=== PATIENT | male | born 2005 | race Caucasian/White ===

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

== ENCOUNTER 2025-01-07 12:57 | Emergency (ER) | payer MEDICAID, SELFPAY ==
[2025-01-07 12:57] VITALS: BP 129/84; PULSE 81; RESP 18; TEMP 36.4; O2SAT 99; BMI 28.4
[2025-01-07 13:57] VITALS: BP 128/78; PULSE 78; RESP 18; O2SAT 98
--- NOTE | 2025-01-07 13:59 | EDS_ITS ---
HPI HPI - Psych History of Present Illness Chief Complaint: Suicidal Informant: patient and family Narrative Narrative: Patient is a 19-year-old male with history of anxiety, depression and prior suicide attempt with hanging 4 to 5 years ago. He is presenting today at the recommendation of outpatient counseling, Billy, for psychiatric evaluation. Grandfather states that he had him evaluated they recommend he come to the ER. He acted like he had been seen today but when we called they stated that the patient was seen on Tuesday. Patient was discharged from [facility] after being in for 3 years 1 week ago. Patient has had a harder time adjusting since being discharged. He states I do not think I can make it. When asked if he would kill himself he gives a vague answer but does make a comment of he have thoughts that lead up to it. He also notes today he is just feeling generally weak, has a headache and his leg hurts. States that she started a couple hours ago. Also notes that he had trouble with his job placement officer today when he was found to be on the social media site is not supposed to be on. He has his first probation meeting at 3 PM today. That did seem to trigger him and make things worse. No other complaints or concerns reported at this time. Patient denies any HI, auditory visual hallucinations. [facility] Medical History Anxiety Club foot of both lower extremities Depression Home Medications ?Medication ?Instructions ?Recorded ?Last Taken ?Type aripiprazole 5 mg tablet 10 mg PO DAILY 09/09/20 Unkn own History benztropine 0.5 mg tablet 0.5 mg PO BID 05/16/21 Unkno wn History cetirizine 10 mg tablet 10 mg PO DAILY 05/16/21 Unkn own History bupropion HCl 75 mg tablet 75 mg PO DAILY 11/24/21 Unk nown History guanfacine 1 mg tablet 1 mg PO BID 11/24/21 Unknown History lamotrigine 25 mg tablet 25 mg PO BID 11/24/21 Unknow n History promethazine 25 mg tablet 25 mg PO Q6H PRN nausea and 11/24/21 Unknown Rx vomiting #14 tabs trazodone 100 mg tablet 100 mg PO DAILY 11/24/21 Unk nown History Allergy/AdvReac Type Severity Reaction Status Date / Time No Known Allergies Allergy Verified 01/07/25 12:57 Social History Smoking Status: Never smoker substance use type: does not use EXAM Physical Exam Const Vital Signs: 01/07/25 12:57 Temperature 97.6 F L Temperature Source Temporal Pulse Rate 81 Respiratory Rate 18 Blood Pressure 129/84 H Blood Pressure Mean 99 Pulse Ox 99 Oxygen Delivery Method Room Air Discharge Plan Triage Chief Complaint: Suicidal ED Provider: Spring Fragoso Dx/Rx/DC Orders Prescriptions: No Action bupropion HCl 75 mg tablet 75 mg PO DAILY trazodone 100 mg tablet 100 mg PO DAILY lamotrigine 25 mg tablet 25 mg PO BID guanfacine 1 mg tablet 1 mg PO BID promethazine 25 mg tablet 25 mg PO Q6H PRN (Reason: nausea and vomiting) Qty: 14 0RF aripiprazole 5 MG tablet 10 mg PO DAILY benztropine [Cogentin] 0.5 mg Tablet 0.5 mg PO BID cetirizine 10 mg Tablet 10 mg PO DAILY Primary Care Provider: Care Physician,No Primary Referrals: Care Physician,No Primary [Primary Care Provider] - Print Language: Irish
--- NOTE | 2025-01-07 13:59 | EX.ED.VIS.PS ---
HPI HPI - Psych History of Present Illness Chief Complaint: Suicidal Informant: patient and family Narrative Narrative: Patient is a 19-year-old male with history of anxiety, depression and prior suicide attempt with hanging 4 to 5 years ago. He is presenting today at the recommendation of outpatient counseling, Billy, for psychiatric evaluation. Grandfather states that he had him evaluated they recommend he come to the ER. He acted like he had been seen today but when we called they stated that the patient was seen on Tuesday. Patient was discharged from [facility] after being in for 3 years 1 week ago. Patient has had a harder time adjusting since being discharged. He states I do not think I can make it. When asked if he would kill himself he gives a vague answer but does make a comment of he have thoughts that lead up to it. He also notes today he is just feeling generally weak, has a headache and his leg hurts. States that she started a couple hours ago. Also notes that he had trouble with his gifts officer today when he was found to be on the social media site is not supposed to be on. He has his first probation meeting at 3 PM today. That did seem to trigger him and make things worse. No other complaints or concerns reported at this time. Patient denies any HI, auditory visual hallucinations. [facility] Medical History Anxiety Club foot of both lower extremities Depression Home Medications ?Medication ?Instructions ?Recorded ?Last Taken ?Type aripiprazole 5 mg tablet 10 mg PO DAILY 09/09/20 Unknown History benztropine 0.5 mg tablet 0.5 mg PO BID 05/16/21 Unknown History cetirizine 10 mg tablet 10 mg PO DAILY 05/16/21 Unknown History bupropion HCl 75 mg tablet 75 mg PO DAILY 11/24/21 Unknown History guanfacine 1 mg tablet 1 mg PO BID 11/24/21 Unknown History lamotrigine 25 mg tablet 25 mg PO BID 11/24/21 Unknown History promethazine 25 mg tablet 25 mg PO Q6H PRN nausea and 11/24/21 Unknown Rx vomiting #14 tabs trazodone 100 mg tablet 100 mg PO DAILY 11/24/21 Unknown History Allergy/AdvReac Type Severity Reaction Status Date / Time No Known Allergies Allergy Verified 01/07/25 12:57 Social History (Updated 01/07/25 @ 14:05 by Ramona Mills) household members: spouse and family housing: house Smoking Status: Never smoker substance use type: does not use ROS ROS ED Constitutional Constitutional ED: Reports other Details: fatigue Cardiovascular Cardiovascular: Denies chest pain Respiratory/Chest Respiratory/Chest: Denies cough Gastrointestinal Gastrointestinal: Denies abdominal pain or vomiting Musculoskeletal Musculoskeletal: Reports myalgias Integumentary Denies rash Neurologic Neurologic: Denies headache(s) or weakness Psychiatric Psychiatric: Reports anxiety, depression, suicidal ideation and suicidal thoughts EXAM Physical Exam Const Vital Signs: 01/07/25 12:57 01/07/25 13:57 Temperature 97.6 F L Temperature Source Temporal Pulse Rate 81 78 Respiratory Rate 18 18 Blood Pressure 129/84 H 128/78 H Blood Pressure Mean 99 94 Pulse Ox 99 98 Oxygen Delivery Method Room Air Positive well nourished and well developed General Appearance ED: well developed and NAD HEENT Reports moist mucous membranes Eyes PERRL Neck supple Resp normal respiratory effort and clear to auscultation bilaterally Cardio no murmurs Rate: regular rate Rhythm: regular rhythm GI non-tender and non-distended Extremity normal to inspection Neuro oriented x3 Sensorium / Orientation: alert Motor Exam: muscle tone normal throughout Psych cooperative Appearance: grossly normal Attitude: calm and withdrawn Activity / Motor Behavior: appropriate eye contact Speech: minimal Mood & Affect: depressed Thought Process: normal thought process Thought Content: suicidality, No delusion(s) and No hallucination(s) Attention / Concentration: attention grossly intact and concentration grossly intact Memory / Cognition: memory grossly intact Insight: fair Judgement: limited Skin Lesions: no lesions Rashes: no rashes MDM MDM MDM Narrative Medical decision making narrative: Patient evaluated for concern for depression and suicidal ideation. Patient and his grandfather do not feel safe with him at home. They are interested in psychiatric placement. Patient was just recently released from juvenile corrections and cellulitis had a hard time reintegrating. Medical clearance obtained. Patient is some slight polycythemia but otherwise lab work appears normal. Is medically cleared. Is evaluated by social work who does agree the patient bed from inpatient admission. Waiting on placement at this time. Patient reportedly has been prescribed multiple psychiatric medications in but has taken himself off of them. He is currently on any medications. Lab Data Attestation: I reviewed the patient's lab results. Labs: Laboratory Results - last 24 hr 01/07/25 01/07/25 13:16 13:45 WBC 7.6 RBC 6.49 H Hgb 18.3 H* Hct 53.9 MCV 83.1 MCH 28.2 MCHC 34.0 RDW Std Deviation 39.2 RDW Coeff of Aury 13.1 Plt Count 208 MPV 11.6 Immature Gran % (Auto) 0.400 Neut % (Auto) 63.9 Lymph % (Auto) 22.7 [place] % (Auto) 10.3 H Eos % (Auto) 2.0 Baso % (Auto) 0.7 Absolute Neuts (auto) 4.9 Absolute Lymphs (auto) 1.72 Nucleated RBC % 0 Sodium 138 Potassium 3.9 Chloride 101 Carbon Dioxide 25.1 Anion Gap 13 BUN 15 Creatinine 1.17 Estim Creat Clear Calc 118.10 Est GFR (MDRD) Non-Af 92 BUN/Creatinine Ratio 12.7 Glucose 90 Calcium 9.8 Total Bilirubin 0.58 AST 35 ALT 41 Alkaline Phosphatase 135 H Total Protein 7.8 Albumin 4.5 Globulin 3.2 Albumin/Globulin Ratio 1.4 Urine Opiates Screen NEGATIVE U Buprenorphine Qual NEGATIVE Ur Oxycodone Screen NEGATIVE Urine Methadone Screen NEGATIVE Urine Fentanyl Screen NEGATIVE Ur Barbiturates Screen NEGATIVE Ur Phencyclidine Scrn NEGATIVE Ur Amphetamines Screen NEGATIVE U Benzodiazepines Scrn NEGATIVE Urine Cocaine Screen NEGATIVE U Cannabinoids Screen NEGATIVE Ethyl Alcohol < 10.1 Management Discussion w/another healthcare provider: body shop worker/Case management Discharge Plan Triage Chief Complaint: Suicidal ED Provider: Spring Fragoso Dx/Rx/DC Orders Clinical Impression: Depression with suicidal ideation Prescriptions: No Action bupropion HCl 75 mg tablet 75 mg PO DAILY trazodone 100 mg tablet 100 mg PO DAILY lamotrigine 25 mg tablet 25 mg PO BID guanfacine 1 mg tablet 1 mg PO BID promethazine 25 mg tablet 25 mg PO Q6H PRN (Reason: nausea and vomiting) Qty: 14 0RF aripiprazole 5 MG tablet 10 mg PO DAILY benztropine [Cogentin] 0.5 mg Tablet 0.5 mg PO BID cetirizine 10 mg Tablet 10 mg PO DAILY Primary Care Provider: Care Physician,No Primary Referrals: Care Physician,No Primary [Primary Care Provider] - Print Language: Malay Disposition Disposition: Inpatient Rehab Unit/Facility
[2025-01-07 14:06] LABS: Absolute Lymphocyte Count 1.72 X10^3/uL (0.83-4.51); Absolute Neutrophil Count 4.9 X10^3/uL (2.0-7.7); Basophil# 0.05 X10^3/uL; Basophil% 0.7 % (0-1); Eosinophil# 0.15 X10^3/uL; Hematocrit 53.9 % (40-54); Hemoglobin 18.3 g/dL (13.0-16.5); Lymphocyte # 1.72 X10^3/ul (0.83-4.51); Lymphocyte % 22.7 % (19-41); Mean Corpuscular Hgb 28.2 pg (27.0-32.0); Mean Corpuscular Volume 83.1 fL (80-94); Mean Platelet Vol. 11.6 fl (6.2-12.0); Monocyte# 0.78 X10^3/uL; Monocyte% 10.3 % (0-10); NRBC Flagged by Analyzer 0 % (0-5); Neutrophil # 4.85 X10^3/uL (2.7-7.7); Neutrophil % 63.9 % (47-70); Platelet Count 208 K/mm3 (150-450); RBC Distribution Width CV 13.1 % (11.6-14.6); RBC Distribution Width SD 39.2 fl (35.1-43.9); Red Blood Count 6.49 M/mm3 (4.6-6.2)
[2025-01-07 14:22] LABS: Differential Indicated SCAN CRITERIA MET
[2025-01-07 14:38] LABS: White Blood Count 7.6 K/mm3 (4.4-11.0)
[2025-01-07 14:45] LABS: Amphetamine Urine NEGATIVE (<1000 ng/mL); Barbiturate Urine NEGATIVE (< 200 ng/mL); Benzodiazepine Urine NEGATIVE (< 200 ng/mL); Buprenorphine Urine NEGATIVE (< 200 ng/mL); Cocaine Urine NEGATIVE (< 300 ng/mL); Fentanyl, Urine NEGATIVE; Methadone Urine NEGATIVE (< 300 ng/mL); Opiates Urine NEGATIVE (< 300 ng/mL); Oxycodone, Urine NEGATIVE (< 100 ng/mL); PCP Urine NEGATIVE (< 25 ng/mL); THC Urine NEGATIVE (< 50 ng/mL)
[2025-01-07 14:47] LABS: Alcohol, Blood (Medical)-Serum < 10.1 mg/dL (<=10.0)
[2025-01-07 14:48] LABS: ALB/GLOB Ratio 1.4 RATIO (0.9-2.4); AST(SGOT) 35 U/L (<=37); Alanine Aminotransfer ALT/SGPT 41 U/L (<=46); Albumin, Serum 4.5 g/dL (3.5-5.0); Alkaline Phosphatase 135 U/L (40-129); Anion Gap 13 (5-15); BUN 15 mg/dL (4-19); BUN/Creat Ratio 12.7 RATIO (10-20); Calcium,Total 9.8 mg/dL (7.6-11.0); Carbon Dioxide 25.1 mmol/L (21.0-32.0); Chloride 101 mmol/L (98-108); Creatinine, Serum 1.17 mg/dL (0.70-1.20); EST Glomerular Filtration Rate 92 (>60); Globulin 3.2 g/dL (2.2-4.2); Glucose 90 mg/dL (70-99); Potassium 3.9 mmol/L (3.3-5.1); Protein, Total 7.8 g/dL (5.9-8.4); Sodium Level 138 mmol/L (133-145); Total Bilirubin 0.58 mg/dL (0.00-1.30)
--- NOTE | 2025-01-07 15:52 | EKG12_ITS ---
Test Reason : Blood Pressure : */* mmHG Vent. Rate : 96 BPM Atrial Rate : 96 BPM P-R Int : 110 ms QRS Dur : 88 ms QT Int : 312 ms P-R-T Axes : 48 19 -33 degrees QTcB Int : 394 ms Sinus rhythm with short [place] Nonspecific T wave abnormality Abnormal ECG Confirmed by Blayne Feng ([id number]), image editor JIE MENDEZ ([id number]) on 01/11/2025 1:22:00 PM Referred By: ESCOBAR/DORA Confirmed By: Blayne Feng
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
--- NOTE | 2025-01-07 16:17 | CM.ED ---
Social Work SW contacted [facility] who confirmed they have a male bed available. Referral sent. Parisa Hickey SPAR MACHINE OPERATOR HELPER, PLUMBER CUB
--- NOTE | 2025-01-07 17:09 | CM.ED ---
Social Work Patient was declined at [facility] due to acuity. [facility] contacted, open beds available. Referral sent. Plan: Inpatient psychiatric hospitalization pending acceptance. Parisa Hickey, HOE WORKER, HYBRID POWERTRAIN DEVELOPMENT ENGINEER
--- NOTE | 2025-01-07 17:29 | CM.ED ---
Social Work Patient was accepted at [facility], accepting is SUDHIR Cordova. Patient will be going to the [facility], Adult Behavioral Unit. Nurse to Nurse [phone] Option 1. [place] slip was faxed, both patient and grandfather were updated on accepting hospital. No further needs at this time. Parisa Hickey, HALL COORDINATOR, RIVETER [employer]OM[employer]LE [employer]RAKES
--- NOTE | 2025-01-07 17:34 | PCA ---
ACCEPTED AT [facility] ON THE ADULT BEHAVIORAL UNIT BY DR. KATHLEEN. PHYSICIANS WAS CALLED @ [phone] ETA [phone]
--- NOTE | 2025-01-07 17:34 | ED.RN ---
Physicians called and will be sending the [place] squad to cotton picker the pt. They come in at 7 so should be here by 8
[2025-01-07 19:00] VITALS: BP 130/90; PULSE 95; PULSE 97; RESP 18; TEMP 36.9; O2SAT 95
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
--- NOTE | 2025-01-07 20:29 | ED.RN ---
Attempted to call report, unable to reach staff at [facility].
== END 2025-01-07 20:15 ==
PROVIDERS: Emergency Provider Emergency Medicine; Visit Provider Emergency Medicine
DX: F32.A Depression, unspecified (principal); R45.851 Suicidal ideations
CPT/HCPCS: 80053; 80307; 82077; 85025; 93005; 99284

== ENCOUNTER 2025-02-28 10:53 | Emergency (ER) | payer MEDICAID, SELFPAY ==
[2025-02-28 10:54] VITALS: BP 135/89; PULSE 93; RESP 18; TEMP 36.6; O2SAT 99; BMI 31.2
--- NOTE | 2025-02-28 11:11 | EDS_ITS ---
HPI History of Present Illness Chief Complaint: Suicidal Narrative Narrative: Patient is a 19-year-old male past medical anxiety, depression who presented to the emergency department chief complaint of suicidal ideations. Patient states that he was hospitalized in the past for this. He states that he has had a lot of stress going on his life lately and states that his psychiatrist told him he could stop taking his medications yesterday and is unsure why they told him this. Patient states that this morning he had suicidal ideation and he states that he put a pair of pants around his neck but never hung himself. He states that he stopped and decided to start cutting his arms instead. Grandfather states that he was seeing his counselor this morning and they advised that he comes here to be further evaluated [facility] Medical History Club foot of both lower extremities Depression Anxiety Home Medications ?Medication ?Instructions ?Recorded ?Last Taken ?Type aripiprazole 5 mg tablet 10 mg PO DAILY 09/09/20 Unkn own History benztropine 0.5 mg tablet 0.5 mg PO BID 05/16/21 Unkno wn History cetirizine 10 mg tablet 10 mg PO DAILY 05/16/21 Unkn own History bupropion HCl 75 mg tablet 75 mg PO DAILY 11/24/21 Unk nown History guanfacine 1 mg tablet 1 mg PO BID 11/24/21 Unknown History lamotrigine 25 mg tablet 25 mg PO BID 11/24/21 Unknow n History promethazine 25 mg tablet 25 mg PO Q6H PRN nausea and 11/24/21 Unknown Rx vomiting #14 tabs trazodone 100 mg tablet 100 mg PO DAILY 11/24/21 Unk nown History Allergy/AdvReac Type Severity Reaction Status Date / Time No Known Allergies Allergy Verified 02/28/25 10:56 Social History household members: spouse and family housing: house Smoking Status: Never smoker substance use type: does not use ROS ROS ED ROS Narrative Constitutional: Denies headache, fevers, chills Eyes: Denies change in vision double vision blurry vision Cardiovascular: Denies chest pain or palpitations Respiratory: Denies coughing wheezing shortness of breath Abdomen: Denies abdominal pain nausea vomit diarrhea : Denies urinary symptoms Neurological: Denies numbness, weakness, tingling Musculoskeletal: Denies back pain Skin: Denies any rashes or lesions EXAM Physical Exam Narrative Exam Narrative: General: Patient lying in bed rest comfortably did not appear to be in acute distress Head: Atraumatic, normocephalic Eyes: PERRL bilaterally, EOMI bilateral, no conjunctival injection noted Neck: Soft, supple, trachea midline, nontender to palpation midline cervical spine no evidence of trauma to the neck Cardiovascular: Regular rate and rhythm no murmurs gallops rubs noted Respiratory: Clear to auscultation bilaterally Extremities: +5/5 strength noted in the bilateral upper and lower extremity, radial pulse +2/4 and about extremities, no pedal edema on exam Neurological: Patient follow commands knew that he was at [facility] year is 2024 Skin: Warm, dry, patient has superficial abrasions over the bilateral wrist no active bleeding noted no evidence of infection Const Vital Signs: 02/28/25 10:54 Temperature 98 F Temperature Source Oral Pulse Rate 93 Respiratory Rate 18 Blood Pressure 135/89 H Blood Pressure Mean 104 Pulse Ox 99 Oxygen Delivery Method Room Air MDM MDM MDM Narrative Medical decision making narrative: Patient is a 19-year-old male who presents to the emergency department the chief complaint of suicidal ideation. Patient will be medically cleared and then will be evaluated by social work team for placement. Patient's CBC reviewed showed no evidence leukocytosis white blood count normal at 7.5, hemoglobin of 18, platelet count of 217. Patient sodium normal 139, potassium normal 4.5, creatinine normal at 1.14. Patient's salicylate level less than 5 Tylenol level less than 5 drug screen was negative. Patient alcohol level less than 10. Patient was medically cleared social work evaluated patient and they will place him at [facility] under Dr. Cordova Patient notified is agreeable with plan all questions and concerns answered at bedside. Lab Data Labs: Laboratory Results - last 24 hr 02/28/25 11:19 WBC 7.5 RBC 6.43 H Hgb 18.0 H* Hct 52.7 MCV 82.0 MCH 28.0 MCHC 34.2 RDW Std Deviation 38.5 RDW Coeff of Aury 13.3 Plt Count 217 MPV 11.2 Immature Gran % (Auto) 0.700 Neut % (Auto) 62.4 Lymph % (Auto) 22.8 Chaves % (Auto) 10.4 H Eos % (Auto) 2.8 Baso % (Auto) 0.9 Absolute Neuts (auto) 4.7 Absolute Lymphs (auto) 1.71 Nucleated RBC % 0 Sodium 139 Potassium 4.5 Chloride 101 Carbon Dioxide 23.9 Anion Gap 13 BUN 15 Creatinine 1.14 Estim Creat Clear Calc 126.52 Est GFR (MDRD) Non-Af 95 BUN/Creatinine Ratio 13.1 Glucose 94 Calcium 10.1 Salicylates < 0.5 L Urine Opiates Screen NEGATIVE U Buprenorphine Qual NEGATIVE Ur Oxycodone Screen NEGATIVE Urine Methadone Screen NEGATIVE Urine Fentanyl Screen NEGATIVE Acetaminophen < 5.0 L Ur Barbiturates Screen NEGATIVE Ur Phencyclidine Scrn NEGATIVE Ur Amphetamines Screen NEGATIVE U Benzodiazepines Scrn NEGATIVE Urine Cocaine Screen NEGATIVE U Cannabinoids Screen NEGATIVE Ethyl Alcohol < 10.1 Discharge Plan Triage Chief Complaint: Suicidal ED Provider: Ryan Hunt Dx/Rx/DC Orders Clinical Impression: Suicidal ideation, Superficial abrasion Prescriptions: No Action bupropion HCl 75 mg tablet 75 mg PO DAILY trazodone 100 mg tablet 100 mg PO DAILY lamotrigine 25 mg tablet 25 mg PO BID guanfacine 1 mg tablet 1 mg PO BID promethazine 25 mg tablet 25 mg PO Q6H PRN (Reason: nausea and vomiting) Qty: 14 0RF aripiprazole 5 MG tablet 10 mg PO DAILY benztropine [Cogentin] 0.5 mg Tablet 0.5 mg PO BID cetirizine 10 mg Tablet 10 mg PO DAILY Primary Care Provider: Care Physician,No Primary Referrals: Care Physician,No Primary [Primary Care Provider] - Print Language: Vietnamese Disposition Disposition: Psychiatric Hospital or Unit
[2025-02-28 11:31] LABS: Absolute Lymphocyte Count 1.71 X10^3/uL (0.83-4.51); Absolute Neutrophil Count 4.7 X10^3/uL (2.0-7.7); Basophil# 0.07 X10^3/uL; Basophil% 0.9 % (0-1); Eosinophil# 0.21 X10^3/uL; Eosinophils% 2.8 % (0-5); Hematocrit 52.7 % (40-54); Lymphocyte # 1.71 X10^3/ul (0.83-4.51); Lymphocyte % 22.8 % (19-41); Mean Corp Hgb Conc 34.2 g/dL (32-36); Mean Platelet Vol. 11.2 fl (6.2-12.0); Monocyte# 0.78 X10^3/uL; Monocyte% 10.4 % (0-10); NRBC Flagged by Analyzer 0 % (0-5); Neutrophil # 4.69 X10^3/uL (2.7-7.7); Neutrophil % 62.4 % (47-70); Platelet Count 217 K/mm3 (150-450); RBC Distribution Width CV 13.3 % (11.6-14.6); RBC Distribution Width SD 38.5 fl (35.1-43.9); Red Blood Count 6.43 M/mm3 (4.6-6.2); White Blood Count 7.5 K/mm3 (4.4-11.0)
[2025-02-28 11:43] LABS: Differential Indicated SCAN CRITERIA MET
[2025-02-28 12:06] LABS: Acetaminophen (Tylenol) Level < 5.0 ug/mL (8.0-19.0); Alcohol, Blood (Medical)-Serum < 10.1 mg/dL (<=10.0); Salicylate < 0.5 mg/dL (2.8-20.0)
[2025-02-28 12:14] LABS: Anion Gap 13 (5-15); BUN 15 mg/dL (4-19); BUN/Creat Ratio 13.1 RATIO (10-20); Calcium,Total 10.1 mg/dL (7.6-11.0); Carbon Dioxide 23.9 mmol/L (21.0-32.0); Chloride 101 mmol/L (98-108); Creatinine, Serum 1.14 mg/dL (0.70-1.20); EST Glomerular Filtration Rate 95 (>60); Estimated Creatinine Clearance 126.52 ml/min (50-250); Glucose 94 mg/dL (70-99); Potassium 4.5 mmol/L (3.3-5.1); Sodium Level 139 mmol/L (133-145)
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
[2025-02-28 12:20] LABS: Amphetamine Urine NEGATIVE (<1000 ng/mL); Barbiturate Urine NEGATIVE (< 200 ng/mL); Benzodiazepine Urine NEGATIVE (< 200 ng/mL); Buprenorphine Urine NEGATIVE (< 200 ng/mL); Cocaine Urine NEGATIVE (< 300 ng/mL); Fentanyl, Urine NEGATIVE; Methadone Urine NEGATIVE (< 300 ng/mL); Opiates Urine NEGATIVE (< 300 ng/mL); Oxycodone, Urine NEGATIVE (< 100 ng/mL); PCP Urine NEGATIVE (< 25 ng/mL); THC Urine NEGATIVE (< 50 ng/mL)
--- NOTE | 2025-02-28 13:03 | CM.ED ---
Social Work Patient was accepted to [facility], admitting is [facility], patient will be going to [facility] unit, N2N = [phone]. [place] slip sent. Patient notified. Parisa Hickey, CHUTE TAPPER, BAGGING MACHINE OPERATOR
--- NOTE | 2025-02-28 13:15 | CM.ED ---
Social Work With patients permission, grandfather was updated on accepting facility and transport time. No further needs at this time. Parisa Hickey, HAZARDOUS MATERIAL TECHNICIAN, JEWELRY MAKER
[2025-02-28 13:35] VITALS: BP 145/96; PULSE 99; RESP 18; TEMP 36.6; O2SAT 99
[2025-02-28 13:36] VITALS: BP 145/96; PULSE 99; RESP 18; TEMP 36.6; O2SAT 99
== END 2025-02-28 14:41 ==
PROVIDERS: Emergency Provider Emergency Medicine; Visit Provider Emergency Medicine
DX: R45.851 Suicidal ideations (principal); X83.8XXA Intentional self-harm by other specified means, initial encounter; S60.811A Abrasion of right wrist, initial encounter; S60.812A Abrasion of left wrist, initial encounter; F41.9 Anxiety disorder, unspecified; F32.A Depression, unspecified; Z79.899 Other long term (current) drug therapy
CPT/HCPCS: 80048; 80143; 80179; 80307; 82077; 85025; 99284

== ENCOUNTER 2025-03-27 18:43 | Emergency (ER) | payer MEDICAID, SELFPAY ==
[2025-03-27 18:43] VITALS: BP 133/83; PULSE 85; RESP 18; TEMP 37; O2SAT 99; BMI 32.8
--- NOTE | 2025-03-27 19:25 | EX.ED.VIS.PS ---
HPI HPI - Psych History of Present Illness Chief Complaint: Suicidal Narrative Narrative: 19-year-old male past medical history of depression and anxiety on multiple medications presents with his grandfather because of suicidal ideation. Currently he has no plan but they report that he has had multiple attempts in the past. He was hospitalized in the psychiatric facility for 3 years, then discharged. Approximately 3 to 4 weeks ago he was admitted at [facility] for suicidal ideation and depression. He had taken a pair pants and tied them around his neck and attempt to hang himself but he never did. His grandfather relays history that [facility] had discharged him because he was supposed to have a hearing in [facility]. They had dropped him off at around 11:00 in the morning but the hearing was not until the afternoon. However, it was learned that the body sander had canceled the hearing reportedly that was to be held in [facility] because grandfather reports that it was actually supposed to be in [facility]. He has been living with his grandparents for the last week. They are uncomfortable in taking care of him and fear that he will attempt suicide again because he has stated to his grandfather multiple times that he is bored and they do not do activities with him. He is also made statements about suicidality to them. [facility] Medical History Club foot of both lower extremities Depression Anxiety Home Medications Medication Instructions Recorded Last Taken Type aripiprazole 10 mg tablet 10 mg PO QHS 03/27/25 Unknown History buspirone 7.5 mg tablet 7.5 mg PO TID 03/27/25 Unknown History divalproex 250 mg tablet,delayed 250 mg PO BID 03/27/25 Unknown History release doxepin 10 mg capsule 10 mg PO QHS 03/27/25 Unknown History escitalopram oxalate 10 mg tablet 10 mg PO QHS 03/27/25 Unknown History hydroxyzine HCl 50 mg tablet 50 mg PO Q6H PRN 03/27/25 Unknown History propranolol 10 mg tablet 10 mg PO BID PRN 03/27/25 Unknown History Allergy/AdvReac Type Severity Reaction Status Date / Time No Known Allergies Allergy Verified 03/27/25 18:45 Social History household members: spouse and family housing: house Smoking Status: Never smoker substance use type: does not use ROS ROS ED ROS Narrative Review of systems positive for suicidal ideation, currently with no plan. Denies any somatic complaints. States he is hungry. EXAM Physical Exam Narrative Exam Narrative: Afebrile. Vital signs noted. Nontoxic-appearing. Cardiovascular examination regular rate and rhythm. Lungs clear to auscultation bilaterally. Abdomen is soft and nontender without guarding or rebound. Neurological examination nonfocal, nonlateralizing, moves all extremities. Psychiatric examination shows suicidality but no plan, flat affect. Const Vital Signs: 03/27/25 18:43 03/27/25 19:43 Temperature 98.6 F Temperature Source Oral Pulse Rate 85 86 Respiratory Rate 18 15 Blood Pressure 133/83 H 120/77 Blood Pressure Mean 99 91 Pulse Ox 99 95 Oxygen Delivery Method Room Air Room Air MDM MDM MDM Narrative Medical decision making narrative: I reviewed the patient's prior ED visit. He was placed at [facility] at the end of February, almost 1 month ago. Medical screening labs will be obtained. Once medically cleared, he will be evaluated either by case management versus crisis. Medical screening labs were obtained and reviewed. He has slightly hemoconcentrated hemoglobin of 16.6 which I think is nonspecific, normal white count 7.3, platelet count normal at 183. CMP remarkable for slightly elevated AST and ALT of 45 and 57 respectively. This is nonspecific as well. Serum alcohol level is negative. Urine for drugs of abuse also negative. At this point in time, I do feel he is medically cleared for evaluation by social work/case management. In discussion with case management, they have seen him previously. Additionally, they state that the patient is unable to live with other members of his family. After discharge from the facility where he was for 3 years, he has lived with his grandparents for about 6 months reportedly. After evaluation, they will work on placement, however, his grandfather was told that if unsuccessful, that he will need to be discharged back into his custody tomorrow morning if placement is unsuccessful. Patient will be signed out to the overnight physician to continue observation while placement in a psychiatric facility is attempted. Currently, patient is in stable condition. History & Record Review Discussion w/independent historian: Patient and Family (Grandfather) Additional record(s) reviewed:: Prior ED visit (Medically cleared then sent to [facility] on last visit) Lab Data Attestation: I reviewed the patient's lab results. Labs: Laboratory Results - last 24 hr 03/27/25 19:00 WBC 7.3 RBC 5.88 Hgb 16.6 H Hct 48.7 MCV 82.8 MCH 28.2 MCHC 34.1 RDW Std Deviation 39.6 RDW Coeff of Aury 13.2 Plt Count 183 MPV 11.4 Immature Gran % (Auto) 0.700 Neut % (Auto) 46.4 L Lymph % (Auto) 34.5 Hale % (Auto) 12.2 H Eos % (Auto) 5.0 Baso % (Auto) 1.2 H Absolute Neuts (auto) 3.4 Absolute Lymphs (auto) 2.51 Nucleated RBC % 0 Sodium 140 Potassium 4.3 Chloride 103 Carbon Dioxide 22.2 Anion Gap 15 BUN 17 Creatinine 1.07 Estim Creat Clear Calc 138.07 Est GFR (MDRD) Non-Af 103 BUN/Creatinine Ratio 16.0 Glucose 88 Calcium 9.6 Total Bilirubin 0.19 AST 45 H ALT 57 H Alkaline Phosphatase 100 Total Protein 6.9 Albumin 4.3 Globulin 2.6 Albumin/Globulin Ratio 1.7 Urine Opiates Screen NEGATIVE U Buprenorphine Qual NEGATIVE Ur Oxycodone Screen NEGATIVE Urine Methadone Screen NEGATIVE Urine Fentanyl Screen NEGATIVE Ur Barbiturates Screen NEGATIVE Ur Phencyclidine Scrn NEGATIVE Ur Amphetamines Screen NEGATIVE U Benzodiazepines Scrn NEGATIVE Urine Cocaine Screen NEGATIVE U Cannabinoids Screen NEGATIVE Ethyl Alcohol < 10.1 Discharge Plan Triage Chief Complaint: Suicidal ED Provider: Nain Mercer Dx/Rx/DC Orders Prescriptions: No Action divalproex 250 mg tablet,delayed release (DR/EC) 250 mg PO BID hydroxyzine HCl 50 mg tablet 50 mg PO Q6H PRN doxepin 10 mg capsule 10 mg PO QHS buspirone 7.5 mg tablet 7.5 mg PO TID escitalopram oxalate 10 mg tablet 10 mg PO QHS aripiprazole 10 mg tablet 10 mg PO QHS propranolol 10 mg tablet 10 mg PO BID PRN Primary Care Provider: Care Physician,No Primary Referrals: Care Physician,No Primary [Primary Care Provider] - Print Language: Tuvaluan
[2025-03-27 19:43] VITALS: BP 120/77; PULSE 86; RESP 15; O2SAT 95
[2025-03-27 19:57] LABS: Hematocrit 48.7 % (40-54); Hemoglobin 16.6 g/dL (13.0-16.5); Immature Granulocytes Count 0.050 X10^3/uL (0.0-0.0); Mean Corp Hgb Conc 34.1 g/dL (32-36); Mean Corpuscular Volume 82.8 fL (80-94); Mean Platelet Vol. 11.4 fl (6.2-12.0); NRBC Flagged by Analyzer 0 % (0-5); Platelet Count 183 K/mm3 (150-450); RBC Distribution Width CV 13.2 % (11.6-14.6); RBC Distribution Width SD 39.6 fl (35.1-43.9); Red Blood Count 5.88 M/mm3 (4.6-6.2); White Blood Count 7.3 K/mm3 (4.4-11.0)
[2025-03-27 20:07] LABS: AST(SGOT) 45 U/L (<=37); Alanine Aminotransfer ALT/SGPT 57 U/L (<=46); Albumin, Serum 4.3 g/dL (3.5-5.0); Alcohol, Blood (Medical)-Serum < 10.1 mg/dL (<=10.0); Alkaline Phosphatase 100 U/L (40-129); Anion Gap 15 (5-15); BUN 17 mg/dL (4-19); BUN/Creat Ratio 16.0 RATIO (10-20); Barbiturate Urine NEGATIVE (< 200 ng/mL); Benzodiazepine Urine NEGATIVE (< 200 ng/mL); Calcium,Total 9.6 mg/dL (7.6-11.0); Carbon Dioxide 22.2 mmol/L (21.0-32.0); Chloride 103 mmol/L (98-108); Estimated Creatinine Clearance 138.07 ml/min (50-250); Globulin 2.6 g/dL (2.2-4.2); Glucose 88 mg/dL (70-99); PCP Urine NEGATIVE (< 25 ng/mL); Potassium 4.3 mmol/L (3.3-5.1); THC Urine NEGATIVE (< 50 ng/mL)
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
--- NOTE | 2025-03-27 21:18 | CM.ED ---
Social Work Social contacted [facility] to see if they had open beds, they will not have a bed until tomorrow. SHILA called [facility], phone rang with no answer. Contacted [facility], they do have open bed. Referral sent. Plan: Inpatient psychiatric hospitalization pending acceptance. Parisa Hickey, HOUSING LIAISON, PLANT HEALTH MANAGER
--- NOTE | 2025-03-27 22:54 | ED.RN ---
pt refusing to take home medications. Dr. Mercer made aware
--- NOTE | 2025-03-27 23:45 | PCA ---
REFERRED TO [facility]
--- NOTE | 2025-03-27 23:52 | PCA ---
PT ACCEPTED TO [facility] [address] [phone] OPT 1 LOCAL [facility] SET UP FOR TRANSPORT
[2025-03-28 03:57] VITALS: BP 110/55; PULSE 86; RESP 16; O2SAT 95
[2025-03-28 04:25] VITALS: BP 110/55; PULSE 86; RESP 16; TEMP 36.6; O2SAT 95
[2025-03-28 08:17] VITALS: BP 114/70; PULSE 90; RESP 18; TEMP 36.4; O2SAT 95
== END 2025-03-28 08:44 ==
LOC: ED 19:39
PROVIDERS: Emergency Provider Emergency Medicine; Referring Provider Emergency Medicine; Visit Provider Emergency Medicine
DX: R45.851 Suicidal ideations (principal); F41.9 Anxiety disorder, unspecified; F32.A Depression, unspecified; Z79.899 Other long term (current) drug therapy
CPT/HCPCS: 80053; 80307; 82077; 85025; 99284

== ENCOUNTER 2025-06-17 11:08 | Emergency (ER) | payer MEDICAID, SELFPAY ==
[2025-06-17] VITALS (8 sets, daily range): BP systolic 127–138; BP diastolic 74–83; PULSE 74–89; RESP 16–17; TEMP 36.6; O2SAT 95–99; BMI 34.2
[2025-06-17 12:23] LABS: Hematocrit 51.7 % (40-54); Hemoglobin 17.7 g/dL (13.0-16.5); Immature Granulocytes Count 0.040 X10^3/uL (0.0-0.0); Mean Corp Hgb Conc 34.2 g/dL (32-36); Mean Corpuscular Volume 84.3 fL (80-94); Mean Platelet Vol. 11.6 fl (6.2-12.0); NRBC Flagged by Analyzer 0 % (0-5); Platelet Count 188 K/mm3 (150-450); RBC Distribution Width CV 13.2 % (11.6-14.6); RBC Distribution Width SD 40.6 fl (35.1-43.9); Red Blood Count 6.13 M/mm3 (4.6-6.2); White Blood Count 5.5 K/mm3 (4.4-11.0)
--- NOTE | 2025-06-17 12:27 | CT_ITS ---
PROCEDURE: ABDOMEN/PELVIS W IV CONT ONLY 06/17/2025 REASON FOR EXAM: SWALLOWED FISHHOOK TECHNIQUE: Procedure Code: [id number] Modality: CT Procedure: ABDOMEN/PELVIS W IV CONT ONLY Coronal and Sagittal reconstruction series were provided. CONTRAST: Isovue-300 VOLUME: 100 mL One or more dose reduction techniques were used (e.g., Automated exposure control, adjustment of the mA and/or kV according to patient size, use of iterative reconstruction technique. RADIATION DOSE SUMMARY: CTDlvol: 19 mGy DLP: 2674.55 mGycm COMPARISON: None FINDINGS: Lung bases: Lung bases are clear. Small hiatal hernia. Liver: Diffuse fatty infiltration. Gallbladder: The gallbladder is not seen. It may be contracted. Spleen: Borderline splenomegaly. Pancreas: Normal size without evidence of mass surrounding inflammation or ductal dilation. Adrenals: Unremarkable Kidneys: Normal renal sizes. No hydronephrosis. Bladder: Unremarkable Bowel: Linear radiopacities are seen within the small bowel loops in the left midabdomen suggestive of foreign bodies. Appendix: The appendix is unremarkable. Lymph nodes: Unremarkable. Vasculature: The abdominal aorta and IVC are normal. Peritoneum / Retroperitoneum: Unremarkable Bones: Unremarkable CT/Abdomen/Pelvis W IV Cont ONLY IMPRESSION: Findings suggestive of linear foreign bodies in the small bowel loops in the le ft midabdomen. Reading Location: [place] [id number]
--- NOTE | 2025-06-17 12:27 | CT_ITS ---
PROCEDURE: SOFT TISSUE NECK WITH CONTRAST 06/17/2025 REASON FOR EXAM: SWALLOWED PATIENT Patient's swallowed fishing hooks. TECHNIQUE: Procedure Code: CTNEW Modality: CT Procedure: SOFT TISSUE NECK WITH CONTRAST CONTRAST: Isovue-300 VOLUME: 100 mL One or more dose reduction techniques were used (e.g., Automated exposure control, adjustment of the mA and/or kV according to patient size, use of iterative reconstruction technique). RADIATION DOSE SUMMARY: CTDlvol: 15.20 mGy DLP: 7.6 mGycm COMPARISON: None FINDINGS: Airway: Midline and patent. No radiopaque foreign body is seen. Salivary glands: Unremarkable. Lymph nodes: No cervical lymphadenopathy. Thyroid: Unremarkable. Vasculature: Carotid arteries and internal jugular veins are unremarkable. Orbits: Unremarkable at visualized levels. Paranasal sinuses and mastoids: Grossly clear at visualized levels. Lung apices: Clear. Upper mediastinum: Visualized mediastinum is unremarkable. Bones: Unremarkable. Other: CT/Soft Tissue Neck WITH Contrast IMPRESSION: NO ACUTE FINDINGS. No radiopaque foreign body is seen. Reading Location: [place] [id number]
--- NOTE | 2025-06-17 12:27 | CT_ITS ---
PROCEDURE: CHEST WITH CONTRAST 06/17/2025 REASON FOR EXAM: SWALLOWED FISHHOOK TECHNIQUE: Procedure Code: CTCHW Modality: CT Procedure: CHEST WITH CONTRAST Coronal and Sagittal reconstruction series were provided. CONTRAST: Isovue-300 VOLUME: 100 mL One or more dose reduction techniques were used (e.g., Automated exposure control, adjustment of the mA and/or kV according to patient size, use of iterative reconstruction technique). RADIATION DOSE SUMMARY: CTDlvol: 19.84 mGy DLP: 664.24 mGycm COMPARISON: None FINDINGS: Hardware: None Lymph nodes: No mediastinal hilar or axillary lymphadenopathy. Heart and Vasculature: Normal heart size. No pericardial effusion. Thoracic aorta and pulmonary arteries are unremarkable. Lungs and Airways: The lungs are normally expanded and clear. No septal thickening nodules or abnormal pulmonary opacities. Pleura: No pleural effusion. Upper Abdomen: Fatty infiltration of the liver. Bones: Bone windows are unremarkable. CT/Chest WITH Contrast IMPRESSION: Coronary artery calcification (CAC) is is absent No radiopaque foreign body is seen. Fatty infiltration of the liver. Reading Location: [place] [address]
[2025-06-17 12:48] LABS: Barbiturate Urine NEGATIVE (< 200 ng/mL); Benzodiazepine Urine NEGATIVE (< 200 ng/mL); PCP Urine NEGATIVE (< 25 ng/mL); THC Urine NEGATIVE (< 50 ng/mL)
--- NOTE | 2025-06-17 12:49 | EX.ED.DYSGE1 ---
HPI History of Present Illness Chief Complaint: Suicidal Narrative Narrative: Chief complaint and HPI: 19-year-old male with past medical history of depression, anxiety presents for evaluation of suicidal ideation. Patient is currently living at the [facility]. States he has been having progressive thoughts of suicide and depression. States today he swallowed a fishing hook and attempt to kill himself. He is tolerating his secretions. Has not ate or drink since swallowing the hook however feels that it may be stuck in his esophagus. He denies any visual or auditory hallucinations. Denies any homicidal ideation. Denies any fever, chills, shortness of breath, chest pain, abdominal pain, nausea, vomiting. Review of systems: See HPI Medications: As listed on the chart Allergies: As listed on the chart PFSH: Per chart Vital signs: As listed on the chart. Reviewed. Physical exam: Gen: A&O x3, NAD Head: Normocephalic, atraumatic Eyes: No sclera icterus, conjunctiva clear, PERRL, EOMI ENT: Moist mucous membranes, posterior oropharynx unremarkable, uvula midline, tonsils not enlarged, tolerating secretions, normal phonation Neck: Trachea midline, Full ROM, No swelling, no stridor CV: RRR, no murmurs Resp: Lungs CTA BL, no w/r/c GI: Abd soft, non-distended, non-tender, no r/r/g Musc: Full ROM, no deformity Skin: Warm, dry Neuro: Alert, oriented, grossly intact, sensation intact Psych: [facility] Medical History Club foot of both lower extremities Depression Anxiety Home Medications ?Medication ?Instructions ?Recorded ?Last Taken ?Type aripiprazole 10 mg tablet 10 mg PO QHS 03/27/25 Unknown History doxepin 10 mg capsule 10 mg PO QHS 03/27/25 Unknown History escitalopram oxalate 10 mg tablet 10 mg PO QHS 03/27/25 Unknown History hydroxyzine HCl 50 mg tablet 50 mg PO Q6H PRN 03/27/25 Unknown History propranolol 10 mg tablet 10 mg PO BID PRN 03/27/25 Unknown History buspirone 15 mg tablet 15 mg PO BID 06/17/25 Unknown History cholecalciferol (vitamin D3) 25 25 mcg PO DAILY 06/17/25 Unknown History mcg (1,000 unit) capsule divalproex 250 mg tablet,extended PO 06/17/25 Unknown History release 24 hr divalproex 500 mg tablet,extended 1,000 mg PO QHS 06/17/25 Unknown History release 24 hr metformin 500 mg tablet 500 mg PO BID 06/17/25 Unknown History trazodone 100 mg tablet 100 mg PO QHS 06/17/25 Unknown History trazodone 50 mg tablet 50 mg PO QHS 06/17/25 Unknown History Allergy/AdvReac Type Severity Reaction Status Date / Time No Known Allergies Allergy Verified 06/17/25 11:08 Social History household members: spouse and family housing: house Smoking Status: Never smoker substance use type: does not use EXAM Physical Exam Const Vital Signs: 06/17/25 11:08 06/17/25 12:11 06/17/25 13:00 Temperature 97.9 F Temperature Source Oral Pulse Rate 74 82 Respiratory Rate 16 16 Respiratory Effort Normal Respiratory Pattern Normal Blood Pressure 136/83 H 132/83 H Blood Pressure Mean 100 99 Pulse Ox 99 98 Oxygen Delivery Method Room Air Room Air 06/17/25 14:19 06/17/25 16:42 Temperature Temperature Source Pulse Rate 74 87 Respiratory Rate Respiratory Effort Respiratory Pattern Blood Pressure 138/80 H 138/83 H Blood Pressure Mean 99 101 Pulse Ox 97 Oxygen Delivery Method Room Air MDM MDM MDM Narrative Medical decision making narrative: 19-year-old male with past medical history of depression, anxiety presents for evaluation of suicidal ideation. Patient is currently living at the [facility]. States he has been having progressive thoughts of suicide and depression. States today he swallowed a fishing hook and attempt to kill himself. He is tolerating his secretions. Has not ate or drink since swallowing the hook however feels that it may be stuck in his esophagus. On presentation, patient no acute distress. Differential diagnosis includes but is not limited to stuck foreign body, esophageal perforation, bowel perforation, suicidal ideation, depression, anxiety, electrolyte abnormality. Patient placed on suicide precautions. [place] slipped. CT neck, chest, abdomen and pelvis ordered to assess for foreign body and possible complication. NS bolus ordered. Laboratory workup ordered. Social work consulted. CBC without leukocytosis or anemia. BMP unremarkable. Urine drug screen negative. Alcohol level negative. CT of the neck without any acute abnormalities. CT of the chest without any acute abnormality. CT abdomen pelvis shows findings suggestive of linear foreign bodies in the small bowel loops in the left mid abdomen. This is likely the swallowed fishhook. Given the retained foreign body, I spoke with Dr. Jordan our general surgeon. He recommends that the patient be transferred to a facility that contains psychiatry as well as surgery for observation and further management. [facility] was consulted. While waiting for [facility], patient started to complain of mild epigastric abdominal pain. Repeat abdominal exam is benign. Morphine and Zofran ordered. Patient has had a delay transfer secondary to [facility] not able to receive her imaging. They finally received her imaging and now are awaiting GI and surgery recommendations. Patient's GI and surgery both reviewed the imaging and no acute intervention needed at this time just observation for transfer line however given that we do not have psychiatry patient will still need to be transferred for observation. Transfer line will continue to work on transfer. Patient signed out to oncoming provider. Impression: 1. Suicidal ideation 2. Retained fishhook in the small intestines Lab Data Labs: Laboratory Results - last 24 hr 06/17/25 06/17/25 11:56 12:06 WBC 5.5 RBC 6.13 Hgb 17.7 H Hct 51.7 MCV 84.3 MCH 28.9 MCHC 34.2 RDW Std Deviation 40.6 RDW Coeff of Aury 13.2 Plt Count 188 MPV 11.6 Immature Gran % (Auto) 0.700 Neut % (Auto) 46.6 L Lymph % (Auto) 35.8 Wetzel % (Auto) 11.8 H Eos % (Auto) 4.0 Baso % (Auto) 1.1 H Absolute Neuts (auto) 2.6 Absolute Lymphs (auto) 1.98 Nucleated RBC % 0 Sodium 140 Potassium 4.4 Chloride 102 Carbon Dioxide 26.1 Anion Gap 11 BUN 12 Creatinine 1.15 Estim Creat Clear Calc 131.25 Est GFR (MDRD) Non-Af 94 BUN/Creatinine Ratio 10.2 Glucose 87 Calcium 9.7 Urine Opiates Screen NEGATIVE U Buprenorphine Qual NEGATIVE Ur Oxycodone Screen NEGATIVE Urine Methadone Screen NEGATIVE Urine Fentanyl Screen NEGATIVE Ur Barbiturates Screen NEGATIVE Ur Phencyclidine Scrn NEGATIVE Ur Amphetamines Screen NEGATIVE U Benzodiazepines Scrn NEGATIVE Urine Cocaine Screen NEGATIVE U Cannabinoids Screen NEGATIVE Ethyl Alcohol < 10.1 Radiography Diagnostic Testing: Clinical Impression(s) from Imaging Studies Abdomen/Pelvis CT 06/17/25 12:27 IMPRESSION: Findings suggestive of linear foreign bodies in the small bowel loops in the left midabdomen. Reading Location: [facility]-[address] 06/17/25 12:27 IMPRESSION: Coronary artery calcification (CAC) is is absent No radiopaque foreign body is seen. Fatty infiltration of the liver. [facility] 06/17/25 12:27 IMPRESSION: NO ACUTE FINDINGS. No radiopaque foreign body is seen. Reading Location: [facility]- Discharge Plan Triage Chief Complaint: Suicidal Other Complaint: Foreign Body ED Provider: Saji Kendrick Dx/Rx/DC Orders Prescriptions: No Action hydroxyzine HCl 50 mg tablet 50 mg PO Q6H PRN doxepin 10 mg capsule 10 mg PO QHS escitalopram oxalate 10 mg tablet 10 mg PO QHS aripiprazole 10 mg tablet 10 mg PO QHS propranolol 10 mg tablet 10 mg PO BID PRN metformin 500 mg tablet 500 mg PO BID trazodone 50 mg tablet 50 mg PO QHS trazodone 100 mg tablet 100 mg PO QHS divalproex 500 mg tablet extended release 24 hr 1,000 mg PO QHS buspirone 15 mg tablet 15 mg PO BID cholecalciferol (vitamin D3) 25 mcg (1,000 unit) capsule 25 mcg PO DAILY divalproex 250 mg tablet extended release 24 hr PO Primary Care Provider: Care Physician,No Primary Referrals: Care Physician,No Primary [Primary Care Provider, Medical] Print Language: Vietnamese
[2025-06-17] MEDS: 0.9% Normal Saline (1000mL) 1,000 ML 1000 ML IV (12:51)
[2025-06-17 12:52] LABS: Anion Gap 11 (5-15); BUN 12 mg/dL (4-19); BUN/Creat Ratio 10.2 RATIO (10-20); Calcium,Total 9.7 mg/dL (7.6-11.0); Carbon Dioxide 26.1 mmol/L (21.0-32.0); Chloride 102 mmol/L (98-108); Estimated Creatinine Clearance 131.25 ml/min (50-250); Glucose 87 mg/dL (70-99); Potassium 4.4 mmol/L (3.3-5.1)
[2025-06-17 13:04] LABS: Alcohol, Blood (Medical)-Serum < 10.1 mg/dL (<=10.0)
--- NOTE | 2025-06-17 14:10 | CM.ED ---
Social work Reason for referral: mental health Referral source: Dr Kendrick SW received consult for patient's mental health and suicidal ideation. Per triage, patient swallowed a fishing hook with intent to . In conversation with Dr Kendrick, patient reportedly swallowed a fishing hook and imaging was needed to be able to see where the hook was if this was indeed the truth. Dr Kendrick stated desire to have SW wait for imaging results prior to assessing; sitter was present and pink slip was written. Imaging showed fish hook in patient's small intestine and patient will require transfer to a different hospital. SW to remain available as needed. Linda Bustamante, AUTOMOBILE REPAIR SERVICE ESTIMATOR, SURVEY CHIEF
--- NOTE | 2025-06-17 14:42 | ED.RN ---
THis rn attempted to call Roque Ayon for consent to treat. He did not answer again but [facility] he has a number for his lasting room supervisor (Mariza ePrdomo [phone]). This RN called Mariza and updated her and she gave consent to treat and stated she would call patients [facility].
--- NOTE | 2025-06-17 19:37 | PCA ---
Called [facility] transfer line, spoke to Vlad to remove pt from wait list as he is accepted at [facility].
[2025-06-17] MEDS: Divalproex (ER) 250 MG Tablet 750 MG PO (22:50)
[2025-06-18 00:06] VITALS: BP 97/50; PULSE 66; O2SAT 93
== END 2025-06-18 00:33 | disposition short-term general hospital (02) ==
PROVIDERS: Emergency Provider Surgery; Visit Provider Surgery
DX: R45.851 Suicidal ideations (principal); X83.8XXA Intentional self-harm by other specified means, initial encounter; T18.3XXA Foreign body in small intestine, initial encounter; F41.9 Anxiety disorder, unspecified; F32.A Depression, unspecified; Z79.899 Other long term (current) drug therapy
CPT/HCPCS: 70491; 71260; 74177; 80048; 80307; 82077; 85025; 96361; 96374; 99285; Q9967; A4216

== ENCOUNTER 2025-07-09 15:39 | Emergency (ER) | payer MEDICAID, SELFPAY ==
[2025-07-09 15:40] VITALS: BP 152/90; PULSE 103; RESP 16; TEMP 36.9; O2SAT 99; BMI 36.1
--- NOTE | 2025-07-09 16:04 | EKG12_ITS ---
Test Reason : CP Blood Pressure : */* mmHG Vent. Rate : 94 BPM Atrial Rate : 94 BPM P-R Int : 116 ms QRS Dur : 94 ms QT Int : 346 ms P-R-T Axes : 37 9 -10 degrees QTcB Int : 432 ms Normal sinus rhythm Minimal voltage criteria for LVH, may be normal variant ( R in aVL ) Nonspecific T wave abnormality Abnormal ECG Confirmed by Blayne Feng ([id number]), clinical editor JIE MENDEZ ([id number]) on 07/10/2025 12:33:19 PM Referred By: EVE Confirmed By: Blayne Feng
--- NOTE | 2025-07-09 16:20 | RAD_ITS ---
PROCEDURE: CHEST 1 VIEW (PORTABLE) 07/09/2025 REASON FOR EXAM: CHEST PAIN TECHNIQUE: Frontal view of the chest. COMPARISON: Chest CT 06/17/2025. FINDINGS: The heart is normal in size. The lungs are clear. No acute osseous abnormalities. RAD/Chest 1 View (Portable) IMPRESSION: No Acute Findings. Reading Location: [facility]
[2025-07-09 16:21] LABS: Hematocrit 48.9 % (40-54); Hemoglobin 17.0 g/dL (13.0-16.5); Immature Granulocytes Count 0.060 X10^3/uL (0.0-0.0); Mean Corp Hgb Conc 34.8 g/dL (32-36); Mean Corpuscular Volume 84.0 fL (80-94); Mean Platelet Vol. 11.3 fl (6.2-12.0); NRBC Flagged by Analyzer 0 % (0-5); Platelet Count 189 K/mm3 (150-450); RBC Distribution Width CV 13.3 % (11.6-14.6); RBC Distribution Width SD 40.3 fl (35.1-43.9); Red Blood Count 5.82 M/mm3 (4.6-6.2); White Blood Count 7.1 K/mm3 (4.4-11.0)
[2025-07-09 17:00] LABS: Alcohol, Blood (Medical)-Serum < 10.1 mg/dL (<=10.0)
--- NOTE | 2025-07-09 17:10 | EDS_ITS ---
HPI HPI - Psych History of Present Illness Chief Complaint: Suicidal Informant: patient and mental health staff Narrative Narrative: 19-year-old male currently residing at the [facility] presenting to the emergency room with suicidal ideation and increased auditory and visual hallucinations. Patient was transferred to [facility] in June after swallowing a foot shock. He states while in the hospital at that time he did see psychiatry. He states he had been doing better until this weekend when he had an increase in the auditory and visual hallucinations. He states that because of the hallucinations that have been keeping him up at night and how his mental health is declined. He notes decreased appetite. The patient states that he is having increasing thoughts of self-harm. He has not done anything to harm himself. Patient notes that when his mental health decline he also gets a heaviness in his chest and his legs. He states he is currently experiencing that. He denies any foot drop just more of a global heaviness. It was reported to me that the patient has been passing out for 15 seconds. He has also been mildly aggressive towards the hallucinations[facility] that they have been tapering his Depakote. [facility] Medical History Club foot of both lower extremities Depression Anxiety Home Medications ?Medication ?Instructions ?Recorded ?Last Taken ?Type aripiprazole 10 mg tablet 10 mg PO QHS 03/27/25 Unknow n History doxepin 10 mg capsule 10 mg PO QHS 03/27/25 Unknow n History escitalopram oxalate 10 mg tablet 10 mg PO QHS 5 Unknown History hydroxyzine HCl 50 mg tablet 50 mg PO Q6H PRN 03/27/25 Unknown History propranolol 10 mg tablet 10 mg PO BID PRN 03/27/25 Un known History buspirone 15 mg tablet 15 mg PO BID 06/17/25 Unknow n History cholecalciferol (vitamin D3) 25 25 mcg PO DAILY Unknown History mcg (1,000 unit) capsule divalproex 250 mg tablet,extended PO 06/17/25 Unknown History release 24 hr divalproex 500 mg tablet,extended 1,000 mg PO QHS 06/05 11/27 Unknown History release 24 hr metformin 500 mg tablet 500 mg PO BID 06/17/25 Unkno wn History trazodone 100 mg tablet 100 mg PO QHS 06/17/25 Unkno wn History trazodone 50 mg tablet 50 mg PO QHS 06/17/25 Unknow n History Allergy/AdvReac Type Severity Reaction Status Date / Time No Known Allergies Allergy Verified 07/09/25 15:40 Social History household members: spouse and family housing: house Smoking Status: Never smoker substance use type: does not use ROS ROS ED Constitutional Constitutional ED: Denies chills or weight loss Eyes Eyes: Denies change in vision or diplopia ENT ENT ED: Denies ear pain, rhinorrhea or sore throat Cardiovascular Cardiovascular: Reports chest pain; Denies orthopnea, palpitations or racing heartbeat Respiratory/Chest Respiratory/Chest: Denies cough, dyspnea or orthopnea Gastrointestinal Gastrointestinal: Denies abdominal pain, diarrhea, nausea or vomiting Genitourinary Genitourinary ED: Denies dysuria, hematuria or urinary frequency Musculoskeletal Musculoskeletal: Denies arthralgias or myalgias Integumentary Denies abscess or rash Neurologic Neurologic: Denies headache(s) or weakness Psychiatric Psychiatric: Reports anxiety, depression, suicidal ideation and suicidal thoughts Endocrine Endocrinology: Denies polydipsia, polyphagia or polyuria Allergic/Immunologic Allergic/Immunologic ED: Denies mouth swelling, tongue swelling or urticaria EXAM Physical Exam Const Vital Signs: 07/09/25 15:40 Temperature 98.4 F Temperature Source Oral Pulse Rate 103 H Respiratory Rate 16 Blood Pressure 152/90 H Blood Pressure Mean 110 Pulse Ox 99 Oxygen Delivery Method Room Air Positive well nourished and well developed General Appearance ED: well developed HEENT Reports normocephalic, head/scalp atraumatic and moist mucous membranes Eyes PERRL and EOMs intact bilaterally Neck no lymphadenopathy, supple and no JVD Resp normal respiratory effort and clear to auscultation bilaterally Cardio regular rate, regular rhythm and no murmurs GI normal to inspection, nondistended, normoactive bowel sounds and non-tender Palpation: soft Back/Spine no CVA tenderness and normal ROM Extremity normal to inspection General Extremety ED: Negative for edema General Extremity: Negative for edema Neuro oriented x3 and CN's II-XII intact bilaterally Sensorium / Orientation: alert Motor Exam: strength 5/5 throughout Psych Psych Narrative: Blunted affect. Patient admits to suicidal ideation/thoughts. Patient endorses auditory and visual hallucinations. Appearance: grossly normal Attitude: calm and withdrawn Activity / Motor Behavior: appropriate eye contact Speech: minimal, slow and soft Mood & Affect: flat affect; Negative for depressed or tearful Thought Content: suicidality and hallucination(s) Positive for auditory and visual Attention / Concentration: attention grossly intact Memory / Cognition: memory grossly intact Insight: limited Judgement: limited Skin no rashes or lesions noted and no wounds MDM MDM MDM Narrative Medical decision making narrative: Differential diagnosis include schizophrenia suicidal ideation depression anxiety bipolar disorder EKG was obtained shows a normal sinus rhythm at a rate of 94. My independent interpretation of the chest x-ray is no acute process. Psychiatric screening labs were obtained and reviewed. Toxicology negative. Valproic acid level 42. I spoke with case management. Plan of care is to work towards transfer to psychiatric facility. History & Record Review Discussion w/independent historian: Patient Additional record(s) reviewed:: Prior ED visit and Prior labs Lab Data Attestation: I reviewed the patient's lab results. Labs: Laboratory Results - last 24 hr 07/09/25 07/09/25 07/09/25 16:08 16:10 18:35 WBC 7.1 RBC 5.82 Hgb 17.0 H Hct 48.9 MCV 84.0 MCH 29.2 MCHC 34.8 RDW Std Deviation 40.3 RDW Coeff of Aury 13.3 Plt Count 189 MPV 11.3 Immature Gran % (Auto) 0.900 Neut % (Auto) 51.9 Lymph % (Auto) 32.1 Gregory % (Auto) 11.1 H Eos % (Auto) 3.1 Baso % (Auto) 0.9 Absolute Neuts (auto) 3.7 Absolute Lymphs (auto) 2.26 Nucleated RBC % 0 Sodium 139 Potassium 4.2 Chloride 103 Carbon Dioxide 22.9 Anion Gap 14 BUN 16 Creatinine 1.01 Estim Creat Clear Calc 148.81 Est GFR (MDRD) Non-Af 110 BUN/Creatinine Ratio 15.4 Glucose 84 Calcium 9.7 Total Bilirubin 0.22 AST 54 H ALT 83 H Alkaline Phosphatase 91 Total Protein 7.4 Albumin 4.6 Globulin 2.8 Albumin/Globulin Ratio 1.6 Urine Opiates Screen Cancelled NEGATIVE U Buprenorphine Qual Cancelled NEGATIVE Ur Oxycodone Screen Cancelled NEGATIVE Urine Methadone Screen Cancelled NEGATIVE Urine Fentanyl Screen Cancelled NEGATIVE Ur Barbiturates Screen Cancelled NEGATIVE Valproic Acid 42 L Ur Phencyclidine Scrn Cancelled NEGATIVE Ur Amphetamines Screen Cancelled NEGATIVE U Benzodiazepines Scrn Cancelled NEGATIVE Urine Cocaine Screen Cancelled NEGATIVE U Cannabinoids Screen Cancelled NEGATIVE Ethyl Alcohol < 10.1 Radiography Diagnostic Testing: Clinical Impression(s) from Imaging Studies Chest X-Ray 07/09/25 16:20 IMPRESSION: No Acute Findings. Reading Location: [facility] EKG Initial EKG: Attestation: I personally reviewed and interpreted this EKG as follows: Comments: Normal sinus rhythm ventricular rate of 94 bpm. No obvious QT prolongation or preexcitation is noted. Prior EKG tracings: available for review Prior: Unchanged (January 07, 2025) Management Discussion w/another healthcare provider: liner worker/Case management Discharge Plan Triage Chief Complaint: Suicidal ED Provider: Walt Bautista Dx/Rx/DC Orders Clinical Impression: Suicidal ideation, Hallucinations Prescriptions: No Action hydroxyzine HCl 50 mg tablet 50 mg PO Q6H PRN doxepin 10 mg capsule 10 mg PO QHS escitalopram oxalate 10 mg tablet 10 mg PO QHS aripiprazole 10 mg tablet 10 mg PO QHS propranolol 10 mg tablet 10 mg PO BID PRN metformin 500 mg tablet 500 mg PO BID trazodone 50 mg tablet 50 mg PO QHS trazodone 100 mg tablet 100 mg PO QHS divalproex 500 mg tablet extended release 24 hr 1,000 mg PO QHS buspirone 15 mg tablet 15 mg PO BID cholecalciferol (vitamin D3) 25 mcg (1,000 unit) capsule 25 mcg PO DAILY divalproex 250 mg tablet extended release 24 hr PO Primary Care Provider: Care Physician,No Primary Referrals: Care Physician,No Primary [Primary Care Provider, Medical] Print Language: Irish Disposition Disposition: Psychiatric Hospital or Unit
[2025-07-09 17:16] LABS: AST(SGOT) 54 U/L (<=37); Alanine Aminotransfer ALT/SGPT 83 U/L (<=46); Albumin, Serum 4.6 g/dL (3.5-5.0); Alkaline Phosphatase 91 U/L (40-129); Anion Gap 14 (5-15); BUN 16 mg/dL (4-19); BUN/Creat Ratio 15.4 RATIO (10-20); Calcium,Total 9.7 mg/dL (7.6-11.0); Carbon Dioxide 22.9 mmol/L (21.0-32.0); Chloride 103 mmol/L (98-108); Estimated Creatinine Clearance 148.81 ml/min (50-250); Globulin 2.8 g/dL (2.2-4.2); Glucose 84 mg/dL (70-99); Potassium 4.2 mmol/L (3.3-5.1)
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
[2025-07-09 19:13] LABS: Valproic Acid (Depakene) Level 42 ug/mL (50-100)
[2025-07-09 19:13] LABS: Barbiturate Urine NEGATIVE (< 200 ng/mL); Benzodiazepine Urine NEGATIVE (< 200 ng/mL); PCP Urine NEGATIVE (< 25 ng/mL); THC Urine NEGATIVE (< 50 ng/mL)
--- OUTSIDE RECORDS SUMMARY | 2025-07-09 19:20 | XMS RPT_ITS | CCD ---
Author Organization [facility] Care Team Providers Care Roller Stitcher Name Role Phone Almita Gottlieb Unavailable Unavailable Alexandrea Rajan Unavailable Unavailable Alexandrea Rajan Unavailable Unavailable Almita Gottlieb Unavailable [phone] Kelley Bird Unavailable Unavailable REYNOSOLAZARO RAMIREZ NEREIDA K Attending Unavailable ANGELES RAMIREZ NEREIDA K Admitting Unavailable CONNER HEATH PA-C Consulting Unavaila ble NONE, NONE Primary Care Unavailable NONE, NONE Consulting Unavailable Kavon Mcintosh MD Unavailable Almita Gottlieb DO Primary Care Provider CARMEN ROCHE Attending Unavailable ALMITA GOTTLIEB Primary Care Unavailable CARMEN ROCHE Admitting Unavailable ALMITA GOTTLIEB Primary Care Unavailable MAYLIN KOWALSKI Attending Unavailable Dr. Spring Fragoso DO Attending Provider [phone] Dr. Spring Fragoso DO Emergency Provider Care Physician, No Primary Primary Care Provider Unavailable Dr. Ryan Hunt DO Emergency Provider Physician, No Pcp Primary Care Provider Unavaila FRANCISCO Encarnacion Attending Unavailable PHYSICIAN, NO PCP Primary Care Unavailable Dr. Ryan Hunt DO Attending Provider Nain Mercer MD Referring Provider Nain Mercer MD Emergency Provider [phone] ALMITA GOTTLIEB Consulting Unavailable ZAYDA RIVERA DO Attending Unavailable ZAYDA RIVERA DO Primary Care Unavailable ZAYDA RIVERA DO Admitting Unavailable ALMITA GOTTLIEB Referring Unavailable PROVIDER, UNKNOWN Consulting Unavailable Dmitriy Powell MD Primary Care Provider [phone] DMITRIY POWELL Primary Care Unavailable KAUR ESPINOSA Attending Unavailable SARAH ROCHE Referring Unavailable DMITRIY POWELL Primary Care Unavailable DMITRIY POWELL Attending Unavailable ANDRE, DMITRIY Latham Primary Care Unavailable SARAH ROCHE Referring Unavailable DMITRIY POWELL Primary Care Unavailable Unavailable Primary Care Provider Unavailabl e Care Physician, No Primary Primary Care Unava ilable Spring Fragoso Attending Unavailable Care Physician, No Primary Primary Care Unava ilable Nain Mercer Attending Unavailable Nain Mercer Referring Unavailable Care Physician, No Primary Primary Care Unava ilable Ryan Hunt Attending Unavailable Care Physician, No Primary Primary Care Unava ilable Saji Kendrick Attending Unavailabl e SCAVELLI, TAMIR Referring Unavailable SCAVELDA, TAMIR Admitting Unavailable JOSE HARRIS Attending Unavailable LULU FOWLER Attending Unavailable NONE, PCP Referring Unavailable VIANEY RECINOS Admitting Unavailable Care Physician, No Primary Primary Care Physicia n Unavailable Nain Mercer MD Attending Physician Nain Mercer MD Emergency Department Physician Mireille RAMIREZ, Dr. Lennon Attending Physician Dr. Saji Kendrick DO Emergency Departmen t Physician RONEY DIA Primary Care Unavailable LEANNA KEITH Referring Unavailable BIANCA QUEZADA Attending Unavailable Allergies Allergy Classification Reported Allergen(s) Allergy Type Date of Onset Reaction(s) Facility (1 source) amoxicillin / clavulanate; Translations: [Augmentin] Drug Allergy [facility] Repository (1 source) No Known Allergies; Translations: [No Known Allergies] Propensity to adverse reactions to drug (disorder) [facility] Repository Medications Current Medications Medication Drug Class(es) Dates Sig (Normalized) Sig (Original) cholecalciferol 0.025 mg oral capsule (6 sources) Vitamin D Start: 06-17-2025 take 1 capsule by mouth once daily Start: 04-10-2025 cholecalcifero l (Vitamin D-[address]) 25 MCG (1000 UT) tablet Take 1,000 Units by mouth daily. 04/10/2025 Suspended Start: 04-10-2025 cholecalcifero l (VITAMIN D3) 1,000 unit tab tablet 1,000 Units. 04/10/2025 Active Start: 03-27-2025 End: 03-27-2025 Cholecalciferol (Vitamin D3) [Cholecalciferol (Vitamin D3) 25 Mcg (1,000 Unit) Tablet] (Cholecalciferol (Vitamin D3) 25 Mcg (1,000 Unit) ) 25 mcg (1,000 unit) tablet Discontinued 25 ug PO DAILY March 27, 2025 12:00am March 27, 2025 8:00pm doxepin hydrochloride 10 mg oral capsule (2 sources) Tricyclic Antidepressant Start: 03-27-2025 take 1 capsule by mouth at bedtime hydrOXYzine hydrochloride 50 mg oral tablet (2 sources) Antihistamine Start: 03-27-2025 take 1 tablet by mouth every six hours as needed melatonin 3 mg oral tablet (2 sources) take 1 tablet by mouth once daily at bedtime melatonin 3 mg Tab Take 3 mg by mouth daily at bedtime. Active metFORMIN hydrochloride 500 mg oral tablet (5 sources) Biguanide Start: 04-29-2025 take 1 tablet by mouth twice daily Pediatric Multivitamins-Iron (FLINTSTONES COMPLETE) ORAL chewable tablet (2 sources) take 1 tablet by mouth once daily Pediatric Multivitamins-I isma (FLINTSTONES COMPLETE) ORAL chewable tablet Take 1 tablet by mouth once daily. Active propranolol hydrochloride 10 mg oral tablet (2 sources) beta-Adrenergic Karlene Start: 03-27-2025 take 1 tablet by mouth twice daily as needed traZODone hydrochloride 50 mg oral tablet (8 sources) Serotonin Reuptake Inhibitor Start: 06-17-2025 take 1 tablet by mouth at bedtime Start: 06-17-2025 take 1 tablet by jenifer at bedtime Start: 05-29-2025 take 2 tablets by mo [facility] once daily as needed traZODone (Desyrel) 50 MG tablet Take 100 mg by mouth Nightly as needed. 05/29/2025 Suspended Start: 11-24-2021 End: 03-27-2025 take 1 tablet by mouth once daily Trazodone 100 mg tablet Discontinued 100 mg PO DAILY November 24, 2021 12:00am March 27, 2025 6:49pm 24 hr divalproex sodium 500 mg extended release oral tablet (7 sources) Mood Stabilizer, Anti-epileptic Agent Start: 06-17-2025 take 1 tablet by mouth every twenty-four hours Start: 06-17-2025 Start: 04-25-2025 take 1 tablet by jenifer twice daily divalproex (Depakote ER) 250 MG 24 hr tablet Take 750 mg by mouth twice a day. 04/25/2025 Suspended Start: 04-25-2025 divalproex ER (DEPAKOTE ER) 250 mg 24 hr tablet 500 mg two times a day. 04/25/2025 Active Start: 03-27-2025 End: 06-17-2025 take 1 tablet by mouth twice daily Divalproex 250 mg tablet,delayed release (DR/EC) Discontinued 250 mg PO TWICE A DAY March 27, 2025 12:00am June 17, 2025 11:45am Completed/Discontinued Medications Medication Drug Class(es) Dates Sig (Normalized) Sig (Original) acetaminophen 325 mg oral tablet (2 sources) Start: 06-20-2025 End: 06-23-2025 take 1 tablet by mouth every six hours as needed for pain 650 mg, Oral, Every 6 hours PRN, mild pain (1-3), Starting on Nettie 06/20/25 at 1039, Maximum dose of acetaminophen is 4000 mg from all sources in 24 hours. amoxicillin 875 mg / clavulanate 125 mg oral tablet (4 sources) Penicillin-class Antibacterial Start: 06-03-2021 End: 11-24-2021 Amoxicillin-Pot Clavulanate 875-125 mg tablet Discontinued 1 {tbl} PO Q12H 10 0 June 03, 2021 12:00am November 24, 2021 9:47am Start: 01-16-2021 End: 01-25-2021 take 1 tablet by mouth twice daily at mealtime amoxicillin-clavulanate 875 mg-125 mg oral tablet ; 1 tab(s) orally 2 times a day Quantity: 20 Refills: 0 Ordered: 16-Jan-2021 Kelley Bird Start: 16-Jan-2021 End: 25-Jan-2021 Generic Substitution Allowed Comments: Finish all this medication unless otherwise directed by prescriber.Take with food or milk. Comment on above: Finish all this medi cation unless otherwise directed by prescriber.Take with food or milk. ARIPiprazole 10 mg oral tablet (11 sources) Atypical Antipsychotic Start: 03-27-2025 End: 06-23-2025 take 10 mg by mouth once daily 10 mg, Oral, Nightly, First dose on Tue06/18/25 at 2100 Start: 09-09-2020 End: 03-27-2025 take 2 tablets by mouth once daily Aripiprazole 5 MG tablet Discontinued 10 mg PO DAILY September 09, 2020 1:00am March 27, 2025 6:50pm take 1 tablet by jenifer th once daily ARIPiprazole (ABILIFY) 5 mg tablet Take 5 mg by mouth once daily. Active benztropine mesylate 0.5 mg oral tablet (3 sources) Anticholinergic, Antihistamine Start: 05-16-2021 End: 03-27-2025 take 1 tablet by mouth twice daily Benztropine (Cogentin) 0.5 mg Tablet Discontinued 0.5 mg PO TWICE A DAY May 16, 2021 12:00am March 27, 2025 6:50pm buPROPion hydrochloride 75 mg oral tablet (6 sources) Aminoketone Start: 11-24-2021 End: 03-27-2025 take 1 tablet by mouth once daily Bupropion Hcl 75 mg tablet Discontinued 75 mg PO DAILY November 24, 2021 12:00am March 27, 2025 6:50pm busPIRone hydrochloride 5 mg oral tablet (13 sources) Start: 06-23-2025 take 1 tablet by mouth twice daily busPIRone (Buspar) 5 MG tablet Take 1 tablet (5 mg) by mouth 2 times daily. 06/23/2025 Suspended Start: 06-18-2025 End: 06-23-2025 take 5 mg by mouth twice daily 5 mg, Oral, 2 times ced ly, First dose on Tue06/18/25 at 1250 Start: 06-17-2025 take 1 tablet by jenifer th twice daily Start: 04-25-2025 End: 06-23-2025 take 1 tablet by mouth twice daily busPIRone (Buspar) 10 MG tablet Take 10 mg by mouth twice a day. 04/25/2025 06/23/2025 Discontinued (Stop taking at discharge) Start: 03-27-2025 End: 06-17-2025 take 1 tablet by mouth three times daily Buspirone 7.5 mg tablet Discontinued 7.5 mg PO THREE TIMES A DAY March 27, 2025 12:00am June 17, 2025 11:45am Start: 03-06-2025 End: 06-18-2025 take 1 tablet by mouth twice daily busPIRone (Buspar) 5 MG tablet Take 5 mg by mouth twice a day. 03/06/2025 06/18/2025 Discontinued calcium chloride 0.0014 meq/ml / potassium chloride 0.004 meq/ml / sodium chloride 0.103 meq/ml / sodium lactate 0.028 meq/ml injectable solution (2 sources) Start: 06-19-2025 End: 06-23-2025 take 75 mL intravenously every hour 75 mL/hr, IntraVENous, Continuous, Starting on Tue06/19/25 at 0845 cetirizine hydrochloride 10 mg oral tablet (3 sources) Histamine-1 Receptor Antagonist Start: 05-16-2021 End: 03-27-2025 take 1 tablet by mouth once daily Cetirizine 10 mg Tablet Discontinued 10 mg PO DAILY May 16, 2021 12:00am March 27, 2025 6:50pm divalproex (Depakote ER) 24 hr tablet 750 mg (2 sources) Start: 06-18-2025 End: 06-23-2025 take 750 mg by mouth twice daily 750 mg, Oral, 2 times daily, First dose on Tue06/18/25 at 1500, Do not crush, chew, or split. docusate sodium 100 mg oral capsule (2 sources) Start: 06-20-2025 End: 06-23-2025 take 100 mg by mouth three times daily 100 mg, Oral, 3 times daily, First dose on Tue06/20/25 at 1600, Do not crush or break. docusate sodium 50 mg / sennosides, detention 8.6 mg oral tablet (2 sources) Start: 06-18-2025 End: 06-20-2025 take 2 tablets by mouth twice daily 2 tablet, Oral, 2 times daily, First dose on Tue06/18/25 at 0335 escitalopram 10 mg oral tablet (7 sources) Serotonin Reuptake Inhibitor Start: 03-27-2025 End: 06-23-2025 take 10 mg by mouth once daily 10 mg, Oral, Nightly, First dose on Tue06/18/25 at 2100 guanFACINE 1 mg oral tablet (4 sources) Central alpha-2 Adrenergic Agonist Start: 11-24-2021 End: 03-27-2025 take 1 tablet by mouth twice daily Guanfacine 1 mg tablet Discontinued 1 mg PO TWICE A DAY November 24, 2021 12:00am March 27, 2025 6:49pm 1 ml ketorolac tromethamine 30 mg/ml cartridge (2 sources) Nonsteroidal Anti-inflammatory Drug, Cyclooxygenase Inhibitor Start: 06-20-2025 End: 06-23-2025 take 30 mg intravenously every six hours as needed for pain 30 mg, IntraVENous, Every 6 hours PRN, moderate pain (4-6), Starting on Tue06/20/25 at 1431, For 5 days, Do not administer within 6 hours of other NSAIDs (such as ibuprofen or naproxen). lamoTRIgine 25 mg oral tablet (4 sources) Mood Stabilizer, Anti-epileptic Agent Start: 11-24-2021 End: 03-27-2025 take 1 tablet by mouth twice daily Lamotrigine 25 mg tablet Discontinued 25 mg PO TWICE A DAY November 24, 2021 12:00am March 27, 2025 6:49pm lidocaine 40 mg/ml topical cream (1 source) Antiarrhythmic, Amide Local Anesthetic Start: 11-26-2021 End: 11-26-2021 lidocaine (LMX) 4 % kit Start: 11-26-2021 End: 11-26-2021 lidocaine (LMX) 4 % kit magnesium hydroxide 80 mg/ml oral suspension (2 sources) Start: 06-18-2025 End: 06-23-2025 take 8 [oz_av] by mouth once daily 30 mL, Oral, Nightly, First dose on Tue06/18/25 at 0900, Follow dose with 8 oz of water. ondansetron ODT (Zofran-ODT) disintegrating tablet 4 mg (2 sources) Start: 06-19-2025 End: 10-19-2025 take 1 tablet by mouth every eight hours as needed for nausea and vomiting ondansetron ODT (Zofran-ODT) disintegrating tablet 4 mg polyethylene glycol [id number] mg powder for oral solution (4 sources) Osmotic Laxative Start: 06-20-2025 End: 06-23-2025 17 g, Oral, 3 times daily, First dose (after last modification) on Tue06/20/25 at 2100 Start: 06-18-2025 End: 06-20-2025 17 g, Oral, 2 times daily, F irst dose on Tue06/18/25 at 0335 promethazine hydrochloride 25 mg oral tablet (3 sources) Phenothiazine Start: 11-24-2021 End: 03-27-2025 take 1 tablet by mouth every six hours as needed for nausea and vomiting Promethazine 25 mg tablet Discontinued 25 mg PO EVERY 6 HOURS as needed for nausea and vomiting 14 0 November 24, 2021 12:00am March 27, 2025 6:49pm sennosides, detention 8.6 mg oral tablet (2 sources) Start: 06-21-2025 End: 06-23-2025 take 1 tablet by mouth three times daily 17.2 mg (2 tablet), Oral, 3 times daily, First dose on Tue06/21/25 at 0930 sertraline 50 mg oral tablet (5 sources) Serotonin Reuptake Inhibitor Start: 09-09-2020 End: 11-24-2021 take 1 tablet by mouth once daily Sertraline 50 MG tablet Discontinued 50 mg PO DAILY September 09, 2020 1:00am November 24, 2021 9:49am Problems Active Problems Problem Classification Problem Date Documented Date Episodic/Chronic Administrative/social admission (3 sources) Fostered; Translations: [Child in welfare custody] Onset: 12-20-2019 12-20-2019 Episodic Anxiety disorders (1 source) Anxiety; Translations: [Anxiety disorder, unspecified] Onset: 09-15-2021 09-15-2021 Chronic Attention-deficit, conduct, and disruptive behavior disorders (1 source) Oppositional defiant disorder; Translations: [Oppositional defiant disorder] 05-24-2021 Chronic Attention-deficit, conduct, and disruptive behavior disorders (1 source) Disruptive behavior disorder; Translations: [Conduct disorder, unspecified] Onset: 05-24-2021 05-24-2021 Chronic Attention-deficit, conduct, and disruptive behavior disorders (3 sources) Problem behavior; Translations: [Unspecified disturbance of conduct] 05-31-2021 Chronic Chronic obstructive pulmonary disease and bronchiectasis (3 sources) Bronchitis; Translations: [Bronchitis, not specified as acute or chronic] 06-03-2021 Episodic Mood disorders (10 sources) Depressive disorder; Translations: [Depression] Onset: 12-20-2019 12-20-2019 Chronic Mood disorders (3 sources) Mood disorders; Translations: [Depression, unspecified] Onset: 01-11-2025 Nervous system congenital anomalies (3 sources) Colloid cyst of third ventricle; 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] Onset: 03-05-2012 Chronic Noninfectious gastroenteritis (3 sources) Gastroenteritis; Translations: [Noninfective gastroenteritis and colitis, unspecified] 11-24-2021 Episodic Other aftercare (1 source) Encounter for therapeutic drug level monitoring; Translations: [Encounter for therapeutic drug monitoring] Onset: 06-14-2025 Episodic Other aftercare (1 source) Other alf (current) drug therapy; Translations: [Encounter for long-term (current) use of medications] Onset: 04-26-2025 Episodic Other congenital anomalies (1 source) Talipes equinovarus; 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] Onset: 05-16-2012 05-16-2012 Chronic Other congenital anomalies (4 sources) Other specified congenital deformities of feet; Translations: [Talipes, unspecified] Onset: 07-14-2011 07-14-2011 Chronic Other injuries and conditions due to external causes (3 sources) Abrasion; Translations: [Other injury of unspecified body region, initial encounter] 02-28-2025 Episodic Other injuries and conditions due to external causes (1 source) Closed injury of head; Translations: [Unspecified injury of head, initial encounter] 03-12-2025 Episodic Other injuries and conditions due to external causes (1 source) Unspecified injury of head, initial encounter; Translations: [Unspecified injury of head, initial encounter] Onset: 03-12-2025 Episodic Other injuries and conditions due to external causes (1 source) Foreign body of alimentary tract, part unspecified, initial encounter; Translations: [Swallowed foreign body, initial encounter] Onset: 06-17-2025 Episodic Other injuries and conditions due to external causes (6 sources) Foreign body in intestine; Translations: [Foreign body in small intestine, initial encounter] Onset: 06-18-2025 06-18-2025 Episodic Other injuries and conditions due to external causes (2 sources) Foreign body in small intestine, initial encounter; Translations: [Foreign body in small intestine, initial encounter] Onset: 06-18-2025 Episodic Other nervous system disorders (1 source) Fasciculation of tongue; Translations: [Fasciculation] 05-21-2025 Episodic Other nervous system disorders (1 source) Fasciculation; Translations: [Tongue fasciculation] Onset: 05-20-2025 Episodic Other nutritional; endocrine; and metabolic disorders (2 sources) Obese class I; Translations: [Obesity, Class I, BMI 30-34.9] Onset: 05-21-2025 05-21-2025 Chronic Other nutritional; endocrine; and metabolic disorders (2 sources) Developmental delay; Translations: [Unspecified lack of expected normal physiological development in childhood] 04-04-2012 Episodic Other screening for suspected conditions (not mental disorders or infectious disease) (2 sources) MRI of head abnormal; Translations: [Abnormal findings on diagnostic imaging of skull and head, not elsewhere classified] Onset: 11-03-2021 Episodic Other upper respiratory disease (1 source) Allergic rhinitis; Translations: [Allergic rhinitis, unspecified] Onset: 06-25-2019 06-25-2019 Chronic Otitis media and related conditions (2 sources) Otitis media; Translations: [Unspecified otitis media] 01-16-2021 Episodic Residual codes; unclassified (1 source) Staring; Translations: [Transient alteration of awareness] Onset: 11-03-2021 11-03-2021 Episodic Suicide and intentional self-inflicted injury (20 sources) Suicidal ideations; Translations: [Suicidal thoughts] Onset: 02-13-2021 Episodic Unclassified (2 sources) EARACHE 01-16-2021 Comment on above: EARACHE Unclassified (1 source) Obesity, Class I, BMI 30-34.9; Translations: [Obesity, Class I, BMI 30-34.9] Onset: 05-21-2025 Past or Other Problems Problem Classification Problem Date Documented Date Episodic/Chronic Other acquired deformities (1 source) Internal tibial torsion; Translations: [Other specified acquired deformities of unspecified lower leg] Onset: 05-16-2012 05-16-2012 Episodic Other nervous system disorders (1 source) Postoperative pain ; Translations: [Other acute postprocedural pain] Onset: 01-03-2013 Resolved: 07-25-2015 07-25-2015 Episodic Other nutritional; endocrine; and metabolic disorders (1 source) Childhood obesity; Translations: [Body mass index (BMI) pediatric, greater than or equal to 95th percentile for age] Onset: 12-16-2020 12-16-2020 Episodic Other nutritional; endocrine; and metabolic disorders (1 source) Overweight in childhood; Translations: [Body mass index (BMI) pediatric, 85th percentile to less than 95th percentile for age] Onset: 05-03-2016 Resolved: 12-20-2019 12-20-2019 Episodic Results Test Name Value Interpretation Reference Range Facility [id number] 06-27-2025 [id number] Patient is kody oliva from the hospital today. He denies concerns with his return to the [facility]. Staff will be coming to pick him up at 9am. [facility] 30on 06-26-2025 30 Problem: IP Suicidal Ideation Goal: STG: Rubén will verbalize understanding of suicide precautions Outcome: Progressing Goal: LTG: Rubén will exhibit compliance with therapy Outcome: Progressing Goal: STG: Rubén will not engage in self-injurious activities Outcome: Progressing [facility] 30 Problem: IP Suicidal Ideation Goal: STG: Rubén will verbalize understanding of suicide precautions Outcome: Progressing Note: Rubén verbalizes understanding of suicide precautions, is compliant with unit safety rules Goal: LTG: Rubén will exhibit compliance with therapy Outcome: Progressing Note: Rubén is compliant with medications Goal: STG: Rubén will not engage in self-injurious activities Outcome: Progressing Note: Rubén has remained safe on unit [facility] 94on 06-26-2025 94 Department: [facility]ER[facility] Group Topic: Recreation Therapy Group Date: 06/26/2025 Start Time: 1555 End Time: 1626 Facilitators: Desiree Tarango Number of Participants: 5 Group Name: Leisure Education Treatment Modality: Recreation Therapy Purpose: enhance coping skills, reinforce self-care, and Build Leisure Awareness, Decrease Barriers Summary: Leisure Pyramid - Patients are challenged to fill in a block pyramid with various healthy leisure activities. Patients are given word challenges along the way, which simulate the difficulties that can arise when trying to think of heathy options for engagement and coping. Discussion focuses on the challenges and benefits of leisure pursuits. Name: Rubén Gibbs Date of : 2005 MR: [id number] Appearance: Good eye contact Affect: neutral Behavior: Pleasant Alertness: Alert Speech: Soft-spoken Level/Quality of Participation: engaged Interactions with others: na Interventions utilized were Building rapport and engagement and Empathic listening Patient's Response to Intervention: Patient engaged fully in intervention. Patient was able to identify multiple healthy leisure activities including wanting to reconnect with basketball. Patient had good eye contact during interaction. Patient was given strategies to decrease barriers to making positive choices in leisure pursuits. Continue to engage patient in groups to address stated treatment goals and objectives. Patients Problems: Patient Active Problem List Diagnosis Foreign body in intestine, initial encounter Suicide attempt (HCC) Major depressive disorder, recurrent, severe without psychotic features (HCC) STEVE (generalized anxiety disorder) PTSD (post-traumatic stress disorder) ADHD Normal [facility] 94 Department: [facility] Group Topic: Other Group Date: 06/26/2025 Start Time: 1230 End Time: 1315 Facilitators: Edi Ferrell Number of Participants: 7 Group Name: Jukebox Treatment Modality: Leisure Development Purpose: express feelings, improve communication skills, and reinforce self-care Summary: Pts will choose a song from a given list. Pts will share how the song has impacted their life or how the song is meaningful to them. Pts will have the opportunity to listen, sing, or otherwise perform the song with the therapist if they desire. Name: Rubén Gibbs Date of : 2005 MR: [id number] Appearance: Appropriately dressed and groomed Mood: Euthymic Affect: Appropriate Behavior: Pleasant Alertness: Alert Speech: Appropriate Level/Quality of Participation: active Interactions with others: supportive Interventions utilized were Building rapport and engagement and Empathic listening Patient's Response to Intervention: Pt voiced improvement Next Step: Continue with current services Patients Problems: Patient Active Problem List Diagnosis Foreign body in intestine, initial encounter Suicide attempt (HCC) Major depressive disorder, recurrent, severe without psychotic features (HCC) STEVE (generalized anxiety disorder) PTSD (post-traumatic stress disorder) ADHD Normal [facility] Nursing Noteon 06-26-2025 Nursing Note Patient was out on t he unit watching television with peers for most of the evening. He ate snack and took his scheduled medications. Hygiene is marginal. Some malodor is present but it may be the individual whom he was sitting with. Patient encouraged to shower, he stated he had all the shower supplies that he needs. Patient reports he had a good day and he mentioned that he is being discharged in the morning. His speech is clear and thought process is linear and logical. No delusions present. Mood is fair, affect is flat. Denies SI/HI/AH/VH. Normal [facility] Nursing Note Patient admitted for Depression [F32.A] Day 3 of admission Affect/Mood Affect/Mood Range: Blunted/flat Affect/Mood Display: Appropriate Mood: Euthymic Thought Content Delusions: No delusions Hallucinations: None Ambivalence: No (Comment) Behavior Eye Contact: Fair Exhibited Behavior: Cooperative, Withdrawn, Guarded Speech Content: Appropriate SI/HI: Denies Rubén Gibbs has been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 I have also reviewed and agree with the past medical, family, and social history unless otherwise noted. All of the patient's questions were answered and family updated when appropriate and possible. A complete review of systems was obtained and is negative except as stated in HPI and/or Subjective Section. Please note that the plan below is highlights/fox components and corrections; see the main resident note for the full Assessment/Plan. -as per Dr. Pedraza's note -I evaluated patient on 06/22/25 -Chief Complaint/Reason for Consult: swallowed fish hook in attempt at self-harm -abdominal exam remains benign -labs remain WNL -most recent imaging with hook at RUQ, likely hepatic flexure -advance from full liquid to GI soft diet -continue serial exams -continue daily KUB -continue aggressive bowel regimen -our Service will continue to follow Total Care Time throughout the day today was >= 35 minutes (including chart/data review/analysis, care coordination, and [id number] encounter), and was spent discussing/counseling the patient/family regarding the care plan for Rubén Gibbs. I examined the patient independently. I reviewed relevant data myself and may have also done so in the context of team rounds. A full chart review was performed. Level of Medical Decision Making: []High [x]Moderate []Low Complexity: []Acute or chronic illness/injury posing a threat to life or bodily function without treatment (HIGH) []Chronic illness with severe exacerbation, progression, or side effect of treatment (HIGH) []Chronic illness with mild to moderate exacerbation, progression, or side effect of treatment (MOD) [x]Previously undiagnosed (new) problem with uncertain prognosis (MOD) []Acute illness with systemic symptoms (MOD) []Acute, complicated injury (MOD) []Multiple stable chronic illnesses (MOD) Risk: []Parental controlled substances (HIGH) []Decision not to resuscitate or to de-escalate care because of poor prognosis (HIGH) []Decision regarding major surgery with identified patient or procedure risk factors (HIGH) []Decision regarding emergency surgery (HIGH) []Drug or treatment/therapy requiring intensive monitoring (HIGH) []Prescription drug management AND/OR inpatient medication management/changes (MOD) [x]Decision regarding surgery with identified patient or procedure risk factors (MOD) []Diagnosis or treatment significantly limited by social determinants of health (MOD) Personally Reviewed/Independently interpreted patient's: [x]Epic notes [x]Radiology studies [x]Labs []EKG []Ordering tests []Other Discussed/ With: [x]Patient/Family []RN []Consultants []Primary Team []SW/TCC []Other Time was spent: -Reviewing the medical record, including recent tests and results -Ordering prescription medications/tests and procedures -Communicating results to the patient/family/caregive r -Counseling/educating the patient/family/caregive r -Documenting clinical information in the patient's electronic record -Co-ordination of care for the patient -Performing a medically appropriate exam and evaluation Ten Bolivar MD, FACS Trauma, Surgical Critical Care, & Acute Care Surgery Department of Surgery [facility] Pager: [phone] ~~~~~~~~~~~~~~~~~~~~~~~ ~~~~~~~~~~~~~~~~~~~~~~~ ~~~~~~~~~~~~~~~ This note may have been dictated using [employer] Practice Edition 2.6 and/or [employer] Voice Recognition Feature. The document was proofread; however, unrecognized voice recognition refrigerator repairman errors may be present. [1] Patient Active Problem List Diagnosis Foreign body in intestine, initial encounter Department of General Surgery Daily Progress Note ADMIT DATE: 06/18/2025 TODAY'S DATE: 06/22/2025 HPI: Rubén Gibbs is a 19 y.o. male with significant past psychiatric history with prior suicide attempts who presents after ingesting a fishhook on 06/16/2025 and a suicide attempt. General surgery consulted for recommendations. Patient states he swallowed the fishhook yesterday and a suicide attempt. He is had these attempts previously with hangings. His pain was never too severe, currently endorsing (more content not included)... [facility] XR ABDOMEN 1 VIEWon 06-22-20 25 XR ABDOMEN 1 VIEW Patient Name: RUBÉN GIBBS : 2005 Exam Date/Time: 06/22/2025 12:23 Procedure: XR ABDOMEN 1 VIEW Ordering Provider: FUNES JR, STEPHEN Reason For Exam: Foreign body ingestion, follow progression Clinical indication: Foreign body ingestion. COMPARISON: 06/21/2025. TECHNIQUE: AP radiograph of the abdomen pelvis. FINDINGS: There is a nonobstructive bowel gas pattern. A metallic foreign body presumably a fish hook is again seen within the proximal transverse colon. This is not significantly changed in location dating back to the 06/20/2025 examination. No pathologic calcifications identified. The osseous structures are normal. IMPRESSION: Metallic foreign body presumably a fishhook is seen overlying the proximal transverse colon not significantly changed in location dating back to 06/20/2025. Report Dictated on Electronically Signed By: Raul Johnson MD Electronically Signed Date/Time: 06/22/2025 12:25 PM EDT [facility] XR ABDOMEN 1 VIEW Patient Name: RUBÉN GIBBS : 2005 Exam Date/Time: 06/21/2025 20:06 Procedure: XR ABDOMEN 1 VIEW Ordering Provider: VIVAS FREDRICK Reason For Exam: Swallowed foreign body (fish hook), increased pain CLINICAL INFORMATION: Abdominal pain. Foreign body ingestion. KUB is provided at 2010 hours. The examination is compared to a previous study of the same dated 0755 hours. FINDINGS: A metallic foreign body consistent with a fishhook is redemonstrated in the right upper quadrant. Its position is unchanged when compared to the earlier study. Air and stool are noted in nondistended loops of colon to the level the rectum. The small bowel is not dilated. IMPRESSION: 1. Fistula location unchanged - right upper quadrant. 2. Nonobstructive bowel gas pattern. Report Dictated on Electronically Signed By: Juan Aguirre MD Electronically Signed Date/Time: 06/22/2025 7:13 AM EDT [facility] XR Abdomen Single viewon Metallic foreign bod y presumably a fishhook is seen overlying the proximal transverse colon not significantly changed in location dating back to 06/20/2025. Report Dictated on Electronically Signed By: Raul Johnson MD Electronically Signed Date/Time: 06/22/2025 12:25 PM EDT [facility] [email or web address] Patient Name: RUBÉN GIBBS : 2005 Exam Date/Time: 06/22/2025 12:23 Procedure: XR ABDOMEN 1 VIEW Ordering Provider: FUNES JR, STEPHEN Reason For Exam: Foreign body ingestion, follow progression Clinical indication: Foreign body ingestion. COMPARISON: 06/21/2025. TECHNIQUE: AP radiograph of the abdomen pelvis. FINDINGS: There is a nonobstructive bowel gas pattern. A metallic foreign body presumably a fish hook is again seen within the proximal transverse colon. This is not significantly changed in location dating back to the 06/20/2025 examination. No pathologic calcifications identified. The osseous structures are normal. [facility] Mary Johnson MD - 06/22/2025 Patient Name: RUBÉN GIBBS : 2005 Exam Date/Time: 06/22/2025 12:23 Procedure: XR ABDOMEN 1 VIEW Ordering Provider: FUNES JR, STEPHEN Reason For Exam: Foreign body ingestion, follow progression Clinical indication: Foreign body ingestion. COMPARISON: 06/21/2025. TECHNIQUE: AP radiograph of the abdomen pelvis. FINDINGS: There is a nonobstructive bowel gas pattern. A metallic foreign body presumably a fish hook is again seen within the proximal transverse colon. This is not significantly changed in location dating back to the 06/20/2025 examination. No pathologic calcifications identified. The osseous structures are normal. IMPRESSION: Metallic foreign body presumably a fishhook is seen overlying the proximal transverse colon not significantly changed in location dating back to 06/20/2025. Report Dictated on Electronically Signed By: Raul Johnson MD Electronically Signed Date/Time: 06/22/2025 12:25 PM EDT [facility] Radiology Study observation (narrative) [facility] 1. Fistula location unchanged - right upper quadrant. 2. Nonobstructive bowel gas pattern. Report Dictated on Electronically Signed By: Juan Aguirre MD Electronically Signed Date/Time: 06/22/2025 7:13 AM EDT [facility] [email or web address] [facility] Patient Name: RUBÉN GIBBS : 2005 Exam Date/Time: 06/21/2025 20:06 Procedure: XR ABDOMEN 1 VIEW Ordering Provider: VIVAS FREDRICK Reason For Exam: Swallowed foreign body (fish hook), increased pain CLINICAL INFORMATION: Abdominal pain. Foreign body ingestion. KUB is provided at 2010 hours. The examination is compared to a previous study of the same dated 0755 hours. FINDINGS: A metallic foreign body consistent with a fishhook is redemonstrated in the right upper quadrant. Its position is unchanged when compared to the earlier study. Air and stool are noted in nondistended loops of colon to the level the rectum. The small bowel is not dilated. [facility] Juan Aguirre MD - 06/22/2025 [facility] 2005 [id number] Exam Date/Time: 06/21/2025 20:06 Procedure: XR ABDOMEN 1 VIEW Ordering Provider: VIVAS FREDRICK Reason For Exam: Swallowed foreign body (fish hook), increased pain CLINICAL INFORMATION: Abdominal pain. Foreign body ingestion. KUB is provided at 2010 hours. The examination is compared to a previous study of the same dated 0755 hours. FINDINGS: A metallic foreign body consistent with a fishhook is redemonstrated in the right upper quadrant. Its position is unchanged when compared to the earlier study. Air and stool are noted in nondistended loops of colon to the level the rectum. The small bowel is not dilated. IMPRESSION: 1. Fistula location unchanged - right upper quadrant. 2. Nonobstructive bowel gas pattern. Report Dictated on Electronically Signed By: Juan Aguirre MD Electronically Signed Date/Time: 06/22/2025 7:13 AM EDT [facility] XR Abdomen Single viewOrdere d By: Mary Johnson on 06-22-2025 [facility] [employer] Work Phone: XR Abdomen Single viewOrdere d By: Juan Aguirre on 06-22-2025 [facility] [employer] Phone: [phone] [id number] Pt discussed in mimi ds. Pt not ready for discharge. It is unclear if pt will discharge back to [facility] or to [facility] when medically cleared. This SW attempted to call [facility], to discuss how [facility] would want pt to return to facility, either hospital or facility to sweet pickle maker pt, when pt is ready for discharge. SW had to leave a , asking for a return call. . Normal [facility] BASIC METABOLIC PANELon 10- Anion gap [Moles/Vol] 5 mmol/L Normal 3-13 [facility] Comment on above: Performed By: #### L [id number] #### Store Team Member: JEANETTE HORVATH ([phone]) [facility] ([facility]) [address] [place] [address] Calcium [Mass/Vol] 9.1 mg/dL Normal 8.4-10.[address] [facility] Comment on above: Performed By: #### L [id number] #### Store Team Member: JEANETTE HORVATH ([phone]) [facility] ([facility] [address] [place] [address] Chloride [Moles/Vol] 109 mmol/L High 98-107 [facility] Comment on above: Performed By: #### L [id number] #### Store Team Member: JEANETTE HORVATH ([phone]) [facility] ([facility] [address] [place] [address] CO2 [Moles/Vol] 25 mmol/L Normal 22-29 [facility] Comment on above: Performed By: #### L [id number] #### Store Team Member: JEANETTE HORVATH ([phone]) [facility] ([facility]) [address] [place] [address] Creatinine [Mass/Vol] 1.15 mg/dL Normal 0.72-1.25 [facility] Comment on above: Performed By: #### L [id number] #### Store Team Member: JEANETTE HORVATH ([phone]) [facility] ([facility]) [address] [place] [address] GLOMERULAR FILTRATION RATE ML/MIN/1.73 SQ M.PREDICTED >90.0 Normal >60.[address] [facility] Comment on above: Result Comment: Calc ulation based on the Chronic Kidney Disease Epidemiology Collaboration (CKD-EPI) equation refit without adjustment for race Performed By: #### L [id number] #### Store Team Member: JEANETTE HORVATH ([phone]) [facility] ([facility]) [address] [place] [address] Glucose [Mass/Vol] 85 mg/dL Normal 74-[address] [facility] Comment on above: Performed By: #### L [id number] #### Store Team Member: JEANETTE HORVATH ([phone]) [facility] ([facility]) [address] [place] [address] Potassium [Moles/Vol] 4.2 mmol/L Normal 3.5-5.1 [facility] Comment on above: Result Comment: [facility] potassium values may be up to 0.5 mmol/L lower than serum values. Performed By: #### L [id number] #### Store Team Member: JEANETTE HORVATH ([phone]) [facility] ([facility]) [address] [place] [address] Sodium [Moles/Vol] 139 mmol/L Normal 136-[address] [facility] Comment on above: Performed By: #### L [id number] #### Store Team Member: JEANETTE HORVATH ([phone]) [facility] ([facility]) [address] [place] [address] Urea nitrogen [Mass/Vol] 9 mg/dL Normal 8-[address] [facility] Comment on above: Performed By: #### L [id number] #### Store Team Member: JEANETTE HORVATH ([phone]) [facility] ([facility]) [address] [place] [address] Basic metabolic 1998 panelon 06-21-2025 Anion gap [Moles/Vol] 5 mmol/L 3 - 13 mmol/L [facility] Calcium [Mass/Vol] 9.1 mg/dL 8.4 - 10. 2 mg/dL [facility] Chloride [Moles/Vol] 109 mmol/L High 98 - 10 7 mmol/L [facility] CO2 [Moles/Vol] 25 mmol/L 22 - 29 mmol/L [facility] Creatinine [Mass/Vol] 1.15 mg/dL 0.72 - 1.25 mg/dL [facility] GFR/1.73 sq M.predicted (S/P/Bld) [Vol rate/Area] - PINF [facility] Comment on above: Calculation based on the Chronic Kidney Disease Epidemiology Collaboration (CKD-EPI) equation refit without adjustment for race Glucose [Mass/Vol] 85 mg/dL 74 - 100 mg/dL [facility] Interpretation and review of laboratory results Abnormal [facility] Potassium [Moles/Vol] 4.2 mmol/L 3.5 - 5.1 mmol/L [facility] Comment on above: Plasma potassium mayra ues may be up to 0.5 mmol/L lower than serum values. Sodium [Moles/Vol] 139 mmol/L 136 - 145 mmol/L [facility] Urea nitrogen [Mass/Vol] 9 mg/dL 8 - 21 mg/dL [facility] CBC (HEMOGRAM)on 06-21-2025 Erythrocyte distribution width (RBC) [Ratio] 13.1 % Normal 11.5-15.[address] [facility] Comment on above: Performed By: #### L [id number] #### Store Team Member: JEANETTE HORVATH ([phone]) [facility]) [address] [place] [address] Hematocrit (Bld) [Volume fraction] 51.5 % Normal 40.0-52.[address] [facility] Comment on above: Performed By: #### L [id number] #### Store Team Member: JEANETTE HORVATH ([phone]) [facility] ([facility]) [address] [place] [address] Hemoglobin (Bld) [Mass/Vol] 17.5 g/dL Normal 13.0-18.[address] [facility] Comment on above: Performed By: #### L [id number] #### Store Team Member: JEANETTE HORVATH ([phone]) [facility] ([facility]) [address] [place] [address] MCH (RBC) [Entitic mass] 28.7 pg Normal 26.0-34.[address] [facility] Comment on above: Performed By: #### L [id number] #### Store Team Member: JEANETTE HORVATH ([phone]) [facility] ([facility]) [address] [place] [address] MCHC 34.0 % Normal 30.5-36.[address] [facility] Comment on above: Performed By: #### L [id number] #### Store Team Member: JEANETTE HORVATH ([phone]) [facility] ([facility]) [address] [place] [address] MCV (RBC) [Entitic vol] 84.6 fL Normal 77.0-99.0 [facility] Comment on above: Performed By: #### L [id number] #### Store Team Member: JEANETTE HORVATH ([phone]) [facility] ([facility]) [address] [place] [address] Platelet mean volume (Bld) [Entitic vol] 11.5 fL Normal 9.0-12.[address] [facility] Comment on above: Performed By: #### L [id number] #### Store Team Member: JEANETTE HORVATH ([phone]) [facility] ([facility]) [address] [place] [address] Platelets (Bld) [#/Vol] 193 10*3/uL Normal 140-[address] [facility] Comment on above: Performed By: #### L [id number] #### Store Team Member: JEANETTE HORVATH ([phone]) [facility] ([facility]) [address] [place] [address] RBC (Bld) [#/Vol] 6.09 10*6/uL High 4.40-5.[address] [facility] Comment on above: Performed By: #### L [id number] #### Store Team Member: JEANETTE HORVATH ([phone]) [facility] ([facility]) [address] [place] [address] WBC (Bld) [#/Vol] 5.8 10*3/uL Normal 3.6-10.[address] [facility] Comment on above: Performed By: #### L [id number] #### Store Team Member: JEANETTE HORVATH ([phone]) [facility] ([facility]) [address] [place] [address] CBC panel Auto (Bld)on 06-21 Erythrocyte distribution width (RBC) [Ratio] 13.1 % 11.5 - 15.0 % [facility] Hematocrit (Bld) [Volume fraction] 51.5 % 40.0 - 52.0 % [facility] Hemoglobin (Bld) [Mass/Vol] 17.5 g/dL 13.0 - 18.0 g/dL [facility] Interpretation and review of laboratory results Abnormal [facility] MCH (RBC) [Entitic mass] 28.7 pg 26.0 - 34.0 pg [facility] MCHC (RBC) [Mass/Vol] 34 % 30.5 - 36.0 % [facility] MCV (RBC) [Entitic vol] 84.6 fL 77.0 - 99.0 fL [facility] Platelet mean volume (Bld) [Entitic vol] 11.5 fL 9.0 - 12.7 fL [facility] Platelets (Bld) [#/Vol] 193 10*3/uL 140 - 440 10*3/uL [facility] RBC (Bld) [#/Vol] 6.09 10*6/uL High 4.40 - 5.9 0 10*6/uL [facility] WBC (Bld) [#/Vol] 5.8 10*3/uL 3.6 - 10.7 10*3/uL [facility] Nursing Noteon 06-21-2025 Nursing Note This RN to the room at 1342 for scheduled medications. Patient denied pain and nausea at that time. 1615 this RN called to the room, patient is having 10/10 pain, and nausea. Charles PERSONNEL SECURITY ASSISTANT and Dr. Milo bermudez. Medicated with Tylenol, Zofran and Toradol. See emar. Normal [facility] Progress Noteon 06-21-2025 Progress Note Department of Psychiatry Consult Service Attending Consult Follow-Up Note CHIEF COMPLAINT: follow up suicide attempt SUBJECTIVE: Compliant with scheduled meds, no acute behavioral issues reported. No PRN meds for psychiatric issues required since admit. Pt reports ongoing feelings of depression without current plan or intent for suicide but vague thoughts about and dying. Reports manageable anxiety, no sleep issues. Still waiting for resolution of his swallowed object, dislikes the current diet order but understanding of the rationale. Current pain level is manageable. Denies side effects to psychotropic agents currently. Nursing was contacted by [facility] who report a plan to transition from Aripiprazole to Invega. CURRENT MEDICATIONS: Current Medications[1] PSYCHIATRIC EXAMINATION: Vitals: Vitals: 06/21/25 0638 BP: 108/61 Pulse: 55 Resp: 16 Temp: 36.1 ?C (97 ?F) SpO2: 96% Physical Examination: Constitutional: well developed, well nourished, in no acute distress, and alert Musculoskeletal: gait Not examined Mental Status Examination: Appearance: well kept, appears stated age Attitude toward examiner: Cooperative, superficial, fair eye contact Behavior/motor: No psychomotor agitation or retardation, no tremor or other abnormal movements. Speech: Soft, otherwise nl Mood: depressed Affect: restricted Thought process: Linear, goal directed Thought content: Within normal limits Thought perception: No perceptual abnormalities noted Suicidal ideation: thoughts of Homicidal ideation: Denies Cognition: Grossly intact Memory: Grossly intact Insight: limited Judgment: limited DATA REVIEWED: Encounter Date: 06/18/25 ECG 12 lead Result Value Heart Rate 72 QRSD Interval 92 QT Interval 359 QTC Interval 393 P [place] 34 QRS [place] 12 T Wave [place] -18 MO Interval 110 Impression Sinus rhythm Nonspecific T abnormalities, inferior leads No previous ekg available for comparison Electronically Signed On 06-18-2025 04:49:16 EDT by Guerrero Mendoza Labs: Recent Results (from the past 24 hours) CBC Collection Time: 06/21/25 2:16 AM Result Value Ref Range Auto WBC 5.8 3.6 - 10.7 10*3/uL RBC 6.09 (H) 4.40 - 5.90 10*6/uL Hemoglobin 17.5 13.0 - 18.0 g/dL Hematocrit 51.5 40.0 - 52.0 % MCV 84.6 77.0 - 99.0 fL MCH 28.7 26.0 - 34.0 pg MCHC 34.0 30.5 - 36.0 % RDW 13.1 11.5 - 15.0 % Platelets 193 140 - 440 10*3/uL MPV 11.5 9.0 - 12.7 fL Basic metabolic panel Collection Time: 06/21/25 2:16 AM Result Value Ref Range SODIUM 139 136 - 145 mmol/L POTASSIUM 4.2 3.5 - 5.1 mmol/L CHLORIDE 109 (H) 98 - 107 mmol/L CARBON DIOXIDE 25 22 - 29 mmol/L UREA NITROGEN 9 8 - 21 mg/dL CREATININE 1.15 0.72 - 1.25 mg/dL GLUCOSE 85 74 - 100 mg/dL CALCIUM 9.1 8.4 - 10.2 mg/dL ANION GAP 5 3 - 13 mmol/L eGFR >90.0 >60.0 mL/min/1.73m*2 ASSESSMENT: Diagnostic Impression: Unspecified Mood Disorder Suicide Attempt via foreign body ingestion, r/o Malingering vs Factitious disorder Unspecified Anxiety PTSD by Hx ADHD by hx R/o Personality Disorder RECOMMENDATIONS: Pt requires inpatient psychiatric admission when medically stable. Please maintain pt on a yellow slip. Pt may not leave AMA. When pt medically stable for transfer, please message psychiatry consult service to begin transfer process. Medications: continue aripiprazole and Depakote for mood, buspirone for anxiety - No clear signs of refugio or psychosis at present, not sure that Invega is indicated but will defer med changes for now Labs: Studies: Delirium precautions: Avoid sedating/anticholinergi c medications, encourage sleep hygiene, minimize barriers to nutrition, optimize sensory input and access to assistive devices (dentures, glasses, etc) where indicated, encourage time up in chair as able, D/c Woodruff, restraints, IV lines, as able and reserve agitation PRNs for instances where patient is danger to self/others/treatment. Recommendations shared with primary team. Follow up: psychiatry will follow as needed with plan for admission, Dr. Quiles covering Sat/Sun [1] Current Facility-Administered Medications Medication Dose Route Frequency Provider Last Rate Last Admin acetaminophen (Tylenol) tablet 650 mg 650 mg Oral q6h PRN Eli Villalpando, PERSONNEL SECURITY ASSISTANT 650 mg at 06/20/25 104 ARIPiprazole (Abilify) tablet 10 mg 10 mg Oral Nightly Eli Villalpando, PERSONNEL SECURITY ASSISTANT 10 mg at 06/20/252006 busPIRone (Buspar) tablet 5 mg 5 mg Oral BID Eli Villalpando, PERSONNEL SECURITY ASSISTANT 5 mg at 06/21/25 100 divalproex (Depakote ER) 24 hr tablet 750 mg 750 mg Oral BID Eli Villalpando, PERSONNEL SECURITY ASSISTANT 750 mg at 06/21/25 0534 docusate sodium (Colace) capsule 100 mg 100 mg Oral TID Iris Garibay PA-C 100 mg at 06/21/25 100 escitalopram (Lexapro) tablet 10 mg 10 mg Oral Nightly Eli Villalpando, PERSONNEL SECURITY ASSISTANT 10 mg at 06/20/252007 ketorolac (Toradol) injection 30 mg (more content not included)... Normal [facility] XR ABDOMEN 1 VIEWon 06-21-20 XR ABDOMEN 1 VIEW Patient Name: RUBÉN GIBBS : 2005 Exam Date/Time: 06/21/2025 07:47 Procedure: XR ABDOMEN 1 VIEW Ordering Provider: FUNES JR, STEPHEN Reason For Exam: Foreign body ingestion, follow progression EXAM TYPE: XR ABDOMEN 1 VIEW EXAM DATE AND TIME: 06/21/2025 7:47 AM EDT INDICATION: 19 years Male with foreign body ingestion COMPARISON: Radiograph from yesterday TECHNIQUE: AP supine radiograph of the abdomen and pelvis was obtained. FINDINGS: Metallic density foreign body again seen overlying the right upper quadrant in a similar position to the prior study. The bowel gas pattern is unremarkable. Limited evaluation for free air or air-fluid levels on supine-only imaging. No radiopaque urinary calculi. Degenerative changes are seen in the visualized spine. The lung bases are not included in the field of view. IMPRESSION: Metallic density foreign body again seen overlying the right upper quadrant in a similar position to the prior study. Report Dictated on Electronically Signed By: Rex Pulido MD Electronically Signed Date/Time: 06/21/2025 8:01 AM EDT [facility] XR Abdomen Single viewon Radiology Study observation (narrative) [facility] Metallic density foreign body again seen overlying the right upper quadrant in a similar position to the prior study. Report Dictated on Electronically Signed By: Rex Pulido MD Electronically Signed Date/Time: 06/21/2025 8:01 AM EDT [facility] Patient Name: RUBÉN GIBBS : 2005 Exam Date/Time: 06/21/2025 07:47 Procedure: XR ABDOMEN 1 VIEW Ordering Provider: FUNES JR, STEPHEN Reason For Exam: Foreign body ingestion, follow progression EXAM TYPE: XR ABDOMEN 1 VIEW EXAM DATE AND TIME: 06/21/2025 7:47 AM EDT INDICATION: 19 years Male with foreign body ingestion COMPARISON: Radiograph from yesterday TECHNIQUE: AP supine radiograph of the abdomen and pelvis was obtained. FINDINGS: Metallic density foreign body again seen overlying the right upper quadrant in a similar position to the prior study. The bowel gas pattern is unremarkable. Limited evaluation for free air or air-fluid levels on supine-only imaging. No radiopaque urinary calculi. Degenerative changes are seen in the visualized spine. The lung bases are not included in the field of view. [facility] Rex Pulido MD - 06/21/2025 Patient Name: RUBÉN GIBBS : 2005 Exam Date/Time: 06/21/2025 07:47 Procedure: XR ABDOMEN 1 VIEW Ordering Provider: FUNES JR, STEPHEN Reason For Exam: Foreign body ingestion, follow progression EXAM TYPE: XR ABDOMEN 1 VIEW EXAM DATE AND TIME: 06/21/2025 7:47 AM EDT INDICATION: 19 years Male with foreign body ingestion COMPARISON: Radiograph from yesterday TECHNIQUE: AP supine radiograph of the abdomen and pelvis was obtained. FINDINGS: Metallic density foreign body again seen overlying the right upper quadrant in a similar position to the prior study. The bowel gas pattern is unremarkable. Limited evaluation for free air or air-fluid levels on supine-only imaging. No radiopaque urinary calculi. Degenerative changes are seen in the visualized spine. The lung bases are not included in the field of view. IMPRESSION: Metallic density foreign body again seen overlying the right upper quadrant in a similar position to the prior study. Report Dictated on Electronically Signed By: Rex Pulido MD Electronically Signed Date/Time: 06/21/2025 8:01 AM EDT [facility] Radiology Study observation (narrative) [facility] XR Abdomen Single viewOrdere d By: Rex Pulido on 06-21-2025 [employer] Work Phone: [phone] 06-20-2025 [id number] Called [facility] spoke with Sahra who reports that he's been there since April 23. DX with MDD, other reaction to severe stress. States that he swallowed two fish hooks. Reports that he didn't directly tell them that what he was doing but later stated that he swallowed two fish hooks. Reports that when he first go there he was told that he had a history of harming himself and at times had some suicidal ideation. He came to them from [facility] in [place]. Came from [facility] before that, reports that they aren't able to release that due to him being a youth at time of entry. Reports that the Depakote was increased May 17 to 750mg PO BID. Reports that Paliperidone was recently started, they don't have Aripiprazole on list. Requested for most recent medication list and measurement psychologist note to be faxed to [facility]. Will request CL team to follow up with record review tomorrow. Normal [facility] BASIC METABOLIC PANELon 10- Anion gap [Moles/Vol] 6 mmol/L Normal 3-13 [facility] Comment on above: Performed By: #### L [id number] #### Store Team Member: JEANETTE HORVATH ([phone]) [facility]) [address] [place] [address] Calcium [Mass/Vol] 9.0 mg/dL Normal 8.4-10.[address] [facility] Comment on above: Performed By: #### L [id number] #### Store Team Member: JEANETTE HORVATH ([phone]) [facility]) [address] [place] [address] [place] Chloride [Moles/Vol] 104 mmol/L Normal 98-107 [facility] Comment on above: Performed By: #### L [id number] #### Store Team Member: JEANETTE HORVATH ([phone]) [facility]) [address] [place] [address] [place] CO2 [Moles/Vol] 24 mmol/L Normal 22-29 [facility] Comment on above: Performed By: #### L [id number] #### Store Team Member: JEANETTE HORVATH ([phone]) [facility]) [address] [place] [address] Creatinine [Mass/Vol] 1.12 mg/dL Normal 0.72-1.25 [facility] Comment on above: Performed By: #### L [id number] #### Store Team Member: JEANETTE HORVATH ([phone]) [facility]) [address] [place] [address] GLOMERULAR FILTRATION RATE ML/MIN/1.73 SQ M.PREDICTED >90.0 Normal >60.[address] [facility] Comment on above: Result Comment: Calc ulation based on the Chronic Kidney Disease Epidemiology Collaboration (CKD-EPI) equation refit without adjustment for race Performed By: #### L [id number] #### Store Team Member: JAENETTE HORVATH ([phone]) [facility]) [address] [place] [address] Glucose [Mass/Vol] 86 mg/dL Normal 74-[address] [facility] Comment on above: Performed By: #### L [id number] #### Store Team Member: JEANETTE HORVATH ([phone]) [facility]) [address] [place] [address] Potassium [Moles/Vol] 4.1 mmol/L Normal 3.5-5.1 [facility] Comment on above: Result Comment: [facility] potassium values may be up to 0.5 mmol/L lower than serum values. Performed By: #### L [id number] #### Store Team Member: JEANETTE HORVATH ([phone]) [facility]) [address] [place] [address] Sodium [Moles/Vol] 134 mmol/L Low 136-[address] [facility] Comment on above: Performed By: #### L [id number] #### Store Team Member: JEANETTE HORVATH ([phone]) [facility]) [address] [place] [address] Urea nitrogen [Mass/Vol] 11 mg/dL Normal 8-[address] [facility] Comment on above: Performed By: #### L [id number] #### Store Team Member: JEANETTE HORVATH ([phone]) [facility]) [address] [place] [address] Basic metabolic 1998 panelon 06-20-2025 Anion gap [Moles/Vol] 6 mmol/L 3 - 13 mmol/L [facility] Calcium [Mass/Vol] 9 mg/dL 8.4 - 10. 2 mg/dL [facility] Chloride [Moles/Vol] 104 mmol/L 98 - 10 7 mmol/L [facility] CO2 [Moles/Vol] 24 mmol/L 22 - 29 mmol/L [facility] Creatinine [Mass/Vol] 1.12 mg/dL 0.72 - 1.25 mg/dL [facility] GFR/1.73 sq M.predicted (S/P/Bld) [Vol rate/Area] - PINF [facility] Comment on above: Calculation based on the Chronic Kidney Disease Epidemiology Collaboration (CKD-EPI) equation refit without adjustment for race Glucose [Mass/Vol] 86 mg/dL 74 - 100 mg/dL [facility] Interpretation and review of laboratory results Abnormal [facility] Potassium [Moles/Vol] 4.1 mmol/L 3.5 - 5.1 mmol/L [facility] Comment on above: Plasma potassium mayra ues may be up to 0.5 mmol/L lower than serum values. Sodium [Moles/Vol] 134 mmol/L Low 136 - 145 mmol/L [facility] Urea nitrogen [Mass/Vol] 11 mg/dL 8 - 21 mg/dL [facility] CBC (HEMOGRAM)on 06-20-2025 Erythrocyte distribution width (RBC) [Ratio] 13.1 % Normal 11.5-15.[address] [facility] Comment on above: Performed By: #### L [id number] #### Store Team Member: JEANETTE HORVATH ([phone]) [facility]) [address] [place] [address] Hematocrit (Bld) [Volume fraction] 52.6 % High 40.0-52.[address] [facility] Comment on above: Performed By: #### L [id number] #### Store Team Member: JEANETTE HORVATH ([phone]) [facility] ([facility]) [address] [place] [address] Hemoglobin (Bld) [Mass/Vol] 17.9 g/dL Normal 13.0-18.[address] [facility] Comment on above: Performed By: #### L [id number] #### Store Team Member: JEANETTE HORVATH ([phone]) [facility] ([facility]) [address] [place] [address] MCH (RBC) [Entitic mass] 28.7 pg Normal 26.0-34.0 [facility] Comment on above: Performed By: #### L [id number] #### Store Team Member: JEANETTE HORVATH ([phone]) [facility] ([facility]) [address] [place] [address] MCHC 34.0 % Normal 30.5-36.0 [facility] Comment on above: Performed By: #### L [id number] #### Store Team Member: JEANETTE HORVATH ([phone]) [facility] ([facility]) [address] [place] [address] MCV (RBC) [Entitic vol] 84.3 fL Normal 77.0-99.0 [facility] Comment on above: Performed By: #### L [id number] #### Store Team Member: JEANETTE HORVATH ([phone]) [facility] ([facility]) [address] [place] [address] Platelet mean volume (Bld) [Entitic vol] 11.4 fL Normal 9.0-12.7 [facility] Comment on above: Performed By: #### L [id number] #### Store Team Member: JEANETTE HORVATH ([phone]) [facility] ([facility]) [address] [place] [address] Platelets (Bld) [#/Vol] 192 10*3/uL Normal 140-440 [facility] Comment on above: Performed By: #### L [id number] #### Store Team Member: JEANETTE HORVTAH ([phone]) [facility] ([facility]) [address] [place] [address] RBC (Bld) [#/Vol] 6.24 10*6/uL High 4.40-5.90 [facility] Comment on above: Performed By: #### L [id number] #### Store Team Member: JEANETTE HORVATH ([phone]) [facility] ([facility]) [address] [place] [address] WBC (Bld) [#/Vol] 5.0 10*3/uL Normal 3.6-10.[address] [facility] Comment on above: Performed By: #### L [id number] #### Store Team Member: JEANETTE HORVATH ([phone]) [facility] ([facility]) [address] [place] [address] CBC panel Auto (Bld)on 06-20 Erythrocyte distribution width (RBC) [Ratio] 13.1 % 11.5 - 15.0 % [facility] Hematocrit (Bld) [Volume fraction] 52.6 % High 40.0 - 52.0 % [facility] Hemoglobin (Bld) [Mass/Vol] 17.9 g/dL 13.0 - 18.0 g/dL [facility] Interpretation and review of laboratory results Abnormal [facility] MCH (RBC) [Entitic mass] 28.7 pg 26.0 - 34.0 pg [facility] MCHC (RBC) [Mass/Vol] 34 % 30.5 - 36.0 % [facility] MCV (RBC) [Entitic vol] 84.3 fL 77.0 - 99.0 fL [facility] Platelet mean volume (Bld) [Entitic vol] 11.4 fL 9.0 - 12.7 fL [facility] Platelets (Bld) [#/Vol] 192 10*3/uL 140 - 440 10*3/uL [facility] RBC (Bld) [#/Vol] 6.24 10*6/uL High 4.40 - 5.9 0 10*6/uL [facility] WBC (Bld) [#/Vol] 5 10*3/uL 3.6 - 10.7 10*3/uL [facility] Progress Noteon 06-20-2025 Progress Note Nutrition rescreen completed. Patient is NPO/Clear liquid >3 days. Refer to Dietitian. Normal [facility] Progress Note Department of Psychiatry Consult Service Nurse Practitioner Consult Follow-Up Note CHIEF COMPLAINT: Follow up for concerns of suicide attempt SUBJECTIVE: On interview, the pt is lying in bed. He reports that he is feeling tired. He denies SI, HI, AVH, paranoia. He reports that I don't know when asked how he is feeling about the suicide attempt. He talked to his grandmother since being here which he believes made him feel better. When asked if he would feel safe returning to [facility] he shakes his head no. Upon further questions he states I'd probably do something dumb. He is court ordered to there. He reports that he is still having depression 5/10 and anxiety is I don't know. He slept well last night. He denies having any other complaints. He is unsure if he recently had any medication changes. Pt provided verbal consent for this provider to call [facility] to obtain collateral. 12:47pm- Called [facility] - transferred to nursing, no answer CURRENT MEDICATIONS: Current Medications[1] PSYCHIATRIC EXAMINATION: Vitals: Vitals: 06/20/25 0619 BP: 102/71 Pulse: 63 Resp: 16 Temp: 36.1 ?C (96.9 ?F) SpO2: 95% Physical Examination: Constitutional: well developed, well nourished, in no acute distress, and alert Musculoskeletal: gait Not examined Mental Status Examination: Appearance: moderately kept, appears stated age Attitude toward examiner: Guarded. and Fair eye contact. Behavior/motor: No psychomotor agitation or retardation, no tremor or other abnormal movements. Speech: Coherent and Regular rate, rhythm, volume and articulation Mood: tired Affect: Blunted Thought process: Linear, goal directed Thought content: no delusions noted Thought perception: No perceptual abnormalities noted Suicidal ideation:Denies Homicidal ideation: Denies Cognition: oriented to person, place, time/date, and situation Memory: Not formally tested Insight: impaired Judgment: impaired DATA REVIEWED: Encounter Date: 06/18/25 ECG 12 lead Result Value Heart Rate 72 QRSD Interval 92 QT Interval 359 QTC Interval 393 P [place] 34 QRS [place] 12 T Wave [place] -18 MO Interval 110 Impression Sinus rhythm Nonspecific T abnormalities, inferior leads No previous ekg available for comparison Electronically Signed On 06-18-2025 04:49:16 EDT by Guerrero Rocha: Recent Results (from the past 24 hours) CBC Collection Time: 06/20/25 6:19 AM Result Value Ref Range Auto WBC 5.0 3.6 - 10.7 10*3/uL RBC 6.24 (H) 4.40 - 5.90 10*6/uL Hemoglobin 17.9 13.0 - 18.0 g/dL Hematocrit 52.6 (H) 40.0 - 52.0 % MCV 84.3 77.0 - 99.0 fL MCH 28.7 26.0 - 34.0 pg MCHC 34.0 30.5 - 36.0 % RDW 13.1 11.5 - 15.0 % Platelets 192 140 - 440 10*3/uL MPV 11.4 9.0 - 12.7 fL Basic metabolic panel Collection Time: 06/20/25 6:19 AM Result Value Ref Range SODIUM 134 (L) 136 - 145 mmol/L POTASSIUM 4.1 3.5 - 5.1 mmol/L CHLORIDE 104 98 - 107 mmol/L CARBON DIOXIDE 24 22 - 29 mmol/L UREA NITROGEN 11 8 - 21 mg/dL CREATININE 1.12 0.72 - 1.25 mg/dL GLUCOSE 86 74 - 100 mg/dL CALCIUM 9.0 8.4 - 10.2 mg/dL ANION GAP 6 3 - 13 mmol/L eGFR >90.0 >60.0 mL/min/1.73m*2 ASSESSMENT: Diagnostic Impression: Suicide attempt Foreign body in intestine Unspecified depression Unspecified anxiety PTSD by history ADHD by history R/O personality disorder R/O adjustment disorder RECOMMENDATIONS: Unable to determine whether pt requires inpatient psychiatric admission at this time. Please maintain pt on a yellow slip. Pt may not leave AMA. Will reassess. Medications: Continue home medications when appropriate verified by RN including Aripiprazole 10mg PO at bedtime- mood Buspirone 15mg PO BID- anxiety Depakote ER 750mg PO BID- mood Labs: Valproic acid level Studies: Defer to primary team Consult: Social work- assist with clarification of guardianship- appreciated Delirium precautions: Avoid sedating/anticholinergi c medications, encourage sleep hygiene, minimize barriers to nutrition, optimize sensory input and access to assistive devices (dentures, glasses, etc) where indicated, encourage time up in chair as able, D/c Woodruff, restraints, IV lines, as able and reserve agitation PRNs for instances where patient is danger to self/others/treatment. Recommendations shared with primary team. Follow up: Will continue to follow [1] Current Facility-Administered Medications Medication Dose Route Frequency Provider Last Rate Last Admin acetaminophen (Tylenol) tablet 650 mg 650 mg Oral q6h PRN Eli Villalpando, PERSONNEL SECURITY ASSISTANT 650 mg at 06/20/25 1048 ARIPiprazole (Abilify) tablet 10 mg 10 mg Oral Nightly Eli Villalpando, PERSONNEL SECURITY ASSISTANT 10 mg at 06/19/25 2113 busPIRone (Buspar) tablet 5 mg 5 mg Oral BID Eli Villalpando, PERSONNEL SECURITY ASSISTANT 5 mg at 06/20/25 1037 divalproex (Depakote ER) 24 hr tablet 750 mg (more content not included)... Normal [facility] XR ABDOMEN 1 VIEWon 06-20-20 25 XR ABDOMEN 1 VIEW Patient Name: RUBÉN GIBBS : 2005 Exam Date/Time: 06/20/2025 09:04 Procedure: XR ABDOMEN 1 VIEW Ordering Provider: FUNES JR, STEPHEN Reason For Exam: Foreign body ingestion, follow progression Examination: Abdomen 1 view, 2 images Indication: Foreign body ingestion, follow progression Findings: Abnormal gaseous distention of the transverse colon measuring approximately 7 cm in diameter. Bowel gas in the region of the rectum. No obvious small bowel dilatation. There is tubing overlying the abdomen. Small osteophytes of the spine are present at multiple levels. Mild scoliosis of the spine. IMPRESSION: Impression: There is a fishhook overlying the right mid to upper abdomen, similar or minimally progressed. Mildly dilated transverse colon. Report Dictated on Electronically Signed By: Bobbi Moreno MD Electronically Signed Date/Time: 06/20/2025 9:04 AM EDT [facility] XR Abdomen Single viewon Radiology Study observation (narrative) [facility] Patient Name: RUBÉN GIBBS : 2005 Exam Date/Time: 06/20/2025 09:04 Procedure: XR ABDOMEN 1 VIEW Ordering Provider: FUNES JR, STEPHEN Reason For Exam: Foreign body ingestion, follow progression Examination: Abdomen 1 view, 2 images Indication: Foreign body ingestion, follow progression Findings: Abnormal gaseous distention of the transverse colon measuring approximately 7 cm in diameter. Bowel gas in the region of the rectum. No obvious small bowel dilatation. There is tubing overlying the abdomen. Small osteophytes of the spine are present at multiple levels. Mild scoliosis of the spine. [facility] Bobbi Moreno MD - 06/20/2025 Patient Name: RUBÉN GIBBS : 2005 Exam Date/Time: 06/20/2025 09:04 Procedure: XR ABDOMEN 1 VIEW Ordering Provider: FUNES JR, STEPHEN Reason For Exam: Foreign body ingestion, follow progression Examination: Abdomen 1 view, 2 images Indication: Foreign body ingestion, follow progression Findings: Abnormal gaseous distention of the transverse colon measuring approximately 7 cm in diameter. Bowel gas in the region of the rectum. No obvious small bowel dilatation. There is tubing overlying the abdomen. Small osteophytes of the spine are present at multiple levels. Mild scoliosis of the spine. IMPRESSION: Impression: There is a fishhook overlying the right mid to upper abdomen, similar or minimally progressed. Mildly dilated transverse colon. Report Dictated on Electronically Signed By: Bobbi Moreno MD Electronically Signed Date/Time: 06/20/2025 9:04 AM EDT [facility] XR Abdomen Single viewOrdere d By: Bobbi Moreno on 06-20-2025 [facility] Work Phone: [phone] [id number] Pt currently off uni t. Will follow up at a later time. Normal [facility] BASIC METABOLIC PANELon 06-05 Anion gap [Moles/Vol] 8 mmol/L Normal 3-13 [facility] Comment on above: Performed By: #### L [id number] #### Store Team Member: JEANETTE HORVATH ([phone]) [facility] ([facility]) [address] [place] [address] Calcium [Mass/Vol] 9.4 mg/dL Normal 8.4-10.[address] [facility] Comment on above: Performed By: #### L [id number] #### Store Team Member: JEANETTE HORVATH ([phone]) [facility] ([facility]) [address] [place] [address] Chloride [Moles/Vol] 103 mmol/L Normal 98-107 [facility] Comment on above: Performed By: #### L [id number] #### Store Team Member: JEANETTE HORVATH ([phone]) [facility] ([facility]) [address] [place] [address] CO2 [Moles/Vol] 25 mmol/L Normal 22-29 [facility] Comment on above: Performed By: #### L [id number] #### Store Team Member: JEANETTE HORVATH ([phone]) [facility] ([facility]) [address] [place] [address] Creatinine [Mass/Vol] 1.18 mg/dL Normal 0.72-1.25 [facility] Comment on above: Performed By: #### L [id number] #### Store Team Member: JEANETTE HORVATH ([phone]) [facility] ([facility]) [address] [place] [address] GLOMERULAR FILTRATION RATE ML/MIN/1.73 SQ M.PREDICTED >90.0 Normal >60.[address] [facility] Comment on above: Result Comment: Calc ulation based on the Chronic Kidney Disease Epidemiology Collaboration (CKD-EPI) equation refit without adjustment for race Performed By: #### L [id number] #### Store Team Member: JEANETTE HORVATH ([phone]) [facility] ([facility]) [address] [place] [address] [place] Glucose [Mass/Vol] 95 mg/dL Normal 74-[address] [facility] Comment on above: Performed By: #### L [id number] #### Store Team Member: JEANETTE HORVATH ([phone]) [facility] ([facility]) [address] [place] [address] [place] Potassium [Moles/Vol] 4.3 mmol/L Normal 3.5-5.1 [facility] Comment on above: Result Comment: [facility] potassium values may be up to 0.5 mmol/L lower than serum values. Performed By: #### L [id number] #### Store Team Member: JEANETTE HORVATH ([phone]) [facility]) [address] [place] [address] Sodium [Moles/Vol] 136 mmol/L Normal 136-[address] [facility] Comment on above: Performed By: #### L [id number] #### Store Team Member: JEANETTE HORVATH ([phone]) [facility] ([facility]) [address] [place] [address] Urea nitrogen [Mass/Vol] 12 mg/dL Normal 8-[address] [facility] Comment on above: Performed By: #### L [id number] #### Store Team Member: JEANETTE HORVATH ([phone]) [facility] ([facility]) [address] [place] [address] Basic metabolic 1998 panelon 06-19-2025 Anion gap [Moles/Vol] 8 mmol/L 3 - 13 mmol/L [facility] Calcium [Mass/Vol] 9.4 mg/dL 8.4 - 10. 2 mg/dL [facility] Chloride [Moles/Vol] 103 mmol/L 98 - 10 7 mmol/L [facility] CO2 [Moles/Vol] 25 mmol/L 22 - 29 mmol/L [facility] Creatinine [Mass/Vol] 1.18 mg/dL 0.72 - 1.25 mg/dL [facility] GFR/1.73 sq M.predicted (S/P/Bld) [Vol rate/Area] - PINF [facility] Comment on above: Calculation based on the Chronic Kidney Disease Epidemiology Collaboration (CKD-EPI) equation refit without adjustment for race Glucose [Mass/Vol] 95 mg/dL 74 - 100 mg/dL [facility] Interpretation and review of laboratory results Normal [facility] Potassium [Moles/Vol] 4.3 mmol/L 3.5 - 5.1 mmol/L [facility] Comment on above: Plasma potassium mayra ues may be up to 0.5 mmol/L lower than serum values. Sodium [Moles/Vol] 136 mmol/L 136 - 145 mmol/L [facility] Urea nitrogen [Mass/Vol] 12 mg/dL 8 - 21 mg/dL [facility] CBC (HEMOGRAM)on 06-19-2025 Erythrocyte distribution width (RBC) [Ratio] 13.3 % Normal 11.5-15.[address] [facility] Comment on above: Performed By: #### L [id number] #### Store Team Member: JEANETTE HORVATH ([phone]) [facility] ([facility]) [address] [place] [address] Hematocrit (Bld) [Volume fraction] 54.4 % High 40.0-52.[address] [facility] Comment on above: Performed By: #### L [id number] #### Store Team Member: JEANETTE HORVATH ([phone]) [facility] ([facility]) [address] [place] [address] Hemoglobin (Bld) [Mass/Vol] 18.4 g/dL High 13.0-18.[address] [facility] Comment on above: Performed By: #### L [id number] #### Store Team Member: JEANETTE HORVATH ([phone]) [facility] ([facility]) [address] [place] [address] MCH (RBC) [Entitic mass] 28.7 pg Normal 26.0-34.[address] [facility] Comment on above: Performed By: #### L [id number] #### Store Team Member: JEANETTE HORVATH ([phone]) [facility] ([facility]) [address] [place] [address] MCHC 33.8 % Normal 30.5-36.[address] [facility] Comment on above: Performed By: #### L [id number] #### Store Team Member: JEANETTE HORVATH ([phone]) [facility] ([facility]) [address] [place] [address] MCV (RBC) [Entitic vol] 84.7 fL Normal 77.0-99.0 [facility] Comment on above: Performed By: #### L [id number] #### Store Team Member: JEANETTE HORVATH ([phone]) [facility] ([facility]) [address] [place] [address] Platelet mean volume (Bld) [Entitic vol] 11.7 fL Normal 9.0-12.[address] [facility] Comment on above: Performed By: #### L [id number] #### Store Team Member: JEANETTE HORVATH ([phone]) [facility] ([facility]) [address] [place] [address] Platelets (Bld) [#/Vol] 197 10*3/uL Normal 140-[address] [facility] Comment on above: Performed By: #### L [id number] #### Store Team Member: JEANETTE HORVATH ([phone]) [facility] ([facility]) [address] [place] [address] RBC (Bld) [#/Vol] 6.42 10*6/uL High 4.40-5.[address] [facility] Comment on above: Performed By: #### L [id number] #### Store Team Member: JEANETTE HORVATH ([phone]) [facility] ([facility]) [address] [place] [address] WBC (Bld) [#/Vol] 5.3 10*3/uL Normal 3.6-10.[address] [facility] Comment on above: Performed By: #### L [id number] #### Store Team Member: JEANETTE HORVATH ([phone]) [facility] ([facility]) [address] [place] [address] CBC panel Auto (Bld)on 06-19 Erythrocyte distribution width (RBC) [Ratio] 13.3 % 11.5 - 15.0 % [facility] Hematocrit (Bld) [Volume fraction] 54.4 % High 40.0 - 52.0 % [facility] Hemoglobin (Bld) [Mass/Vol] 18.4 g/dL High 13.0 - 18.0 g/dL [facility] Interpretation and review of laboratory results Abnormal [facility] MCH (RBC) [Entitic mass] 28.7 pg 26.0 - 34.0 pg [facility] MCHC (RBC) [Mass/Vol] 33.8 % 30.5 - 36.0 % [facility] MCV (RBC) [Entitic vol] 84.7 fL 77.0 - 99.0 fL [facility] Platelet mean volume (Bld) [Entitic vol] 11.7 fL 9.0 - 12.7 fL [facility] Platelets (Bld) [#/Vol] 197 10*3/uL 140 - 440 10*3/uL [facility] RBC (Bld) [#/Vol] 6.42 10*6/uL High 4.40 - 5.9 0 10*6/uL [facility] WBC (Bld) [#/Vol] 5.3 10*3/uL 3.6 - 10.7 10*3/uL [facility] HEPATIC FUNCTION PANELon Albumin [Mass/Vol] 3.8 g/dL Normal 3.5-5.0 [facility] Comment on above: Performed By: #### L [id number] #### Store Team Member: JEANETTE HORVATH ([phone]) [facility] ([facility]) [address] [place] [address] ALP [Catalytic activity/Vol] 86 U/L Normal 40-[address] [facility] Comment on above: Performed By: #### L [id number] #### Store Team Member: JEANETTE HORVATH ([phone]) [facility] ([facility]) [address] [place] [address] [place] ALT [Catalytic activity/Vol] 49 U/L High <40 [facility] Comment on above: Performed By: #### L [id number] #### Store Team Member: JEANETTE HORVATH ([phone]) [facility] ([facility]) [address] [place] [address] [place] AST [Catalytic activity/Vol] 37 U/L High <34 [facility] Comment on above: Performed By: #### L [id number] #### Store Team Member: JEANETTE HORVATH ([phone]) [facility] ([facility]) [address] [place] [address] [place] Bilirubin [Mass/Vol] 0.8 mg/dL Normal <1.2 [facility] Comment on above: Performed By: #### L [id number] #### Store Team Member: JEANETTE HORVATH ([phone]) [facility] ([facility]) [address] [place] [address] [place] Bilirubin.indirect [Mass/Vol] 0.2 mg/dL Normal <0.[address] [facility] Comment on above: Performed By: #### L [id number] #### Store Team Member: JEANETTE HORVATH ([phone]) [facility]) [address] [place] [address] Protein [Mass/Vol] 7.2 g/dL Normal 6.4-8.[address] [facility] Comment on above: Result Comment: Seru m protein values are higher than plasma values. Samples from recumbent persons are lower by up to 0.5 g/dL as compared to ambulatory persons. After 60 years values are lower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 Diagnoses/Problems this Admission: Problem List[1] I personally supervised the resident physician in the evaluation and development of a treatment plan for this patient on the same day of service as above. I personally discussed the review of systems and interviewed the patient along with performing a physical examination. I reviewed the recent events, imaging, labs, vital signs. In addition, I discussed the patient's condition and treatment options with him/her when possible. I have also reviewed and agree with the past medical, family, and social history unless otherwise noted. All of the patient's questions were answered and family updated when appropriate and possible. A complete review of systems was obtained and is negative except as stated in HPI and/or Subjective Section. Please note that the plan below is highlights/fox components and corrections; see the main resident note for the full Assessment/Plan. PMH: prior suicide attempt PSH: reports none significant Family History: reports none significant A/P: -as per Dr. Arredondo's note -I evaluated patient on 06/18/25 -Chief Complaint/Reason for Consult: swallowed fish hook in attempt at self-harm -HPI as below, patient ingested fish hook on 06/16, transferred from OSH -lab studies are unremarkable, benign exam, CT imaging shows hook in small bowel, no perforation, no free fluid -no acute operative intervention -serial exams -daily KUB -okay for clear liquids -aggressive bowel regimen -our Service will closely follow Total Care Time throughout the day today was >= 55 minutes (including chart/data review/analysis, care coordination, and fodw-dn-recw encounter), and was spent discussing/counseling the patient/family regarding the care plan for Rubén Gibbs. I examined the patient independently. I reviewed relevant data myself and may have also done so in the context of team rounds. A full chart review was performed. Level of Medical Decision Making: []High [x]Moderate []Low Complexity: []Acute or chronic illness/injury posing a threat to life or bodily function without treatment (HIGH) []Chronic illness with severe exacerbation, progression, or side effect of treatment (HIGH) []Chronic illness with mild to moderate exacerbation, progression, or side effect of treatment (MOD) [x]Previously undiagnosed (new) problem with uncertain prognosis (MOD) []Acute illness with systemic symptoms (MOD) []Acute, complicated injury (MOD) []Multiple stable chronic illnesses (MOD) Risk: []Parental controlled substances (HIGH) []Decision not to resuscitate or to de-escalate care because of poor prognosis (HIGH) []Decision regarding major surgery with identified patient or procedure risk factors (HIGH) []Decision regarding emergency surgery (HIGH) []Drug or treatment/therapy requiring intensive monitoring (HIGH) []Prescription drug management AND/OR inpatient medication management/changes (MOD) [x]Decision regarding surgery with identified patient or procedure risk factors (MOD) []Diagnosis or treatment significantly limited by social determinants of health (MOD) Personally Reviewed/Independently interpreted patient's: [x]Epic notes [x]Radiology studies [x]Labs []EKG []Ordering tests []Other Discussed/ With: [x]Patient/Family []RN []Consultants []Primary Team []SW/TCC []Other Time was spent: -Reviewing the medical record, including recent tests and results -Ordering prescription medications/tests and procedures -Communicating results to the patient/family/caregive r -Counseling/educating the patient/family/caregive r -Documenting clinical information in the patient's electronic record -Co-ordination of care for the patient -Performing a medically appropriate exam and evaluation Ten Bolivar MD, FACS Trauma, Surgical Critical Care, & Acute Care Surgery Department of Surgery [facility] Pager: [phone] ~~~~~~~~~~~~~~~~~~~~~~~ ~~~~~~~~~~~~~~~~~~~~~~~ ~~~~~~~~~~~~~~~ This note may have been dictated using [employer] Medical Practice Edition 2.6 and/or [employer] Voice Recognition Feature. The document was proofread; however, unrecognized voice recognition refrigerator repairman errors may be present. [1] Patient Active Problem List Diagnosis Foreign body in intestine, initial encounter Department of General Surgery Surgical Service - [facility] Resident Consult Note 06/18/2025 CHIEF COMPLAINT: Chief Complaint Patient presents with Suicide Attempt Transfer dillon [facility]era from [facility]. Swallowed fish hook that is now stuck in small intestine. Pt endorses multiple attempts in various different ways in the past. Doesn't give a oumar (more content not included)... Normal [facility] DRUGS OF ABUSEon 06-18-2025 AMPHETAMINE SCREEN Negative Normal [facility] Comment on above: Performed By: #### L [id number] #### Store Team Member: JEANETTE HORVATH ([phone]) [facility] ([facility]) [address] [place] [address] BARBITURATES SCREEN Negative Normal [facility] Comment on above: Performed By: #### L [id number] #### Store Team Member: JEANETTE HORVATH ([phone]) [facility] ([facility]) [address] [place] [address] BENZODIAZEPINE SCREEN Negative Normal [facility] Comment on above: Performed By: #### L [id number] #### Store Team Member: JEANETTE HORVATH ([phone]) [facility] ([facility]) [address] [place] [address] COCAINE METAB. SCREEN Negative Normal [facility] Comment on above: Performed By: #### L [id number] #### Store Team Member: JEANETTE HORVATH ([phone]) [facility]) [address] [place] [address] FENTANYL SCREEN, UR QUAL Positive Normal [facility] Comment on above: Result Comment: ANGELICA Curry COMMENTS: The expected value for all of the drugs listed above is Negative. The following drugs or drug groups have been screened for by Immunoassay at the following thresholds: Amphetamine class (1000 ng/mL) Barbiturates (200 ng/mL) Benzodiazepines (200 ng/mL) Cocaine (300 ng/mL) Methadone (300 ng/mL) Opiates (300 ng/mL) Oxycodone (100 ng/mL) PCP (25 ng/mL) Fentanyl (1.0 ng/ml) NOTE: These results are for medical treatment only. Analysis performed using non-forensic procedures. POSITIVE results are NOT confirmed by a more specific alternative method unless requested. If confirmation is needed, request confirmation under separate order. Performed By: #### L [id number] #### Store Team Member: JEANETTE HORVATH ([phone]) [facility] ([facility]) [address] [place] [address] METHADONE SCREEN Negative Normal [facility] Comment on above: Performed By: #### L [id number] #### Store Team Member: JEANETTE HORVATH ([phone]) [facility] ([facility]) [address] [place] [address] OPIATES SCREEN Positive Normal [facility] [facility] Comment on above: Performed By: #### L [id number] #### Store Team Member: JEANETTE HORVATH ([phone]) [facility] ([facility]) [address] [place] [address] OXYCODONE SCREEN Negative Normal [facility] Comment on above: Performed By: #### L [id number] #### Store Team Member: JEANETTE HORVAHT ([phone]) [facility] ([facility] [address] [place] [address] PHENCYCLIDINE SCREEN Negative Normal [facility] Comment on above: Performed By: #### L [id number] #### Store Team Member: JEANETTE HORVATH ([phone]) [facility] [address] [place] [address] ECG 12-LEADon 06-18-2025 ECG 12-LEAD IMPRESSION: Sinus rhythm Nonspecific T abnormalities, inferior leads No previous ekg available for comparison Electronically Signed On 06-18-2025 04:49:16 EDT by Guerrero Mendoza Normal [facility] ED Nursing Noteon 06-18-2025 ED Nursing Note Report given to BOBO DAWKINS Normal [facility] ED Nursing Note Pt escorted to restr oom per requesr Normal [facility] ED Nursing Note Admitting provider a t bedside Normal [facility] ED Nursing Note Dietary tray ordered. Normal [facility] ED Nursing Note project manager industrial, Crystal, a t bedside Normal [facility] ED Nursing Note Surgery at bedside Normal [facility] ED Nursing Note Pt given phone to claude martínez family Normal [facility] ED Nursing Note RN at bedside for vitals Normal [facility] ED Nursing Note Pt ate very little amount of meal tray. Given gingerale per request Normal [facility] ED Nursing Note Pt given clear liqui ds meal tray Normal [facility] ED Nursing Note Breakfast tray delivered. Pt asleep at this time Normal [facility] ED Nursing Note Taking over as 1-[address] [facility] ED Nursing Note Report given to Florencio ashford RN. Normal [facility] ED Nursing Note Dr. Arredondo (surgery resident) at the bedside. Normal [facility] ED Nursing Note EKG in room with pt. Normal [facility] ED Nursing Note Resident in room speaking to patient. Normal [facility] ED Provider Noteon ED Provider Note Emergency Department Encounter [facility] Patient: Rubén Gibbs : 2005 Date of Evaluation: 06/17/2025 ED Supervising Physician: Arben Funes, I personally evaluated Rubén Gibbs and made/approved the management plan and take responsibility for the patient management. This will serve as my Supervisory note and shared attestation. I did perform a substantive portion of the visit including all aspects of the Medical Decision Making. I wore appropriate PPE for the entirety of this encounter. CHIEF COMPLAINT Chief Complaint Patient presents with Suicide Attempt Transfer pink slip from [facility]. Swallowed fish hook that is now stuck in small intestine. Pt endorses multiple attempts in various different ways in the past. Doesn't give a reason as to why I just want to hurt myself. A&Ox4 Abdominal Pain Endorses sharp 7/10 ABD pain I haven't ate since yesterday so I think it's part of that. In brief, Rubén Gibbs is a 19 y.o. that presents to the emergency department from [place] for swallowed fish hook attempt to harm himself. Focused exam: PHYSICIAL: Vitals reviewed GENERAL: nontoxic appearing, in no acute distress. patient appears nourished and normally developed. Vital signs as documented. EYES: Head exam is unremarkable. No scleral icterus HEENT: Mucous membranes moist. LUNGS: no increased work of breathing, no conversational dyspnea Abdomen: No tenderness to palpation SKIN: Good color, no cyanosis, No pallor. NEURO: No obvious neurological deficits, PSYCH: Appropriate for age. ED Course as of 06/19/25342e Jun 18, 2025 0334 Patient may no acute distress room, general surgery suggest medical admission or CDU placed on bowel regimen will still require psych consult [SL] ED Course User Index [SL] Arben Funes Jr., Diagnoses as of 06/19/25 0343 Foreign body in intestine, initial encounter Suicidal ideation Brief ED course/MDM: All results/imaging if obtained reviewed and interpreted, results trended/compared with previous levels if available After reviewing patient's comorbidities, severity of history of presenting illness, labs and imaging if obtained in conjunction with physical exam and course in emergency department, deemed to have potential for deterioration/progressi on of symptoms that could lead to multiple morbidities or mortality, decision made that patient requires further observation/evaluation/ treatment and patient admitted to appropriate service, patient/family understand and agree with plan. chart created with voice recognition software, errors may be present due to software's interpretation Diagnostics interpreted by me: EKG Results Procedure Component Value Units Date/Time ECG 12 lead [[id number]] Collected: 06/18/25 0227 Order Status: Completed Lab Status: Final result Updated: 06/18/25448 Heart Rate 72 bpm QRSD Interval 92 ms QT Interval 359 ms QTC Interval 393 ms P [place] 34 degrees QRS [place] 12 degrees T Wave [place] -18 degrees MO Interval 110 ms Impression: Sinus rhythm Nonspecific T abnormalities, inferior leads No previous ekg available for comparison Electronically Signed On 06-18-2025 04:49:16 EDT by Guerrero Mendoza Labs Reviewed CBC WITH AUTO DIFFERENTIAL - Abnormal Result Value Auto WBC 6.2 RBC 6.07 (*) Hemoglobin 17.6 Hematocrit 51.7 MCV 85.2 MCH 29.0 MCHC 34.0 RDW 13.4 Platelets 188 MPV 11.7 nRBC 0.0 Neutrophils Relative 49.6 Lymphocytes Relative 35.0 Monocytes Relative 11.2 Eosinophils Relative 2.9 Basophils Relative 0.8 Immature Grans % 0.5 Neutrophils Absolute 3.1 Lymphocytes Absolute 2.2 Monocytes Absolute 0.7 Eosinophils Absolute 0.2 Basophils Absolute 0.1 Immature Grans Absolute 0.0 COMPREHENSIVE METABOLIC PANEL - Abnormal SODIUM 138 POTASSIUM 4.4 CHLORIDE 105 CARBON DIOXIDE 24 ANION GAP 9 UREA NITROGEN 14 CREATININE 1.08 GLUCOSE 84 CALCIUM 9.3 AST (SGOT) 50 (*) ALT 57 (*) ALKALINE PHOSPHATASE 80 ALBUMIN 3.8 BILIRUBIN, TOTAL 0.8 TOTAL PROTEIN 7.0 eGFR >90.0 COMPLETE URINALYSIS WITH REFLEX TO CULTURE - Abnormal Color, Urine Yellow Clarity, Urine Clear pH, Urine 6.5 Leukocytes, Urine Negative Nitrite, Urine Negative Protein, Urine Negative Glucose, Urine Normal Bilirubin, Urine Negative Ketones, Urine 10 (*) Urobilinogen, Urine 3 (*) Blood, Urine Negative SPECIFIC GRAVITY OF URINE (NUMERIC) 1.033 (*) Narrative: A specimen with <=10 WBC is not consistent with inflammation. This specimen will not reflex to a urine culture. VALPROIC ACID TOTAL - Abnormal VALPROIC ACID 29 (*) Narrative: Toxicity is seen at concentrations >175 ug/mL SARS-COV-2 ANTIGEN - Normal SARS-CoV-2 Antigen Negative ETHANOL - Normal ETHANOL IN SER/PLAS <10 Narrative: CREW SCHEDULER depression is seen >100 mg/dL. NOTE: This result is for medical treatment only. Analysis performed using (more content not included)... [facility] ED Provider Note I did not see or evaluate this patient. Juliana Moore MD 06/18/25 0212 [facility] ED Provider Note EMERGENCY DEPARTMENT ENCOUNTER Pt Name: Rubén Gibbs Birthdate 2005 Date of evaluation: 06/17/2025 ED Provider: Aki Miller DO CHIEF COMPLAINT Chief Complaint Patient presents with Suicide Attempt Transfer pink slip from [facility]. Swallowed fish hook that is now stuck in small intestine. Pt endorses multiple attempts in various different ways in the past. Doesn't give a reason as to why I just want to hurt myself. A&Ox4 Abdominal Pain Endorses sharp 7/10 ABD pain I haven't ate since yesterday so I think it's part of that. HISTORY OF PRESENT ILLNESS (Location/Symptom, Timing/Onset, Context/Setting, Quality, Duration, Modifying Factors, Severity) Note limiting factors. I wore appropriate PPE for the entirety of this encounter. HPI Rubén Gibbs is a 19 y.o. male who presents to the emergency department after a suicide attempt. Patient is a transfer from [facility] in which he presented for SI after swallowing a fishhook yesterday morning. Patient is endorsing suicidal ideation and says that he feels like crap. He endorses a history of trying to hang himself. He denies homicidal ideation, auditory or visual hallucinations. He is currently endorsing a sharp constant epigastric pain since swallowing the hook. He denies fever, chills, chest pain, shortness of breath, urinary symptoms. He denies alcohol or recreational drug use. CT scan at [facility] revealed a linear foreign object in the small intestine. They suggested transfer for observation and evaluation by surgery. Nursing Notes were reviewed. REVIEW OF SYSTEMS Review of Systems See HPI PAST MEDICAL HISTORY Medical History[1] SURGICAL HISTORY Surgical History[2] CURRENT MEDICATIONS Previous Medications No medications on file ALLERGIES Patient has no known allergies. FAMILY HISTORY Family History[3] SOCIAL HISTORY Social History[4] SCREENINGS PHYSICAL EXAM ED Triage Vitals 06/18/25 0207 Temp Heart Rate Resp BP 36.3 ?C (97.4 ?F) 74 18 122/79 SpO2 Temp Source Heart Rate Source Patient Position 95 % Oral -- -- BP Location FiO2 (%) -- -- Physical Exam Constitutional: General: He is not in acute distress. Appearance: He is not ill-appearing or toxic-appearing. HENT: Head: Normocephalic and atraumatic. Eyes: Extraocular Movements: Extraocular movements intact. Cardiovascular: Rate and Rhythm: Normal rate and regular rhythm. Pulmonary: Effort: Pulmonary effort is normal. Breath sounds: Normal breath sounds. Abdominal: General: Abdomen is flat. Palpations: Abdomen is soft. Tenderness: There is abdominal tenderness in the epigastric area. There is no guarding or rebound. Musculoskeletal: Cervical back: Normal range of motion. Neurological: Mental Status: He is alert. Psychiatric: Attention and Perception: Attention normal. Mood and Affect: Affect is blunt and flat. Speech: Speech normal. Behavior: Behavior normal. Behavior is cooperative. Thought Content: Thought content includes suicidal ideation. Thought content does not include homicidal ideation. Thought content includes suicidal plan. DIAGNOSTIC RESULTS RADIOLOGY (Per Emergency Physician): Interpretation per the Radiologist below, if available at the time of this note: XR abdomen 1 view Final Result Findings and impression: Abdomen single view shows fish hook projecting over the right hemiabdomen. Report Dictated on Electronically Signed By: Jack Sabillno MD Electronically Signed Date/Time: 06/18/2025 4:18 AM EDT LABS: Labs Reviewed CBC WITH AUTO DIFFERENTIAL - Abnormal Result Value Auto WBC 6.2 RBC 6.07 (*) Hemoglobin 17.6 Hematocrit 51.7 MCV 85.2 MCH 29.0 MCHC 34.0 RDW 13.4 Platelets 188 MPV 11.7 nRBC 0.0 Neutrophils Relative 49.6 Lymphocytes Relative 35.0 Monocytes Relative 11.2 Eosinophils Relative 2.9 Basophils Relative 0.8 Immature Grans % 0.5 Neutrophils Absolute 3.1 Lymphocytes Absolute 2.2 Monocytes Absolute 0.7 Eosinophils Absolute 0.2 Basophils Absolute 0.1 Immature Grans Absolute 0.0 COMPREHENSIVE METABOLIC PANEL - Abnormal SODIUM 138 POTASSIUM 4.4 CHLORIDE 105 CARBON DIOXIDE 24 ANION GAP 9 UREA NITROGEN 14 CREATININE 1.08 GLUCOSE 84 CALCIUM 9.3 AST (SGOT) 50 (*) ALT 57 (*) ALKALINE PHOSPHATASE 80 ALBUMIN 3.8 BILIRUBIN, TOTAL 0.8 TOTAL PROTEIN 7.0 eGFR >90.0 COMPLETE URINALYSIS WITH REFLEX TO CULTURE - Abnormal Color, Urine Yellow Clarity, Urine Clear pH, Urine 6.5 Leukocytes, Urine Negative Nitrite, Urine Negative Protein, Urine Negative Glucose, Urine Normal Bilirubin, Urine Negative Ketones, Urine 10 (*) Urobilinogen, Urine 3 (*) Blood, Urine Negative SPECIFIC GRAVITY OF URINE (NUMERIC) 1.033 (*) Narrative: A specimen with <=10 WBC is not consistent with inflammation. This specimen will not reflex to a urine culture. JEAN CARLOS (more content not included)... Normal [facility] ETHANOLon 06-18-2025 ETHANOL IN SER/PLAS- LEVY <10 Normal <[address] [facility] Comment on above: Result Comment: ANGELICA Curry COMMENTS: CREW SCHEDULER depression is seen >100 mg/dL. NOTE: This result is for medical treatment only. Analysis performed using non-forensic procedures. Performed By: #### L AB46, LAB24, LAB17 ####Store Team Member: JEANETTE HORVATH ([phone])[address] Ethanol (Bld) [Mass/Vol]on 1 Ethanol [Mass/Vol] mg/dL NINF - 10 mg/dL [facility] Interpretation and review of laboratory results Normal [facility] CREW SCHEDULER depression is se en >100 mg/dL. NOTE: This result is for medical treatment only. Analysis performed using non-forensic procedures. [facility] Laboratory - Drug toxicology on 06-18-2025 Valproate [Mass/Vol] 29 ug/mL Low 50 - 12 5 ug/mL [facility] Amphetamines Screen method >1000 ng/mL Ql (U) Negative [facility] Barbiturates Screen method >200 ng/mL Ql (U) Negative [facility] Benzodiazepines Ql (U) Negative [facility] Methadone Screen Ql (U) Negative [facility] Opiates Screen Ql (U) Positive [facility] [employer] [facility] oxyCODONE Ql (U) Negative [facility] Phencyclidine Ql (U) Negative [facility] - Microbiology an d Antimicrobial susceptibilityOrdered By: Kerry Nunez on 06-18-2025 SARS-CoV-2 (COVID-19) Ag IA.rapid Ql (Resp) Negative Negative [facility] Comment on above: A negative result do es not rule out the possibility of SARS-CoV-2 infection. NAAT-based methods should be considered for symptomatic patients presenting greater than seven days after onset of symptoms. Method: Lateral flow immunoassay. Fact sheets for healthcare providers and patients can be found at the following sites: https://www.Paymo.gov/media/494561/download https://www.Paymo.gov/media/806327/download No Panel Informationon 06-18 Interpretation and review of laboratory results Abnormal [facility] Toxicity is seen at concentrations >175 ug/mL [facility] COCAINE METAB. SCREEN Negative [facility] [employer] [facility] FENTANYL SCREEN, UR QUAL Positive [facility] The expected value f or all of the drugs listed above is Negative. The following drugs or drug groups have been screened for by Immunoassay at the following thresholds: Amphetamine class (1000 ng/mL) Barbiturates (200 ng/mL) Benzodiazepines (200 ng/mL) Cocaine (300 ng/mL) Methadone (300 ng/mL) Opiates (300 ng/mL) Oxycodone (100 ng/mL) PCP (25 ng/mL) Fentanyl (1.0 ng/ml) NOTE: These results are for medical treatment only. Analysis performed using non-forensic procedures. POSITIVE results are NOT confirmed by a more specific alternative method unless requested. If confirmation is needed, request confirmation under separate order. [facility] Sinus rhythm Nonspecific T abnormalities, inferior leads No previous ekg available for comparison Electronically Signed On 06-18-2025 04:49:16 EDT by Guerrero Nicholas DO - 06/18/2025 IMPRESSION: Sinus rhythm Nonspecific T abnormalities, inferior leads No previous ekg available for comparison Electronically Signed On 06-18-2025 04:49:16 EDT by Guerrero Mendoza [facility] No Panel InformationOrdered By: Guerrero Mendoza on 06-18-2025 P Cotulla 34 degrees [employer] Work Phone: MO Interval 110 ms [employer] Work Phone: QRS [place] 12 degrees [employer] Work Phone: QRSD Interval 92 ms [employer] Work Phone: QT Interval 359 ms [employer] Work Phone: QTC Interval 393 ms [employer] Work Phone: T Wave [place] -18 degrees [employer] Work Phone: [employer] Phone: Progress Noteon 06-18-2025 Progress Note Patient seen and examined on am rounds. Appears well, small abd pain supraumbilical but patient reports occasionally and nonspecifically migrates. Abd is soft, non-tender to palpation throughout, non-distended. No masses, rebound, or guarding. Continue plan as previous with serial abdominal exams by surgical team and daily KUBs to ensure passage of foreign body. DW Dr Shelley Elise MD PGY-4, General Surgery Pager# [phone] 06/18/2025 10:15 AM [facility] SARS-COV-2 ANTIGENon 025 SARS-COV-2 ANTIGEN SARS-COV-2 ANTIGEN -BINAX Reference Negative Negative A negative result does not rule out the possibility of SARS-CoV-2 infection. NAAT-based methods should be considered for symptomatic patients presenting greater than seven days after onset of symptoms. Method: Lateral flow immunoassay. Fact sheets for healthcare providers and patients can be found at the following sites: https://www.fda.gov/med ia/873446/download https://www.fda.gov/med ia/706460/download [employer] [facility] Comment on above: Performed By: #### L [id number] #### Store Team Member: JEANETTE HORVATH ([phone]) [facility] ([facility] [address] [place] [address] SARS-CoV-2 (COVID-19) Ag IA. rapid Ql (Resp)Ordered By: Kerry Nunez on 06-18-2025 Interpretation and review of laboratory results Normal [facility] Urinalysis complete panel (U )Ordered By: Samantha Dhillon on 06-18-2025 Bilirubin Ql (U) Negative Negative mg/dL [facility] Clarity (U) Clear Clear [facility] Color (U) Yellow Lt. Yellow [facility] Glucose Ql (U) Normal Normal (<70) mg/dL [facility] Hemoglobin Ql (U) Negative Negative mg/dL [facility] Interpretation and review of laboratory results Abnormal [facility] Ketones (U) [Mass/Vol] 10 mg/dL Abnormal Negative [facility] Leukocyte esterase Test strip Ql (U) Negative Negative Mustapha/uL [facility] Nitrite Ql (U) Negative Negative [facility] th pH (U) 6.5 [pH] 5.0 - 8.0 pH [facility] Protein (U) [Mass/Vol] Negative Negat corrina mg/dL [facility] Specific gravity (U) [Rel density] 1.033 High 1.005 - 1.030 [facility] Urobilinogen (U) [Mass/Vol] 3 mg/dL Abnormal Normal (0-1) [facility] A specimen with <=10 WBC is not consistent with inflammation. This specimen will not reflex to a urine culture. [facility] VALPROIC ACID TOTALon 2024 VALPROIC ACID 29 ug/mL Low 50-125 [facility] h System [facility] Comment on above: Result Comment: ANGELICA Curry COMMENTS: Toxicity is seen at concentrations >175 ug/mL Performed By: #### L AB46, LAB24, LAB17 ####Store Team Member: JEANETTE HORVATH ([phone])[facility] ([address] Vital signsOrdered By: Lavell Mendoza on 06-18-2025 Heart rate 72 /min bpm [facility] Work Phone: XR Abdomen Single viewon Findings and impression: Abdomen single view shows fish hook projecting over the right hemiabdomen. Report Dictated on Electronically Signed By: Jack Sabillon MD Electronically Signed Date/Time: 06/18/2025 4:18 AM [facility] Patient Name: RUBÉN GIBBS : 2005 Exam Date/Time: 06/18/2025 02:49 Procedure: XR ABDOMEN 1 VIEW Ordering Provider: FUNES JR, STEPHEN Reason For Exam: Swallowed fish hook Indication: Swallowed fish. [facility] Jack Sabillon MD - 06/18/2025 Patient Name: RUBÉN GIBBS : 2005 Exam Date/Time: 06/18/2025 02:49 Procedure: XR ABDOMEN 1 VIEW Ordering Provider: FUNES JR, STEPHEN Reason For Exam: Swallowed fish hook Indication: Swallowed fish. IMPRESSION: Findings and impression: Abdomen single view shows fish hook projecting over the right hemiabdomen. Report Dictated on Electronically Signed By: Jack Sabillon MD Electronically Signed Date/Time: 06/18/2025 4:18 AM EDT [facility] Radiology Study observation (narrative) [facility] XR Abdomen Single viewOrdere d By: Jack Sabillon on 06-18-2025 [facility] [employer] Work Phone: Abdomen/Pelvis W IV Cont ONL Yon 06-17-2025 Abdomen/Pelvis W IV Cont ONLY [facility] Imaging Services [address] [place] [address] [id number] Abdomen/Pelvis W IV Cont ONLY MR#: [id number] Acct: [id number] Name: RUBÉN GIBBS Rep #: [id number] : 2005 M 19 From: Masood kilpatrick MD PCP: Care Physician,No Primary Status: REG ER Study: Abdomen/Pelvis W IV Cont ONLY Date of Exam: Exam# [id number] Ordering Dr: Saji Kendrick DO PROCEDURE: ABDOMEN/PELVIS W IV CONT ONLY 06/17/2025 REASON FOR EXAM: SWALLOWED FISHHOOK TECHNIQUE: Procedure Code: [id number] Modality: CT Procedure: ABDOMEN/PELVIS W IV CONT ONLY Coronal and Sagittal reconstruction series were provided. CONTRAST: Isovue-300 VOLUME: 100 mL One or more dose reduction techniques were used (e.g., Automated exposure control, adjustment of the mA and/or kV according to patient size, use of iterative reconstruction technique. RADIATION DOSE SUMMARY: CTDlvol: 19 mGy DLP: 2674.55 mGycm COMPARISON: None FINDINGS: Lung bases: Lung bases are clear. Small hiatal hernia. Liver: Diffuse fatty infiltration. Gallbladder: The gallbladder is not seen. It may be contracted. Spleen: Borderline splenomegaly. Pancreas: Normal size without evidence of mass surrounding inflammation or ductal dilation. Adrenals: Unremarkable Kidneys: Normal renal sizes. No hydronephrosis. Bladder: Unremarkable Bowel: Linear radiopacities are seen within the small bowel loops in the left midabdomen suggestive of foreign bodies. Appendix: The appendix is unremarkable. Lymph nodes: Unremarkable. Vasculature: The abdominal aorta and IVC are normal. Peritoneum / Retroperitoneum: Unremarkable Bones: Unremarkable CT/Abdomen/Pelvis W IV Cont ONLY IMPRESSION: Findings suggestive of linear foreign bodies in the small bowel loops in the left midabdomen. Reading Location: [place] [address] CC: Dr. Saji Kendrick, DO; No Primary Care Physician Factory Engineer: Signed Normal [facility] Absolute lymphocyte countOrd ered By: Saji Kendrick on 06-17-2025 Lymphocytes Auto (Unsp spec) [#/Vol] 1.98 10*3/uL 0.83-4.51 [facility] Absolute neutrophil countOrd ered By: Saji Kendrick on 06-17-2025 Neutrophils (Bld) [#/Vol] 2.6 10*3/uL 2.0-7.7 [facility] Alcohol, Blood (Medical)-Ser umon 06-17-2025 SERUM ETOH < 10.1 Normal <=10.0 [facility] Comment on above: Result Comment: This test is for medical purposes only. The legal definition of intoxication varies according to local law. Performed By: #### L 100.0100, L501.9100, L505.5000, L500.2500 ####[facility] [address] [place], [address] Amphetamine detection with 1 000 ng/mL as cutoffOrdered By: Saji Kendrick on 06-17-2025 Amphetamines Screen method >1000 ng/mL Ql (U) Negative < 200 ng/mL [facility] Anion gap in Serum or Plasma Ordered By: Saji Kendrick on 06-17-2025 Anion gap [Moles/Vol] 11 mmol/L 01-17 [facility] Automated lymphocyte count a s percentage of total leukocytesOrdered By: Sajiana Kendrick on 06-17-2025 Lymphocytes/100 WBC Auto (Unsp spec) 35.8 % [facility] BUN/creatinine ratioOrdered By: [place] [facility] center[facility]elardo[facility]ra on 06-17-2025 Urea nitrogen/Creatinine [Mass ratio] 10.2 mg/mg 06-24 [facility] Basic Metabolic Profile (BMP )on 06-17-2025 BUN/CRE 10.2 RATIO Normal 06-24 [facility] Comment on above: Performed By: #### L 100.0100, L501.9100, L505.5000, L500.2500 ####[facility] [address] [place], [address] Calcium [Mass/Vol] 9.7 mg/dL Normal 7.6-11.0 [facility] Comment on above: Performed By: #### L 100.0100, L501.9100, L505.5000, L500.2500 ####[facility] [address] [place], [address] Chloride [Moles/Vol] 102 mmol/L Normal 98-108 [facility] [facility] Comment on above: Performed By: #### L 100.0100, L501.9100, L505.5000, L500.2500 ####[facility] [address] [place], [address] CO2 [Moles/Vol] 26.1 mmol/L Normal 21.0-32.0 [facility] Comment on above: Performed By: #### L 100.0100, L501.9100, L505.5000, L500.2500 ####[facility] [address] [place], [address] Creatinine [Mass/Vol] 1.15 mg/dL Normal 0.70-1.20 [facility] Comment on above: Performed By: #### L 100.0100, L501.9100, L505.5000, L500.2500 ####[facility] [address] [place], [address] ECRCL 131.25 ml/min Normal 50-250 [facility] Comment on above: Performed By: #### L 100.0100, L501.9100, L505.5000, L500.2500 ####[facility] [address] [place], [address] GAP 11 Normal 5-15 [facility] Comment on above: Performed By: #### L 100.0100, L501.9100, L505.5000, L500.2500 ####[facility] [address] [place], [address] GFR/1.73 sq M.predicted among non-blacks MDRD (S/P/Bld) [Vol rate/Area] 94 mL/min/{1.73_m2} Normal >60 [facility] Comment on above: Result Comment: mL/m in/1.73m2 CKD-EPI Creatinine Equation (2020) Performed By: #### L 100.0100, L501.9100, L505.5000, L500.2500 ####[facility] [address] [place], [address] Glucose [Mass/Vol] 87 mg/dL Normal 70-99 [facility] Comment on above: Performed By: #### L 100.0100, L501.9100, L505.5000, L500.2500 ####[facility] [address] [place], [address] Potassium [Moles/Vol] 4.4 mmol/L Normal 3.3-5.1 [facility] Comment on above: Performed By: #### L 100.0100, L501.9100, L505.5000, L500.2500 ####[facility] [address] [place], [address] Sodium [Moles/Vol] 140 mmol/L Normal 133-145 [facility] Comment on above: Performed By: #### L 100.0100, L501.9100, L505.5000, L500.2500 ####[facility] [address] [place], [address] Urea nitrogen [Mass/Vol] 12 mg/dL Normal 4-19 [facility] Comment on above: Performed By: #### L 100.0100, L501.9100, L505.5000, L500.2500 ####[facility] [address] [place], [address] Basophil percentageOrdered B y: Saji Kendrick on 06-17-2025 Basophils/100 WBC (Bld) 1.1 % High 0-1 [facility] CBC W/Diff, Automatedon 06-05 Absolute Lymph 1.98 X10 3/uL Normal 0.83-4.51 [facility] Comment on above: Performed By: #### L 100.0100, L501.9100, L505.5000, L500.2500 ####[facility] [address] [place], [address] Absolute Neut 2.6 X10 3/uL Normal 2.0-7.7 [facility] Comment on above: Performed By: #### L 100.0100, L501.9100, L505.5000, L500.2500 ####[facility] [address] [place], [address] Basophils/100 WBC (Bld) 1.1 % High 0-1 [facility] Comment on above: Performed By: #### L 100.0100, L501.9100, L505.5000, L500.2500 ####[facility] [address] [place], [address] Eosinophils/100 WBC (Bld) 4.0 % Normal 0-5 [facility] Comment on above: Performed By: #### L 100.0100, L501.9100, L505.5000, L500.2500 ####[facility] [address] [place], [address] Erythrocyte distribution width (RBC) [Ratio] 13.2 % Normal 11.6-14.6 [facility] Comment on above: Performed By: #### L 100.0100, L501.9100, L505.5000, L500.2500 ####[facility] [address] [place], [address] Hematocrit (Bld) [Volume fraction] 51.7 % Normal 40-54 [facility] Comment on above: Performed By: #### L 100.0100, L501.9100, L505.5000, L500.2500 ####[facility] [address] [place], [address] Hemoglobin (Bld) [Mass/Vol] 17.7 g/dL High 13.0-16.5 [facility] Comment on above: Performed By: #### L 100.0100, L501.9100, L505.5000, L500.2500 ####[facility] [address] [place], [address] IG% 0.700 Normal 0.0-0.9 [facility] Comment on above: Result Comment: IG% - Immature Granulocytes (promyelocytes, myelocytes and metamyelocytes) > 1% indicates that a LEFT SHIFT is Present. Performed By: #### L 100.0100, L501.9100, L505.5000, L500.2500 ####[facility] [address] [place], [address] Lymphocytes/100 WBC (Bld) 35.8 % Normal 19-41 [facility] Comment on above: Performed By: #### L 100.0100, L501.9100, L505.5000, L500.2500 ####[facility] [address] [place], [address] MCH (RBC) [Entitic mass] 28.9 pg Normal 27.0-32.0 [facility] Comment on above: Performed By: #### L 100.0100, L501.9100, L505.5000, L500.2500 ####[facility] [address] [place], [address] MCHC (RBC) [Mass/Vol] 34.2 g/dL Normal 32-36 [facility] Comment on above: Performed By: #### L 100.0100, L501.9100, L505.5000, L500.2500 ####[facility] [address] [place], [address] MCV (RBC) [Entitic vol] 84.3 fL Normal 80-94 [facility] Comment on above: Performed By: #### L 100.0100, L501.9100, L505.5000, L500.2500 ####[facility] [address] [place], [address] Monocytes/100 WBC (Bld) 11.8 % High 0-10 [facility] Comment on above: Performed By: #### L 100.0100, L501.9100, L505.5000, L500.2500 ####[facility] [address] [place], [address] Neutrophils/100 WBC (Bld) 46.6 % Low 47-70 [facility] Comment on above: Performed By: #### L 100.0100, L501.9100, L505.5000, L500.2500 ####[facility] [address] [place], [address] Nucleated RBC (Bld) [#/Vol] 0 10*3/uL Normal 0-5 [facility] Comment on above: Performed By: #### L 100.0100, L501.9100, L505.5000, L500.2500 ####[facility] [address] [place], [address] Platelet mean volume (Bld) [Entitic vol] 11.6 fL Normal 6.2-12.0 [facility] Comment on above: Performed By: #### L 100.0100, L501.9100, L505.5000, L500.2500 ####[facility] [address] [place], [address] Platelets (Bld) [#/Vol] 188 10*3/uL Normal 150-450 [facility] Comment on above: Performed By: #### L 100.0100, L501.9100, L505.5000, L500.2500 ####[facility] [address] [place], [address] RBC (Bld) [#/Vol] 6.13 10*6/uL Normal 4.6-6.2 [facility] Comment on above: Performed By: #### L 100.0100, L501.9100, L505.5000, L500.2500 ####[facility] [address] [place], [address] RDW SD 40.6 fl Normal 35.1-43.9 [facility] Comment on above: Performed By: #### L 100.0100, L501.9100, L505.5000, L500.2500 ####[facility] [address] [place], [place], [address] WBC (Bld) [#/Vol] 5.5 10*3/uL Normal 4.4-11.0 [facility] Comment on above: Performed By: #### L 100.0100, L501.9100, L505.5000, L500.2500 ####[facility] [address] [place], [address] CNOVon 06-17-2025 CNOV Office Visit (WOUCA) RUBÉN GIBBS ([id number]) 5 M Date Time Provider Department 06/17/25 10:15 AM KAUR ESPINOSA During your visit today, we recorded the following information about you: Temperature Pulse Respiration Blood pressure 97.5 degrees 82/minute 16/minute 110/70 Weight 112 kg Kaur Espinosa APRN.TEMPLATE MAKER 06/17/2025 10:36 AM Signed [facility] Subjective Rubén Gibbs is a 19 year old male. He is accompanied by a diesel electrician from [facility]. Patient presents with: Throat Problem: swallowed 2 fish hooks, one last night and one this morning HPI The patient is a 19-year-old male presenting for evaluation after swallowing a fish hook. Foreign Body Ingestion: - Swallowed a fish hook today. - When asked how incident occurred he states I didn't feel right. - Experiencing pain in the throat. - Denies abdominal pain, oral or pharyngeal bleeding. Review of Systems Ears/Nose/Mouth/Throat: (+) throat foreign body sensation, (-) oral or throat bleeding Gastrointestinal: (-) abdominal pain Objective BP 110/70 Pulse 82 Temp 36.4 ?C (97.5 ?F) Resp 16 Wt 112 kg (246 lb 14.6 oz) SpO2 97% BMI 35.43 kg/m? 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 MEDICATIONS - traZODone (DESYREL) 50 mg tablet - divalproex ER (DEPAKOTE ER) 250 mg 24 hr tablet 500 mg two times a day. - busPIRone (BUSPAR) 5 mg tablet 5 mg two times a day. - busPIRone (BUSPAR) 10 mg tablet 10 mg two times a day. - escitalopram oxalate (LEXAPRO) 10 mg tablet 10 mg. - cholecalciferol (VITAMIN D3) 1,000 unit tab tablet 1,000 Units. - ARIPiprazole (ABILIFY) 5 mg tablet Take 5 mg by mouth once daily. - melatonin 3 mg Tab Take 3 mg by mouth daily at bedtime. - metFORMIN (GLUCOPHAGE) 500 mg tablet Take 1 tablet by mouth two times a day. (Patient not taking: Reported on 05/16/2025) - sertraline (ZOLOFT) 50 mg tablet Take 50 mg by mouth once daily. (Patient not taking: Reported on 05/16/2025) - buPROPion (WELLBUTRIN) 75 mg tablet Take 75 mg by mouth once daily. (Patient not taking: Reported on 05/16/2025) - Pediatric Multivitamins-Iron (FLINTSTONES COMPLETE) ORAL chewable tablet Take 1 tablet by mouth once daily. (Patient not taking: Reported on 05/16/2025) FAMILY HISTORY Problem Relation Age of Onset - Diabetes Mother insulin dependant, type 1 - None Father - other (AVM left side of brain [Other]) Mother - other (epilepsy [Other]) Mother - other (migraines [Other]) Mother - other (rheumatoid arthritis [Other]) Maternal Grandmother SOCIAL HISTORY[1] Physical Exam Vitals and nursing note reviewed. Constitutional: General: He is not in acute distress. Appearance: Normal appearance. He is not ill-appearing. HENT: Mouth/Throat: Lips: Pearl. Mouth: Mucous membranes are moist. No injury or lacerations. Pharynx: Uvula midline. No pharyngeal swelling or posterior oropharyngeal erythema. Cardiovascular: Rate and Rhythm: Normal rate. Pulmonary: Effort: Pulmonary effort is normal. Neurological: Mental Status: He is alert. { 1. Swallowed foreign body, initial encounter (T18.9XXA) - Patient swallowed a fish hook; reports pain in throat and mild abdominal pain; no bleeding from mouth or throat observed on exam. - Per biomedical electronics technician, patient requires transfer to emergency room due to risk of esophageal perforation and trauma. - Educated on the need for ER evaluation and potential risks associated with ingested foreign body. - Follow-up with your PCP in 3-5 days if symptoms have not improved or sooner if symptoms worsen - Discussed red flags and need for immediate medical evaluation if any occur. - Discussed supportive care treatment with fluids, rest and analgesia. - Discussed expected course of illness Kaur Espinosa APRN.TEMPLATE MAKER and Recording using [employer] software for draft documentation of the visit was discussed with the patient/authorized bottling equipment sales representative; all questions welcomed and answered. Patient/authorized bottling equipment sales representative agreed to proceed History and Record Review Clinical information obtained from an independent historian. History obtained from or confirmed by: other (see comments). Management Management of the patient was discussed with:ED Physician or Supervisory/Collaborati pj Physi (more content not included)... Normal [facility] Carbon dioxide, total [Moles /volume] in Central venous bloodOrdered By: Saji Kendrick on 06-17-2025 CO2 [Moles/Vol] 26.1 mmol/L 21.0-32.0 [facility] Chest WITH Contraston 2024 Chest WITH Contrast [facility] Imaging Services [address] [place] [address] Chest WITH Contrast MR#: [id number] Acct: [id number] Name: RUBÉN GIBBS Rep #: [id number] : 2005 M 19 From: Masood kilpatrick MD PCP: Care Physician,No Primary Status: REG ER Study: Chest WITH Contrast Date of Exam: 06/17/25 Exam# [id number] Ordering Dr: Saji Kendrick DO PROCEDURE: CHEST WITH CONTRAST 06/17/2025 REASON FOR EXAM: SWALLOWED FISHHOOK TECHNIQUE: Procedure Code: CTCHW Modality: CT Procedure: CHEST WITH CONTRAST Coronal and Sagittal reconstruction series were provided. CONTRAST: Isovue-300 VOLUME: 100 mL One or more dose reduction techniques were used (e.g., Automated exposure control, adjustment of the mA and/or kV according to patient size, use of iterative reconstruction technique). RADIATION DOSE SUMMARY: CTDlvol: 19.84 mGy DLP: 664.24 mGycm COMPARISON: None FINDINGS: Hardware: None Lymph nodes: No mediastinal hilar or axillary lymphadenopathy. Heart and Vasculature: Normal heart size. No pericardial effusion. Thoracic aorta and pulmonary arteries are unremarkable. Lungs and Airways: The lungs are normally expanded and clear. No septal thickening nodules or abnormal pulmonary opacities. Pleura: No pleural effusion. Upper Abdomen: Fatty infiltration of the liver. Bones: Bone windows are unremarkable. CT/Chest WITH Contrast IMPRESSION: Coronary artery calcification (CAC) is is absent No radiopaque foreign body is seen. Fatty infiltration of the liver. Reading Location: [place] [address] CC: Dr. Saji Kendrick DO; No Primary Care Physician Factory Engineer: Signed Normal [facility] Chloride assayOrdered By: Akshat Kendrick on 06-17-2025 Chloride [Moles/Vol] 102 mmol/L 98-108 [facility] Emergency Department Summary on 06-17-2025 Emergency Department Summary [facility] Medical Records Department [address] [place] [address] Emergency Department Summary 06/17/25 MR#: [id number] Acct: [id number] Name: RUBÉN GIBBS Rep #: [id number] : 2005 19 From: Saji Kendrick DO PCP: Care Physician,No Primary Status:REG ER Location: ED ADDENDUM by Dr. Yaakov Kingsley DO on 06/17/25 at 1920 Care of the patient was turned over to me pending transfer. Case was discussed with psychiatry at [facility]. They stated they would not have any beds available for several days. Case was discussed with transfer line at [facility]. Case was discussed with Dr. Bolivar. He recommended transferring the patient to the emergency department. Case was discussed with Dr. Ro in the emergency department. She accepted the patient to be transferred there. Patient will be transferred there when squad becomes available. Patient understood and was agreeable with the plan. All questions were answered. 06/17/251919 Cosigner Signature (if applicable): cc: No Primary Care Physician * Signed HPI History of Present Illness Chief Complaint: Suicidal Narrative Narrative: Chief complaint and HPI: 19-year-old male with past medical history of depression, anxiety presents for evaluation of suicidal ideation. Patient is currently living at the [facility]. States he has been having progressive thoughts of suicide and depression. States today he swallowed a fishing hook and attempt to kill himself. He is tolerating his secretions. Has not ate or drink since swallowing the hook however feels that it may be stuck in his esophagus. He denies any visual or auditory hallucinations. Denies any homicidal ideation. Denies any fever, chills, shortness of breath, chest pain, abdominal pain, nausea, vomiting. Review of systems: See HPI Medications: As listed on the chart Allergies: As listed on the chart PFSH: Per chart Vital signs: As listed on the chart. Reviewed. Physical exam: Gen: A O x3, NAD Head: Normocephalic, atraumatic Eyes: No sclera icterus, conjunctiva clear, PERRL, EOMI ENT: Moist mucous membranes, posterior oropharynx unremarkable, uvula midline, tonsils not enlarged, tolerating secretions, normal phonation Neck: Trachea midline, Full ROM, No swelling, no stridor CV: RRR, no murmurs Resp: Lungs CTA BL, no w/r/c GI: Abd soft, non-distended, non-tender, no r/r/g Musc: Full ROM, no deformity Skin: Warm, dry Neuro: Alert, oriented, grossly intact, sensation intact Psych: Cooperative [facility] Medical History Club foot of both lower extremities Depression Anxiety Home Medications ???Medication ???Instructions ???Recorded ???Last Taken ???Type aripiprazole 10 mg tablet 10 mg PO QHS 03/27/25 Unknown Hist ory doxepin 10 mg capsule 10 mg PO QHS 03/27/25 Unknown Hist ory escitalopram oxalate 10 mg tablet 10 mg PO QHS 03/27/25 Unknown His tory hydroxyzine HCl 50 mg tablet 50 mg PO Q6H PRN 03/27/25 Unknown History propranolol 10 mg tablet 10 mg PO BID PRN 03/27/25 Unknown History buspirone 15 mg tablet 15 mg PO BID 06/17/25 Unknown Hist ory cholecalciferol (vitamin D3) 25 25 mcg PO DAILY 06/17/25 Unknown H istory mcg (1,000 unit) capsule divalproex 250 mg tablet,extended PO 06/17/25 Unknown History release 24 hr divalproex 500 mg tablet,extended 1,000 mg PO QHS 06/17/25 Unknown History release 24 hr metformin 500 mg tablet 500 mg PO BID 06/17/25 Unknown His tory trazodone 100 mg tablet 100 mg PO QHS 06/17/25 Unknown His tory trazodone 50 mg tablet 50 mg PO QHS 06/17/25 Unknown Hist ory Allergy/AdvReac Type Severity Reaction Status Date / Time No Known Allergies Allergy Verified 06/17/25 11:08 Social History household members: spouse and family housing: house Smoking Status: Never smoker substance use type: does not use EXAM Physical Exam Const Vital Signs: 06/17/25 11:08 06/17/25 12:11 06/17/25 13:00 Temperature 97.9 F Temperature Source Oral Pulse Rate 74 82 Respiratory Rate 16 16 Respiratory Effort Normal Respiratory Pattern Normal Blood Pressure 136/83 H 132/83 H Blood Pressure Mean 100 99 Pulse Ox 99 98 Oxygen Delivery Method Room Air Room Air 06/17/25 14:19 06/17/25 16:42 Temperature Temperature Source Pulse Rate 74 87 Respiratory Rate Respiratory Effort Respiratory Pattern Blood Pressure 138/80 H 138/83 H Blood Pressure Mean 99 101 Pulse Ox 97 Oxygen Delivery Method Room Air MDM MDM MDM Narrative Medical decision making narrative: 19-year-old male with past medical history of depression, anxiety presents (more content not included)... Normal [facility] Eosinophil percentageOrdered By: Saji Mireille on 06-17-2025 Eosinophils/100 WBC (Bld) 4.0 % 0-5 [facility] Erythrocyte distribution wid th ratioOrdered By: Swarthmore Mireille on 06-17-2025 Erythrocyte distribution width (RBC) [Ratio] 13.2 % 11.6-14.6 [facility] Erythrocyte distribution wid th standard deviationOrdered By: [facility]ral[facility] on 06-17-2025 Erythrocyte distribution width (RBC) [Ratio] 40.6 fl 35.1-43.9 [facility] Glomerular filtration rate ( GFR) estimation/1.73 sq m using serum, plasma, or whole bOrdered By: Swarthmore Mireille on 06-17-2025 GFR/1.73 sq M.predicted among non-blacks MDRD (S/P/Bld) [Vol rate/Area] 94 mL/min/{1.73_m2} >60 [facility] Comment on above: mL/min/1.73m2 CKD-EP I Creatinine Equation (2020) Hematocrit Auto (Bld) [Volum e fraction]Ordered By: [facility] on 06-17-2025 Hematocrit (Bld) [Volume fraction] 51.7 % 40-54 [facility] Hemoglobin measurementOrdere d By: Saji Kendrick on 06-17-2025 Hemoglobin (Bld) [Mass/Vol] 17.7 g/dL High 13.0-16.5 [facility] Immature granulocytes/100 WB C Auto (Bld)Ordered By: Sajiana Kendrick on 06-17-2025 Immature granulocytes/100 WBC (Bld) 0.700 % 0.0-0.9 [facility] Comment on above: IG% - Immature Granu locytes (promyelocytes, myelocytes and metamyelocytes) > 1% indicates that a LEFT SHIFT is Present. MCV (mean corpuscular volume ) determinationOrdered By: Saji Kendrick on 06-17-2025 MCV (RBC) [Entitic vol] 84.3 fL 80-94 [facility] Mean corpuscular hemoglobin (MCH) determinationOrdered By: Saji Kendrick on 06-17-2025 MCH (RBC) [Entitic mass] 28.9 pg 27.0-32.0 [facility] Mean corpuscular hemoglobin concentration (MCHC) determinationOrdered By: Saji Kendrick on 06-17-2025 MCHC (RBC) [Mass/Vol] 34.2 g/dL 32-36 [facility] Mean platelet volume determi nationOrdered By: Saji Kendrick on 06-17-2025 Platelet mean volume (Bld) [Entitic vol] 11.6 fL 6.2-12.0 [facility] Monocyte percentageOrdered B y: Saji Kendrick on 06-17-2025 Monocytes/100 WBC (Bld) 11.8 % High 0-10 [facility] Neutrophil percentageOrdered By: Saji Kendrick on 06-17-2025 Neutrophils/100 WBC (Bld) 46.6 % Low 47-70 [facility] No Panel InformationOrdered By: Saji Kendrick on 06-17-2025 Urine Buprenorphine Qualitative Negative < 200 ng/mL [facility] Urine Oxycodone Screen Negative < 100 ng/mL [facility] Nucleated red blood cell per centageOrdered By: Saji Kendrick on 06-17-2025 Nucleated RBC/100 WBC (Bld) [Ratio] 0 % 0-5 [facility] Platelet countOrdered By: Akshat iel Mireille on 06-17-2025 Platelets (Bld) [#/Vol] 188 10*3/uL 150-450 [facility] Potassium measurement (mass/ volume)Ordered By: Saji Kendrick on 06-17-2025 Potassium (Unsp spec) [Mass/Vol] 4.4 mmol/L 3.3-5.1 [facility] Quantitative urine opiates m easurementOrdered By: Saji Kendrick on 06-17-2025 Opiates Ql (U) Negative < 300 ng/mL [facility] RBC Auto (Bld) [#/Vol]Ordere d By: Saji Kendrick on 06-17-2025 RBC (Bld) [#/Vol] 6.13 10*6/uL 4.6-6.2 [facility] Screening urine fentanyl bere surementOrdered By: Saji Kendrick on 06-17-2025 fentaNYL Screen Ql (U) Negative <5 ng/mL [facility] Comment on above: CONFIRMATORY TESTING FOR ALL POSITIVE URINE DRUG SCREENRESULTS WILL ONLY BE SENT OUT UPON PHYSICIAN ORDER. [employer] Urine Drug Screen methods provide only preliminaryanalytical test results. A more specific alternate chemicalmethod must be used in order to obtain a confirmedanalytical result. Gas chromatography/mass spectrometery(GC/MS) is the preferred confirmatory method. Clinicalconsideration and professional judgement should be appliedto any drug of abuse test result, particularly whenpreliminary positive results are used. Urine TCA testing must be ordered separately. Use test mnemonic: ALCA Serum creatinine measurement (mass/volume)Ordered By: Saji Kendrick on 06-17-2025 Creatinine [Mass/Vol] 1.15 mg/dL 0.70-1.20 [facility] Serum glucose measurement (m ass/volume)Ordered By: Saji Kendrick on 06-17-2025 Glucose [Mass/Vol] 87 mg/dL 70-99 [facility] Serum or plasma calcium sheng urement (mass/volume)Ordered By: Saji Cabrales on 06-17-2025 Calcium [Mass/Vol] 9.7 mg/dL 7.6-11.0 [facility] Serum or plasma ethanol sheng urement (mass/volume)Ordered By: Saji Cabrales on 06-17-2025 Ethanol [Mass/Vol] mg/dL <10.1 [facility] Comment on above: This test is for med ical purposes only. The legal definition of intoxication varies according to local law. Serum or plasma urea nitroge n measurement (mass/volume)Ordered By: Saji Kendrick on 06-17-2025 Urea nitrogen [Mass/Vol] 12 mg/dL 4-19 [facility] Sodium levelOrdered By: Roderick Kendrick on 06-17-2025 Sodium [Moles/Vol] 140 mmol/L 133-145 [facility] Soft Tissue Neck WITH Contra ston 06-17-2025 Soft Tissue Neck WITH Contrast [facility] Imaging Services [address] [place], [place] [address] Soft Tissue Neck WITH Contrast MR#: [id number] Acct: [id number] Name: RUBÉN GIBBS Rep #: [id number] : 2005 M 19 From: Masood kilpatrick MD PCP: Care Physician,No Primary Status: REG ER Study: Soft Tissue Neck WITH Contrast Date of Exam: Exam# [id number] Ordering Dr: Saji Kendrick DO PROCEDURE: SOFT TISSUE NECK WITH CONTRAST 06/17/2025 REASON FOR EXAM: SWALLOWED PATIENT Patient's swallowed fishing hooks. TECHNIQUE: Procedure Code: CTNEW Modality: CT Procedure: SOFT TISSUE NECK WITH CONTRAST CONTRAST: Isovue-300 VOLUME: 100 mL One or more dose reduction techniques were used (e.g., Automated exposure control, adjustment of the mA and/or kV according to patient size, use of iterative reconstruction technique). RADIATION DOSE SUMMARY: CTDlvol: 15.20 mGy DLP: 7.6 mGycm COMPARISON: None FINDINGS: Airway: Midline and patent. No radiopaque foreign body is seen. Salivary glands: Unremarkable. Lymph nodes: No cervical lymphadenopathy. Thyroid: Unremarkable. Vasculature: Carotid arteries and internal jugular veins are unremarkable. Orbits: Unremarkable at visualized levels. Paranasal sinuses and mastoids: Grossly clear at visualized levels. Lung apices: Clear. Upper mediastinum: Visualized mediastinum is unremarkable. Bones: Unremarkable. Other: CT/Soft Tissue Neck WITH Contrast IMPRESSION: NO ACUTE FINDINGS. No radiopaque foreign body is seen. Reading Location: [facility] CC: Dr. Saji Kendrick DO; No Primary Care Physician Factory Engineer: Signed Normal [facility] Urine Drug Screen (VISTA)on 06-17-2025 AMPHETAMINES Negative Normal <1000 ng/mL [facility] Comment on above: Performed By: #### L 100.0100, L501.9100, L505.5000, L500.2500 ####[facility] [address] [place], [place], [phone] BARBITIURATES Negative Normal < 200 ng/mL [facility] Comment on above: Performed By: #### L 100.0100, L501.9100, L505.5000, L500.2500 ####[facility] [address] [place] [address] BENZODIAZIPINE Negative Normal < 200 ng/mL [facility] Comment on above: Performed By: #### L 100.0100, L501.9100, L505.5000, L500.2500 ####[facility] [address] [place] [address] BUP Ur Drug Scr Negative Normal < 200 ng/mL [facility] Comment on above: Performed By: #### L 100.0100, L501.9100, L505.5000, L500.2500 ####[facility] [address] [place], [place], [phone] COCAINE Negative Normal < 300 ng/mL [facility] Comment on above: Performed By: #### L 100.0100, L501.9100, L505.5000, L500.2500 ####[facility] [address] [place] [address] Fentanyl Negative Normal <5 ng/mL [facility] Comment on above: Result Comment: CONF IRMATORY TESTING FOR ALL POSITIVE URINE DRUG SCREEN RESULTS WILL ONLY BE SENT OUT UPON PHYSICIAN ORDER. Nidhi Pro Urine Drug Screen methods provide only preliminary analytical test results. A more specific alternate chemical method must be used in order to obtain a confirmed analytical result. Gas chromatography/mass spectrometery (GC/MS) is the preferred confirmatory method. Clinical consideration and professional judgement should be applied to any drug of abuse test result, particularly when preliminary positive results are used. Urine TCA testing must be ordered separately. Use test mnemonic: UTCA Performed By: #### L 100.0100, L501.9100, L505.5000, L500.2500 ####[facility] [address] [place], [address] METHADONE Negative Normal < 300 ng/mL [facility] Comment on above: Performed By: #### L 100.0100, L501.9100, L505.5000, L500.2500 ####[facility] [address] [place], [address] OPIATES Negative Normal < 300 ng/mL [facility] Comment on above: Performed By: #### L 100.0100, L501.9100, L505.5000, L500.2500 ####[facility] [address] [place] [address] OXYCODONE Negative Normal < 100 ng/mL [facility] Comment on above: Performed By: #### L 100.0100, L501.9100, L505.5000, L500.2500 ####[facility] [address] [place], [place], [phone] PCP Negative Normal < 25 ng/mL [facility] Comment on above: Performed By: #### L 100.0100, L501.9100, L505.5000, L500.2500 ####[facility] [address] [place], [place], [phone] THC Negative Normal < 50 ng/mL [facility] Comment on above: Performed By: #### L 100.0100, L501.9100, L505.5000, L500.2500 ####[facility] [address] [place], [address] Urine benzodiazepine levelOr dered By: Saji Kendrick on 06-17-2025 Benzodiazepines Ql (U) Negative < 200 ng/mL [facility] Urine cocaine levelOrdered B y: Saji Kendrick on 06-17-2025 Cocaine Ql (U) Negative < 300 ng/mL [facility] Urine hyskp-1-cotfpubotloklf abinol (THC) measurementOrdered By: Saji Cabrales on 06-17-2025 Cannabinoids Screen Ql (U) Negative < 50 ng/mL [facility] Urine phencyclidine (PCP) de tectionOrdered By: Saji Kendrick on 06-17-2025 Phencyclidine Ql (U) Negative < 25 ng/mL [facility] White blood cell (WBC) count Ordered By: Saji Kendrick on 06-17-2025 WBC (Bld) [#/Vol] 5.5 10*3/uL 4.4-11.0 [facility] Valproate SerPl-mCncon 06-14 Valproate [Mass/Vol] 50.1 ug/mL Normal 50.0-100.0 [facility] Comment on above: Order Comment: Speci men Type: BLOOD SPECIMEN Ordering Facility: [facility] Address: [address] [place] [id number] Result Comment: Refe rence ranges and high/low indicator flags are provided as general guidelines only. The treating physician must determine appropriate target levels/dosing based on the specific clinical situation. Performed By: #### 4 086-5 #### [facility] CLIA [id number] [address] [place] [address] [place] CNOVon 05-20-2025 CNOV Office Visit (PEDSWV ) RUBÉN GIBBS ([id number]) 5 M Date Time Provider Department 05/20/25 3:00 PM DMITRIY POWELL PEDSWV During your visit today, we recorded the following information about you: Temperature Pulse Respiration Blood pressure 97.3 degrees 90/minute 16/minute 116/60 Weight Height 109.6 kg 1.778 m Dmitriy Powell MD 05/21/2025 10:02 AM Signed 19 year old male presents for a routine exam/ intake physical exam at [facility] [] GENERAL QUESTIONS color enhanced section Patient concerns: NONE Nursing concerns: NONE # Eating Patterns - Describes variable appetite, with periods of low intake alternating with overeating - Unsure if any medications contribute to these fluctuations - Denies recent medication changes specifically affecting appetite # Foot and Ankle Discomfort - History of congenital foot issues; followed by orthopedics in 2021 - Currently uses shoe inserts/orthotics but states they provide no relief - Reports persistent ankle pain, without clear precipitating factors - Saw a drencher last week who recommended follow-up with the original orthopedic shoe fitter # Possible Medication-Related Movement - Noted a slight ?shaky? quality when sticking out his tongue - Unsure of onset or exacerbating factors but indicates it has occurred for a long time - Also has a longstanding ?handshake? tremor - No other involuntary or uncontrollable movements mentioned Diet: specific issues: Issues: overeating Stools: no concerns, normal size and consistency Urine: NO PROBLEMS Ongoing subspecialty care: psychiatry, Ongoing care: orthopedics Ongoing ancillary care: Ongoing counseling at the [facility], Dental: dental care current [] SPORTS QUESTIONS color enhanced section History of seizures: No History of concussion: No History of syncope: No History of heart problems: No History of hypertension: No History of asthma: No History of single kidney: No History of skeletal problems: No History of any significant injury: No Family history of either heart problems or sudden MEDICAL HISTORY Past medical history: PAST MEDICAL HISTORY Diagnosis Date ADHD (attention deficit hyperactivity disorder) Bilateral club feet 4 surgeries Depression Developmental delay Generalized anxiety disorder 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 busPIRone (BUSPAR) 5 mg tablet 5 mg two times a day. busPIRone (BUSPAR) 10 mg tablet 10 mg two times a day. escitalopram oxalate (LEXAPRO) 10 mg tablet 10 mg. cholecalciferol (VITAMIN D3) 1,000 unit tab tablet 1,000 Units. ARIPiprazole (ABILIFY) 5 mg tablet Take 5 mg by mouth once daily. (Patient taking differently: Take 10 mg by mouth once daily.) metFORMIN (GLUCOPHAGE) 500 mg tablet Take 1 tablet by mouth two times a day. (Patient not taking: Reported on 05/16/2025) sertraline (ZOLOFT) 50 mg tablet Take 50 mg by mouth once daily. (Patient not taking: Reported on 05/16/2025) buPROPion (WELLBUTRIN) 75 mg tablet Take 75 mg by mouth once daily. (Patient not taking: Reported on 05/16/2025) melatonin 3 mg Tab Take 3 mg by mouth daily at bedtime. Pediatric Multivitamins-Iron (FLINTSTONES COMPLETE) ORAL chewable tablet Take 1 tablet by mouth once daily. (Patient not taking: Reported on 05/16/2025) ALLERGIES: ALLERGIES No Known Allergies [] SOCIAL HISTORY color enhanced section High risk behaviors: Yes, details: involvement with legal system Resident at [facility] [] MISCELLANEOUS color enhanced section Difficulties with learning for patient: Yes, barriers: cognitive VISION AND HEARING ASSESSMENT Vision: Correction: NONE, As tested: NONE Acuity: RIGHT: 20/ 16 LEFT: 20/ 16 Hearing: @ 2000Hz Right: 20 dB Left: 5 dB @ 4000Hz Right: 20 dB Left: 10 dB Dmitriy Powell MD PHYSICAL EXAM (to re-import BP% use .BPFA) Sensitive exam declined. Discussed rati (more content not included)... Normal [facility] [Mass/Vol] 56.8 ug/mL Normal 50.0-100.0 [facility] Comment on above: Order Comment: Speci men Type: BLOOD SPECIMEN Ordering Facility: [facility] Address: [address] [place] [address] Result Comment: Refe rence ranges and high/low indicator flags are provided as general guidelines only. The treating physician must determine appropriate target levels/dosing based on the specific clinical situation. Performed By: #### 4 086-5 #### [facility] CLIA [id number] [address] [place] [address] [id number] [address] [place] Comprehensive metabolic 2000 panelon 04-26-2025 Albumin [Mass/Vol] 4.4 g/dL Normal 3.9-4.9 [facility] Comment on above: Order Comment: Speci men Type: BLOOD SPECIMEN Ordering Facility: [facility] Address: [place] [address] Performed By: #### 2 4323-8, 3016-3, 31373-4 #### [facility] CLIA [id number] [address] [address] [place] ALP [Catalytic activity/Vol] 95 U/L Normal 38-113 [facility] Comment on above: Order Comment: Speci men Type: BLOOD SPECIMEN Ordering Facility: [facility] Address: [place] [address] Performed By: #### 2 4323-8, 6-3, 31624-8 #### [facility] CLIA [id number] [address] [address] [place] ALT [Catalytic activity/Vol] 58 U/L High 10-54 [facility] Comment on above: Order Comment: Speci men Type: BLOOD SPECIMEN Ordering Facility: [facility] Address: [place] [address] Performed By: #### 2 4323-8, 6-3, 30835-9 #### [facility] CLIA [id number] [address] [address] [place] Anion gap [Moles/Vol] 14 mmol/L Normal 8-15 [facility] Comment on above: Order Comment: Speci men Type: BLOOD SPECIMEN Ordering Facility: [facility] Address: [place] [address] Performed By: #### 2 4323-8, 3016-3, 76608-9 #### [facility] CLIA [id number] [address] [address] [place] AST [Catalytic activity/Vol] 41 U/L High 14-40 [facility] Comment on above: Order Comment: Speci men Type: BLOOD SPECIMEN Ordering Facility: [facility] Address: [address], [place] [address] Performed By: #### 2 4323-8, 3, 06896-7 #### [facility] CLIA [id number] [address] [address] [place] Bilirubin [Mass/Vol] 0.5 mg/dL Normal 0.2-1.3 [facility] Comment on above: Order Comment: Speci men Type: BLOOD SPECIMEN Ordering Facility: [facility] Address: [address], [place] [address] Performed By: #### 2 4323-8, 3, 21738-6 #### [facility] CLIA [id number] [address] [address] [place] Calcium [Mass/Vol] 9.4 mg/dL Normal 8.5-10.2 [facility] Comment on above: Order Comment: Speci men Type: BLOOD SPECIMEN Ordering Facility: [facility] Address: [address], [place] [address] Performed By: #### 2 4323-8, 3, 20455-7 #### [facility] CLIA [id number] [address] [address] [place] Chloride [Moles/Vol] 104 mmol/L Normal 98-107 [facility] Comment on above: Order Comment: Speci men Type: BLOOD SPECIMEN Ordering Facility: [facility] Address: [address], [place] [address] Performed By: #### 2 4323-8, 3, 68774-2 #### [facility] CLIA [id number] [address] [address] [place] CO2 [Moles/Vol] 23 mmol/L Normal 22-30 [facility] Comment on above: Order Comment: Speci men Type: BLOOD SPECIMEN Ordering Facility: [facility] Address: [address], [place] [address] Performed By: #### 2 4323-8, 3016-3, 89337-0 #### [facility] CLIA [id number] [address] [address] [place] Creatinine [Mass/Vol] 1.21 mg/dL Normal 0.73-1.22 [facility] Comment on above: Order Comment: Speci men Type: BLOOD SPECIMEN Ordering Facility: [facility] Address: [address], [place] [address] Performed By: #### 2 4323-8, 6-3, 91119-5 #### [facility] CLIA [id number] [address] [place], [place] [address] [place] eGFRcr SerPlBld CKD-EPI 2020 88 mL/min/1.73m??? Normal >=60 [facility] Comment on above: Order Comment: Speci men Type: BLOOD SPECIMEN Ordering Facility: [facility] Address: [address], [place] [address] Result Comment: Coral mated Glomerular Filtration Rate (eGFR) is calculated using the 2020 CKD-EPI creatinine equation. This equation utilizes serum creatinine, sex, and age as parameters. The creatinine assay has traceable calibration to isotope dilution-mass spectrometry. Refer to KDIGO guidelines for clinical interpretation. In patients with unstable renal function, e.g. those with acute kidney injury, the eGFR may not accurately reflect actual GFR. Performed By: #### 2 4323-8, 6-3, 42380-9 #### [facility] CLIA [id number] [address] [address] [place] Glucose [Mass/Vol] 88 mg/dL Normal 74-99 [facility] Comment on above: Order Comment: Speci men Type: BLOOD SPECIMEN Ordering Facility: [facility] Address: [address], [place] [address] Result Comment: The [place] Diabetes Association (ADA) provides guidance for cutoff values for fasting glucose and random glucose. The ADA defines fasting as no caloric intake for at least 8 hours. Fasting plasma glucose results between 100 to 125 mg/dL indicate increased risk for diabetes (prediabetes). Fasting plasma glucose results greater than or equal to 126 mg/dL meet the criteria for diagnosis of diabetes. In the absence of unequivocal hyperglycemia, results should be confirmed by repeat testing. In a patient with classic symptoms of hyperglycemia or hyperglycemic crisis, random plasma glucose results greater than or equal to 200 mg/dL meet the criteria for diagnosis of diabetes. Reference: Standards of Medical Care in Diabetes 2016, [place] Diabetes Association. Diabetes Care. 2016.39(Suppl 1). Performed By: #### 2 4323-8, 6-3, 24070-3 #### [facility] CLIA [id number] [address] [address] [place] Potassium [Moles/Vol] 4.4 mmol/L Normal 3.7-5.1 [facility] Comment on above: Order Comment: Speci men Type: BLOOD SPECIMEN Ordering Facility: [facility] Address: [address] [place] [address] Performed By: #### 2 4323-8, 3, 82746-2 #### [facility] CLIA [id number] [address] [address] [place] Protein [Mass/Vol] 7.2 g/dL Normal 6.3-8.0 [facility] Comment on above: Order Comment: Speci men Type: BLOOD SPECIMEN Ordering Facility: [facility] Address: [address] [place] [address] Performed By: #### 2 4323-8, 3, 79009-9 #### [facility] CLIA [id number] [address] [address] [place] Sodium [Moles/Vol] 141 mmol/L Normal 136-144 [facility] Comment on above: Order Comment: Speci men Type: BLOOD SPECIMEN Ordering Facility: [facility] Address: [address], [place] [address] Performed By: #### 2 4323-8, 3, 24192-0 #### [facility] CLIA [id number] [address] [address] [place] Urea nitrogen [Mass/Vol] 16 mg/dL Normal 9-24 [facility] Comment on above: Order Comment: Speci men Type: BLOOD SPECIMEN Ordering Facility: [facility] Address: [facility] [place] [address] Performed By: #### 2 4323-8, 3016-3, 65251-7 #### [facility] CLIA [id number] [address] [address] [place] HbA1c (Bld)on 04-26-2025 Average glucose Estimated from glycated hemoglobin (Bld) [Mass/Vol] 94 mg/dL Normal [facility] Comment on above: Order Comment: Speci men Type: BLOOD SPECIMEN Ordering Facility: [facility] Address: [facility] [place] [address] Result Comment: eAG: (Estimated average glucose) is a calculated value from HgbA1c and is bottling equipment sales representative of the average blood glucose level in the last 2-3 month period. Performed By: #### 5 5454-3 #### [facility] CLIA [id number] [address] [address] [place] HbA1c (Bld) [Mass fraction] 4.9 % Normal 4.3-5.6 [facility] Comment on above: Order Comment: Speci men Type: BLOOD SPECIMEN Ordering Facility: [facility] Address: [facility] [place] [address] Result Comment: [place] Diabetes Association guidelines indicate that patients with HgbA1c in the range 5.7-6.4% are at increased risk for development of diabetes, and intervention by lifestyle modification may be beneficial. HgbA1c greater or equal to 6.5% is considered diagnostic of diabetes. Performed By: #### 5 5454-3 #### [facility] CLIA [id number] [address] [address] [place] Lipid 1996 panelon 5 Cholesterol [Mass/Vol] 187 mg/dL High <170 [facility] Comment on above: Order Comment: Speci men Type: BLOOD SPECIMEN Ordering Facility: [facility] Address: [address], [place] [address] Result Comment: <170 mg/dL, Acceptable 170-199 mg/dL, Borderline high >199 mg/dL, High Performed By: #### 2 4323-8, 3016-3, 45217-2 #### [facility] CLIA [id number] [address] [address] [place] [facility] [place] Cholesterol in HDL [Mass/Vol] 26 mg/dL Low >45 [facility] Comment on above: Order Comment: Speci men Type: BLOOD SPECIMEN Ordering Facility: [facility] Address: [address], [place] [address] Result Comment: >45 mg/dL, Acceptable 40-45 mg/dL, Borderline <40 mg/dL, Low Performed By: #### 2 4323-8, 6-3, 87638-4 #### [facility] CLIA [id number] [address] [address] [place] Cholesterol in LDL [Mass/Vol] 129 mg/dL High <110 [facility] Comment on above: Order Comment: Speci men Type: BLOOD SPECIMEN Ordering Facility: [facility] Address: [address], [place] [address] Result Comment: <110 mg/dL, Acceptable 110-129 mg/dL, Borderline high >129 mg/dL, High LDL cholesterol is calculated using the Kim-NIH equation. Performed By: #### 2 4323-8, 6-3, 96359-1 #### [facility] CLIA [id number] [address] [address] [place] Cholesterol in LDL/Cholesterol in HDL [Mass ratio] 4.96 {ratio} High <2.42 [facility] Comment on above: Order Comment: Speci men Type: BLOOD SPECIMEN Ordering Facility: [facility] Address: [address], [place] [id number] Result Comment: Alyson adkins: 1. Expert Panel on Integrated Guidelines for Cardiovascular Health and Risk Reduction in Children and Adolescents: National Heart, Lung and Blood [place]. Pediatrics. 2011: 128(Suppl 5):C485-946. Performed By: #### 2 4323-8, 3015-3, 47054-4 #### [facility] CLIA [id number] [address] [address] [place] Cholesterol in VLDL [Mass/Vol] 31 mg/dL High <18 [facility] Comment on above: Order Comment: Speci men Type: BLOOD SPECIMEN Ordering Facility: [facility] Address: [address], [place] [address] Performed By: #### 2 4323-8, 3, 27122-1 #### [facility] CLIA [id number] [address] [address] [place] Cholesterol non HDL [Mass/Vol] 161 mg/dL High <120 [facility] Comment on above: Order Comment: Miriami men Type: BLOOD SPECIMEN Ordering [facility]: [facility] Address: [address], [place] [address] Result Comment: <120 mg/dL, Acceptable 120-144 mg/dL, Borderline high >144 mg/dL, High Performed By: #### 2 4323-8, 3, 25227-1 #### [facility] CLIA [id number] [address] [place] [address] [place] Cholesterol.total/Kavya sterol in HDL [Mass ratio] 7.19 {ratio} High <3.76 [facility] Comment on above: Order Comment: Speci men Type: BLOOD SPECIMEN Ordering [facility]: [facility] Address: [address], [place] [address] Performed By: #### 2 4323-8, 3, 81592-4 #### [facility] CLIA [id number] [address] [address] [address] [place] FASTING TIME 12 hrs Normal [facility] Comment on above: Order Comment: Speci men Type: BLOOD SPECIMEN Ordering Facility: [facility] Address: [place] [address] Performed By: #### 2 4323-8, 3016-3, 85010-3 #### [facility] CLIA [id number] [address] [place], [place] [address] [place] Triglyceride [Mass/Vol] 177 mg/dL High <90 C [facility] Comment on above: Order Comment: Speci men Type: BLOOD SPECIMEN Ordering Facility: [facility] Address: [place] [address] Result Comment: <90 mg/dL, Acceptable 90-129 mg/dL, Borderline high >129 mg/dL, High Performed By: #### 2 4323-8, 3015-3, 45085-2 #### [facility] CLIA [id number] [address] [place] [address] [place] TSH SerPl-aCncon 04-26-2025 TSH Qn 1.820 m[IU]/L Normal 0.510-4.300 [facility] Comment on above: Order Comment: Speci men Type: BLOOD SPECIMEN Ordering Facility: [facility] Address: [place] [address] Result Comment: Refe rence ranges were not locally established for this patient's age group. The normal values are based on the following source: Neha W, Graham V. Reference Ranges for Adults and Children: Pre-analytical Considerations. [facility] Performed By: #### 2 4323-8, 3015-3, 99721-5 #### [facility] CLIA [id number] [address] [place] [address] [place] Valproate Free SerPl-mCncon 04-26-2025 Valproate Free [Mass/Vol] 2.4 ug/mL Low 4.0-30.0 [facility] Comment on above: Order Comment: Speci men Type: BLOOD SPECIMEN Ordering Facility: [facility] Address: [place] [address] Result Comment: Refe rence ranges and high/low indicator flags are provided as general guidelines only. The treating physician must determine appropriate target levels/dosing based on the specific clinical situation. This test was developed, and its performance characteristics determined by the [facility] Department of Pathology and Laboratory Medicine. It has not been cleared or approved by the FDA. The [facility] Department of Pathology and Laboratory Medicine is regulated under CLIA as qualified to perform high-complexity testing. This test is used for clinical purposes. It should not be regarded as investigational or for research. Performed By: #### 4 087-3 #### [facility] CLIA [id number] [address] [place] [address] [place] ED MED ADMINISTRATION DETAIL on 04-21-2025 ED MED ADMINISTRATION DETAIL Field Assistant - RUBÉN GIBBS, : 2005, , Medication Administration Record [address] [address] [id number] 04/20/2025 Patient: RUBÉN GIBBS Sex: Male : 2005 Age: 19y MEASUREMENTS: Wt: 104.3 kg, Ht/Ramesh: 70.0 in, BMI: 33.00 ALLERGIES: No known drug allergies Medication Ordered Medication Administration Date/Time 1 of 1 Normal [facility] ED NURSES CLINICAL NOTEon ED NURSES CLINICAL NOTE Nurse Narrative - RUBÉN GIBBS, : 2005, , Nurse Clinical Narrative [address] [address] [id number] 04/20/2025 20:00:00 Patient: RUBÉN GIBBS Sex: Male : 2005 Age: 19y Disposition: Transfer to [facility] Disposition Decision Time: 03:02 04/21/2025 Departure Time: 05:15 04/21/2025 TRIAGE Arrived by private vehicle. Historian: (patient). Accompanied by grandmother. Primary physician (None). Triage time: 20:07 04/20/2025. Acuity: LEVEL 2. Chief Complaint: SUICIDAL THOUGHTS. Onset: today. The patient has had anxiety and sleeping difficulties and describes feelings of depression. Admits to having occasional auditory hallucinations. SEPSIS SCREEN: NEGATIVE. SIRS criteria negative. -- 20:22 04/20/25 RAISSAT Kassi Cevallos R.N. 20:07 04/20/25. ( Per grandmother, patient was recently discharged from [facility] on 04/11/[facility]. Patient states that he has had multiple different suicides attempts and hospitalizations. Patient's grandmother states that the last time he was hospitalized, he was discharged to a homeless fci in [place].). -- 20:59 04/20/25 RAISSAT Kassi Cevallos R.N. 20:21 04/20/25. BP: 146/88 MAP: 107. HR: 104. RR: 16. O2 saturation: 94% on room air. Temperature: 98.4 F (oral). Pain level now 0/10. -- 20:22 04/20/25 LUCIANA Cevallos R.N. Measurements: 20:21 04/20/25 Wt: 104.3 kg, Ht/Ramesh: 70.0 in, BMI: 33.00 -- 20:21 04/20/25 RAISSAT Kassi Cevallos R.N. 1 of 4 Nurse Narrative - RUBÉN GIBBS, : 2005, , Medications: trazodone 50 mg tablet -- 20:26 04/20/25 EDT Kassi Cevallos R.N. hydroxyzine HCl 50 mg tablet -- 20:04/20/25 EDT Kassi Cevallos R.N. escitalopram 10 mg tablet -- 20:04/20/25 RAISSAT Kassi Cevallos R.N. divalproex 250 mg tablet,delayed release -- 20:04/20/25 RAISSAT Kassi Cevallos R.N. propranolol 10 mg tablet -- 20:04/20/25 EDT Kassi Cevallos R.N. buspirone 7.5 mg tablet -- 20:04/20/25 RAISSAT Kassi Cevallos R.N. aripiprazole 10 mg tablet -- 20:26 04/20/25 EDT Kassi Cevallos R.N. cholecalciferol (vitamin D3) 25 mcg (1,000 unit) tablet -- 20:26 04/20/25 EDT Kassi Cevallos R.N. Allergies: no known drug allergies -- 20:20 04/20/25 EDT Kassi Cevallos R.N. Problems: Depression -- 20:20 04/20/25 EDT Kassi Cevallos R.N. PTSD -- 20:20 04/20/25 EDT Kassi Cevallos R.N. Anxiety disorder -- 20:21 04/20/25 EDT Kassi Cevallos R.N. Surgeries: Ankle Surgery. Bilateral -- 20:21 04/20/25 EDT Kassi Cevallos R.N. History 20:07 04/20/25. SOCIAL HX: Never smoker. No alcohol use or drug use. The patient has not traveled outside the [place] Infectious disease exposure: No infectious disease exposure. ABUSE ASSESSMENT: The patient answered yes to the question(s) Do you feel safe in your home? and no to the question(s) Are you afraid to go home?. SELF HARM ASSESSMENT: Self harm assessment was performed. The patient answered yes to the question(s) Have you recently felt down, depressed, or hopeless?, Do you have thoughts of harming or killing yourself?, Have you noticed less interest or pleasure in doing things? and Have you ever tried to hurt yourself before today? and no to the question(s) Do you have a plan for harming or killing yourself?, Have you 2 of 4 Nurse Narrative - RUBÉN GIBBS, : 2005, , recently had thoughts about harming or killing others?, Do you have any dangerous items in your possession? and Are you here because you tried to hurt yourself?. The patient and family reported the patient's behavior. A further in-depth assessment is planned. The patient has been placed under 1-on-1 supervision with family at bedside. The patient was placed in a safe room in direct sight of the nurses station. Clothes and valuables were removed and placed at the nurses station. The ED physician has been notified. FALL RISK ASSESSMENT: Fall risk assessment completed. No risk factors identified. -- 20:22 04/20/25 EDT Kassi Cevallos R.N. Interventions 20:07 04/20/25. Advanced care plan discussed with patient. Patient does not have advanced directive. -- 20:22 04/20/25 EDT Kassi Cevallos R.N. PHYSICAL ASSESSMENT 20:30 04/20/25. GENERAL / NEURO / PSYCH: Alert. Oriented X 4. Appears in no acute distress. Patient's mood/affect appears flat. Patient appears calm and cooperative. Behavior appears abnormal, including having apparent auditory hallucinations. Good eye contact. The patient describes suicidal thoughts. Prior history of suicidal thoughts. RESPIRATORY: Respirations not labored. Breath sounds within normal limits. CVS: Cardiac rhythm: sinus tachycardia. GI / : Abdomen soft and nontender. Bowel sounds within normal limits. SKIN: Skin intact. Skin (more content not included)... Normal [facility] ED ORDER SHEET (CPOE ONLY)on 04-21-2025 ED ORDER SHEET (CPOE ONLY) Order Sheet - RUBÉN GIBBS, : 2005, , Order Sheet [address] [address] [id number] 04/20/2025 Patient: RUBÉN GIBBS Sex: Male : 2005 Age: 19y MEASUREMENTS: Wt: 104.3 kg, Ht/Ramesh: 70.0 in, BMI: 33.00 ALLERGIES: No known drug allergies MEDICATION/IV/DRIP/FLUI D ORDERS Order Description Priority Entered Acknowledged Completed LAB ORDERS Order Description Priority Entered Acknowledged Collected Completed Drug Screen Urine Stat 20:22 04/20/2025 21:40 04/20/2025 21:40 04/20/2025 Medic Stat Nikhil Fuller, Kassi Cevallos R.N. RAmayaN. Urinalysis Stat Stat 20:22 04/20/2025 21:40 04/20/2025 21:40 04/20/2025 Nikhil Fuller Katelyn Horst, Antoinette.N. R.N. CBC w Diff Stat Stat 20:22 04/20/2025 21:40 04/20/2025 21:40 04/20/2025 Nikhil Fuller Katelyn Horst, Antoinette.N. R.N. CMP Stat Stat 20:22 04/20/2025 21:40 04/20/2025 21:40 04/20/2025 Nikhil Fuller Katelyn Horst, R.N. R.N. EKG - ED Stat Stat 20:22 04/20/2025 21:40 04/20/2025 21:40 04/20/2025 1 of 2 Order [facility] - GIBBSRUBÉN, : 2005, , Nikhil Fuller Katelyn Horst, Antoinette.N. R.N. Acetaminophen Level Stat 20:22 04/20/2025 21:40 04/20/2025 21:41 04/20/2025 Stat Nikhil Fuller Katelyn Horst, Antoinette.N. R.N. Salicylate Level Stat Stat 20:22 04/20/2025 21:40 04/20/2025 21:40 04/20/2025 Nikhil Fuller Katelyn Horst, Antoinette.N. R.N. Rapid COVID (SARS) Stat 20:22 04/20/2025 21:40 04/20/2025 21:40 04/20/2025 ANTIGEN TEST Stat Nikhil Fuller Katelyn Horst, Antoinette.N. R.N. Blood Alcohol - ETOH Stat 20:22 04/20/2025 21:40 04/20/2025 21:40 04/20/2025 Stat Nikhil Fuller Katelyn Horst, Antoinette.N. R.N. Depakene (Valproic Stat 20:59 04/20/2025 21:40 04/20/2025 21:40 04/20/2025 Acid) Stat Nikhil Fuller Katelyn Horst, R.N. RMarquis DIAGNOSTIC STUDY ORDERS Order Description Priority Entered Acknowledged Completed STAFF ORDERS Order Description Priority Entered Acknowledged Collected Completed Consult - Crisis 20:22 04/20/2025 21:41 04/20/2025 21:41 04/20/2025 Nikhil Fuller Katelyn Horst, R.N. RMarquis [Electronically signed by Zayda Rivera D.O. (04/21/2025 06:04 EDT)] 2 of 2 [facility] ED PHYSICIAN CLINICAL REPORT on 04-21-2025 ED PHYSICIAN CLINICAL REPORT Narrative - RUBÉN GIBBS, : 2005, , Physician Clinical [address] [address] [id number] 04/20/2025 20:00:00 Patient: RUBÉN GIBBS Sex: Male : 2005 Age: 19y Disposition: Transfer to [facility] Disposition Decision Time: 03:02 04/21/2025 Departure Time: 05:15 04/21/2025 Measurements Wt: 104.3 kg, Ht/Ramesh: 70.0 in, BMI: 33.00 Initial Vital Sign Measured Time BP MAP HR RR O2Sat ETCO2 Temp Pain GCS RTS 20:21 04/20/2025 146/88 107 104 16 94% RA 98.4 F 0 Time Seen: 20:06 04/20/2025. Arrived- By private vehicle. Historian- patient. Referred by patient's family (grandmother). HISTORY OF PRESENT ILLNESS Chief Complaint: SUICIDAL. This started today. Has been depressed. The patient has had moderate auditory hallucinations. The symptoms are described as moderate. was hospitalized for psych recently and was discharged to a homeless fci. Brought here today by grandmother. Similar symptoms previously. Hospitalized. 1 of 11 Narrative - JESS, RUBÉN, : 2005, , Recent medical care: Seen for similar symptoms. REVIEW OF SYSTEMS : No urinary frequency. ENDO/HEME/LYMPH: No enlarged lymph nodes. THROAT: No sore throat. CONSTITUTIONAL: No fever or weight loss. GI: No abdominal pain, vomiting, diarrhea or black stools. CVS: No chest pain or palpitations. NEUROLOGICAL: No headache, dizziness or weakness. MUSCULOSKELETAL: No joint pain. SKIN: No skin rash. RESPIRATORY: No cough or difficulty breathing. PAST HISTORY See nurses notes. Anxiety disorder Depression PTSD Surgeries: Ankle Surgery: Body Site Bilateral Medications: aripiprazole 10 mg tablet buspirone 7.5 mg tablet cholecalciferol (vitamin D3) 25 mcg (1,000 unit) tablet divalproex 250 mg tablet,delayed release escitalopram 10 mg tablet hydroxyzine HCl 50 mg tablet propranolol 10 mg tablet trazodone 50 mg tablet Allergies: no known drug allergies SOCIAL HISTORY Never smoker. No alcohol use or drug use. 2 of 11 Narrative - JESS RUBÉN, : 2005, , ADDITIONAL NOTES The nursing notes have been reviewed. PHYSICAL EXAM Appearance: Alert. No acute distress. Eyes: Pupils equal, round and reactive to light. Neck: Normal inspection. Neck supple. CVS: Normal heart rate and rhythm. Heart sounds normal. Respiratory: Painless inspiration. Breath sounds normal. Chest nontender. Abdomen: Soft and nontender. Skin: Skin warm and dry. Normal skin color. Extremities: Extremities exhibit normal ROM. No lower extremity edema. Psych / Neuro: Oriented X 3. Appears depressed. Flat affect. No motor deficit. No sensory deficit. LABS, X-RAYS, AND EKG 12-LEAD EKG: EKG time: 21:16 04/20/2025. Normal sinus rhythm. Rate: 99. Normal P waves. Normal QRS complex. Non-specific ST segment / T wave abnormalities. The study has been interpreted contemporaneously by me. The EKG appears to be a good tracing. Interpretation time: 21:17 04/20/2025. Laboratory Tests: DRUG SCREEN URINE MEDIC Final AMRITA: 04/20/2025 20:28:00 EDT MsgRcvd: 04/20/2025 20:55 EDT Lab Test Result Reference Status Received DRUG SCREEN 04/20/2025 20:55 Final URINE MEDIC EDT DRUG SCREEN - URINE 04/20/2025 20:55 PCP NEG. Final EDT 3 of 11 RUBÉN Suggs, : 2005, , 04/20/2025 20:55 COCAINE NEG. Final EDT 04/20/2025 20:55 OPIATES NEG. Final EDT 04/20/2025 20:55 AMPHETAMINES NEG. Final EDT 04/20/2025 20:55 B-DIAZEPINES NEG. Final EDT 04/20/2025 20:55 METHADONE NEG. Final EDT 04/20/2025 20:55 BARBITURATES NEG. Final EDT 04/20/2025 20:55 THC NEG. Final EDT PATIENTS RECEIVING PROTON PUMP INHIBITORS MAY DEMONSTRATE FALSE POSITIVE THC/CANNABINOID RESULTS. AN ALTERNATIVE CONFIRMATORY METHOD SHOULD BE CONSIDERED TO VERIFY POSITIVE RESULTS. URINALYSIS Final AMRITA: 04/20/2025 20:28:00 EDT MsgRcvd: 04/20/2025 20:52 EDT Lab Test Result Reference Status Received 04/20/2025 20:52 URINALYSIS Final EDT URINALYSIS 04/20/2025 20:52 Specimen Type R New Order EDT 04/20/2025 20:52 Color yellow NORMAL: YELLOW Final EDT 4 of 11 RUBÉN Suggs, : 2005, , 04/20/2025 20:52 Clarity clear NORMAL: CLEAR Final EDT 04/20/2025 20:52 ph 6 NORMAL: 5.0-8.0 Final EDT NORMAL: 04/20/2025 20:52 Protein NEG Final NEGATIVE EDT 04/20/2025 20:52 Glucose NORM NORMAL: NORMAL Final EDT NORMAL: 04/20/2025 20:52 Ketone NEG Final NEGATIVE EDT NORMAL: 04/20/2025 20:52 Bilirubin NEG Final NEGATIVE EDT NORMAL: 04/20/2025 20:52 Blood NEG Final (more content not included)... Normal [facility] ED SUPER BILLon 04-21-2025 ED SUPER BILL RUBÉN Solis, : 2005, , [address] [address] [id number] 04/20/2025 Patient: RUBÉN GIBBS Sex: Male : 2005 Age: 19y Professional Category Item Description Facility Code Code Quantity Fee Total Nurse/E/M EMERGENCY 546911 1 $0.00 $0.00 DEPT VISIT HIGH SEVERITYFUNCJ (16263-94) Grand Total $0.00 Providers Zayda Rivera D.O. Chief Complaint SUICIDAL. Principal Diagnosis Suicidal ideation (with prior attempt one month ago.). ICD-10 Codes R45.851: Suicidal ideations 1 of 1 Normal [facility] ED VISIT SUMMARYon ED VISIT SUMMARY Visit Overview - RUBÉN GREENBERG, : 2005, , Visit [address] [address] [id number] 04/20/2025 Patient: RUBÉN GIBBS Sex: Male : 2005 Age: 19y 04/21/2025 06:04 AM EDT ED Arrival:20:00 04/20/2025 EDT Status: Recent Travel:no Language:eng Adv Directive:No Isolation Status: Ethnicity:N Fall Risk:no risk Infectious Disease Exposure:no Measurements:5'10 / 177.8 Self-Harm Status:risk Sepsis Screen:negative cm 230.0 lb / 104.3 kg Chief Complaint:SUICIDAL THOUGHTS and (None) ALLERGIES No Known Drug Allergies HOME MEDICATIONS aripiprazole 10 mg tablet buspirone 7.5 mg tablet cholecalciferol (vitamin D3) 25 mcg (1,000 unit) tablet divalproex 250 mg tablet,delayed release escitalopram 10 mg tablet hydroxyzine HCl 50 mg tablet propranolol 10 mg tablet 1 of 3 Visit Overview - RUBÉN GIBBS, : 2005, , trazodone 50 mg tablet PAST MEDICAL HISTORY / PROBLEMS Anxiety disorder Depression PTSD See nurses notes PAST SURGICAL HISTORY Ankle Surgery. Bilateral SOCIAL HISTORY Smoking status: No Alcohol use: No Drug use: No ED COURSE MEDICATIONS GIVEN IN EMERGENCY DEPARTMENT IV SITE INFORMATION INTAKE OUTPUT REASSESMENT (most recent) 20:30 04/20/25. GENERAL / NEURO / PSYCH: Alert. Oriented X 4. Appears in no acute distress. Patient's mood/affect appears flat. Patient appears calm and cooperative. Behavior appears abnormal, including having apparent auditory hallucinations. Good eye contact. The patient describes suicidal thoughts. Prior history of suicidal thoughts. RESPIRATORY: Respirations not labored. Breath sounds within normal limits. CVS: Cardiac rhythm: sinus tachycardia. GI / : Abdomen soft and nontender. Bowel sounds within normal limits. SKIN: Skin intact. Skin is warm and dry. VITAL SIGNS First Vitals Last Vitals 2 of 3 Visit Overview - RUBÉN GIBBS, : 2005, , First Vitals Last Vitals Temp 20:21 04/20/25 98.4 F Temp 20:21 04/20/25 98.4 F BP 20:21 04/20/25 146/88 BP 20:21 04/20/25 146/88 HR 20:21 04/20/25 104 HR 20:21 04/20/25 104 RR 20:21 04/20/25 16 RR 20:21 04/20/25 16 O2 Sat 20:21 04/20/25 94% RA O2 Sat 20:21 04/20/25 94% RA Pain 20:21 04/20/25 0 Pain 20:21 04/20/25 0 ETCO2 20:21 04/20/25 ETCO2 20:21 04/20/25 GCS 20:21 04/20/25 GCS 20:21 04/20/25 RTS 20:21 04/20/25 RTS 20:21 04/20/25 PROCEDURES NURSING INTERVENTIONS LABS / STUDIES LABS / STUDIES ORDERED Acetaminophen Level Blood Alcohol - ETOH CBC w Diff CMP Depakene (Valproic Acid) Drug Screen Urine Medic EKG - ED Rapid COVID (SARS) ANTIGEN TEST Salicylate Level Urinalysis CLINICAL IMPRESSION SUICIDAL IDEATION (WITH PRIOR ATTEMPT ONE MONTH AGO.) 3 of 3 Normal [facility] ED VITALS FLOW SHEETon 04-21 ED VITALS FLOW SHEET Vitals - KATHERINE GIBBS, : 2005, , Vital Sign Flow Sheet [address] [place] [address] [id number] 04/20/2025 Patient: RUBÉN GIBBS Sex: Male : 2005 Age: 19y Measurements Wt: 104.3 kg, Ht/Ramesh: 70.0 in, BMI: 33.00 Measured Time BP MAP HR RR O2Sat ETCO2 Temp Pain GCS RTS 20:21 04/20/2025 146/88 107 104 16 94% RA 98.4 F 0 1 of 1 Normal [facility] VALPROIC ACID [CCL]on 2024 Valproic Acid <2.8 Low 50.0-100.0 [facility] Comment on above: Result Comment: Refe rence ranges and high/low indicator flags are provided as general guidelines only. The treating physician must determine appropriate target levels/dosing based on the specific clinical situation. [facility] [address] [place] [address] Kenyon Medina III, M.D. [id number] Performed By: #### 2 [address]6510 ####[address] [address] ACETAMINOPHENon 04-20-2025 Acetaminophen [Mass/Vol] ug/mL Low 10.0 - 30.0 [facility] Comment on above: Performed By: #### 2 00621 #### [facility],[address] [place] [address] ALCOHOL-BLOOD MEDICALon 04-05 Ethanol [Mass/Vol] mg/dL Normal 0 - 50 [facility] Comment on above: Performed By: #### 2 24500 #### [address] [address] CBC + DIFFon 04-20-2025 Baso # 0.03 x10EE3/UL Normal 0.00 - 0.10 [facility] Comment on above: Performed By: #### 2 50348 ####[facility],[address] [place], [place] [address] Basophils/100 WBC (Bld) 0.5 % Normal 0.0 - 2.0 [facility] Comment on above: Performed By: #### 2 38688 ####[facility],[address] [place] [address] CBC + DIFF Normal [facility] Comment on above: Result Comment: CBC- COMPLETE BLOOD COUNT Performed By: #### 2 90862 ####[place] [address] EO # 0.49 x10EE3/UL Normal 0.00 - 0.50 [facility] Comment on above: Performed By: #### 2 46681 ####[facility],[address] [place] [address] Eosinophils/100 WBC (Bld) 7.0 % Normal 0.0 - 7.0 [facility] Comment on above: Performed By: #### 2 99525 ####[facility],[address] [place] [address] Erythrocyte distribution width (RBC) [Ratio] 14.0 % Normal 12.0 - 15.6 [facility] Comment on above: Performed By: #### 2 67141 ####[facility],[address] [place] [address] Hematocrit (Bld) [Volume fraction] 48.3 % Normal 40.0 - 52.0 [facility] Comment on above: Performed By: #### 2 89385 ####[facility],[address] [place] [address] Hemoglobin (Bld) [Mass/Vol] 17.2 g/dL Normal 13.0 - 17.5 [facility] Comment on above: Result Comment: RPT FOR H & h CHECK Performed By: #### 2 61913 ####[facility],[address] [place] [address] Lymph # 2.34 x10EE3/UL Normal 0.80 - 2.80 [facility] Comment on above: Performed By: #### 2 43171 ####[facility],[address] [place] [address] Lymphocytes/100 WBC (Bld) 33.5 % Normal 20.0 - 45.0 [facility] Comment on above: Performed By: #### 2 78395 ####[facility],[address] [place], [place] [address] MANUAL DIFF N/A Normal [facility] Comment on above: Performed By: #### 2 74544 ####[facility],[address] [place] [address] MCH (RBC) [Entitic mass] 30 pg Normal 27 - 33 [facility] Comment on above: Performed By: #### 2 85941 ####[facility],[address] [place] [address] MCHC 36 X10 3 Normal 32 - 36 [facility] Comment on above: Performed By: #### 2 68049 ####[facility],[address] [place] [address] MCV (RBC) [Entitic vol] 84 fL Normal 81 - 98 [facility] Comment on above: Performed By: #### 2 92833 ####[facility],[address] [place] [address] Phillips # 0.75 x10EE3/UL Normal 0.20 - 1.00 [facility] Comment on above: Performed By: #### 2 53333 ####[facility],[address] [place] [address] MONOS % 10.8 % High 0.0 - 10.0 [facility] Comment on above: Performed By: #### 2 73883 ####[facility],[address] [place] [address] Morphology Sabino (Bld) [Interp] N/A Normal [facility] Comment on above: Performed By: #### 2 44613 ####[facility],[address] [place] [address] Neut # 3.37 x10EE3/UL Normal 1.50 - 7.10 [facility] Comment on above: Performed By: #### 2 18588 ####[facility],[address] [place] [address] Neutrophils/100 WBC (Bld) 48.2 % Normal 46.0 - 76.0 [facility] Comment on above: Performed By: #### 2 35607 ####[facility],[address] [place] [address] PLATELET 177 x10EE3/UL Normal 150 - 450 [facility] Comment on above: Performed By: #### 2 31160 ####[facility],[address] [place] [address] Platelet mean volume (Bld) [Entitic vol] 9.7 fL Normal 6.4 - 10.5 [facility] Comment on above: Result Comment: AUTO MATED DIFFERENTIAL Performed By: #### 2 49782 ####[facility],[address] [place] [address] RBC 5.73 x 10EE6/UL Normal 4.50 - 6.00 [facility] Comment on above: Performed By: #### 2 85145 ####[facility],[address] [place] [address] WBC 7.0 x 10EE3/UL Normal 4.5 - 10.8 [facility] Comment on above: Performed By: #### 2 61099 ####[facility],[address] [place] [address] CMP with eGFRon 04-20-2025 AGE 19 years Normal [facility] Comment on above: Performed By: #### 2 31961 ####[facility] [facility],[address] [place] [address] 12250 Albumin [Mass/Vol] 3.8 g/dL Normal 3.4 - 5.0 [facility] Comment on above: Performed By: #### 2 31134 ####[facility],[address] [place] [address] 05237 Albumin/Globulin [Mass ratio] 1.1 {ratio} Normal 0.9 - 1.6 [facility] Comment on above: Performed By: #### 2 23766 ####[facility],[address] [place] [address] 79808 ALK PHOS 93 U/L Normal 46 - 116 [facility] Comment on above: Performed By: #### 2 99355 ####[facility],[address] [place] [address] 86446 ALT [Catalytic activity/Vol] 77 U/L High 16 - 63 [facility] Comment on above: Performed By: #### 2 39307 ####[facility],[address] [place] [address] 35250 Anion gap [Moles/Vol] 14 mmol/L Normal 10 - 20 [facility] Comment on above: Performed By: #### 2 32396 ####[facility],[address] [place] [address] 32649 AST [Catalytic activity/Vol] 31 U/L Normal 15 - 37 [facility] Comment on above: Performed By: #### 2 09912 ####[facility],[address] [place] [address] 13424 B/C RATIO 15 ratio Normal 0 - 30 [facility] Comment on above: Performed By: #### 2 61136 ####[facility],[address] [place] [address] 56783 Bilirubin [Mass/Vol] 0.4 mg/dL Normal 0.2 - 1.0 [facility] Comment on above: Performed By: #### 2 89080 ####[facility],[address] [place] [address] 56779 Calcium [Mass/Vol] 9.0 mg/dL Normal 8.5 - 10.1 [facility] Comment on above: Performed By: #### 2 47664 ####[facility],[address] [place] [address] 93875 Chloride [Moles/Vol] 102 mmol/L Normal 98 - 107 [facility] Comment on above: Performed By: #### 2 24886 ####[facility],[address] [place] [address] 10939 CMP with eGFR Normal [facility] Comment on above: Result Comment: COMP REHENSIVE METABOLIC PANEL Performed By: #### 2 29200 ####[facility],[address] [place] [address] 27222 CO2 [Moles/Vol] 26.4 mmol/L Normal 21.0 - 32.0 [facility] Comment on above: Performed By: #### 2 75575 ####[facility],[address] [place] [address] 71177 Creatinine [Mass/Vol] 1.17 mg/dL Normal 0.70 - 1.30 [facility] Comment on above: Performed By: #### 2 68419 ####[facility],[address] [place] [address] 96982 GFR/1.73 sq M.predicted among non-blacks MDRD (S/P/Bld) [Vol rate/Area] mL/min/{1.73_m2} Normal 60 - 999 [facility] Comment on above: Performed By: #### 2 08540 ####[facility],[address] [place] [address] 66801 Result Comment: ACCO RDING TO THE NATIONAL KIDNEY DISEASE EDUCATION PROGRAM(NKDE), A NORMAL eGFR IS A VALUE GREATER THAN OR EQUAL TO 60 ML/MIN/1.73 SQ METERS. CHRONIC KIDNEY DISEASE: <60mL/MIN/1.73 SQ METERS KIDNEY FAILURE: <15mL/MIN/1.73 SQ METERS THIS TEST SHOULD ONLY BE USED FOR PATIENTS 18 YEARS OF AGE AND OLDER. Globulin (S) [Mass/Vol] 3.4 g/dL Normal 1.5 - 3.8 [facility] Comment on above: Performed By: #### 2 52079 ####[facility],[address] [place] [address] 11508 Glucose [Mass/Vol] 147 mg/dL High 74 - 106 [facility] Comment on above: Performed By: #### 2 25474 ####[facility],[address] [place] [address] 99998 Potassium [Moles/Vol] 3.8 mmol/L Normal 3.5 - 5.1 [facility] Comment on above: Performed By: #### 2 25845 ####[facility],[address] [place] [address] 51218 Protein [Mass/Vol] 7.2 g/dL Normal 6.4 - 8.2 [facility] Comment on above: Performed By: #### 2 12125 ####[facility],[address] [place] [address] 68941 Sodium [Moles/Vol] 139 mmol/L Normal 136 - 145 [facility] Comment on above: Performed By: #### 2 61496 ####[facility],[address] [place] [address] 19057 Urea nitrogen [Mass/Vol] 17 mg/dL Normal 7 - 18 [facility] Comment on above: Performed By: #### 2 08529 ####[facility],[address] [place] [address] 41355 DRUG SCREEN URINE MEDICon AMPHETAMINES Negative Normal [facility] Comment on above: Performed By: #### 2 86430 #### [facility],[address] [place] [address] 98484 B-DIAZEPINES Negative Normal [facility] Comment on above: Performed By: #### 2 97418 #### [facility],[address] [place] [address],[facility] 69710 BARBITURATES Negative Normal [facility] Comment on above: Performed By: #### 2 12251 #### [facility],[address] [place] [address],[facility] 14760 COCAINE Negative Normal [facility] Comment on above: Performed By: #### 2 88010 #### [facility],[address] [place] [address],[facility] 65447 DRUG SCREEN URINE MEDIC Normal [facility] Comment on above: Result Comment: DRUG SCREEN - URINE Performed By: #### 2 59074 #### [facility],[address] [place] [address],[facility] [address]140 METHADONE Negative Normal [facility] Comment on above: Performed By: #### 2 27001 #### [facility],[address] [place] [address] 49414 OPIATES Negative Normal [facility] Comment on above: Performed By: #### 2 59529 #### [facility],[address] [place] [address] 76075 PCP Negative [facility] Comment on above: Performed By: #### 2 65031 #### [facility],[address] [place] [address] 94685 THC Negative Normal [facility] Comment on above: Result Comment: EVELYNE ENTS RECEIVING PROTON PUMP INHIBITORS MAY DEMONSTRATE FALSE POSITIVE THC/CANNABINOID RESULTS. AN ALTERNATIVE CONFIRMATORY METHOD SHOULD BE CONSIDERED TO VERIFY POSITIVE RESULTS. Performed By: #### 2 35542 #### [facility],[address] [place] [address] 92550 SALICYLATEon 04-20-2025 SALICYLATE 2.3 mg/dl Low 2.8 - 20.0 [facility] Comment on above: Result Comment: *PAT IENTS TREATED WITH SULFASALAZINE MAY GENERATE A FALSE HIGH RESULT FOR SALICYLATE. *PATIENTS TREATED WITH SULFAPYRIDINE MAY GENERATE A FALSE LOW RESULT FOR SALICYLATE. Performed By: #### 2 43481 #### [facility],[address] [place] [address] 85190 URINALYSISon 04-20-2025 Bilirubin Ql (U) Negative Normal NORMAL: NEGATIVE [facility] Comment on above: Performed By: #### 2 99871 ####[facility],[address] [place] [address] 53616 Clarity (U) clear Normal NORMAL: CLEAR [facility] Comment on above: Performed By: #### 2 67811 ####[facility],[address] [place] [address] 39738 Color (U) yellow Normal NORMAL: YELLOW [facility] Comment on above: Performed By: #### 2 51648 ####[facility],[address] [place] [address] 62619 Glucose Ql (U) NORM Normal NORMAL: NORMAL [facility] Comment on above: Performed By: #### 2 97020 ####[facility],[address] [place] [address] 23504 Hemoglobin Ql (U) Negative Normal NORMAL: NEGATIVE [facility] Comment on above: Performed By: #### 2 76631 ####[facility],[address] [place] [address] 00092 Ketone Negative Normal NORMAL: NEGATIVE [facility] Comment on above: Performed By: #### 2 29532 ####[facility],[address] [place] [address] 25375 Leukocytes Negative Normal NORMAL: NEGATIVE [facility] Comment on above: Performed By: #### 2 87686 ####[facility],[address] [place] [address] 93528 Nitrite Ql (U) Negative Normal NORMAL: NEGATIVE [facility] Comment on above: Performed By: #### 2 76167 ####[facility],[address] [place] [address] 23543 pH (U) 6 [pH] Normal NORMAL: 5.0-8.0 [facility] Comment on above: Performed By: #### 2 82750 ####[facility],[address] [place] [address] 64823 Protein Ql (U) Negative Normal NORMAL: NEGATIVE [facility] Comment on above: Performed By: #### 2 83842 ####[facility],[address] [place] [address] [place] 1.025 Normal NORMAL: 1.010-1.030 [facility] Comment on above: Performed By: #### 2 96787 ####[facility],[address] [place] [address] Specimen Type R Normal [facility] Comment on above: Performed By: #### 2 66259 ####[facility],[address] [place], [place] [address] Urinalysis dipstick W Reflex Microscopic panel (U) NOT INDICATED Normal [facility] Comment on above: Performed By: #### 2 09258 ####[facility],[address] [place] [address] 47933 Urobilinog NORM Normal NORMAL: NORMAL [facility] Comment on above: Performed By: #### 2 15039 ####[facility],[address] [place], [place] [address] [facility] Valpro[facility] [Mass/Vol] ug/mL Low 50.0-100.0 [facility] Comment on above: Order Comment: Speci men Type: BLOOD SPECIMEN Ordering Facility: [facility] Address: [address] [place] [address] Result Comment: Refe rence ranges and high/low indicator flags are provided as general guidelines only. The treating physician must determine appropriate target levels/dosing based on the specific clinical situation. Performed By: #### 4 086-5 #### [facility] CLIA [id number] [address] [place], [place] [address] [address] [place] Absolute lymphocyte countOrd ered By: Nain Mercer on 03-27-2025 Lymphocytes Auto (Unsp spec) [#/Vol] 2.51 10*3/uL 0.83-4.51 [facility] Absolute neutrophil countOrd ered By: Nain Mercer on 03-27-2025 Neutrophils (Bld) [#/Vol] 3.4 10*3/uL 2.0-7.7 [facility] Alcohol, Blood (Medical)-Ser umon 03-27-2025 SERUM ETOH < 10.1 Normal <=10.0 [facility] Comment on above: Result Comment: This test is for medical purposes only. The legal definition of intoxication varies according to local law. Performed By: #### L 500.4050, L501.9100, L100.0100, L505.5000 #### [facility] [address] [place], [place], [id number] Amphetamine detection with 1 000 ng/mL as cutoffOrdered By: Nain Mercer on 03-27-2025 Amphetamines Screen method >1000 ng/mL Ql (U) Negative < 200 ng/mL [facility] Anion gap in Serum or Plasma Ordered By: Nain Mercer on 03-27-2025 Anion gap [Moles/Vol] 15 mmol/L 5-15 [facility] Automated blood erythrocyte countOrdered By: Nain Mercer on 03-27-2025 RBC (Bld) [#/Vol] 5.88 10*6/uL Normal 4.6-6.2 [facility] Comment on above: Performed By: #### L 500.4050, L501.9100, L100.0100, L505.5000 #### [facility] [address] [place], [place], [address] Automated blood hematocrit ( percentage)Ordered By: Nain Mercer on 03-27-2025 Hematocrit (Bld) [Volume fraction] 48.7 % Normal 40-54 [facility] Comment on above: Performed By: #### L 500.4050, L501.9100, L100.0100, L505.5000 #### [facility] [address] [place], [address] Automated lymphocyte count a s percentage of total leukocytesOrdered By: Nain Mercer on 03-27-2025 Lymphocytes/100 WBC Auto (Unsp spec) 34.5 % - [facility] BUN/creatinine ratioOrdered By: Nain Mercer on 03-27-2025 Urea nitrogen/Creatinine [Mass ratio] 16.0 mg/mg 10- [facility] Basophil percentageOrdered B y: Nain Mercer on 03-27-2025 Basophils/100 WBC (Bld) 1.2 % High 0-1 [facility] Comment on above: Performed By: #### L 500.4050, L501.9100, L100.0100, L505.5000 #### [facility] [address] [place], [address] Bilirubin, totalOrdered By: Nain Mercer on 03-27-2025 Bilirubin [Mass/Vol] 0.19 mg/dL Normal 0.00-1.30 [facility] Comment on above: Performed By: #### L 500.4050, L501.9100, L100.0100, L505.5000 #### [facility] [address] [place], [address] CBC W/Diff, Automatedon 03-06 Absolute Lymph 2.51 X10 3/uL Normal 0.83-4.51 [facility] Comment on above: Performed By: #### L 500.4050, L501.9100, L100.0100, L505.5000 #### [facility] [address] [place], [address] Absolute Neut 3.4 X10 3/uL Normal 2.0-7.7 [facility] Comment on above: Performed By: #### L 500.4050, L501.9100, L100.0100, L505.5000 #### [facility] [address] [place], [address] IG% 0.700 Normal 0.0-0.9 [facility] Comment on above: Result Comment: IG% - Immature Granulocytes (promyelocytes, myelocytes and metamyelocytes) > 1% indicates that a LEFT SHIFT is Present. Performed By: #### L 500.4050, L501.9100, L100.0100, L505.5000 #### [facility] [address] [place], [address] Lymphocytes/100 WBC (Bld) 34.5 % Normal 19-41 [facility] Comment on above: Performed By: #### L 500.4050, L501.9100, L100.0100, L505.5000 #### [facility] [address] [place], [address] Nucleated RBC (Bld) [#/Vol] 0 10*3/uL Normal 0-5 [facility] Comment on above: Performed By: #### L 500.4050, L501.9100, L100.0100, L505.5000 #### [facility] [address] [place], [address] RDW SD 39.6 fl Normal 35.1-43.9 [facility] Comment on above: Performed By: #### L 500.4050, L501.9100, L100.0100, L505.5000 #### [facility] [address] [place], [address] Carbon dioxide, total [Moles /volume] in Central venous bloodOrdered By: Nain Mercer on 03-27-2025 CO2 [Moles/Vol] 22.2 mmol/L Normal 21.0-32.0 [facility] Comment on above: Performed By: #### L 500.4050, L501.9100, L100.0100, L505.5000 #### [facility] [address] [place], [address] Chloride assayOrdered By: Robert Mercer on 03-27-2025 Chloride [Moles/Vol] 103 mmol/L Normal 98-108 [facility] Comment on above: Performed By: #### L 500.4050, L501.9100, L100.0100, L505.5000 #### [facility] [address] [place], [address] Comprehensive Metabolic Prof ilon 03-27-2025 ALK PHOS 100 U/L Normal 40-129 [facility] Comment on above: Performed By: #### L 500.4050, L501.9100, L100.0100, L505.5000 #### [facility] [address] [place], [address] BUN/CRE 16.0 RATIO Normal 10-20 [facility] Comment on above: Performed By: #### L 500.4050, L501.9100, L100.0100, L505.5000 #### [facility] [address] [place], [address] ECRCL 138.07 ml/min Normal 50-250 [facility] Comment on above: Performed By: #### L 500.4050, L501.9100, L100.0100, L505.5000 #### [facility] [address] [place], [address] GAP 15 Normal 5-15 [facility] Comment on above: Performed By: #### L 500.4050, L501.9100, L100.0100, L505.5000 #### [facility] [address] [place], [address] Potassium [Moles/Vol] 4.3 mmol/L Normal 3.3-5.1 [facility] Comment on above: Result Comment: Hemo lysis present, Results??could be affected. ?? Performed By: #### L 500.4050, L501.9100, L100.0100, L505.5000 #### [facility] [address] [place], [address] T PROT 6.9 g/dL Normal 5.9-8.4 [facility] Comment on above: Performed By: #### L 500.4050, L501.9100, L100.0100, L505.5000 #### [facility] [address] [place], [address] Comprehensive Metabolic Prof ilOrdered By: Nain Mercer on 03-27-2025 AST [Catalytic activity/Vol] 45 U/L High <=37 [facility] Comment on above: Hemolysis present, R esults could be affected. Result Comment: Hemo lysis present, Results??could be affected. ?? Performed By: #### L 500.4050, L501.9100, L100.0100, L505.5000 #### [facility] [address] [place], [address] Emergency Department Summary on 03-27-2025 Emergency Department Summary [facility] Medical Records Department [address] [facility] [place] [address] Emergency Department Summary 03/27/25 MR#: [id number] Acct: [id number] Name: RUBÉN GIBBS Rep #: [id number] : 2005 19 From: Nain Mercer MD PCP: Care Physician,No Primary Status:REG ER Location: ED HPI HPI - Psych History of Present Illness Chief Complaint: Suicidal Narrative Narrative: 19-year-old male past medical history of depression and anxiety on multiple medications presents with his grandfather because of suicidal ideation. Currently he has no plan but they report that he has had multiple attempts in the past. He was hospitalized in the psychiatric facility for 3 years, then discharged. Approximately 3 to 4 weeks ago he was admitted at [facility] for suicidal ideation and depression. He had taken a pair pants and tied them around his neck and attempt to hang himself but he never did. His grandfather relays history that [facility] had discharged him because he was supposed to have a hearing in [facility]. They had dropped him off at around 11:00 in the morning but the hearing was not until the afternoon. However, it was learned that the field research assistant had canceled the hearing reportedly that was to be held in [facility] because grandfather reports that it was actually supposed to be in [facility]. He has been living with his grandparents for the last week. They are uncomfortable in taking care of him and fear that he will attempt suicide again because he has stated to his grandfather multiple times that he is bored and they do not do activities with him. He is also made statements about suicidality to them. [facility] Medical History Club foot of both lower extremities Depression Anxiety Home Medications ???Medication ???Instructions ???Recorded ???Last Taken ???Type aripiprazole 10 mg tablet 10 mg PO QHS 03/27/25 Unknown Hist ory buspirone 7.5 mg tablet 7.5 mg PO TID 03/27/25 Unknown His tory divalproex 250 mg tablet,delayed 250 mg PO BID 03/27/25 Unknown His tory release doxepin 10 mg capsule 10 mg PO QHS 03/27/25 Unknown Hist ory escitalopram oxalate 10 mg tablet 10 mg PO QHS 03/27/25 Unknown His tory hydroxyzine HCl 50 mg tablet 50 mg PO Q6H PRN 03/27/25 Unknown History propranolol 10 mg tablet 10 mg PO BID PRN 03/27/25 Unknown History Allergy/AdvReac Type Severity Reaction Status Date / Time No Known Allergies Allergy Verified 03/27/25 18:45 Social History household members: spouse and family housing: house Smoking Status: Never smoker substance use type: does not use ROS ROS ED ROS Narrative Review of systems positive for suicidal ideation, currently with no plan. Denies any somatic complaints. States he is hungry. EXAM Physical Exam Narrative Exam Narrative: Afebrile. Vital signs noted. Nontoxic-appearing. Cardiovascular examination regular rate and rhythm. Lungs clear to auscultation bilaterally. Abdomen is soft and nontender without guarding or rebound. Neurological examination nonfocal, nonlateralizing, moves all extremities. Psychiatric examination shows suicidality but no plan, flat affect. Const Vital Signs: 03/27/25 18:43 07/23/25 19:43 Temperature 98.6 F Temperature Source Oral Pulse Rate 85 86 Respiratory Rate 18 15 Blood Pressure 133/83 H 120/77 Blood Pressure Mean 99 91 Pulse Ox 99 95 Oxygen Delivery Method Room Air Room Air MDM MDM MDM Narrative Medical decision making narrative: I reviewed the patient's prior ED visit. He was placed at [facility] at the end of February, almost 1 month ago. Medical screening labs will be obtained. Once medically cleared, he will be evaluated either by case management versus crisis. Medical screening labs were obtained and reviewed. He has slightly hemoconcentrated hemoglobin of 16.6 which I think is nonspecific, normal white count 7.3, platelet count normal at 183. CMP remarkable for slightly elevated AST and ALT of 45 and 57 respectively. This is nonspecific as well. Serum alcohol level is negative. Urine for drugs of abuse also negative. At this point in time, I do feel he is medically cleared for evaluation by social work/case management. In discussion with case management, they have seen him previously. Additionally, they state that the patient is unable to live with other members of his family. After discharge from the facility where he was for 3 years, he has lived with his grandparents for about 6 months reportedly. After evaluation, they will work on placement, however, his grandfather was told that if unsuccessful, that he will need to be discharged back into his custody tomorrow morning if placement is unsuccessful. Patient will be signed out to (more content not included)... Normal [facility] Eosinophil percentageOrdered By: Nain Mercer on 03-27-2025 Eosinophils/100 WBC (Bld) 5.0 % Normal 0-5 [facility] Comment on above: Performed By: #### L 500.4050, L501.9100, L100.0100, L505.5000 #### [facility] [address] [place], [place], [id number] Erythrocyte distribution wid ratioOrdered By: Nain Mercer on 03-27-2025 Erythrocyte distribution width (RBC) [Ratio] 13.2 % Normal 11.6-14.6 [facility] Comment on above: Performed By: #### L 500.4050, L501.9100, L100.0100, L505.5000 #### [facility] [address] [place], [place], [id number] Erythrocyte distribution wid th standard deviationOrdered By: Nain Mercer on 03-27-2025 Erythrocyte distribution width (RBC) [Ratio] 39.6 fl 35.1-43.9 [facility] Glomerular filtration rate ( GFR) estimation/1.73 sq m using serum, plasma, or whole bOrdered By: Nain Mercer on 03-27-2025 GFR/1.73 sq M.predicted among non-blacks MDRD (S/P/Bld) [Vol rate/Area] 103 mL/min/{1.73_m2} Normal >60 [facility] Comment on above: mL/min/1.73m2 CKD-EP I Creatinine Equation (2020) Result Comment: mL/m in/1.73m2 CKD-EPI Creatinine Equation (2020) Performed By: #### L 500.4050, L501.9100, L100.0100, L505.5000 #### [facility] [address] [place], [address] Hemoglobin measurementOrdere d By: Nain Mercer on 03-27-2025 Hemoglobin (Bld) [Mass/Vol] 16.6 g/dL High 13.0-16.5 [facility] Comment on above: Performed By: #### L 500.4050, L501.9100, L100.0100, L505.5000 #### [facility] [address] [place], [address] Immature granulocytes/100 WB C Auto (Bld)Ordered By: Nain Mercer on 03-27-2025 Immature granulocytes/100 WBC (Bld) 0.700 % 0.0-0.9 [facility] Comment on above: IG% - Immature Granu locytes (promyelocytes, myelocytes and metamyelocytes) > 1% indicates that a LEFT SHIFT is Present. MCV (mean corpuscular volume ) determinationOrdered By: Nain Mercer on 03-27-2025 MCV (RBC) [Entitic vol] 82.8 fL Normal 80-94 [facility] Comment on above: Performed By: #### L 500.4050, L501.9100, L100.0100, L505.5000 #### [facility] [address] [place], [address] Mean corpuscular hemoglobin (MCH) determinationOrdered By: Nain Mercer on 03-27-2025 MCH (RBC) [Entitic mass] 28.2 pg Normal 27.0-32.0 [facility] Comment on above: Performed By: #### L 500.4050, L501.9100, L100.0100, L505.5000 #### [facility] [address] [place], [address] Mean corpuscular hemoglobin concentration (MCHC) determinationOrdered By: Nain Mercer on 03-27-2025 MCHC (RBC) [Mass/Vol] 34.1 g/dL Normal 32-36 [facility] Comment on above: Performed By: #### L 500.4050, L501.9100, L100.0100, L505.5000 #### [facility] [address] [place], [address] Mean platelet volume determi nationOrdered By: Nain Mercer on 03-27-2025 Platelet mean volume (Bld) [Entitic vol] 11.4 fL Normal 6.2-12.0 [facility] Comment on above: Performed By: #### L 500.4050, L501.9100, L100.0100, L505.5000 #### [facility] [address] [place], [address] Monocyte percentageOrdered B y: Nain Mercer on 03-27-2025 Monocytes/100 WBC (Bld) 12.2 % High 0-10 [facility] Comment on above: Performed By: #### L 500.4050, L501.9100, L100.0100, L505.5000 #### [facility] [address] [place], [place], [address] Neutrophil percentageOrdered By: Nain Mercer on 03-27-2025 Neutrophils/100 WBC (Bld) 46.4 % Low 47-70 [facility] Comment on above: Performed By: #### L 500.4050, L501.9100, L100.0100, L505.5000 #### [facility] [address] [place], [place], [id number] No Panel InformationOrdered By: Nain Mercer on 03-27-2025 Urine Buprenorphine Qualitative Negative < 200 ng/mL [facility] Urine Oxycodone Screen Negative < 100 ng/mL [facility] Nucleated red blood cell per centageOrdered By: Nain Mercer on 03-27-2025 Nucleated RBC/100 WBC (Bld) [Ratio] 0 % 0-5 [facility] Platelet countOrdered By: Robert Mercer on 03-27-2025 Platelets (Bld) [#/Vol] 183 10*3/uL Normal 150-450 [facility] Comment on above: Performed By: #### L 500.4050, L501.9100, L100.0100, L505.5000 #### [facility] [address] [facility] [place], [id number] Potassium measurement (mass/ volume)Ordered By: Nain Mercer on 03-27-2025 Potassium (Unsp spec) [Mass/Vol] 4.3 mmol/L 3.3-5.1 [facility] Comment on above: Hemolysis present, R esults could be affected. Quantitative urine opiates m easurementOrdered By: Nain Mercer on 03-27-2025 Opiates Ql (U) Negative < 300 ng/mL [facility] Screening urine fentanyl bere surementOrdered By: Nain Mercer on 03-27-2025 fentaNYL Screen Ql (U) Negative [facility] Serum creatinine measurement (mass/volume)Ordered By: Nain Mercer on 03-27-2025 Creatinine [Mass/Vol] 1.07 mg/dL Normal 0.70-1.20 [facility] Comment on above: Performed By: #### L 500.4050, L501.9100, L100.0100, L505.5000 #### [facility] [address] [place], [address] Serum globulin measurementOr dered By: Nain Mercer on 03-27-2025 Globulin (S) [Mass/Vol] 2.6 g/dL Normal 2.2-4.2 [facility] Comment on above: Performed By: #### L 500.4050, L501.9100, L100.0100, L505.5000 #### [facility] [address] [place], [address] Serum glucose measurement (m ass/volume)Ordered By: Nain Mercer on 03-27-2025 Glucose [Mass/Vol] 88 mg/dL Normal 70-99 [facility] Comment on above: Performed By: #### L 500.4050, L501.9100, L100.0100, L505.5000 #### [facility] [address] [place], [address] Serum or plasma alanine peña otransferase (ALT) measurementOrdered By: Nain Mercer on 03-27-2025 ALT [Catalytic activity/Vol] 57 U/L High <=46 [facility] Comment on above: Performed By: #### L 500.4050, L501.9100, L100.0100, L505.5000 #### [facility] [address] [place], [address] Serum or plasma albumin sheng urement (mass/volume)Ordered By: Nain Mercer on 03-27-2025 Albumin [Mass/Vol] 4.3 g/dL Normal 3.5-5.0 [facility] Comment on above: Performed By: #### L 500.4050, L501.9100, L100.0100, L505.5000 #### [facility] [address] [place], [address] Serum or plasma albumin/glob ulin mass ratioOrdered By: Nain Ruslan on 03-27-2025 Albumin/Globulin [Mass ratio] 1.7 {ratio} Normal 0.9-2.4 [facility] Comment on above: Performed By: #### L 500.4050, L501.9100, L100.0100, L505.5000 #### [facility] [address] [place], [place], [id number] Serum or plasma alkaline moise sphatase measurementOrdered By: Nain Mercer on 03-27-2025 ALP [Catalytic activity/Vol] 100 U/L 40-129 [facility] Serum or plasma calcium sheng urement (mass/volume)Ordered By: Nain Mercer on 03-27-2025 Calcium [Mass/Vol] 9.6 mg/dL Normal 7.6-11.0 [facility] Comment on above: Performed By: #### L 500.4050, L501.9100, L100.0100, L505.5000 #### [facility] [address] [place], [place], [id number] Serum or plasma ethanol sheng urement (mass/volume)Ordered By: Nain Mercer on 03-27-2025 Ethanol [Mass/Vol] mg/dL <10.1 [facility] Comment on above: This test is for med ical purposes only. The legal definition of intoxication varies according to local law. Serum or plasma urea nitroge n measurement (mass/volume)Ordered By: Nain Mercer on 03-27-2025 Urea nitrogen [Mass/Vol] 17 mg/dL Normal 4-19 [facility] Comment on above: Performed By: #### L 500.4050, L501.9100, L100.0100, L505.5000 #### [facility] [address] [place], [address] Sodium levelOrdered By: Nain Mercer on 03-27-2025 Sodium [Moles/Vol] 140 mmol/L Normal 133-145 [facility] Comment on above: Performed By: #### L 500.4050, L501.9100, L100.0100, L505.5000 #### [facility] [address] [place], [address] Total proteinOrdered By: Terrence Mercer on 03-27-2025 Protein [Mass/Vol] 6.9 g/dL 5.9-8.4 [facility] Urine Drug Screen (VISTA)on 03-27-2025 AMPHETAMINES Negative Normal <1000 ng/mL [facility] Comment on above: Performed By: #### L 500.4050, L501.9100, L100.0100, L505.5000 #### [facility] [address] [place], [address] BARBITIURATES Negative Normal < 200 ng/mL [facility] Comment on above: Performed By: #### L 500.4050, L501.9100, L100.0100, L505.5000 #### [facility] [address] [place], [address] BENZODIAZIPINE Negative Normal < 200 ng/mL [facility] Comment on above: Performed By: #### L 500.4050, L501.9100, L100.0100, L505.5000 #### [facility] [address] [place], [address] BUP Ur Drug Scr Negative Normal < 200 ng/mL [facility] Comment on above: Performed By: #### L 500.4050, L501.9100, L100.0100, L505.5000 #### [facility] [address] [place], [address] COCAINE Negative Normal < 300 ng/mL [facility] Comment on above: Performed By: #### L 500.4050, L501.9100, L100.0100, L505.5000 #### [facility] [address] [place], [address] Fentanyl Negative Normal [facility] Comment on above: Performed By: #### L 500.4050, L501.9100, L100.0100, L505.5000 #### [facility] [address] [place], [address] METHADONE Negative Normal < 300 ng/mL [facility] Comment on above: Performed By: #### L 500.4050, L501.9100, L100.0100, L505.5000 #### [facility] [address] [place], [address] OPIATES Negative Normal < 300 ng/mL [facility] Comment on above: Performed By: #### L 500.4050, L501.9100, L100.0100, L505.5000 #### [facility] [address] [place] [address] OXYCODONE Negative Normal < 100 ng/mL [facility] Comment on above: Performed By: #### L 500.4050, L501.9100, L100.0100, L505.5000 #### [facility] [address] [place], [place], [facility] PCP Negative Normal < 25 ng/mL [facility] Comment on above: Performed By: #### L 500.4050, L501.9100, L100.0100, L505.5000 #### [facility] [address] [place], [facility] THC Negative Normal < 50 ng/mL [facility] Comment on above: Performed By: #### L 500.4050, L501.9100, L100.0100, L505.5000 #### [facility] [address] [place] [address] Urine benzodiazepine levelOr dered By: Nain Mercer on 03-27-2025 Benzodiazepines Ql (U) Negative < 200 ng/mL [facility] Urine cocaine levelOrdered B y: Nain Mercer on 03-27-2025 Cocaine Ql (U) Negative < 300 ng/mL [facility] Urine ujajv-8-qldafmbfofqpsu abinol (THC) measurementOrdered By: Nain Mercer on 03-27-2025 Cannabinoids Screen Ql (U) Negative < 50 ng/mL [facility] Urine phencyclidine (PCP) de tectionOrdered By: Nain Mercer on 03-27-2025 Phencyclidine Ql (U) Negative < 25 ng/mL [facility] White blood cell (WBC) count Ordered By: Nain Andrewsreginald on 03-27-2025 WBC (Bld) [#/Vol] 7.3 10*3/uL Normal 4.4-11.0 [facility] Comment on above: Performed By: #### L 500.4050, L501.9100, L100.0100, L505.5000 #### [facility] [address] [place], [address] CT CERVICAL SPINE WO CONTRAS Ton 03-12-2025 CT CERVICAL SPINE WO CONTRAST EXAMINATION TYPE: CT HEAD WO CONTRAST, CT CERVICAL SPINE WO CONTRAST DATE OF EXAM: 03/12/2025 8:03 PM HISTORY: trauma COMPARISON: NONE TECHNIQUE: Noncontrast CT images of the brain and cervical spine were obtained. Sagittal and coronal reformats were provided. FINDINGS: CT HEAD No acute intracranial hemorrhage, mass effect, or midline shift. The ventricles and cisternal spaces are within normal limits for age. Dia white differentiation is grossly preserved. The calvarium appears intact. Imaged portions of the paranasal sinuses are well aerated. No mastoid effusion. CT CERVICAL SPINE No acute fracture. Incomplete fusion of the C1 posterior arch, an anatomic variant. No traumatic subluxation. No prevertebral edema. Slight posterior endplate osteophytes at C6-C7. No significant bony canal or foraminal stenoses. IMPRESSION: CT HEAD 1. No acute intracranial findings. CT CERVICAL SPINE 1. No acute fracture or traumatic subluxation. 2. Slight endplate osteophytes at C6-C7. -------- FINAL REPORT -------- Dictated By: Farzad South Dictated Date: 03/12/2025 20:04 Assigned Physician: Farzad South Reviewed and Electronically Signed By: Farzad South Signed Date: 03/12/2025 20:08 Workstation ID: [id number] Transcribed By: Self Edit Transcribed Date: 03/12/2025 20:04 Normal [facility] CT Cervical spine WO contras ton 03-12-2025 Radiology Study observation (narrative) [facility] CT HEAD WO CONTRASTon 2024 CT HEAD WO CONTRAST EXAMINATION TYPE: CT HEAD WO CONTRAST, CT CERVICAL SPINE WO CONTRAST DATE OF EXAM: 03/12/2025 8:03 PM HISTORY: trauma COMPARISON: NONE TECHNIQUE: Noncontrast CT images of the brain and cervical spine were obtained. Sagittal and coronal reformats were provided. FINDINGS: CT HEAD No acute intracranial hemorrhage, mass effect, or midline shift. The ventricles and cisternal spaces are within normal limits for age. Dia white differentiation is grossly preserved. The calvarium appears intact. Imaged portions of the paranasal sinuses are well aerated. No mastoid effusion. CT CERVICAL SPINE No acute fracture. Incomplete fusion of the C1 posterior arch, an anatomic variant. No traumatic subluxation. No prevertebral edema. Slight posterior endplate osteophytes at C6-C7. No significant bony canal or foraminal stenoses. IMPRESSION: CT HEAD 1. No acute intracranial findings. CT CERVICAL SPINE 1. No acute fracture or traumatic subluxation. 2. Slight endplate osteophytes at C6-C7. -------- FINAL REPORT -------- Dictated By: Farzad South Dictated Date: 03/12/2025 20:04 Assigned Physician: Farzad South Reviewed and Electronically Signed By: Farzad South Signed Date: 03/12/2025 20:08 Workstation ID: [id number] Transcribed By: Self Edit Transcribed Date: 03/12/2025 20:04 Normal [facility] CT Head WO contraston 2024 Radiology Study observation (narrative) [facility] No Panel Informationon 03-12 CT HEAD 1. No acute intracranial findings. CT CERVICAL SPINE 1. No acute fracture or traumatic subluxation. 2. Slight endplate osteophytes at C6-C7. -------- FINAL REPORT -------- Dictated By: Farzad South Dictated Date: 03/12/2025 20:04 Assigned Physician: Farzad South Reviewed and Electronically Signed By: Farzad South Signed Date: 03/12/2025 20:08 Workstation ID: [id number] Transcribed By: Self Edit Transcribed Date: 03/12/2025 20:04 [employer] EXAMINATION TYPE: CT HEAD WO CONTRAST, CT CERVICAL SPINE WO CONTRAST DATE OF EXAM: 03/12/2025 8:03 PM HISTORY: trauma COMPARISON: NONE TECHNIQUE: Noncontrast CT images of the brain and cervical spine were obtained. Sagittal and coronal reformats were provided. FINDINGS: CT HEAD No acute intracranial hemorrhage, mass effect, or midline shift. The ventricles and cisternal spaces are within normal limits for age. Dia white differentiation is grossly preserved. The calvarium appears intact. Imaged portions of the paranasal sinuses are well aerated. No mastoid effusion. CT CERVICAL SPINE No acute fracture. Incomplete fusion of the C1 posterior arch, an anatomic variant. No traumatic subluxation. No prevertebral edema. Slight posterior endplate osteophytes at C6-C7. No significant bony canal or foraminal stenoses. Farzad Mcgovern MD - 03/12/2025 EXAMINATION TYPE: CT HEAD WO CONTRAST, CT CERVICAL SPINE WO CONTRAST DATE OF EXAM: 03/12/2025 8:03 PM HISTORY: trauma COMPARISON: NONE TECHNIQUE: Noncontrast CT images of the brain and cervical spine were obtained. Sagittal and coronal reformats were provided. FINDINGS: CT HEAD No acute intracranial hemorrhage, mass effect, or midline shift. The ventricles and cisternal spaces are within normal limits for age. Dia white differentiation is grossly preserved. The calvarium appears intact. Imaged portions of the paranasal sinuses are well aerated. No mastoid effusion. CT CERVICAL SPINE No acute fracture. Incomplete fusion of the C1 posterior arch, an anatomic variant. No traumatic subluxation. No prevertebral edema. Slight posterior endplate osteophytes at C6-C7. No significant bony canal or foraminal stenoses. IMPRESSION: CT HEAD 1. No acute intracranial findings. CT CERVICAL SPINE 1. No acute fracture or traumatic subluxation. 2. Slight endplate osteophytes at C6-C7. -------- FINAL REPORT -------- Dictated By: Farzad South Dictated Date: 03/12/2025 20:04 Assigned Physician: Farzad South Reviewed and Electronically Signed By: Farzad South Signed Date: 03/12/2025 20:08 Workstation ID: [id number] Transcribed By: Self Edit Transcribed Date: 03/12/2025 20:04 [employer] No Panel InformationOrdered By: Farzad South on 03-12-2025 [employer] Work Phone: Absolute lymphocyte countOrd ered By: Ryan Hunt on 02-28-2025 Lymphocytes Auto (Unsp spec) [#/Vol] 1.71 10*3/uL 0.83-4.51 [facility] Absolute neutrophil countOrd ered By: Ryan Hunt on 02-28-2025 Neutrophils (Bld) [#/Vol] 4.7 10*3/uL 2.0-7.7 [facility] Acetaminophen (Tylenol) Leve devang 02-28-2025 Acetaminophen [Mass/Vol] ug/mL Low 8.0-19.0 [facility] Comment on above: Result Comment: Acet aminophen concentrations > 200 ug/mL four hours after ingestion, > 100 ug/mL eight hours after ingestion, and > 50 ug/mL 12 hours after ingestion are potentially toxic. Performed By: #### L 501.9100, L500.2500, L100.0100, L505.5000, L501.8300, L501.8400 ####[facility] [address] [place], [address] Alcohol, Blood (Medical)-Ser umon 02-28-2025 SERUM ETOH < 10.1 Normal <=10.0 [facility] Comment on above: Result Comment: This test is for medical purposes only. The legal definition of intoxication varies according to local law. Performed By: #### L 501.9100, L500.2500, L100.0100, L505.5000, L501.8300, L501.8400 ####[facility] [address] [place], [address] Amphetamine detection with 1 000 ng/mL as cutoffOrdered By: Ryan Hunt on 02-28-2025 Amphetamines Screen method >1000 ng/mL Ql (U) Negative < 200 ng/mL [facility] Anion gap in Serum or Plasma Ordered By: Ryan Hunt on 02-28-2025 Anion gap [Moles/Vol] 13 mmol/L 01-17 [facility] Automated lymphocyte count a s percentage of total leukocytesOrdered By: Ryan Hunt on 02-28-2025 Lymphocytes/100 WBC Auto (Unsp spec) 22.8 % [facility] BUN/creatinine ratioOrdered By: Ryan Hunt on 02-28-2025 Urea nitrogen/Creatinine [Mass ratio] 13.1 mg/mg 06-24 [facility] Basic Metabolic Profile (BMP )on 02-28-2025 BUN/CRE 13.1 RATIO Normal 06-24 [facility] Comment on above: Performed By: #### L 501.9100, L500.2500, L100.0100, L505.5000, L501.8300, L501.8400 ####[facility] [address] [place], [address] Calcium [Mass/Vol] 10.1 mg/dL Normal 7.6-11.0 [facility] Comment on above: Performed By: #### L 501.9100, L500.2500, L100.0100, L505.5000, L501.8300, L501.8400 ####[facility] [address] [place], [address] Chloride [Moles/Vol] 101 mmol/L Normal 98-108 [facility] Comment on above: Performed By: #### L 501.9100, L500.2500, L100.0100, L505.5000, L501.8300, L501.8400 ####[facility] [address] [place], [address] CO2 [Moles/Vol] 23.9 mmol/L Normal 21.0-32.0 [facility] Comment on above: Performed By: #### L 501.9100, L500.2500, L100.0100, L505.5000, L501.8300, L501.8400 ####[facility] [address] [place], [address] Creatinine [Mass/Vol] 1.14 mg/dL Normal 0.70-1.20 [facility] Comment on above: Performed By: #### L 501.9100, L500.2500, L100.0100, L505.5000, L501.8300, L501.8400 ####[facility] [address] [place], [address] ECRCL 126.52 ml/min Normal 50-250 [facility] Comment on above: Performed By: #### L 501.9100, L500.2500, L100.0100, L505.5000, L501.8300, L501.8400 ####[facility] [address] [place], [address] GAP 13 Normal 5-15 [facility] Comment on above: Performed By: #### L 501.9100, L500.2500, L100.0100, L505.5000, L501.8300, L501.8400 ####[facility] [address] [place], [address] GFR/1.73 sq M.predicted among non-blacks MDRD (S/P/Bld) [Vol rate/Area] 95 mL/min/{1.73_m2} Normal >60 [facility] Comment on above: Result Comment: mL/m in/1.73m2 CKD-EPI Creatinine Equation (2020) Performed By: #### L 501.9100, L500.2500, L100.0100, L505.5000, L501.8300, L501.8400 ####[facility] [address] [place], [address] Glucose [Mass/Vol] 94 mg/dL Normal 70-99 [facility] Comment on above: Performed By: #### L 501.9100, L500.2500, L100.0100, L505.5000, L501.8300, L501.8400 ####[facility] [address] [place], [address] Potassium [Moles/Vol] 4.5 mmol/L Normal 3.3-5.1 [facility] Comment on above: Performed By: #### L 501.9100, L500.2500, L100.0100, L505.5000, L501.8300, L501.8400 ####[facility] [address] [place], [address] Sodium [Moles/Vol] 139 mmol/L Normal 133-145 [facility] Comment on above: Performed By: #### L 501.9100, L500.2500, L100.0100, L505.5000, L501.8300, L501.8400 ####[facility] [address] [place], [address] Urea nitrogen [Mass/Vol] 15 mg/dL Normal 4-19 [facility] Comment on above: Performed By: #### L 501.9100, L500.2500, L100.0100, L505.5000, L501.8300, L501.8400 ####[facility] [address] [place], [address] Basophil percentageOrdered B y: Ryan Marilee on 02-28-2025 Basophils/100 WBC (Bld) 0.9 % 0-1 [facility] CBC W/Diff, Automatedon - Hemoglobin (Bld) [Mass/Vol] 18.0 g/dL Invalid Interpretation Code 13.0-16.5 [facility] Comment on above: Result Comment: CRIT ICAL VALUE CALLED TO KEYUR DAWKINS (ER) 02/28/25 1143 Vickey De Jesus RESULTS READ BACK BY SAME. Performed By: #### L 501.9100, L500.2500, L100.0100, L505.5000, L501.8300, L501.8400 #### [facility] [address] [place], [address] Absolute Lymph 1.71 X10 3/uL Normal 0.83-4.51 [facility] Comment on above: Performed By: #### L 501.9100, L500.2500, L100.0100, L505.5000, L501.8300, L501.8400 #### [facility] [address] [place], [address] Absolute Neut 4.7 X10 3/uL Normal 2.0-7.7 [facility] Comment on above: Performed By: #### L 501.9100, L500.2500, L100.0100, L505.5000, L501.8300, L501.8400 #### [facility] [address] [place], [address] Basophils/100 WBC (Bld) 0.9 % Normal 0-1 [facility] Comment on above: Performed By: #### L 501.9100, L500.2500, L100.0100, L505.5000, L501.8300, L501.8400 #### [facility] [address] [place], [address] Eosinophils/100 WBC (Bld) 2.8 % Normal 0-5 [facility] Comment on above: Performed By: #### L 501.9100, L500.2500, L100.0100, L505.5000, L501.8300, L501.8400 #### [facility] [address] [place], [address] Erythrocyte distribution width (RBC) [Ratio] 13.3 % Normal 11.6-14.6 [facility] Comment on above: Performed By: #### L 501.9100, L500.2500, L100.0100, L505.5000, L501.8300, L501.8400 #### [facility] [address] [place], [address] Hematocrit (Bld) [Volume fraction] 52.7 % Normal 40-54 [facility] Comment on above: Performed By: #### L 501.9100, L500.2500, L100.0100, L505.5000, L501.8300, L501.8400 #### [facility] [address] [place], [address] IG% 0.700 Normal 0.0-0.9 [facility] Comment on above: Result Comment: IG% - Immature Granulocytes (promyelocytes, myelocytes and metamyelocytes) > 1% indicates that a LEFT SHIFT is Present. Performed By: #### L 501.9100, L500.2500, L100.0100, L505.5000, L501.8300, L501.8400 #### [facility] [address] [place], [address] Lymphocytes/100 WBC (Bld) 22.8 % Normal 19-41 [facility] Comment on above: Performed By: #### L 501.9100, L500.2500, L100.0100, L505.5000, L501.8300, L501.8400 #### [facility] [address] [place], [address] MCH (RBC) [Entitic mass] 28.0 pg Normal 27.0-32.0 [facility] Comment on above: Performed By: #### L 501.9100, L500.2500, L100.0100, L505.5000, L501.8300, L501.8400 #### [facility] [address] [place], [address] MCHC (RBC) [Mass/Vol] 34.2 g/dL Normal 32-36 [facility] Comment on above: Performed By: #### L 501.9100, L500.2500, L100.0100, L505.5000, L501.8300, L501.8400 #### [facility] [address] [place], [address] MCV (RBC) [Entitic vol] 82.0 fL Normal 80-94 [facility] Comment on above: Performed By: #### L 501.9100, L500.2500, L100.0100, L505.5000, L501.8300, L501.8400 #### [facility] [address] [place], [address] Monocytes/100 WBC (Bld) 10.4 % High 0-10 [facility] Comment on above: Performed By: #### L 501.9100, L500.2500, L100.0100, L505.5000, L501.8300, L501.8400 #### [facility] [address] [place], [address] Neutrophils/100 WBC (Bld) 62.4 % Normal 47-70 [facility] Comment on above: Performed By: #### L 501.9100, L500.2500, L100.0100, L505.5000, L501.8300, L501.8400 #### [facility] [address] [place], [address] Nucleated RBC (Bld) [#/Vol] 0 10*3/uL Normal 0-5 [facility] Comment on above: Performed By: #### L 501.9100, L500.2500, L100.0100, L505.5000, L501.8300, L501.8400 #### [facility] [address] [place], [address] Platelet mean volume (Bld) [Entitic vol] 11.2 fL Normal 6.2-12.0 [facility] Comment on above: Performed By: #### L 501.9100, L500.2500, L100.0100, L505.5000, L501.8300, L501.8400 #### [facility] [address] [place], [address] Platelets (Bld) [#/Vol] 217 10*3/uL Normal 150-450 [facility] Comment on above: Performed By: #### L 501.9100, L500.2500, L100.0100, L505.5000, L501.8300, L501.8400 #### [facility] [address] [place], [address] RBC (Bld) [#/Vol] 6.43 10*6/uL High 4.6-6.2 [facility] Comment on above: Performed By: #### L 501.9100, L500.2500, L100.0100, L505.5000, L501.8300, L501.8400 #### [facility] [address] [place], [address] RDW SD 38.5 fl Normal 35.1-43.9 [facility] Comment on above: Performed By: #### L 501.9100, L500.2500, L100.0100, L505.5000, L501.8300, L501.8400 #### [facility] [address] [place], [address] WBC (Bld) [#/Vol] 7.5 10*3/uL Normal 4.4-11.0 [facility] Comment on above: Performed By: #### L 501.9100, L500.2500, L100.0100, L505.5000, L501.8300, L501.8400 #### [facility] [address] [place], [address] Carbon dioxide, total [Moles /volume] in Central venous bloodOrdered By: Ryan Hunt on 02-28-2025 CO2 [Moles/Vol] 23.9 mmol/L 21.0-32.0 [facility] Chloride assayOrdered By: Luis Miguel Hunt on 02-28-2025 Chloride [Moles/Vol] 101 mmol/L 98-108 [facility] Emergency Department Summary on 02-28-2025 Emergency Department Summary [facility] Medical Records Department [address] [place] [address] Emergency Department Summary 02/28/25 MR#: [id number] Acct: [id number] Name: RUBÉN GIBBS Rep #: [id number] : 2005 19 From: Ryan Hunt DO PCP: Care Physician,No Primary Status:REG ER Location: ED HPI History of Present Illness Chief Complaint: Suicidal Narrative Narrative: Patient is a 19-year-old male past medical anxiety, depression who presented to the emergency department chief complaint of suicidal ideations. Patient states that he was hospitalized in the past for this. He states that he has had a lot of stress going on his life lately and states that his psychiatrist told him he could stop taking his medications yesterday and is unsure why they told him this. Patient states that this morning he had suicidal ideation and he states that he put a pair of pants around his neck but never hung himself. He states that he stopped and decided to start cutting his arms instead. Grandfather states that he was seeing his counselor this morning and they advised that he comes here to be further evaluated [facility] Medical History Club foot of both lower extremities Depression Anxiety Home Medications ???Medication ???Instructions ???Recorded ???Last Taken ???Type aripiprazole 5 mg tablet 10 mg PO DAILY 09/09/20 Unknown Hi story benztropine 0.5 mg tablet 0.5 mg PO BID 05/16/21 Unknown His tory cetirizine 10 mg tablet 10 mg PO DAILY 05/16/21 Unknown Hi story bupropion HCl 75 mg tablet 75 mg PO DAILY 11/24/21 Unknown Hi story guanfacine 1 mg tablet 1 mg PO BID 11/24/21 Unknown Histo ry lamotrigine 25 mg tablet 25 mg PO BID 11/24/21 Unknown Hist ory promethazine 25 mg tablet 25 mg PO Q6H PRN nausea and Unknown Rx vomiting #14 tabs trazodone 100 mg tablet 100 mg PO DAILY 11/24/21 Unknown H istory Allergy/AdvReac Type Severity Reaction Status Date / Time No Known Allergies Allergy Verified 02/28/25 10:56 Social History household members: spouse and family housing: house Smoking Status: Never smoker substance use type: does not use ROS ROS ED ROS Narrative Constitutional: Denies headache, fevers, chills Eyes: Denies change in vision double vision blurry vision Cardiovascular: Denies chest pain or palpitations Respiratory: Denies coughing wheezing shortness of breath Abdomen: Denies abdominal pain nausea vomit diarrhea : Denies urinary symptoms Neurological: Denies numbness, weakness, tingling Musculoskeletal: Denies back pain Skin: Denies any rashes or lesions EXAM Physical Exam Narrative Exam Narrative: General: Patient lying in bed rest comfortably did not appear to be in acute distress Head: Atraumatic, normocephalic Eyes: PERRL bilaterally, EOMI bilateral, no conjunctival injection noted Neck: Soft, supple, trachea midline, nontender to palpation midline cervical spine no evidence of trauma to the neck Cardiovascular: Regular rate and rhythm no murmurs gallops rubs noted Respiratory: Clear to auscultation bilaterally Extremities: +5/5 strength noted in the bilateral upper and lower extremity, radial pulse +2/4 and about extremities, no pedal edema on exam Neurological: Patient follow commands knew that he was at [facility] year is 2024 Skin: Warm, dry, patient has superficial abrasions over the bilateral wrist no active bleeding noted no evidence of infection Const Vital Signs: 02/28/25 10:54 Temperature 98 F Temperature Source Oral Pulse Rate 93 Respiratory Rate 18 Blood Pressure 135/89 H Blood Pressure Mean 104 Pulse Ox 99 Oxygen Delivery Method Room Air MDM MDM MDM Narrative Medical decision making narrative: Patient is a 19-year-old male who presents to the emergency department the chief complaint of suicidal ideation. Patient will be medically cleared and then will be evaluated by social work team for placement. Patient's CBC reviewed showed no evidence leukocytosis white blood count normal at 7.5, hemoglobin of 18, platelet count of 217. Patient sodium normal 139, potassium normal 4.5, creatinine normal at 1.14. Patient's salicylate level less than 5 Tylenol level less than 5 drug screen was negative. Patient alcohol level less than 10. Patient was medically cleared social work evaluated patient and they will place him at [facility] under Dr. Cordova Patient notified is agreeable with plan all questions and concerns answered at bedside. Lab Data Labs: Laboratory Results - last 24 hr 02/28/25 11:19 WBC 7.5 RBC 6.43 H Hgb 18.0 H* Hct 52.7 MCV 82.0 MCH 28.0 MCHC 34.2 RDW Std Deviation 38.5 RDW Coeff of Aury 13. (more content not included)... Normal [facility] Eosinophil percentageOrdered By: Ryan Hunt on 02-28-2025 Eosinophils/100 WBC (Bld) 2.8 % 0-5 [facility] Erythrocyte distribution wid th ratioOrdered By: Ryan Hunt on 02-28-2025 Erythrocyte distribution width (RBC) [Ratio] 13.3 % 11.6-14.6 [facility] Erythrocyte distribution wid th standard deviationOrdered By: Ryan Hunt on 02-28-2025 Erythrocyte distribution width (RBC) [Ratio] 38.5 fl 35.1-43.9 [facility] Glomerular filtration rate ( GFR) estimation/1.73 sq m using serum, plasma, or whole bOrdered By: Ryan Hunt on 02-28-2025 GFR/1.73 sq M.predicted among non-blacks MDRD (S/P/Bld) [Vol rate/Area] 95 mL/min/{1.73_m2} >60 [facility] Comment on above: mL/min/1.73m2 CKD-EP I Creatinine Equation (2020) Hematocrit Auto (Bld) [Volum e fraction]Ordered By: Ryan Hunt on 02-28-2025 Hematocrit (Bld) [Volume fraction] 52.7 % 40-54 [facility] Hemoglobin measurementOrdere d By: Ryan Hunt on 02-28-2025 Hemoglobin (Bld) [Mass/Vol] 18.0 g/dL High 13.0-16.5 [facility] Comment on above: CRITICAL VALUE GREER D TO KEYUR DAWKINS (ER)02/28/25 1143 Vickey De JesusRESULTS READ BACK BY SAME. Immature granulocytes/100 WB C Auto (Bld)Ordered By: Ryan Hunt on 02-28-2025 Immature granulocytes/100 WBC (Bld) 0.700 % 0.0-0.9 [facility] Comment on above: IG% - Immature Granu locytes (promyelocytes, myelocytes and metamyelocytes) > 1% indicates that a LEFT SHIFT is Present. MCV (mean corpuscular volume ) determinationOrdered By: Ryan Hunt on 02-28-2025 MCV (RBC) [Entitic vol] 82.0 fL 80-94 [facility] Mean corpuscular hemoglobin (MCH) determinationOrdered By: Ryan Hunt on 02-28-2025 MCH (RBC) [Entitic mass] 28.0 pg 27.0-32.0 [facility] Mean corpuscular hemoglobin concentration (MCHC) determinationOrdered By: Ryan Hunt on 02-28-2025 MCHC (RBC) [Mass/Vol] 34.2 g/dL 32-36 [facility] Mean platelet volume determi nationOrdered By: Ryan Hunt on 02-28-2025 Platelet mean volume (Bld) [Entitic vol] 11.2 fL 6.2-12.0 [facility] Monocyte percentageOrdered B y: Ryan Hunt on 02-28-2025 Monocytes/100 WBC (Bld) 10.4 % High 0-10 [facility] Neutrophil percentageOrdered By: Ryan Hunt on 02-28-2025 Neutrophils/100 WBC (Bld) 62.4 % 47-70 [facility] No Panel InformationOrdered By: Ryan Hunt on 02-28-2025 Urine Buprenorphine Qualitative Negative < 200 ng/mL [facility] Urine Oxycodone Screen Negative < 100 ng/mL [facility] Nucleated red blood cell per centageOrdered By: Ryan Hunt on 02-28-2025 Nucleated RBC/100 WBC (Bld) [Ratio] 0 % 0-5 [facility] Platelet countOrdered By: Luis Miguel Hunt on 02-28-2025 Platelets (Bld) [#/Vol] 217 10*3/uL 150-450 [facility] Potassium measurement (mass/ volume)Ordered By: Ryan Hunt on 02-28-2025 Potassium (Unsp spec) [Mass/Vol] 4.5 mmol/L 3.3-5.1 [facility] Quantitative urine opiates m easurementOrdered By: Ryan Hunt on 02-28-2025 Opiates Ql (U) Negative < 300 ng/mL [facility] RBC Auto (Bld) [#/Vol]Ordere d By: Ryan Hunt on 02-28-2025 RBC (Bld) [#/Vol] 6.43 10*6/uL High 4.6-6.2 [facility] Salicylateon 02-28-2025 SALICYLATE < 0.5 Low 2.8-20.0 [facility] Comment on above: Result Comment: Sali cylate concentrations > 30 mg/dL are potentially toxic. Salicylate concentrations exceeding 60 mg/dL can be lethal. Performed By: #### L 501.9100, L500.2500, L100.0100, L505.5000, L501.8300, L501.8400 ####[facility] [address] [place], [address] Screening urine fentanyl bere surementOrdered By: Ryan Hunt on 02-28-2025 fentaNYL Screen Ql (U) Negative [facility] Serum creatinine measurement (mass/volume)Ordered By: Ryan Hunt on 02-28-2025 Creatinine [Mass/Vol] 1.14 mg/dL 0.70-1.20 [facility] Serum glucose measurement (m ass/volume)Ordered By: Ryan Hunt on 02-28-2025 Glucose [Mass/Vol] 94 mg/dL 70-99 [facility] Serum or plasma acetaminophe n measurement (mass/volume)Ordered By: Ryan Hunt on 02-28-2025 Acetaminophen [Mass/Vol] ug/mL Low 8.0-19.0 [facility] Comment on above: Acetaminophen concen trations > 200 ug/mL four hours after ingestion, > 100 ug/mL eight hours after ingestion, and > 50 ug/mL 12 hours after ingestion are potentially toxic. Serum or plasma calcium sheng urement (mass/volume)Ordered By: Ryan Hunt on 02-28-2025 Calcium [Mass/Vol] 10.1 mg/dL 7.6-11.0 [facility] Serum or plasma ethanol sheng urement (mass/volume)Ordered By: Ryan Hunt on 02-28-2025 Ethanol [Mass/Vol] mg/dL <10.1 [facility] Comment on above: This test is for med ical purposes only. The legal definition of intoxication varies according to local law. Serum or plasma salicylates measurement (mass/volume)Ordered By: Ryan Hunt on 02-28-2025 Salicylates [Mass/Vol] mg/dL Low 2.8-20.0 [facility] Comment on above: Salicylate concentra tions > 30 mg/dL are potentially toxic.Salicylate concentrations exceeding 60 mg/dL can be lethal. Serum or plasma urea nitroge n measurement (mass/volume)Ordered By: Ryan Hunt on 02-28-2025 Urea nitrogen [Mass/Vol] 15 mg/dL 4-19 [facility] Sodium levelOrdered By: Elda Hunt on 02-28-2025 Sodium [Moles/Vol] 139 mmol/L 133-145 [facility] Urine Drug Screen (VISTA)on 02-28-2025 AMPHETAMINES Negative Normal <1000 ng/mL [facility] Comment on above: Performed By: #### L 501.9100, L500.2500, L100.0100, L505.5000, L501.8300, L501.8400 ####[facility] [address] [place], [place], [id number] BARBITIURATES Negative Normal < 200 ng/mL [facility] Comment on above: Performed By: #### L 501.9100, L500.2500, L100.0100, L505.5000, L501.8300, L501.8400 ####[facility] [address] [place], [place], [phone] BENZODIAZIPINE Negative Normal < 200 ng/mL [facility] Comment on above: Performed By: #### L 501.9100, L500.2500, L100.0100, L505.5000, L501.8300, L501.8400 ####[facility] [address] [place], [address] BUP Ur Drug Scr Negative Normal < 200 ng/mL [facility] Comment on above: Performed By: #### L 501.9100, L500.2500, L100.0100, L505.5000, L501.8300, L501.8400 ####[facility] [address] [place] [address] COCAINE Negative Normal < 300 ng/mL [facility] Comment on above: Performed By: #### L 501.9100, L500.2500, L100.0100, L505.5000, L501.8300, L501.8400 ####[facility] [address] [place], [place], [phone] Fentanyl Negative Normal [facility] Comment on above: Performed By: #### L 501.9100, L500.2500, L100.0100, L505.5000, L501.8300, L501.8400 ####[facility] [address] [place], [address] METHADONE Negative Normal < 300 ng/mL [facility] Comment on above: Performed By: #### L 501.9100, L500.2500, L100.0100, L505.5000, L501.8300, L501.8400 ####[facility] [address] [place], [place], [phone] OPIATES Negative Normal < 300 ng/mL [facility] Comment on above: Performed By: #### L 501.9100, L500.2500, L100.0100, L505.5000, L501.8300, L501.8400 ####[facility] [address] [place], [address] OXYCODONE Negative Normal < 100 ng/mL [facility] Comment on above: Performed By: #### L 501.9100, L500.2500, L100.0100, L505.5000, L501.8300, L501.8400 ####[facility] [address] [place], [place], [phone] PCP Negative Normal < 25 ng/mL [facility] Comment on above: Performed By: #### L 501.9100, L500.2500, L100.0100, L505.5000, L501.8300, L501.8400 ####[facility] [address] [place], [address] THC Negative Normal < 50 ng/mL [facility] Comment on above: Performed By: #### L 501.9100, L500.2500, L100.0100, L505.5000, L501.8300, L501.8400 ####[facility] [address] [facility] [address] [place], [place], [phone] Urine benzodiazepine levelOr dered By: Ryan Hunt on 02-28-2025 Benzodiazepines Ql (U) Negative < 200 ng/mL [facility] Urine cocaine levelOrdered B y: Ryan Hunt on 02-28-2025 Cocaine Ql (U) Negative < 300 ng/mL [facility] Urine trgbs-3-zlnxzmvdckdrtg abinol (THC) measurementOrdered By: Ryan Hunt on 02-28-2025 Cannabinoids Screen Ql (U) Negative < 50 ng/mL [facility] Urine phencyclidine (PCP) de tectionOrdered By: Ryan Hunt on 02-28-2025 Phencyclidine Ql (U) Negative < 25 ng/mL [facility] White blood cell (WBC) count Ordered By: Ryan Hunt on 02-28-2025 WBC (Bld) [#/Vol] 7.5 10*3/uL 4.4-11.0 [facility] 12 Lead EKGon 01-07-2025 12 Lead EKG [facility] Cardiovascular Services [address] [place] [address] 12 Lead EKG 01/07/25 1552 MR#: [id number] Acct: [id number] Name: RUBÉN GIBBS Rep #: [id number] : 2005 19 From: Ken Feng MD Attending Dr: Dr. Spring Fragoso DO Status: DEP ER Ordering Dr: Spring Fragoso DO Date: 01/07/25 Location: ED Sex: M C Admitted: Test Reason : MH Blood Pressure : */* mmHG Vent. Rate : 96 BPM Atrial Rate : 96 BPM P-R Int : 110 ms QRS Dur : 88 ms QT Int : 312 ms P-R-T Axes : 48 19 -33 degrees QTcB Int : 394 ms Sinus rhythm with short MO Nonspecific T wave abnormality Abnormal ECG Confirmed by Ken Feng ([id number]), senior technical editor KERRY MENDEZ ([id number]) on 01/11/2025 1:22:00 PM Referred By: ESCOBAR/DORA Confirmed By: Ken Feng 01/11/25 1322 Date Ken Feng MD CC: Dr. Spring Fragoso DO; No Primary Care Physician Signed Normal [facility] Absolute lymphocyte countOrd ered By: Spring Fragoso on 01-07-2025 Lymphocytes Auto (Unsp spec) [#/Vol] 1.72 10*3/uL 0.83-4.51 [facility] Absolute neutrophil countOrd ered By: Spring Fragoso on 01-07-2025 Neutrophils (Bld) [#/Vol] 4.9 10*3/uL 2.0-7.7 [facility] Alcohol, Blood (Medical)-Ser umon 01-07-2025 SERUM ETOH < 10.1 Normal <=10.0 [facility] Comment on above: Result Comment: This test is for medical purposes only. The legal definition of intoxication varies according to local law. Performed By: #### L 500.4050, L501.9100, L100.0100, L505.5000 ####[facility] [address] [place], [address] Amphetamine detection with 1 000 ng/mL as cutoffOrdered By: Spring Fragoso on 01-07-2025 Amphetamines Screen method >1000 ng/mL Ql (U) Negative < 200 ng/mL [facility] Anion gap in Serum or Plasma Ordered By: Spring Fragoso on 01-07-2025 Anion gap [Moles/Vol] 13 mmol/L 5- [facility] Automated lymphocyte count a s percentage of total leukocytesOrdered By: Spring Fragoso on 01-07-2025 Lymphocytes/100 WBC Auto (Unsp spec) 22.7 % 19- [facility] BUN/creatinine ratioOrdered By: Spring Fragoso on 01-07-2025 Urea nitrogen/Creatinine [Mass ratio] 12.7 mg/mg 10-20 [facility] Basophil percentageOrdered B y: Spring Fragoso on 01-07-2025 Basophils/100 WBC (Bld) 0.7 % 0-1 [facility] Bilirubin, totalOrdered By: Spring Fragoso on 01-07-2025 Bilirubin [Mass/Vol] 0.58 mg/dL 0.00-1.30 [facility] CBC W/Diff, Automatedon WBC (Bld) [#/Vol] 7.6 10*3/uL Normal 4.4-11.0 [facility] Comment on above: Result Comment: CRIT ICAL VALUE CALLED TO ROBI KAUR 01/07/25 1430 Lucrecia Rivera. RESULTS READ BACK BY SAME. AMENDED REPORT 01/07/25 1438 WBC previously reported as: 7.6 K/mm3 Performed By: #### L 500.4050, L501.9100, L100.0100, L505.5000 ####[facility] [address] [place], [address] Carbon dioxide, total [Moles /volume] in Central venous bloodOrdered By: Spring Fragoso on 01-07-2025 CO2 [Moles/Vol] 25.1 mmol/L 21.0-32.0 [facility] Chloride assayOrdered By: Yony Fragoso on 01-07-2025 Chloride [Moles/Vol] 101 mmol/L 98-108 [facility] Comprehensive Metabolic Prof ilon 01-07-2025 Albumin [Mass/Vol] 4.5 g/dL Normal 3.5-5.0 [facility] Comment on above: Performed By: #### L 500.4050, L501.9100, L100.0100, L505.5000 ####[facility] [address] [place], [address] Albumin/Globulin [Mass ratio] 1.4 {ratio} Normal 0.9-2.4 [facility] Comment on above: Performed By: #### L 500.4050, L501.9100, L100.0100, L505.5000 ####[facility] [address] [place], [address] ALK PHOS 135 U/L High 40-129 [facility] Comment on above: Performed By: #### L 500.4050, L501.9100, L100.0100, L505.5000 ####[facility] [address] [place], [address] ALT [Catalytic activity/Vol] 41 U/L Normal <=46 [facility] Comment on above: Performed By: #### L 500.4050, L501.9100, L100.0100, L505.5000 ####[facility] [address] [place], [address] AST [Catalytic activity/Vol] 35 U/L Normal <=37 [facility] Comment on above: Performed By: #### L 500.4050, L501.9100, L100.0100, L505.5000 ####[facility] [address] [place], [address] Bilirubin [Mass/Vol] 0.58 mg/dL Normal 0.00-1.30 [facility] Comment on above: Performed By: #### L 500.4050, L501.9100, L100.0100, L505.5000 ####[facility] [address] [place], [address] BUN/CRE 12.7 RATIO Normal 10-20 [facility] Comment on above: Performed By: #### L 500.4050, L501.9100, L100.0100, L505.5000 ####[facility] [address] [place], [address] Calcium [Mass/Vol] 9.8 mg/dL Normal 7.6-11.0 [facility] Comment on above: Performed By: #### L 500.4050, L501.9100, L100.0100, L505.5000 ####[facility] [address] [place], [address] Chloride [Moles/Vol] 101 mmol/L Normal 98-108 [facility] Comment on above: Performed By: #### L 500.4050, L501.9100, L100.0100, L505.5000 ####[facility] [address] [place], [address] CO2 [Moles/Vol] 25.1 mmol/L Normal 21.0-32.0 [facility] Comment on above: Performed By: #### L 500.4050, L501.9100, L100.0100, L505.5000 ####[facility] [address] [place], [address] Creatinine [Mass/Vol] 1.17 mg/dL Normal 0.70-1.20 [facility] Comment on above: Performed By: #### L 500.4050, L501.9100, L100.0100, L505.5000 ####[facility] [address] [place], [address] ECRCL 118.10 ml/min Normal 50-250 [facility] Comment on above: Performed By: #### L 500.4050, L501.9100, L100.0100, L505.5000 ####[facility] [address] [place], [address] GAP 13 Normal 5-15 [facility] Comment on above: Performed By: #### L 500.4050, L501.9100, L100.0100, L505.5000 ####[facility] [address] [place], [address] GFR/1.73 sq M.predicted among non-blacks MDRD (S/P/Bld) [Vol rate/Area] 92 mL/min/{1.73_m2} Normal >60 [facility] Comment on above: Result Comment: mL/m in/1.73m2 CKD-EPI Creatinine Equation (2020) Performed By: #### L 500.4050, L501.9100, L100.0100, L505.5000 ####[facility] [address] [place], [address] Globulin (S) [Mass/Vol] 3.2 g/dL Normal 2.2-4.2 [facility] Comment on above: Performed By: #### L 500.4050, L501.9100, L100.0100, L505.5000 ####[facility] [address] [place], [address] Glucose [Mass/Vol] 90 mg/dL Normal 70-99 [facility] Comment on above: Performed By: #### L 500.4050, L501.9100, L100.0100, L505.5000 ####[facility] [address] [place], [address] Potassium [Moles/Vol] 3.9 mmol/L Normal 3.3-5.1 [facility] Comment on above: Performed By: #### L 500.4050, L501.9100, L100.0100, L505.5000 ####[facility] [address] [place], [address] Sodium [Moles/Vol] 138 mmol/L Normal 133-145 [facility] Comment on above: Performed By: #### L 500.4050, L501.9100, L100.0100, L505.5000 ####[facility] [address] [place], [address] T PROT 7.8 g/dL Normal 5.9-8.4 [facility] Comment on above: Performed By: #### L 500.4050, L501.9100, L100.0100, L505.5000 ####[facility] [address] [place], [address] Urea nitrogen [Mass/Vol] 15 mg/dL Normal 4-19 [facility] Comment on above: Performed By: #### L 500.4050, L501.9100, L100.0100, L505.5000 ####[facility] [address] [place], [address] Emergency Department Summary on 01-07-2025 Emergency Department Summary [facility] Medical Records Department [address] [place] [address] Emergency Department Summary 01/07/25 MR#: [id number] Acct: [id number] Name: RUBÉN GIBBS Rep #: [id number] : 2005 19 From: Spring Fragoso DO PCP: Care Physician,No Primary Status:REG ER Location: ED ADDENDUM by Dr. Sprnig Fragoso DO on 01/07/25 at 1627 EKG shows normal sinus rhythm at a rate of 96 bpm MO interval 110 QRS 88 QTc 394 Normal axis Nonspecific T wave changes Compared to prior EKG on 09/12/2014, no acute changes 01/07/25 1627 Cosigner Signature (if applicable): cc: No Primary Care Physician * Signed HPI HPI - Psych History of Present Illness Chief Complaint: Suicidal Informant: patient and family Narrative Narrative: Patient is a 19-year-old male with history of anxiety, depression and prior suicide attempt with hanging 4 to 5 years ago. He is presenting today at the recommendation of outpatient Michelle eldera, for psychiatric evaluation. Grandfather states that he had him evaluated they recommend he come to the ER. He acted like he had been seen today but when we called they stated that the patient was seen on Tuesday. Patient was discharged from [facility] after being in for 3 years 1 week ago. Patient has had a harder time adjusting since being discharged. He states I do not think I can make it. When asked if he would kill himself he gives a vague answer but does make a comment of he have thoughts that lead up to it. He also notes today he is just feeling generally weak, has a headache and his leg hurts. States that she started a couple hours ago. Also notes that he had trouble with his national insurance officer today when he was found to be on the social media site is not supposed to be on. He has his first probation meeting at 3 PM today. That did seem to trigger him and make things worse. No other complaints or concerns reported at this time. Patient denies any HI, auditory visual hallucinations. [facility] Medical History Anxiety Club foot of both lower extremities Depression Home Medications ???Medication ???Instructions ???Recorded ???Last Taken ???Type aripiprazole 5 mg tablet 10 mg PO DAILY 09/09/20 Unknown Hi story benztropine 0.5 mg tablet 0.5 mg PO BID 05/16/21 Unknown His tory cetirizine 10 mg tablet 10 mg PO DAILY 05/16/21 Unknown Hi story bupropion HCl 75 mg tablet 75 mg PO DAILY 11/24/21 Unknown Hi story guanfacine 1 mg tablet 1 mg PO BID 11/24/21 Unknown Histo ry lamotrigine 25 mg tablet 25 mg PO BID 11/24/21 Unknown Hist ory promethazine 25 mg tablet 25 mg PO Q6H PRN nausea and Unknown Rx vomiting #14 tabs trazodone 100 mg tablet 100 mg PO DAILY 11/24/21 Unknown H istory Allergy/AdvReac Type Severity Reaction Status Date / Time No Known Allergies Allergy Verified 01/07/25 12:57 Social History (Updated 01/07/25 @ 14:05 by Ramona Mills) household members: spouse and family housing: house Smoking Status: Never smoker substance use type: does not use ROS ROS ED Constitutional Constitutional ED: Reports other Details: fatigue Cardiovascular Cardiovascular: Denies chest pain Respiratory/Chest Respiratory/Chest: Denies cough Gastrointestinal Gastrointestinal: Denies abdominal pain or vomiting Musculoskeletal Musculoskeletal: Reports myalgias Integumentary Denies rash Neurologic Neurologic: Denies headache(s) or weakness Psychiatric Psychiatric: Reports anxiety, depression, suicidal ideation and suicidal thoughts EXAM Physical Exam Const Vital Signs: 01/07/25 12:57 01/07/25 13:57 Temperature 97.6 F L Temperature Source Temporal Pulse Rate 81 78 Respiratory Rate 18 18 Blood Pressure 129/84 H 128/78 H Blood Pressure Mean 99 94 Pulse Ox 99 98 Oxygen Delivery Method Room Air Positive well nourished and well developed General Appearance ED: well developed and NAD HEENT Reports moist mucous membranes Eyes PERRL Neck supple Resp normal respiratory effort and clear to auscultation bilaterally Cardio no murmurs Rate: regular rate Rhythm: regular rhythm GI non-tender and non-distended Extremity normal to inspection Neuro oriented x3 Sensorium / Orientation: alert Motor Exam: muscle tone normal throughout Psych cooperative Appearance: grossly normal Attitude: calm and withdrawn Activity / Motor Behavior: appropriate eye contact Speech: minimal Mood Affect: depressed Thought Process: normal thought process Thought Content: suicidality, No delusion(s) and No hallucination(s) Attention / Concentration: attention grossly intact and concentration grossly intact Memory / Cognition: memory grossly (more content not included)... Normal [facility] Eosinophil percentageOrdered By: Spring Fragoso on 01-07-2025 Eosinophils/100 WBC (Bld) 2.0 % 0-5 [facility] Erythrocyte distribution wid th ratioOrdered By: Spring Fragoso on 01-07-2025 Erythrocyte distribution width (RBC) [Ratio] 13.1 % 11.6-14.6 [facility] Erythrocyte distribution wid th standard deviationOrdered By: Spring Fragoso on 01-07-2025 Erythrocyte distribution width (RBC) [Ratio] 39.2 fl 35.1-43.9 [facility] Glomerular filtration rate ( GFR) estimation/1.73 sq m using serum, plasma, or whole bOrdered By: Spring Fragoso on 01-07-2025 GFR/1.73 sq M.predicted among non-blacks MDRD (S/P/Bld) [Vol rate/Area] 92 mL/min/{1.73_m2} >60 [facility] Comment on above: mL/min/1.73m2 CKD-EP I Creatinine Equation (2020) Hematocrit Auto (Bld) [Volum e fraction]Ordered By: Spring Fragoso on 01-07-2025 Hematocrit (Bld) [Volume fraction] 53.9 % 40-54 [facility] Hemoglobin measurementOrdere d By: Spring Fragoso on 01-07-2025 Hemoglobin (Bld) [Mass/Vol] 18.3 g/dL High 13.0-16.5 [facility] Immature granulocytes/100 WB C Auto (Bld)Ordered By: Spring Fragoso on 01-07-2025 Immature granulocytes/100 WBC (Bld) 0.400 % 0.0-0.9 [facility] Comment on above: IG% - Immature Granu locytes (promyelocytes, myelocytes and metamyelocytes) > 1% indicates that a LEFT SHIFT is Present. Laboratory - Chemistry and C hemistry - challengeOrdered By: Spring Fragoso on 01-07-2025 AST [Catalytic activity/Vol] 35 U/L <38 [facility] MCV (mean corpuscular volume ) determinationOrdered By: Spring Fragoso on 01-07-2025 MCV (RBC) [Entitic vol] 83.1 fL 80-94 [facility] Mean corpuscular hemoglobin (MCH) determinationOrdered By: Spring Fragoso 01-07-2025 MCH (RBC) [Entitic mass] 28.2 pg 27.0-32.0 [facility] Mean corpuscular hemoglobin concentration (MCHC) determinationOrdered By: Spring Fragoso on 01-07-2025 MCHC (RBC) [Mass/Vol] 34.0 g/dL 32-36 [facility] Mean platelet volume determi nationOrdered By: Spring Fragoso on 01-07-2025 Platelet mean volume (Bld) [Entitic vol] 11.6 fL 6.2-12.0 [facility] Monocyte percentageOrdered B y: Spring Fragoso on 01-07-2025 Monocytes/100 WBC (Bld) 10.3 % High 0-10 [facility] Neutrophil percentageOrdered By: Spring Fragoso on 01-07-2025 Neutrophils/100 WBC (Bld) 63.9 % 47-70 [facility] No Panel InformationOrdered By: Spring Fragoso on 01-07-2025 Urine Buprenorphine Qualitative Negative < 200 ng/mL [facility] Urine Oxycodone Screen Negative < 100 ng/mL [facility] Nucleated red blood cell per centageOrdered By: Spring Fragoso on 01-07-2025 Nucleated RBC/100 WBC (Bld) [Ratio] 0 % 0-5 [facility] Platelet countOrdered By: Yony Fragoso on 01-07-2025 Platelets (Bld) [#/Vol] 208 10*3/uL 150-450 [facility] Potassium measurement (mass/ volume)Ordered By: Spring Fragoso on 01-07-2025 Potassium (Unsp spec) [Mass/Vol] 3.9 mmol/L 3.3-5.1 [facility] Quantitative urine opiates m easurementOrdered By: Spring Fragoso on 01-07-2025 Opiates Ql (U) Negative < 300 ng/mL [facility] RBC Auto (Bld) [#/Vol]Ordere d By: Spring Fragoso on 01-07-2025 RBC (Bld) [#/Vol] 6.49 10*6/uL High 4.6-6.2 [facility] Screening urine fentanyl bere surementOrdered By: Spring Fragoso on 01-07-2025 fentaNYL Screen Ql (U) Negative [facility] Serum creatinine measurement (mass/volume)Ordered By: Spring Fragoso on 01-07-2025 Creatinine [Mass/Vol] 1.17 mg/dL 0.70-1.20 [facility] Serum globulin measurementOr dered By: Spring Fragoso on 01-07-2025 Globulin (S) [Mass/Vol] 3.2 g/dL 2.2-4.2 [facility] Serum glucose measurement (m ass/volume)Ordered By: Spring Fragoso on 01-07-2025 Glucose [Mass/Vol] 90 mg/dL 70-99 [facility] Serum or plasma alanine peña otransferase (ALT) measurementOrdered By: Spring Fragoso on 01-07-2025 ALT [Catalytic activity/Vol] 41 U/L <47 [facility] Serum or plasma albumin sheng urement (mass/volume)Ordered By: Spring Fragoso on 01-07-2025 Albumin [Mass/Vol] 4.5 g/dL 3.5-5.0 [facility] Serum or plasma albumin/glob ulin mass ratioOrdered By: Spring Fragoso on 01-07-2025 Albumin/Globulin [Mass ratio] 1.4 {ratio} 0.9-2.4 [facility] Serum or plasma alkaline moise sphatase measurementOrdered By: Spring Fragoso on 01-07-2025 ALP [Catalytic activity/Vol] 135 U/L High 40-129 [facility] Serum or plasma calcium sheng urement (mass/volume)Ordered By: Spring Fragoso on 01-07-2025 Calcium [Mass/Vol] 9.8 mg/dL 7.6-11.0 [facility] Serum or plasma ethanol sheng urement (mass/volume)Ordered By: Spring Fragoso on 01-07-2025 Ethanol [Mass/Vol] mg/dL <10.1 [facility] Comment on above: This test is for med ical purposes only. The legal definition of intoxication varies according to local law. Serum or plasma urea nitroge n measurement (mass/volume)Ordered By: Spring Fragoso on 01-07-2025 Urea nitrogen [Mass/Vol] 15 mg/dL 4-19 [facility] Sodium levelOrdered By: Patrick Fragoso on 01-07-2025 Sodium [Moles/Vol] 138 mmol/L 133-145 [facility] Total proteinOrdered By: Lisette Fragoso on 01-07-2025 Protein [Mass/Vol] 7.8 g/dL 5.9-8.4 [facility] Urine Drug Screen (VISTA)on 01-07-2025 AMPHETAMINES Negative Normal <1000 ng/mL [facility] Comment on above: Performed By: #### L 500.4050, L501.9100, L100.0100, L505.5000 ####[facility] [address] [place], [address] BARBITIURATES Negative Normal < 200 ng/mL [facility] Comment on above: Performed By: #### L 500.4050, L501.9100, L100.0100, L505.5000 ####[facility] [address] [place], [address] BENZODIAZIPINE Negative Normal < 200 ng/mL [facility] Comment on above: Performed By: #### L 500.4050, L501.9100, L100.0100, L505.5000 ####[facility] [address] [place], [address] BUP Ur Drug Scr Negative Normal < 200 ng/mL [facility] Comment on above: Performed By: #### L 500.4050, L501.9100, L100.0100, L505.5000 ####[facility] [address] [place], [address] COCAINE Negative Normal < 300 ng/mL [facility] Comment on above: Performed By: #### L 500.4050, L501.9100, L100.0100, L505.5000 ####[facility] [address] [place], [address] Fentanyl Negative Normal [facility] Comment on above: Performed By: #### L 500.4050, L501.9100, L100.0100, L505.5000 ####[facility] [address] [place], [address] METHADONE Negative Normal < 300 ng/mL [facility] Comment on above: Performed By: #### L 500.4050, L501.9100, L100.0100, L505.5000 ####[facility] [address] [place], [address] OPIATES Negative Normal < 300 ng/mL [facility] Comment on above: Performed By: #### L 500.4050, L501.9100, L100.0100, L505.5000 ####[facility] [address] [place], [address] OXYCODONE Negative Normal < 100 ng/mL [facility] Comment on above: Performed By: #### L 500.4050, L501.9100, L100.0100, L505.5000 ####[facility] [address] [place], [address] PCP Negative Normal < 25 ng/mL [facility] Comment on above: Performed By: #### L 500.4050, L501.9100, L100.0100, L505.5000 ####[facility] [address] [place], [address] THC Negative Normal < 50 ng/mL [facility] Comment on above: Performed By: #### L 500.4050, L501.9100, L100.0100, L505.5000 ####[facility] [address] [place], [address] Urine benzodiazepine levelOr dered By: Spring Fragoso on 01-07-2025 Benzodiazepines Ql (U) Negative < 200 ng/mL [facility] Urine cocaine levelOrdered B y: Spring Fragoso on 01-07-2025 Cocaine Ql (U) Negative < 300 ng/mL [facility] Urine tzkpr-7-ravjdqmjwlyyis abinol (THC) measurementOrdered By: Spring Fragoso on 01-07-2025 Cannabinoids Screen Ql (U) Negative < 50 ng/mL [facility] Urine phencyclidine (PCP) de tectionOrdered By: Spring Fragoso on 01-07-2025 Phencyclidine Ql (U) Negative < 25 ng/mL [facility] White blood cell (WBC) count Ordered By: Spring Fragoso on 01-07-2025 WBC (Bld) [#/Vol] 7.6 10*3/uL 4.4-11.0 [facility] Comment on above: CRITICAL VALUE ZOEY KAUR01/07/25 1430 Lucrecia Rivera.RESULTS READ BACK BY SAME. Previous reported result: 7.6 K/vy0Fufral by: KALEN on 01/07/25:1438 AMENDED REPORT 01/07/25 1438 WBC previously reported as: 7.6 K/mm3 CT ANGIOGRAM NECKon 01-19-20 CT ANGIOGRAM NECK EXAMINATION: CT ANGIOGRAM NECK HISTORY: Strangulation Attempt Injury/Trauma or Illness?:Injury/Trauma How long have you had these symptoms (acute/chronic)?:Acute Reason for exam?:Strangulation Attempt Type of Exam?:Initial Mechanism of injury?:strangulation Injury/Trauma or Illness?:Injury/Trauma How long have you had these symptoms (acute/chronic)?:AcuteS trangulation Attempt COMPARISON: None available at time of dictation. TECHNIQUE: CT angiogram of the neck was performed. Coronal, sagittal and 3-D reformats were created and reviewed. Carotid stenosis measurements were made according to the NASCET criteria. Dose reduction techniques were achieved by using automated exposure control and/or adjustment of mA and/or kV according to patient size and/or use of iterative reconstruction technique CONTRAST: 75 mL of Isovue-370. FINDINGS: AORTIC ARCH: Normal origin of the innominate, left common carotid and left subclavian arteries. ANTERIOR CIRCULATION:Common carotid arteries are patent. Carotid bifurcations are patent. Cervical portions of the ICA are patent bilaterally. No stenosis, thrombus, or dissection. The cervical ICA are visualized up to the skull base. Although the study is not optimized for evaluation of the intracranial vessels, the intra petrous, intra cavernous, and supraclinoid ICA are patent. ICA termini are patent. And the visualized portions of the BERNABE and MCA are patent although the study is not optimized for intracranial evaluation. POSTERIOR CIRCULATION: The V1, V2, and V3 segments of the vertebral arteries are patent. There is a right dominant system. No dissection or thrombus is seen. Although the study is not optimized for intracranial evaluation, the V4 segments are patent. The basilar artery and basilar tip are patent. DEVELOPMENTAL ANOMALIES: None. OTHER: The airway is patent. The thyroid has a normal appearance. No pathologic adenopathy is seen. There is a tiny cyst noted adjacent to the trachea on the left, image 64/series 4. This measures 6.72 mm in diameter and appears separate from the adjacent esophagus. The presence of an esophageal diverticulum or small duplication cyst is not excluded. IMPRESSION: 1. No evidence of BCVI. 2. No aneurysm. Workstation ID: [id number] Dictated by: KEN HOFFMAN on [employer] January 17, 2022 11:51:12 PM EDT Transcribed by: KEN HOFFMAN on [employer] January 17, 2022 11:51:12 PM EDT Finalized by: KEN HOFFMAN on [employer] January 17, 2022 11:51:12 PM EDT Normal [facility] Comment on above: Order Comment: Injur y/Trauma or Illness?:Injury/Trauma How long have you had these symptoms (acute/chronic)?:Acute Reason for exam?:Strangulation Attempt Type of Exam?:Initial Mechanism of injury?:strangulation COVID-19, MOLECULARon 2021 SARS-CoV-2 (COVID-19) RNA ABHIJIT+probe Ql (Unsp spec) Not detected Normal Not Detected [facility] Comment on above: Order Comment: This test was performed under the FDA's Emergency Use Authorization (EUA). Testing was performed using the [employer] Nidhi SARS-CoV-2 RT-PCR AND Influenza A/B Nucleic Acid Test on the Nidhi Gina System. This test has not been approved for use in asymptomatic patients and its performance in this patient population has not been evaluated. Negative results do not rule out the presence of SARS-CoV-2, influenza A, and/or influenza B. Fact sheets for the EUA can be found at the following links: For Healthcare Providers: https://www.fda.gov/media/093713/download For Patients: https://www.fda.gov/media/531676/download Performed By: #### L [id number] #### [facility] [address], [place] [address] Behzad Bridges M.D. [id number] Provider Note - ED v3on 03-3 Provider Note - ED v3 Provider Note: Chart Review: HISTORY OF PRESENTING ILLNESS RUBÉN is a 16 year old Male and was seen by me at 03-Dec-2021 11:45. The historian is the patientmother. Triage Information: Most recent Vital Sign Value Date PAST MEDICAL HISTORY ALLERGIES/INTOLERANCES: No Known Allergies HEALTH HISTORY: History of PTSD, anxiety/depression, and elevated cholesterol. No other known health issues. Family history: no pertinent history. Social history: non-smoker. Currently attending school for in-person learning. OUTPATIENT MEDICATIONS: Home Medications Review Status for Reconciliation: Complete Med Status: Patient Currently Takes Medications Drug Name: buPROPion 75 mg oral tablet Instructions: null Drug Name: cetirizine 10 mg oral tablet Instructions: 1 tab(s) orally once a day Drug Name: traZODone 100 mg oral tablet Instructions: null Drug Name: lamoTRIgine 25 mg oral tablet Instructions: 1 tab(s) orally 2 times a day Drug Name: benztropine 1 mg oral tablet Instructions: 1 tab(s) orally 2 times a day Drug Name: guanFACINE 1 mg oral tablet Instructions: null Drug Name: ARIPiprazole 20 mg oral tablet Instructions: 1 tab(s) orally once a day Drug Name: naproxen 500 mg oral tablet Instructions: 1 tab(s) orally every 12 hours, As Needed for pain/inflammation. 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 No other known significant events or other known past surgical history. Is up to date with childhood immunizations, per mom. CRITICAL CARE VITAL SIGNS: T PRBP SpO2O2(LPM) %FiO2 Method 03-Dec-2021 11:36:[id number] 96 MDM MDM/ED COURSE: This note was generated with voice recognition software and may contain errors including spelling, grammar, syntax, and misrecognization of what was dictated CHIEF COMPLAINT low back/R shoulder injury HISTORY OF PRESENT ILLNESS Pt presents today for evaluation of low/mid back and R shoulder injury - reports he was outside fishing yesterday evening, and slipped in some mud - fell and landed on his back/R shoulder. Has had discomfort since then. Did not hit his head or have any LOC. He was able to get up with help from his grandfather, and he continued his routine activities that evening, but reports the pain has persisted without much change. Reports his back and shoulder feel stiff and has discomfort especially with initial position changes such as getting out of bed. Pain scale currently 7/10. Denies any radiation of pain or numbness/tingling to his extremities. No pain to his neck or legs; denies any bowel/bladder dysfunction, shortness of breath, or other constitutional s/sxs. Reports he thinks he might have some cuts on his R shoulder, but is unsure. Reports took Aleve last night without much relief; per mom, has refused to apply any ice or heat to the injured areas. Has not tried any other OTC medications or conservative medications for her symptoms. Denies any history of prior injury to his back or shoulder aside from a time he hurt his back while playing basketball - sxs resolved without any further evaluation or treatment. REVIEW OF SYSTEMS 10 systems reviewed negative with exception of history of present illness listed above PHYSICAL EXAMINATION General: Pleasant, well nourished male; in no acute distress. Resting comfortably on exam table and changes positions without any evidence of discomfort at times (with distraction), but other times (with similar movements), wincing and moving very cautiously. Accompanied by his mom, who helps to provide complete history. Eyes: non-icteric; conjunctiva clear. PERRL. HEENT: head atraumatic/normocephali c. Neg akhtar sign. TMs and ear canals unremarkable bilat. Posterior pharynx unremarkable. Managing oral secretions without difficulty. Neck: supple; non-tender. FROM c-spine with pulling sensation in low back with movements, but not consistent with repeat exam or exam with distraction. Respiratory: Lungs are clear to auscultation; no wheezes, rhonchi, or rales. Respirations easy and unlabored, and without inspiratory arrest, but very deep breaths elicit mild discomfort/pulling sensation to lumbar paraspinals and R posterior ribcage - nothing localized. No tenderness with AP/lateral compression of ribcage. Breath sounds are equal, Symmetrical chest wall expansion. Cardiovascular: Regular rate and rhythm, Normal S1S2. No m/r/g. Gastrointestinal: Abdomen soft and non-tender; no palpable masses or organomegaly; no RRG. Bowel sounds normoactive. Musculoskeletal: Able to ambulate and change positions independently and without any evidence of discomfort. Aside from a very mild, superficial abrasion to posterior aspect of R upper arm, no other visible joint deformity, s (more content not included)... 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 They are favored to be perivascular space. No additional intracranial abnormality is seen. This report has been created using voice recognition software [facility] CLINICAL HISTORY: history of previous abnormal MRI with findings concerning for enlarged perivascular lesions vs neuroepithelial cyst TECHNIQUE: MRI of the brain was performed at 3.0 Daisha without intravenous contrast. COMPARISON: 03/22/2012. FINDINGS: CEREBRAL PARENCHYMA: Small deep white matter cystic lesion in the right parietal region and another in the left periatrial white matter region is again seen with signal suppression on T2 FLAIR. No associated diffusion restriction is seen. The lesion on the left side measures 3 x 4 mm and overall appears smaller than on prior exam. Otherwise, No focal or diffuse abnormality. No mass effect or shift of midline structures. No edema. VENTRICLES: Normal configuration. EXTRA AXIAL FLUID: No extra axial fluid collection or hemorrhage. POSTERIOR FOSSA and BRAINSTEM: Normal appearance. PARANASAL SINUSES: Clear. ORBITS: Normal. 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 COMPARISON: 03/22/2012. FINDINGS: CEREBRAL PARENCHYMA: Small deep white matter cystic lesion in the right parietal region and another in the left periatrial white matter region is again seen with signal suppression on T2 FLAIR. No associated diffusion restriction is seen. The lesion on the left side measures 3 x 4 mm and overall appears smaller than on prior exam. Otherwise, No focal or diffuse abnormality. No mass effect or shift of midline structures. No edema. VENTRICLES: Normal configuration. EXTRA AXIAL FLUID: No extra axial fluid collection or hemorrhage. POSTERIOR FOSSA and BRAINSTEM: Normal appearance. PARANASAL SINUSES: Clear. ORBITS: Normal. IMPRESSION: Mildly prominent perivascular space versus neuroenteric cyst in the deep parietal white matter are again seen with interval decrease in the size of the lesion on the left side. They are favored to be perivascular space. No additional intracranial abnormality is seen. This report has been created using voice recognition software [facility] Radiology Study observation (narrative) [facility] MR Brain WO contrastOrdered By: Rafaela Thayer on 11-26-2021 [facility] Work Phone: COVID-19, MOLECULARon 2020 SARS-CoV-2 (COVID-19) RNA ABHIJIT+probe Ql (Unsp spec) Not detected Normal Not Detected [facility] Comment on above: Order Comment: This test was performed under the FDA's Emergency Use Authorization (EUA). Testing was performed using the Shagufta Nidhi SARS-CoV-2 RT-PCR AND Influenza A/B Nucleic Acid Test on the Nidhi Gina System. This test has not been approved for use in asymptomatic patients and its performance in this patient population has not been evaluated. Negative results do not rule out the presence of SARS-CoV-2, influenza A, and/or influenza B. Fact sheets for the EUA can be found at the following links: For Healthcare Providers: https://www.fda.gov/media/106302/download For Patients: https://www.fda.gov/media/049132/download Performed By: #### L [id number] #### [facility] [address] [place], [place] [address] Behzad Bridges M.D. [id number] Hemoglobin A1con 03-11-2021 Glucose [Mass/Vol] 111 mg/dL Normal [facility] Comment on above: Performed By: #### I NSULN #### [facility] Immunology [address] [place] [address] #### HBA1C #### [facility] Routine Lab [address] [place], [place] [address] HbA1c (Bld) [Mass fraction] 5.5 % Normal 4.3-5.6 [facility] Comment on above: Performed By: #### I NSULN #### [facility] Immunology [address] [place], [place] [address] #### HBA1C #### [facility] Routine Lab [address] [place], [place] [id number] Insulinon 03-11-2021 Insulin 52.5 mU/L High 3.0-25.0 [facility] Comment on above: Performed By: #### I NSULN #### [facility] Immunology [address] [place], [place] [address] #### HBA1C #### [facility] Routine Lab [address] [place] [id number] ACETAMINOPHENon 02-13-2021 Acetaminophen [Mass/Vol] ug/mL Low 10.0-30.0 [facility] Comment on above: Performed By: #### 3 026-2, 14470-7, 3298-7, 5643-2 #### [facility] [address] [place] [address] Store Team Member - Ana YOUNG [id number] #### 97531-1 #### [facility] [address] [place] [address] Store Team Member - Ana YOUNG [id number] Performed for [facility] [address] [place], [place] [address] ALCOHOLon 02-13-2021 Ethanol [Mass/Vol] mg/dL Normal <=3 [facility] Comment on above: Performed By: #### 3 026-2, 79084-6, 3298-7, 5643-2 #### [facility] [address] [place] [address] Store Team Member - Ana YOUNG [id number] #### 95290-6 #### [facility] [address] [place] [address] Store Team Member - AnaBullock County HospitalLowerydonis YOUNG [id number] Performed for [facility] [address] [place], [place] [address] Acetaminophen [Mass/Vol]on 0 02-13-2021 HACET ACETAMINOPHEN INTERPRETATION Significant liver damage is considered likely if drug levels are greater than 300 ug/mL at 4 hours after ingestion or levels of 50 ug/mL after 12 hours. Normal [facility] Comment on above: Performed By: #### 3 026-2, 84285-5, 3298-7, 5643-2 #### [address] [place] [address] Store Team Member - Ana YOUNG [id number] #### 65678-4 #### [address] [place] [address] Store Team Member - Ana YOUNG [id number] Performed for [place] [address] CBC W Auto Differential pane l (Bld)on 02-13-2021 Basophils (Bld) [#/Vol] 0.05 10*3/uL Normal <=0.70 [facility] Comment on above: Performed By: #### 5 7021-8 #### [address] [place] [address] Store Team Member - Ana MCCORDIA [id number] Basophils/100 WBC (Bld) 0.6 % Normal <=2.0 [facility] Comment on above: Performed By: #### 5 7021-8 #### [address] [place] [address] Store Team Member - Ana YOUNG [id number] Eosinophils (Bld) [#/Vol] 0.15 10*3/uL Normal <=0.70 [facility] Comment on above: Performed By: #### 5 7021-8 #### [address] [place] [address] Store Team Member - Ana MCCORDIA [id number] Eosinophils/100 WBC (Bld) 1.8 % Normal <=10.0 [facility] Comment on above: Performed By: #### 5 7021-8 #### [address] [place] [address] Store Team Member - Ana YOUNG [id number] Erythrocyte distribution width (RBC) [Entitic vol] 36.6 fL Normal 35.1-43.9 [facility] Comment on above: Performed By: #### 5 7021-8 #### [facility] [address] [place] [address] Store Team Member - Ana MCCORDIA [id number] Hematocrit (Bld) [Volume fraction] 44.9 % Normal 40.0-54.0 [facility] Comment on above: Performed By: #### 5 7021-8 #### [facility] [address] [place] [address] Store Team Member - Ana MCCORDIA [id number] Hemoglobin (Bld) [Mass/Vol] 15.5 g/dL Normal 14.0-18.0 [facility] Comment on above: Performed By: #### 5 7021-8 #### [address] [place] [address] Store Team Member - Ana MCCORDIA [id number] Immature granulocytes (Bld) [#/Vol] 0.02 10*3/uL Normal <=0.10 [facility] Comment on above: Performed By: #### 5 7021-8 #### [address] [facility] [place] [address] Store Team Member - Ana Lowery CLIA [id number] Immature granulocytes/100 WBC (Bld) 0.20 % Normal <=1.50 [facility] Comment on above: Performed By: #### 5 7021-8 #### [address] [facility] [place] [address] Store Team Member - Ana Lowery CLIA [id number] Lymphocytes (Bld) [#/Vol] 1.68 10*3/uL Normal 1.20-3.40 [facility] Comment on above: Performed By: #### 5 7021-8 #### [place] [address] Director - Ana MCCORDIA [id number] Lymphocytes/100 WBC (Bld) 20.3 % Normal 20.0-40.0 [facility] Comment on above: Performed By: #### 5 7021-8 #### [place] [address] Director - Ana YOUNG [id number] MCH (RBC) [Entitic mass] 27.5 pg Normal 27.0-31.0 [facility] Comment on above: Performed By: #### 5 7021-8 #### [address] [place] [address] Store Team Member - Ana YOUNG [id number] MCHC (RBC) [Mass/Vol] 34.5 g/dL Normal 32.0-36.0 [facility] Comment on above: Performed By: #### 5 7021-8 #### [address] [place] [address] Store Team Member - Ana YOUNG [id number] MCV (RBC) [Entitic vol] 79.6 fL Low 80.0-100.0 [facility] Comment on above: Performed By: #### 5 7021-8 #### [address] [place] [address] Store Team Member - Ana MCCORDIA [id number] Monocytes (Bld) [#/Vol] 0.80 10*3/uL High 0.10-0.60 [facility] Comment on above: Performed By: #### 5 7021-8 #### [address] [place] [address] Store Team Member - Ana MCCORDIA [id number] Monocytes/100 WBC (Bld) 9.7 % High <=8.0 [facility] Comment on above: Performed By: #### 5 7021-8 #### [address] [address] [facility] [place] [address] Store Team Member - Ana MCCORDIA [id number] Neutrophils (Bld) [#/Vol] 5.58 10*3/uL Normal 1.40-6.50 [facility] Comment on above: Performed By: #### 5 7021-8 #### [address] [place] [address] Store Team Member - Ana MCCORDIA [id number] Neutrophils/100 WBC (Bld) 67.4 % Normal 50.0-70.0 [facility] Comment on above: Performed By: #### 5 7021-8 #### [place] [address] [facility]. [place] [address] Store Team Member - Ana MCCORDIA [id number] Nucleated RBC (Bld) [#/Vol] 0.00 10*3/uL Normal <=0.10 [facility] Comment on above: Performed By: #### 5 7021-8 #### [address] [facility] [place] [address] Store Team Member - Ana MCCORDIA [id number] Platelet mean volume (Bld) [Entitic vol] 10.9 fL Normal 9.0-13.0 [facility] Comment on above: Performed By: #### 5 7021-8 #### [address] [place] [address] Store Team Member - Ana MCCORDIA [id number] Platelets (Bld) [#/Vol] 251 10*3/uL Normal 130-400 [facility] Comment on above: Performed By: #### 5 7021-8 #### [address] [place] [address] Store Team Member - Ana MCCORDIA [id number] RBC (Bld) [#/Vol] 5.64 10*6/uL Normal 4.00-6.30 [facility] Comment on above: Performed By: #### 5 7021-8 #### [address] [facility] [place] [address] Store Team Member - Ana MCCORDIA [id number] WBC (Bld) [#/Vol] 8.28 10*3/uL Normal 4.80-10.80 [facility] Comment on above: Performed By: #### 5 7021-8 #### [address] [place] [address] Store Team Member - Ana MCCORDIA [id number] Comprehensive metabolic 2000 panelon 02-13-2021 Albumin [Mass/Vol] 4.2 g/dL Normal 3.4-5.0 [facility] Comment on above: Performed By: #### 3 026-2, 00102-5, 3298-7, 5643-2 #### [facility] [address] [place] [address] Store Team Member - Ana YOUNG [id number] #### 27929-1 #### [facility] [address] [place] [address] Store Team Member - Ana MCCORDIA [id number] Performed for [facility] [address] [place] [address] ALP [Catalytic activity/Vol] 263 U/L High 50-136 [facility] Comment on above: Performed By: #### 3 026-2, 28545-2, 3298-03, 5643- #### [facility] [address] [place] [address] Store Team Member - Ana MCCORDIA [id number] #### 47280-5 #### [facility] [address] [place] [address] Store Team Member - Ana MCCORDIA [id number] Performed for [facility] [address] [place] [address] ALT [Catalytic activity/Vol] 69 U/L High 16-63 [facility] Comment on above: Performed By: #### 3 026-2, 27173-6, 32987, 5643-2 #### [facility] [address] [place] [address] Store Team Member - Ana Lowery CLIA [id number] #### 88918-2 #### [facility] [address] [place] [address] Store Team Member - Ana MCCORDIA [id number] Performed for [facility] [address] [place] [address] Anion gap [Moles/Vol] 5.0 mmol/L Normal <=15.0 [facility] Comment on above: Performed By: #### 3 026-2, 11979-6, 3298-7, 5643-2 #### [facility] [address] [place] [address] Store Team Member - Ana YOUNG [id number] #### 19083-8 #### [facility] [address] [place] [address] Store Team Member - Ana YOUNG [id number] Performed for [facility] [address] [place] [address] AST [Catalytic activity/Vol] 43 U/L High 15-37 [facility] Comment on above: Performed By: #### 3 026-2, 94738-8, 32987, 5643-2 #### [facility] [address] [place] [address] Store Team Member - Ana YOUNG [id number] #### 31789-7 #### [facility] [address] [place] [address] Store Team Member - Ana YOUNG [id number] Performed for [facility] [address] [place] [address] Bilirubin [Mass/Vol] 0.4 mg/dL Normal 0.2-1.0 [facility] Comment on above: Performed By: #### 3 026-2, 54354-1, 32904-11, 5643- #### [facility] [address] [place] [address] Store Team Member - Ana YOUNG [id number] #### 46883-7 #### [facility] [address] [place] [address] Store Team Member - Ana YOUNG [id number] Performed for [facility] [address] [place] [address] Calcium [Mass/Vol] 8.9 mg/dL Normal 8.5-10.1 [facility] Comment on above: Performed By: #### 3 026-2, 86870-2, 3298-7, 5643-2 #### [facility] [address] [place] [address] Store Team Member - Ana YOUNG [id number] #### 82277-7 #### [facility] [address] [place] [address] Store Team Member - Ana YOUNG [id number] Performed for [facility] [address] [place], [place] [address] Chloride [Moles/Vol] 107 mmol/L Normal 98-107 [facility] Comment on above: Performed By: #### 3 026-2, 77237-7, 3298-7, 5643-2 #### [facility] [address] [place] [address] Store Team Member - Ana YOUNG [id number] #### 64869-9 #### [facility] [address] [place] [address] Store Team Member - Ana YOUNG [id number] Performed for [facility] [address] [place] [address] CO2 [Moles/Vol] 28 mmol/L Normal 21-32 [facility] Comment on above: Performed By: #### 3 026-2, 53571-4, 3298-7, 5643-2 #### [facility] [address] [place] [address] Store Team Member - Ana YOUNG [id number] #### 36628-8 #### [facility] [address] [place] [address] Store Team Member - Ana YOUNG [id number] Performed for [facility] [address] [place], [place] [address] Creatinine [Mass/Vol] 1.32 mg/dL High 0.67-1.17 [facility] Comment on above: Performed By: #### 3 026-2, 67367-6, 3298-7, 5643-2 #### [facility] [address] [place] [address] Store Team Member - Ana YOUNG [id number] #### 54451-4 #### [facility] [address] [place] [address] Store Team Member - Ana YOUNG [id number] Performed for [facility] [address] [place], [place] [address] GFR/1.73 sq M.predicted MDRD (S/P/Bld) [Vol rate/Area] Normal >=59 [facility] Comment on above: Performed By: #### 3 026-2, 01693-0, 3298-7, 5643-2 #### [facility] [address] [place] [address] Store Team Member - Ana YOUNG [id number] #### 92310-3 #### [place] [address] [place] [address] Store Team Member - Ana YOUNG [id number] Performed for [facility] [address] [place] [address] Glucose [Mass/Vol] 88 mg/dL Normal 74-106 [facility] Comment on above: Performed By: #### 3 026-2, 23693-6, 3298-7, 5643-2 #### [facility] [address] [place] [address] Store Team Member - Ana YOUNG [id number] #### 18358-5 #### [place] [address] [place] [address] Store Team Member - Ana YOUNG [id number] Performed for [place] [address] [address] [place], [place] [address] HGFR GLOMERULAR FILTRATIO N RATE INTERPRETATION~The eGFR is calculated using the MDRD equation.~This equation has been validated in patients with chronic kidney disease;~however, it underestimates the GFR in healthy patients with GFR's over 60 mL/min.~The equation is not valid in children under the age of 18.~NOTE: Criteria for Chronic Kidney Disease:~ ~1. Kidney damage for at least three months, as defined~by structural or functional abnormalities of the kidney,~with or without decreased glomerular filtration rate, manifested by either:~* Pathological abnormalities or~* Markers of Kidney damage, including abnormalities in~the composition of the blood or urine or abnormalities in imaging tests.~ ~2. GFR <60 mL/min/1.73 m squared for at least three months, with or without kidney damage.~ Normal [facility] Comment on above: Performed By: #### 3 026-2, 22904-2, 3298-7, 5643-2 #### [facility] [address] [place] [address] Store Team Member - Ana YOUNG [id number] #### 17319-9 #### [facility] [address] [place] [address] Store Team Member - [facility] HAN[facility]H [id number] Performed for [facility] [address] [place] [address] Potassium [Moles/Vol] 3.8 mmol/L Normal 3.5-5.1 [facility] Comment on above: Performed By: #### 3 026-2, 92431-7, 3298-7, 5643-2 #### [facility] [address] [place] [address] Store Team Member - Ana YOUNG [id number] #### 06403-8 #### [facility] [address] [place] [address] Store Team Member - [facility] HANNAH [id number] Performed for [facility] [address] [place] [address] Protein [Mass/Vol] 7.8 g/dL Normal 6.4-8.2 [facility] Comment on above: Performed By: #### 3 026-2, 92143-5, 3298-7, 5643-2 #### [facility] [address] [place] [address] Store Team Member - AnaBullock County HospitalLowerydonis YOUNG [id number] #### 43035-4 #### [facility] [address] [place] [address] Store Team Member - [facility] HANNAH [id number] Performed for [facility] [address] [place] [address] Sodium [Moles/Vol] 140 mmol/L Normal 136-145 [facility] Comment on above: Performed By: #### 3 026-2, 44270-3, 3298-7, 5643-2 #### [facility] [address] [place] [address] Store Team Member - Ana YOUNG [id number] #### 26708-0 #### [facility] [address] [place] [address] Store Team Member - Ana YOUNG [id number] Performed for [facility] [address] [place] [address] Urea nitrogen [Mass/Vol] 19 mg/dL Normal 9-20 [facility] Comment on above: Performed By: #### 3 026-2, 17896-7, 3298-7, 5643-2 #### [place] [address] [place] [address] Store Team Member - Ana YOUNG [id number] #### 41523-0 #### [place] [address] [place] [address] Store Team Member - Ana YOUNG [id number] Performed for [place] [address] [place] [address] Drugs identified Screen Nom (U)on 02-13-2021 Amphetamines Ql (U) Not detected Normal CUTOFF = 500 [facility] Comment on above: Performed By: #### 1 2286-1 #### [place] [address] [place] [address] Store Team Member - Ana YOUNG [id number] Barbiturates Ql (U) Not detected Normal CUTOFF = 200 [facility] Comment on above: Performed By: #### 1 2286-1 #### [place] [address] [place] [address] Store Team Member - Ana YOUNG [id number] Benzodiazepines Ql (U) Not detected Normal CUTOF F = 150 [facility] Comment on above: Performed By: #### 1 2286-1 #### [facility] [address] [place] [address] Store Team Member - Ana YOUNG [id number] Cocaine Ql (U) Not detected Normal CUTOFF = 150 [facility] Comment on above: Performed By: #### 1 2286-1 #### [facility] [address] [place] [address] Store Team Member - Ana Lowerydonis YOUNG [id number] [facility] Drugs of abuse screening provides only a preliminary analytical test result. A more specific alternate chemical method must be used in order to obtain a confimed analytical result. Clinical consideration and professional judgment should be applied to any drug of abuse test result, particularly when preliminary positive results are obtained. Normal [facility] Comment on above: Performed By: #### 1 2286-1 #### [facility] [address] [place] [address] Store Team Member - Ana Lowery CLIA [id number] Methadone Ql (U) Not detected Normal CUTOFF = 200 [facility] Comment on above: Performed By: #### 1 2286-1 #### [facility] [address] [place] [address] Store Team Member - [facility] [id number] Opiates Ql (U) Not detected Normal CUTOFF = 300 [facility] Comment on above: Performed By: #### 1 2286-1 #### [facility] [address] [place] [address] Store Team Member - [facility] DistrictIA [id number] oxyCODONE Ql (U) Not detected Normal CUTOFF = 100 [facility] Comment on above: Performed By: #### 1 2286-1 #### [facility] [address] [place] [address] Store Team Member - [facility] DistrictIA [id number] Phencyclidine Ql (U) Not detected Normal CUTOFF = 25 [facility] Comment on above: Performed By: #### 1 2286-1 #### [facility] [address] [place] [address] Store Team Member - [facility] DistrictIA [id number] Tetrahydrocannabinol Ql (U) Not detected Normal CUTOFF = 50 [facility] Comment on above: Performed By: #### 1 2286-1 #### [facility] [address] [place] [address] Store Team Member - Ana YOUNG [id number] Ethanol [Mass/Vol]on 021 [facility] ALCOHOL INTERPRETATI ON <3 mg/dL Negative 50-100 mg/dL Toxic >100 Depression of CREW SCHEDULER ALCOHOL UNIT CONVERSION To convert to g/dL divide result by 1000. Normal [facility] Comment on above: Performed By: #### 3 026-2, 55548-6, 3298-7, 5643-2 #### [facility] [address] [place] [address] Store Team Member - Ana YOUNG [id number] #### 03416-1 #### [facility] [address] [place] [address] Store Team Member - Ana YOUNG [id number] Performed for [facility] [address] [place] [address] SALICYLATEon 02-13-2021 Salicylates [Mass/Vol] mg/dL Low 2.8-20.0 [facility] Comment on above: Performed By: #### 4 024-6 #### [facility] [address] [place] [address] Store Team Member - Ana YOUNG [id number] T4 THYROXINEon 02-13-2021 T4 [Mass/Vol] 5.2 ug/dL Normal 4.5-12.1 [facility] Comment on above: Performed By: #### 3 026-2, 06019-6, 3298-7, 5643-2 #### [facility] [address] [place] [address] Store Team Member - Ana YOUNG [id number] #### 02024-8 #### [facility] [address] [place] [address] Store Team Member - Ana YOUNG [id number] Performed for [facility] [address] [place] [address] TSH DL <= 0.05 mIU/L Qnon TSH Qn 1.760 uIU/mL Normal 0.358-3.740 [facility] Comment on above: Performed By: #### 3 026-2, 67733-5, 3298-7, 5643-2 #### [facility] [address] [place] [address] Store Team Member - Ana YOUNG [id number] #### 18462-8 #### [facility] [address] [place] [address] Store Team Member - Ana YOUNG [id number] Performed for [facility] [address] [place] [address] Urinalysis panel Auto (U)on 02-13-2021 BACTERIA Normal TRACE [facility] Comment on above: Performed By: #### 5 0564-4 #### [facility] [address] [place] [address] Store Team Member - Ana YOUNG [id number] Performed for [facility] [address] [place] [address] Bilirubin Ql (U) Negative Normal NEGATIVE [facility] Comment on above: Performed By: #### 5 0564-4 #### [facility] [address] [place] [address] Store Team Member - Ana YOUNG [id number] Performed for [facility] [address] [place], [place] [address] Clarity (U) CLEAR Normal CLEAR [facility] Comment on above: Performed By: #### 5 0564-4 #### [facility] [address] [place] [address] Store Team Member - Ana YOUNG [id number] Performed for [facility] [address] [place], [place] [address] Color (U) YELLOW Normal YELLOW [facility] Comment on above: Performed By: #### 5 0564-4 #### [facility] [address] [place] [address] Store Team Member - nAa YOUNG [id number] Performed for [facility] [address] [place], [place] [address] Glucose Ql (U) Negative Normal NEGATIVE [facility] Comment on above: Performed By: #### 5 0564-4 #### [facility] [address] [place], [place] [address] Store Team Member - Ana YOUNG [id number] Performed for [facility] [address] [place], [place] [address] Hemoglobin Ql (U) Negative Normal NEGATIVE [facility] Comment on above: Performed By: #### 5 0564-4 #### [facility] [address] [place] [address] Store Team Member - Ana YOUNG [id number] Performed for [facility] [address] [place], [place] [address] HMICRO AUTOMATED MICROSCOPIC Normal [facility] Comment on above: Performed By: #### 5 0564-4 #### [facility] [address] [place] [address] Store Team Member - Ana YOUNG [id number] Performed for [facility] [address] [place], [place] [address] Hyaline casts (Urine sed) [#/Area] Normal 0-8 [facility] Comment on above: Performed By: #### 5 0564-4 #### [facility] [address] [place] [address] Store Team Member - Ana YOUNG [id number] Performed for [facility] [address] [place], [place] [address] KETONE Negative Normal NEGATIVE [facility] Comment on above: Performed By: #### 5 0564-4 #### [facility] [address] [place], [place] [address] Store Team Member - Ana YOUNG [id number] Performed for [facility] [address] [place], [place] [address] Leukocyte esterase Test strip Ql (U) Negative Normal TRACE [facility] Comment on above: Performed By: #### 5 0564-4 #### [facility] [address] [place] [address] Store Team Member - Ana YOUNG [id number] Performed for [facility] [address] [place], [place] [address] Nitrite Ql (U) Negative Normal NEGATIVE [facility] Comment on above: Performed By: #### 5 0564-4 #### [facility] [address] [place], [place] [address] Store Team Member - Ana YOUNG [id number] Performed for [facility] [address] [place], [place] [address] pH (U) 7.0 [pH] Normal 5.5-7.5 [facility] Comment on above: Performed By: #### 5 0564-4 #### [facility] [address] [place], [place] [address] Store Team Member - Ana YOUNG [id number] Performed for [facility] [address] [place], [place] [address] Protein Ql (U) Negative Normal NEGATIVE [facility] Comment on above: Performed By: #### 5 0564-4 #### [facility] [address] [place] [address] Store Team Member - nAa YOUNG [id number] Performed for [facility] [address] [place], [place] [address] RBC LM.HPF (Urine sed) [#/Area] Normal 0-4 [facility] Comment on above: Performed By: #### 5 0564-4 #### [facility] [address] [place], [place] [address] Store Team Member - Ana YOUNG [id number] Performed for [facility] [address] [place], [place] [address] Specific gravity (U) [Rel density] 1.016 Normal 1.010-1.035 [facility] Comment on above: Performed By: #### 5 0564-4 #### [facility] [address] [place], [place] [address] Store Team Member - Ana YOUNG [id number] Performed for [facility] [address] [place], [place] [address] SQUAMOUS EPITHELIALS Normal 0-5 [facility] Comment on above: Performed By: #### 5 0564-4 #### [facility] [address] [place] [address] Store Team Member - Ana YOUNG [id number] Performed for [facility] [address] [place] [address] Urobilinogen Qn (U) 1.0 {Maryjane'U}/dL Normal <=1.0 [facility] Comment on above: Performed By: #### 5 0564-4 #### [facility] [address] [place] [address] Store Team Member - Ana YOUNG [id number] Performed for [facility] [address] [place] [address] WBC LM.HPF (Urine sed) [#/Area] Normal 0-5 [facility] Comment on above: Performed By: #### 5 0564-4 #### [facility] [address] [place] [address] Store Team Member - Ana YOUNG [id number] Performed for [facility] [address] [place] [address] VIRAL RESPIRATORY PANELon Adenovirus Not detected Normal NOT DETECTED [facility] Comment on above: Performed By: #### R ESPIRA #### [facility] [address] [place] [address] Store Team Member - Ana YOUNG [id number] Performed for [facility] [address] [place] [address] B parapertussis Not detected Normal NOT DETECTED [facility] Comment on above: Performed By: #### R ESPIRA #### [facility] [address] [place] [address] Store Team Member - Ana YOUNG [id number] Performed for [facility] [address] [place] [address] B pertussis Not detected Normal NOT DETECTED [facility] Comment on above: Performed By: #### R ESPIRA #### [facility] [address] [place] [address] Store Team Member - Ana YOUNG [id number] Performed for [facility] [address] [place], [place] [address] Chlamydia pneumoniae Not detected Normal NOT DETECTED [facility] Comment on above: Performed By: #### R ESPIRA #### [facility] [address] [place], [place] [address] Store Team Member - Ana Lowery CLIA [id number] Performed for [facility] [address] [place], [place] [address] CORONAVIRUS [id number] Not detected Normal NOT DETECTED [facility] Comment on above: Performed By: #### R ESPIRA #### [facility] [address] [place], [place] [address] Store Team Member [facility] Hospital[facility] CLIA [id number] Performed for [facility] [address] [place], [place] [address] CORONAVIRUS HKU1 Not detected Normal NOT DETECTED [facility] Comment on above: Performed By: #### R ESPIRA #### [facility] [address] [place], [place] [address] Store Team Member - Ana MCCORDIA [id number] Performed for [facility] [address] [place], [place] [address] CORONAVIRUS NL63 Not detected Normal NOT DETECTED [facility] Comment on above: Performed By: #### R ESPIRA #### [facility] [address] [place], [place] [address] Store Team Member - Ana MCCORDIA [id number] Performed for [facility] [address] [place], [place] [address] CORONAVIRUS OC43 Not detected Normal NOT DETECTED [facility] Comment on above: Performed By: #### R ESPIRA #### [facility] [address] [place], [place] [address] Store Team Member - Ana MCCORDIA [id number] Performed for [facility] [address] [place], [place] [address] HPCR TESTING PERFORMED BY PCR METHODOLOGY Normal [facility] Comment on above: Performed By: #### R ESPIRA #### [facility] [address] [place], [place] [address] Store Team Member - Ana MCCORDIA [id number] Performed for [facility] [address] [place], [place] [address] HPCRB TEST PERFORMED USING BIOFIRE Normal [facility] Comment on above: Performed By: #### R ESPIRA #### [facility] [address] [place], [place] [address] Store Team Member - Ana MCCORDIA [id number] Performed for [facility] [address] [place], [place] [address] Human Metapneumoviru Not detected Normal NOT DETECTED [facility] Comment on above: Performed By: #### R ESPIRA #### [facility] [address] [place], [place] [address] Store Team Member - Ana MCCORDIA [id number] Performed for [facility] [address] [place], [place] [address] Influenza A Not detected Normal NOT DETECTED [facility] Comment on above: Performed By: #### R ESPIRA #### [facility] [address] [place], [place] [address] Store Team Member - Ana MCCORDIA [id number] Performed for [facility] [address] [place], [place] [address] Influenza A / H1 Normal NOT DETECTED [facility] Comment on above: Performed By: #### R ESPIRA #### [facility] [address] [place], [place] [address] Store Team Member - Ana MCCORDIA [id number] Performed for [facility] [address] [place], [place] [address] Influenza A / H3 Normal NOT DETECTED [facility] Comment on above: Performed By: #### R ESPIRA #### [facility] [address] [place], [place] [address] Store Team Member - Ana MCCORDIA [id number] Performed for [facility] [address] [place], [place] [address] Influenza A H1-2009 Normal NOT DETECTED [facility] Comment on above: Performed By: #### R ESPIRA #### [facility] [address] [place], [place] [address] Store Team Member - Ana MCCORDIA [id number] Performed for [facility] [address] [place], [place] [address] Influenza B Not detected Normal NOT DETECTED [facility] Comment on above: Performed By: #### R ESPIRA #### [facility] [address] [place], [place] [address] Store Team Member - Ana MCCORDIA [id number] Performed for [facility] [address] [place], [place] [address] Mycoplasma pneumonia Not detected Normal NOT DETECTED [facility] Comment on above: Performed By: #### R ESPIRA #### [facility] [address] [place] [address] Store Team Member - Ana MCCORDIA [id number] Performed for [facility] [address] [place] [address] Parainfluenza 1 Not detected Normal NOT DETECTED [facility] Comment on above: Performed By: #### R ESPIRA #### [facility] [address] [place] [address] Store Team Member - Ana Lowery CLIA [id number] Performed for [facility] [address] [place] [address] Parainfluenza 2 Not detected Normal NOT DETECTED [facility] Comment on above: Performed By: #### R ESPIRA #### [facility] [address] [place] [address] Store Team Member - Ana MCCORDIA [id number] Performed for [facility] [address] [place], [place] [address] Parainfluenza 3 Not detected Normal NOT DETECTED [facility] Comment on above: Performed By: #### R ESPIRA #### [facility] [address] [place] [address] Store Team Member - Ana Lowery CLIA [id number] Performed for [facility] [address] [place], [place] [address] Parainfluenza 4 Not detected Normal NOT DETECTED [facility] Comment on above: Performed By: #### R ESPIRA #### [facility] [address] [place] [address] Store Team Member - Ana MCCORDIA [id number] Performed for [facility] [address] [place] [address] Rhinovirus Not detected Normal NOT DETECTED [facility] Comment on above: Performed By: #### R ESPIRA #### [facility] [address] [place] [address] Store Team Member - Ana YOUNG [id number] Performed for [facility] [address] [place] [address] RSV Not detected Normal NOT DETECTED [facility] Comment on above: Performed By: #### R ESPIRA #### [facility] [address] [place] [address] Store Team Member - Ana YOUNG [id number] Performed for [facility] [address] [place] [address] SARS-CoV-2 (COVID-19) RNA ABHIJIT+probe Ql (Unsp spec) Not detected Normal NOT DETECTED [facility] Comment on above: Performed By: #### R AZALEA #### [facility] [address] [place] [address] Store Team Member - Ana YOUNG [id number] Performed for [facility] [address] [place] [address] Provider Note - ED v2on 01-03 Provider Note - ED v2 Provider Note - ED v2: Chart Review: ED NOTES ED NOTES: Came in with complaints of left ear pain. Patient says it started this morning. Patient denies any other symptoms or complaints at this time. HISTORY OF PRESENTING ILLNESS RUBÉN is a 15 year old Male and was seen by me at 16-Jan-2021 13:44. The historian is the patient. Triage Information: Most recent Vital Sign Value Date PAST MEDICAL HISTORY ATTESTATION: I have reviewed and confirmed nurse's/medic's notes for patient's medications, allergies, and medical, surgical, family and social history PSYCHOSOCIAL SCREENING: NO: concerns for safety at home, feelings of depression, feels like hurting others and feels like hurting self ALLERGIES/INTOLERANCES: No Known Allergies HEALTH HISTORY: No documented data. OUTPATIENT MEDICATIONS: Home Medications Review Status for Reconciliation: Complete Med Status: Patient Currently Takes Medications Drug Name: amoxicillin-clavulanate 875 mg-125 mg oral tablet Instructions: 1 tab(s) orally 2 times a day SIGNIFICANT EVENTS: Social/Behavioral Description:DENIES ALCOHOL/TOBACCO REVIEW OF SYSTEMS ENMT Ears: POSITIVE for: pain All other systems reviewed and are negative RESULTS/VITAL SIGNS VITAL SIGNS: T PRBP SpO2O2(LPM) %FiO2 Method 16-Jan-2021 13:30:[id number]/7 0 96 PHYSICAL EXAM CONSTITUTIONAL: Well appearing, well nourished, awake, alert, oriented to person, place, time/situation and in no apparent distress. HENMT: Airway patent, tympanic membrane has erythema and bulging right tympanic membrane is within normal limits nasal mucosa clear. Mouth with normal mucosa. Throat has no vesicles, no oropharyngeal exudates and uvula is midline. Face with no lymph node enlargement. EYES: pupils are accommodating CARDIOVASCULAR: Normal rate, regular rhythm. RESPIRATORY: Breath sounds clear and equal bilaterally and unlabored. no Rales rhonchi or crackles. MUSCULOSKELETAL: range of motion is not limited, no muscle or joint tenderness. NEUROLOGICAL: Alert and oriented, no focal deficits, no motor or sensory deficits. SKIN: Skin normal color for race, warm, dry and intact. No evidence of trauma. PSYCHIATRIC: Alert and oriented to person, place, time/situation. normal mood and affect. No apparent risk to self or others. HEME/LYMPH: No cervical adenopathy. CLINICAL IMPRESSION Diagnosis/Annotation: ED Dx Name:Otitis media Code:H66.90 Disposition: discharged Type: home ATTESTATION Comments/Additional Findings: Given Augmentin twice a day for 10 days. Patient was educated about proper use of medication supportive therapies patient and grandmother were okay with this care plan will follow up with signs and symptoms to be getting worse not better. CRITICAL CARE TIME Is this a critically ill patient: no Electronic Signatures: Kelley Bird (POLLS OR SURVEYS INTERVIEWER-TEMPLATE MAKER) (Signed 16-Jan-2021 13:46) Authored: ED Notes, HPI, PMH, ROS, PE, Results/Vital Signs, Clinical Impression, Attestation, Chart Review, Scores Last Updated: 16-Jan-2021 13:46 by Kelley Bird (POLLS OR SURVEYS INTERVIEWER-TEMPLATE MAKER) [facility] Vital Signs Date Time Vital Sign Value Performing Clinician Facility 06-23-2025 17:13-0400 Body temperature 98.1 [degF] Arben Funes Jr., DO Work Phone: [facility] 06-23-2025 17:13-0400 Diastolic blood pressure 40 mm[Hg] Arben Funes Jr., DO Work Phone: [facility] 06-23-2025 17:13-0400 Heart rate 75 /min Arbentanvi Funes Jr., DO Work Phone: [facility] 06-23-2025 17:13-0400 Respiratory rate 16 /min Arbentanvi Funes Jr., DO Work Phone: [facility] 06-23-2025 17:13-0400 SaO2% (BldA) [Mass fraction] 95 % Arbentanvi Funes Jr., DO Work Phone: [facility] 06-23-2025 17:13-0400 Systolic blood pressure 160 mm[Hg] Arben Funes Jr., DO Work Phone: [facility] 06-22-2025 08:12-0400 Body height 177.8 cm Arbentanvi Funes Jr., DO Work Phone: [facility] 06-18-2025 15:49-0400 Body mass index (BMI) [Ratio] 37.81 kg/m2 Arbentanvi Funes Jr., DO Work Phone: [facility] 06-18-2025 15:49-0400 Body weight 119.52 kg Arben Funes Jr., DO Work Phone: [facility] 06-18-2025 00:06-0400 Diastolic blood pressure 50 mm[Hg] No Primary Care Physician [facility] 06-18-2025 00:06-0400 Heart rate 66 /min No Primary Care Physician [facility] 06-18-2025 00:06-0400 SaO2% (BldA) [Mass fraction] 93 % No Primary Care Physician [facility] 06-18-2025 00:06-0400 Systolic blood pressure 97 mm[Hg] No Primary Care Physician [facility] 06-17-2025 23:16-0400 Body temperature 97.9 [degF] No Primary Care Physician [facility] 06-17-2025 23:16-0400 Respiratory rate 16 /min No Primary Care Physician [facility] 06-17-2025 11:08-0400 Body height 180.34 cm No Primary Care Physician [facility] 06-17-2025 11:08-0400 Body mass index (BMI) [Percentile] Per age and sex 98.4 % No Primary Care Physician [facility] 06-17-2025 11:08-0400 Body mass index (BMI) [Ratio] 34.2 kg/m2 No Primary Care Physician [facility] 06-17-2025 11:08-0400 Body weight 111.58 kg No Primary Care Physician [facility] 05-20-2025 07:54-0400 Body height 177.8 cm Dmitriy Powell MD Work Phone: [facility] 05-20-2025 07:54-0400 Body mass index (BMI) [Ratio] 34.67 kg/m2 Dmitriy Powell MD Work Phone: [facility] 05-20-2025 07:54-0400 Body temperature 97.3 [degF] Dmitriy Powell MD Work Phone: [facility] 05-20-2025 07:54-0400 Body weight 109.59 kg Dmitriy Powell MD Work Phone: [facility] 05-20-2025 07:54-0400 Diastolic blood pressure 60 mm[Hg] Dmitriy Powell MD Work Phone: [facility] 05-20-2025 07:54-0400 Heart rate 90 /min Dmitriy Powell MD Work Phone: [facility] 05-20-2025 07:54-0400 Respiratory rate 16 /min Dmitriy Powell MD Work Phone: [facility] 05-20-2025 07:54-0400 Systolic blood pressure 116 mm[Hg] Dmitriy Powell MD Work Phone: [facility] 03-28-2025 08:17-0400 Body temperature 97.6 [degF] Dr. Spring Fragoso DO Work Phone: 4(178)694-912825 [place] [address] 03-28-2025 08:17-0400 Diastolic blood pressure 70 mm[Hg] Dr. Spring Fragoso DO Work Phone: 9(491)116-428125 [place] [address] 03-28-2025 08:17-0400 Heart rate 90 /min Dr. Spring Fragoso DO Work Phone: 6(658)088-099434 [place] [address] 03-28-2025 08:17-0400 Respiratory rate 18 /min Dr. Spring Fragoso DO Work Phone: 8(758)314-293312 [address] 03-28-2025 08:17-0400 SaO2% (BldA) [Mass fraction] 95 % Dr. Spring Fragoso DO Work Phone: 5(115)475-372634 [place] [address] 03-28-2025 08:17-0400 Systolic blood pressure 114 mm[Hg] Dr. Spring Fragoso DO Work Phone: 3(266)420-253934 [place] [address] 03-27-2025 18:43-0400 Body height 180.[address] Spring Fragoso DO Work Phone: 7(038)169-791525 [place] [address] 03-27-2025 18:43-0400 Body mass index (BMI) [Percentile] Per age and sex 97.8 % Dr. Spring Fragoso DO Work Phone: 6(842)204-136434 [place] [address] 03-27-2025 18:43-0400 Body mass index (BMI) [Ratio] 32.8 kg/m2 Dr. Spring Fragoso DO Work Phone: 4(663)888-744925 [place] [address] 03-27-2025 18:43-0400 Body weight 106.[address] Spring Fragoso DO Work Phone: 1(969)955-772525 [place] [address] 03-12-2025 19:23-0400 Body height 177.8 cm Francisco Loaiaz MD Work Phone: [facility] 03-12-2025 19:23-0400 Body mass index (BMI) [Ratio] 32.57 kg/m2 Francisco Loaiza MD Work Phone: [facility] 03-12-2025 19:23-0400 Body temperature 98.71 [degF] Francisco Loaiza MD Work Phone: [facility] 03-12-2025 19:23-0400 Body weight 102.97 kg Francisco Loaiza MD Work Phone: [facility] 03-12-2025 19:23-0400 Diastolic blood pressure 81 mm[Hg] Francisco Loaiza MD Work Phone: [facility] 03-12-2025 19:23-0400 Heart rate 83 /min Francisco Loaiza MD Work Phone: [facility] 03-12-2025 19:23-0400 Respiratory rate 16 /min Francisco Loaiza MD Work Phone: [facility] 03-12-2025 19:23-0400 SaO2% (BldA) [Mass fraction] 94 % Francisco Loaiza MD Work Phone: [facility] 03-12-2025 19:23-0400 Systolic blood pressure 127 mm[Hg] Francisco Loaiza MD Work Phone: [facility] 02-28-2025 13:36-0400 Body temperature 97.8 [degF] Dr. Spring Fragoso DO Work Phone: [facility] 02-28-2025 13:36-0400 Diastolic blood pressure 96 mm[Hg] Dr. Spring Fragoso DO Work Phone: [facility] 02-28-2025 13:36-0400 Heart rate 99 /min Dr. Spring Fragoso DO Work Phone: [facility] 02-28-2025 13:36-0400 Respiratory rate 18 /min Dr. Spring Fragoso DO Work Phone: [facility] 02-28-2025 13:36-0400 SaO2% (BldA) [Mass fraction] 99 % Dr. Spring Fragoso DO Work Phone: [facility] 02-28-2025 13:36-0400 Systolic blood pressure 145 mm[Hg] Dr. Spring Fragoso DO Work Phone: 6(319)104-179825 [place] [address] 02-28-2025 10:54-0400 Body height 180.[address] Spring Fragoso DO Work Phone: 0(141)915-419125 [place] [address] 02-28-2025 10:54-0400 Body mass index (BMI) [Percentile] Per age and sex 96.6 % Dr. Spring Fragoso DO Work Phone: 4(467)693-824034 [place] [address] 02-28-2025 10:54-0400 Body mass index (BMI) [Ratio] 31.2 kg/m2 Dr. Spring Fragoso DO Work Phone: 8(457)128-236534 [place] [address] 02-28-2025 10:54-0400 Body weight 101.[address] Spring Fragoso DO Work Phone: 3(236)543-648034 [place] [address] 01-07-2025 19:00-0400 Body temperature 98.5 [degF] Dr. Spring Fragoso DO Work Phone: 0(154)809-301234 [place] [address] 01-07-2025 19:00-0400 Diastolic blood pressure 90 mm[Hg] Dr. Spring Fragoso DO Work Phone: 7(422)482-150034 [place] [address] 01-07-2025 19:00-0400 Heart rate 95 /min Dr. Spring Fragoso DO Work Phone: 0(984)884-974825 [place] [address] 01-07-2025 19:00-0400 Respiratory rate 18 /min Dr. Spring Fragoso DO Work Phone: 1(410)662-784034 [place] [address] 01-07-2025 19:00-0400 SaO2% (BldA) [Mass fraction] 95 % Dr. Spring Fragoso DO Work Phone: 5(537)831-856025 [place] [address] 01-07-2025 19:00-0400 Systolic blood pressure 130 mm[Hg] Dr. Spring Fragoso DO Work Phone: 8(118)324-503534 [place] [address] 01-07-2025 12:57-0400 Body mass index (BMI) [Percentile] Per age and sex 92.1 % Dr. Spring Fragoso DO Work Phone: [facility] 01-07-2025 12:57-0400 Body mass index (BMI) [Ratio] 28.4 kg/m2 Dr. Spring Fragoso DO Work Phone: [facility] 01-07-2025 12:57-0400 Body weight 92.[address] Spring Fragoso DO Work Phone: [facility] 01-16-2021 15:30-0400 Body height 175.2 cm Almita Gottlieb Other Phone: [facility] 01-16-2021 15:30-0400 Body temperature 98.24 [degF] Almita Gottlieb Other Phone: [facility] 01-16-2021 15:30-0400 Diastolic blood pressure 70 mm[Hg] Almita Gottlieb Other Phone: [facility] 01-16-2021 15:30-0400 Heart rate 114 /min Almita Gottlieb Other Phone: [facility] 01-16-2021 15:30-0400 Respiratory rate 16 /min Almita Gottlieb Other Phone: [facility] 01-16-2021 15:30-0400 SaO2% (BldA) [Mass fraction] 96 % Almita Gottlieb Other Phone: [facility] 01-16-2021 15:30-0400 Systolic blood pressure 104 mm[Hg] Almita Gottlieb Other Phone: [facility] Encounters Encounter Date Encounter Type Care Provider Facility Start: 07-08-2025 End: 07-08-2025 ambulatory RONEY DIA [facility] Start: 06-23-2025 End: 06-27-2025 Evaluation and management of inpatient [facility] Start: 06-18-2025 End: 06-23-2025 Evaluation and management of inpatient Arben Funes DO Work Phone: [facility] Respiratory Unit 7W Comment on above: Foreign body in inte rebecca, initial encounter (Primary Dx); Suicidal ideation Start: 06-17-2025 End: 06-18-2025 Emergency department patient visit No Primary Care Physician Facility:[facility] Start: 06-17-2025 End: 06-17-2025 ambulatory DMITRIY POWELL Facility:[facility] Start: 06-14-2025 End: 06-14-2025 ambulatory SARAH ROCHE Facility:[facility] Start: 05-20-2025 End: 05-21-2025 Initial preventive medicine new pt age 18-39yrs Dmitriy Powell MD Work Phone: Pediatrics Comment on above: Encounter for latonyain ation for admission to residential institution (Primary Dx); Obesity, Class I, BMI 30-34.9; Bilateral club feet; Tongue fasciculation Start: 05-20-2025 End: 05-21-2025 ambulatory DMITRIY POWELL Facility:[facility] Start: 04-29-2025 End: 04-29-2025 Refill Dmitriy Powell MD Work Phone: [facility] [place] Start: 04-26-2025 End: 04-26-2025 ambulatory SARAH ROCHE Facility:[facility] Start: 04-20-2025 End: 04-21-2025 Emergency department patient visit ALMITA Porter TREY [facility] Start: 03-27-2025 End: 03-28-2025 Emergency department patient visit Dr. Spring Fragoso DO Work Phone: -Emergency Department Work Phone: Start: 03-12-2025 End: 03-12-2025 Emergency department patient visit Francisco Loaiza MD Work Phone: [facility] Comment on above: Closed head injury, initial encounter (Primary Dx) Start: 03-12-2025 End: 03-12-2025 Evaluation and management of inpatient Francisco Loaiza MD Work Phone: [facility] Start: 02-28-2025 End: 02-28-2025 Emergency department patient visit Dr. Spring Fragoso DO Work Phone: -Emergency Department Work Phone: Start: 01-07-2025 End: 01-07-2025 Emergency department patient visit Dr. Spring Fragoso DO -Emergency Department Work Phone: Start: 01-17-2022 End: 01-18-2022 Emergency department patient visit ALMITA [facility] Start: 11-26-2021 End: 11-26-2021 Subsequent hospital visit by physician Arben Zamora MD Work Phone: Magnetic Resonance Comment on above: Abnormal MRI of head ; Neuroepithelial cyst Start: 04-09-2021 End: 04-09-2021 Emergency department patient visit [facility] Start: 02-13-2021 End: 02-14-2021 ambulatory NEREIDA K REYNOSO DO Facility:[facility] Start: 01-16-2021 End: 01-16-2021 Emergency department patient visit [facility] Start: 06-27-2018 End: 06-27-2018 Emergency department patient visit Almita Powers [facility] Facility:[facility] Start: 06-27-2018 Patient encounter Facil [id number] Procedures Date Procedure Procedure Detail Performing Clinician Start: 06-23-2025 Radiologic exam abdo men 1 view Brigida Elise MD Work Phone: Start: 06-23-2025 Basic metabolic pane l calcium total Eli Villalpando PERSONNEL SECURITY ASSISTANT Work Phone: Start: 06-22-2025 Radiologic exam abdo men 1 view Irineo Arredondo MD Work Phone: Start: 06-22-2025 Basic metabolic pane l calcium total Eli Villalpando PERSONNEL SECURITY ASSISTANT Work Phone: Start: 06-21-2025 Radiologic exam abdo men 1 view Soy Pedraza MD Work Phone: Start: 06-21-2025 Radiologic exam abdo men 1 view Irineo Arredondo MD Work Phone: Start: 06-21-2025 Basic metabolic pane l calcium total Eli Villalpando PERSONNEL SECURITY ASSISTANT Work Phone: Start: 06-20-2025 Radiologic exam abdo men 1 view Irineo Arredondo MD Work Phone: Start: 06-20-2025 Basic metabolic pane l calcium total Eli Villalpando PERSONNEL SECURITY ASSISTANT Work Phone: Start: 06-19-2025 Radiologic exam abdo men 1 view Irineo Arredondo MD Work Phone: Start: 06-19-2025 Basic metabolic pane l calcium total Eli Villalpando PERSONNEL SECURITY ASSISTANT Work Phone: Start: 06-18-2025 Drug tst prsmv instr mnt chem analyzers pr date Aki Miller DO Work Phone: Start: 06-18-2025 Urnls dip stick/tabl et rgnt auto w/o microscopy Aki Miller DO Work Phone: Start: 06-18-2025 Radiologic exam abdo men 1 view Aki Miller DO Work Phone: Start: 06-18-2025 Comprehensive metabo lic panel Aki Miller DO Work Phone: Start: 06-18-2025 Drug assay valproic dipropylacetic acid total Crystal Araiza POLLS OR SURVEYS INTERVIEWER - TEMPLATE MAKER Work Phone: Start: 06-18-2025 SARS-CoV-2 (COVID-19 ) Ag [Presence] in Respiratory specimen by Rapid immunoassay Aki Miller DO Work Phone: Start: 06-18-2025 Ecg routine ecg w/le ast 12 lds trcg only w/o i&r Aki Miller DO Work Phone: Start: 06-17-2025 Ct abdomen & pelvis w/contrast material No Primary Care Physician Start: 06-17-2025 CT of soft tissues o f neck with contrast No Primary Care Physician Start: 06-17-2025 CT of thorax with contrast No Primary Care Physician Start: 06-17-2025 Estimated creatinine clearance No Primary Care Physician Start: 06-17-2025 Methadone measuremen t, urine No Primary Care Physician Start: 05-20-2025 Adult depression scr eening assessment Dmitriy Powell MD Work Phone: Start: 04-20-2025 Urinalysis ALMITA SUNITA LEONG Comment on above: Result Comment: URIN ALYSIS Performed By: #### 2 [id number] ####Gerry [facility],[address] [place] [address] Start: 03-27-[address] Spring Fragoso DO Work Phone: Start: 03-27-2025 Methadone measuremen t, urine Dr. Spring Fragoso DO Work Phone: Start: 03-12-2025 Ct head/brain w/o co ntrast material Francisco Loaiza MD Work Phone: Start: 03-12-2025 Ct cervical spine w/ o contrast material Francisco Loaiza MD Work Phone: Start: 02-28-[address] Spring Fragoso DO Work Phone: Start: 02-28-2025 Methadone measuremen t, urine Dr. Spring Fragoso DO Work Phone: Start: 01-07-[address] Spring Fragoso DO Work Phone: Start: 01-07-2025 Methadone measuremen t, urine Dr. Spring Fragoso DO Work Phone: Start: 11-26-2021 Mri brain brain stem w/o contrast material Arben Zamora MD Work Phone: Plan of Treatment Date Care Activity Detail Author Start: 2080 RSV Immunization for Adults (1 - 1-dose 75+ series) RSV Immunization for Adults (1 - 1-dose 75+ series) [facility] Start: 11-06-2055 Zoster Vaccines (1 of 2) Zoster Vaccines (1 of 2) [facility] Start: 05-05-2027 DTaP/Tdap/Td Vaccines (7 - Td or Tdap) DTaP/Tdap/Td Vaccines (7 - Td or Tdap) [facility] Start: 05-05-2027 Tetanus Diphtheria and Pertussis Vaccines (7 - Td or Tdap) Tetanus Diphtheria and Pertussis Vaccines (7 - Td or Tdap) [facility] Start: 05-05-2027 Urine microalbumin profile DTaP,Tdap,Td Vaccine (7 - Td or Tdap) [facility] Start: 05-20-2026 Depression Screening Depression Screening [facility] Start: 12-17-2025 Depression Monitoring Depression Monitoring [facility] Start: 06-17-2025 [facility] Start: 06-17-2025 Referral to service [facility] Start: 06-17-2025 End: 06-17-2025 Suicide precautions [facility] Start: 05-06-2025 COVID-19 Vaccine ( season) COVID-19 Vaccine ( season) [facility] Start: 05-06-2025 Influenza vaccination Influenza Vaccine (#1) [facility] Start: 03-28-2025 [facility] Start: 03-27-2025 [facility] Start: 03-27-2025 Suicide precautions [facility] Start: 02-28-2025 [facility] Start: 02-28-2025 Consultation [facility] Start: 02-28-2025 Referral to service [facility] Start: 02-28-2025 Suicide precautions [facility] Start: 01-07-2025 [facility] Start: 01-07-2025 [facility] Start: 2024 DTaP,Tdap,and Td Vaccines (1 - Tdap) DTaP,Tdap,and Td Vaccines (1 - Tdap) [facility] Start: 2024 Hepatitis B Vaccines (1 of 3 - 19+ 3-dose series) Hepatitis B Vaccines (1 of 3 - 19+ 3-dose series) [facility] Start: 05-06-2024 COVID-19 Vaccine ( season) COVID-19 Vaccine ( season) [facility] Start: 11-06-2023 Anxiety Screening Anxiety Screening [facility] Start: 11-06-2023 Depression Screening Depression Screening [facility] Start: 11-06-2023 Hepatitis C screening Hepatitis C Screening [facility] Start: 11-06-2023 HIV screening HIV Screening [facility] Start: 06-17-2022 End: 06-17-2022 Patient encounter procedure 06/17/2022 Office Visit Pediatric Orthopedic Surgery Bianca Quezada MD [address] [place] [address] [facility] Start: 12-29-2021 End: 12-29-2021 Patient encounter procedure 12/29/2021 Office Visit Pediatrics Almita Gottlieb DO [address] [place] [address] [facility] Start: 12-16-2021 Well Visit Well Visit [facility] Start: 11-30-2021 End: 11-30-2021 Patient encounter procedure 11/30/2021 Procedure visit [place] [address] Neurology [facility] Start: 2021 MenACWY (2 - 2-dose series) MenACWY (2 - 2-dose series) [facility] Start: 2021 MenB (1 of 2 - MenB 2-Dose Series) MenB (1 of 2 - MenB 2-Dose Series) [facility] Start: 2021 Meningococcal B Vaccine (1 of 2 - Standard) Meningococcal B Vaccine (1 of 2 - Standard) [facility] Start: 2020 HPV Vaccines (1 - Male 3-dose series) HPV Vaccines (1 - Male 3-dose series) [facility] Start: 2020 Vision Screening Vision Screening [facility] Start: 11-06-2019 Peds To Adult Transition Annual Assessment Peds To Adult Transition Annual Assessment [facility] Start: 2018 Varicella Vaccines (1 of 2 - 13+ 2-dose series) Varicella Vaccines (1 of 2 - 13+ 2-dose series) [facility] Start: 2017 Peds To Adult Transition Initial Discussion Peds To Adult Transition Initial Discussion [facility] Start: 2010 COVID-19 (1) COVID-19 (1) [facility] Start: 07-08-2006 Application of dental fluoride varnish Fluoride Varnish [facility] Start: 2005 HIV screening HIV Screening [facility] Patient referral [facility] Work Phone: Immunizations Immunization Date Immunization Notes Care Provider Fa michaela 07-21-2023 influenza virus vacc ine, unspecified formulation Dmitriy Powell MD Work Phone: [facility] 07-14-2021 influenza, injectabl e, quadrivalent, preservative free Arben Zamora MD Work Phone: [facility] 05-26-2020 tuberculin skin test ; purified protein derivative solution, intradermal Dmitriy Powell MD Work Phone: [facility] 06-25-2019 influenza virus vacc ine, unspecified formulation Dmitriy Powell MD Work Phone: [facility] 06-25-2019 influenza, injectabl e, quadrivalent, preservative free Arben Zamora MD Work Phone: [facility] 06-01-2018 hepatitis A vaccine, pediatric/adolescent dosage, 2 dose schedule Arben Zamora MD Work Phone: [facility] 06-01-2018 hepatitis A vaccine, unspecified formulation Dmitriy Powell MD Work Phone: [facility] 06-01-2018 human papilloma viru s vaccine, quadrivalent Dmitriy Powell MD Work Phone: [facility] 06-01-2018 Human Papillomavirus 9-valent vaccine Arben Zamora MD Work Phone: [facility] 05-05-2017 hepatitis A vaccine, pediatric/adolescent dosage, 2 dose schedule Arben Zamora MD Work Phone: [facility] 05-05-2017 hepatitis A vaccine, unspecified formulation Dmitriy Powell MD Work Phone: [facility] 05-05-2017 human papilloma viru s vaccine, quadrivalent Dmitriy Powell MD Work Phone: [facility] 05-05-2017 Human Papillomavirus 9-valent vaccine Arben Zamora MD Work Phone: [facility] 05-05-2017 meningococcal oligosaccharide (groups A, C, Y and W-135) diphtheria toxoid conjugate vaccine (MCV4O) Dmitriy Powell MD Work Phone: [facility] 05-05-2017 meningococcal polysaccharide (groups A, C, Y and W-135) diphtheria toxoid conjugate vaccine (MCV4P) Arben Zamora MD Work Phone: [facility] 05-05-2017 tetanus toxoid, redu alex diphtheria toxoid, and acellular pertussis vaccine, adsorbed Arben Zamora MD Work Phone: [facility] 10-01-2015 influenza, injectabl e, quadrivalent, preservative free Arben Zamora MD Work Phone: [facility] 04-04-2012 diphtheria, tetanus toxoids and acellular pertussis vaccine Arben Zamora MD Work Phone: [facility] 04-04-2012 measles, mumps and rubella virus vaccine Dmitriy Powell MD Work Phone: [facility] 04-04-2012 measles, mumps, rube lla, and varicella virus vaccine Arben Zamora MD Work Phone: [facility] 04-04-2012 poliovirus vaccine, inactivated Arben Zamora MD Work Phone: [facility] 04-04-2012 varicella virus vaccine Dmitriy Powell MD Work Phone: [facility] 05-09-2007 diphtheria, tetanus toxoids and acellular pertussis vaccine Arben Zamora MD Work Phone: [facility] 05-09-2007 pneumococcal conjuga te vaccine, 13 valent Dmitriy Powell MD Work Phone: [facility] 05-09-2007 pneumococcal conjuga te vaccine, 7 valent Arben Zamora MD Work Phone: [facility] 12-16-2006 haemophilus influenz ae type b vaccine, HbOC conjugate Dmitriy Powell MD Work Phone: [facility] 12-16-2006 haemophilus influenz ae type b vaccine, PRP-T conjugate Arben Zamora MD Work Phone: [facility] 12-16-2006 hepatitis B vaccine, pediatric or pediatric/adolescent dosage Arben Zamora MD Work Phone: [facility] 12-16-2006 measles, mumps and rubella virus vaccine Dmitriy Powell MD Work Phone: [facility] 12-16-2006 measles, mumps, rube lla, and varicella virus vaccine Arben Zamora MD Work Phone: [facility] 12-16-2006 varicella virus vaccine Dmitriy Powell MD Work Phone: [facility] 08-31-2006 Influenza Vaccine 0. 25 mL 6-35 mo Trivalent Arben Zamora MD Work Phone: [facility] 08-31-2006 influenza virus vacc ine, unspecified formulation Dmitriy Powell MD Work Phone: [facility] 08-04-2006 Influenza Vaccine 0. 25 mL 6-35 mo Trivalent Arben Zamora MD Work Phone: [facility] 08-04-2006 influenza virus vacc ine, unspecified formulation Dmitriy Powell MD Work Phone: [facility] 05-11-2006 diphtheria, tetanus toxoids and acellular pertussis vaccine Arben Zamora MD Work Phone: [facility] 05-11-2006 haemophilus influenz ae type b vaccine, HbOC conjugate Dmitriy Powell MD Work Phone: [facility] 05-11-2006 haemophilus influenz ae type b vaccine, PRP-T conjugate Arben Zamora MD Work Phone: [facility] 05-11-2006 pneumococcal conjuga te vaccine, 13 valent Dmitriy Powell MD Work Phone: [facility] 05-11-2006 pneumococcal conjuga te vaccine, 7 valent Arben Zamora MD Work Phone: [facility] 05-11-2006 poliovirus vaccine, inactivated Arben Zamora MD Work Phone: [facility] 03-09-2006 diphtheria, tetanus toxoids and acellular pertussis vaccine Arben Zamora MD Work Phone: [facility] 03-09-2006 haemophilus influenz ae type b vaccine, HbOC conjugate Dmitriy Powell MD Work Phone: [facility] 03-09-2006 haemophilus influenz ae type b vaccine, PRP-T conjugate Arben Zamora MD Work Phone: [facility] 03-09-2006 pneumococcal conjuga te vaccine, 13 valent Dmitriy Powell MD Work Phone: [facility] 03-09-2006 pneumococcal conjuga te vaccine, Maxi valent Arben Zamora MD Work Phone: [facility] 03-09-2006 poliovirus vaccine, inactivated Arben Zamora MD Work Phone: [facility] 2005 haemophilus influenz ae type b vaccine, HbOC conjugate Dmitriy Powell MD Work Phone: [facility] 2005 haemophilus influenz ae type b vaccine, PRP-T conjugate Arben Zamora MD Work Phone: [facility] 2005 hepatitis B vaccine, pediatric or pediatric/adolescent dosage Arben Zamora MD Work Phone: [facility] 2005 pneumococcal conjuga te vaccine, Angelina Powell MD Work Phone: [facility] 2005 pneumococcal conjuga te vaccine, Maxi valent Arben Zamora MD Work Phone: [facility] 2005 diphtheria, tetanus toxoids and acellular pertussis vaccine Arben Zamora MD Work Phone: [facility] 2005 poliovirus vaccine, inactivated Arben Zamora MD Work Phone: [facility] 2005 hepatitis B vaccine, pediatric or pediatric/adolescent dosage Arben Zamora MD Work Phone: [facility] Payers Date Payer Category Payer Self-pay 2024 Medicaid [employer] Member Mahmood bscriber Plan / Payer (Effective 2024-Present) Name: Rubén Gibbs Relation to Subscriber: Self Name: Rubén Gibbs Payer ID: [id number] (NAIC) Type: Medicaid Address: [address] [place] [id number] 2024 Medicaid (Managed Care) [id number]. [id number] 2024 Medicaid HMO [employer] HEALTHY H YEHUDA ODM [id number] 2018 Unknown 2016 Unknown [id number] 2011 Unknown [id number] 2005 Unknown [id number] 2005 Unknown [id number] 2005 Unknown [id number] 2005 Unknown [id number] 1982 Unknown [id number] 1980 Unknown [id number] 1979 Unknown [id number] 1959 Unknown [id number] Self-pay [id number] Unknown [id number] Unknown [id number] Unknown [id number] Unknown [id number] 462 Unknown [id number] Social History Date Type Detail Facility [facility] Tobacco smoking consumption unknown [facility] Start: 03-27-2012 End: 06-17-2025 Tobacco smoking status NHIS Never smoked tobacco [facility] Start: 03-27-2012 End: 06-18-2025 Tobacco use and exposure Smokeless tobacco non-user [facility] Start: 11-03-2021 End: 06-21-2025 Alcohol intake Lifetime non-drinker (finding) [facility] Start: 05-24-2021 History SDOH Alcohol Frequency 1 [facility] Start: 2005 Sex Assigned At Not on file [facility] Start: 11-08-2021 End: 11-18-2021 Exposure to SARS-CoV-2 (event) Not sure [facility] Start: 09-09-2020 Alcohol Alcohol [facility] Start: 09-09-2020 Lives Lives [facility] Start: 2005 Sex Assigned At Male [facility] Start: 03-12-2025 Alcoholic beverage intake Ex-drinker (finding) [facility] Start: 03-12-2025 End: 06-17-2025 Sex Male (finding) [facility] Start: 04-22-2022 End: 06-18-2025 Gender identity Not on file [facility] Start: 04-22-2022 End: 05-16-2025 Alcoholic beverage intake Current non-drinker of alcohol (finding) [facility] Start: 04-22-2022 End: 06-18-2025 History of Social function [facility] Start: 08-06-2012 National Score (1-10 0), lower number is lower risk Not on file [facility] How often do you nee d to have someone help you when you read instructions, pamphlets, or other written material from your doctor or pharmacy [SILS] Sometimes [facility] Has the mCASH, or [employer] threatened to shut off services in your home in past 12Mo No [facility] Are you now , , , , never or living with a partner? Never [facility] [employer] How often to you hav e a drink containing alcohol? Never [facility] Do you feel stress - tense, restless, nervous, or anxious, or unable to sleep at night because your mind is troubled all the time - these days [OSQ] Not at all [employer] (I/We) worried wheth er (my/our) food would run out before (I/we) got money to buy more. Never true [employer] At any time in the p ast 12 months, were you homeless or living in fci [including now]? Yes [facility] Start: 06-18-2025 Gender identity Identifies as male gender (finding) [facility] Functional Status Date Assessment Result Facility 09-06-2014 Are you deaf, or do you have serious difficulty hearing No 09/06/2014 2:37 PM Brigida Nevarez RN No [facility] 09-06-2014 Are you blind, or do you have serious difficulty seeing, even when wearing glasses No 09/06/2014 2:37 PM Brigida Nevarez RN No [facility] 09-06-2014 Do you have serious difficulty walking or climbing stairs No 09/06/2014 2:37 PM Brigida Nevarez RN No [facility] 09-06-2014 Do you have difficul ty dressing or bathing No 09/06/2014 2:37 PM Brigida Nevarez RN No [facility] Mental Status Date Assessment Result Facility 06-17-2025 Cognitive function Level Of Cons ciousness Awake [facility] Work Phone: 09-06-2014 Because of a physica l, mental, or emotional condition, do you have serious difficulty concentrating, remembering, or making decisions No 09/06/2014 2:37 PM Brigida Nevarez RN No [facility] Clinical Notes 02-28-2025 to 07-08-2025 Tamir Quiles MD - 06/23/2025 3:02 PM Maty Fowler DO - 06/22/2025 4:07 PM RAISSATTalyssa Quiles MD - 06/22/2025 1:[address] - 06/22/2025 10:49 AM EDT Note Date & Type Note Facility 07-08-2025 Note Rubén is a 19 y.o. m terrence brought in today by his family on the consultation of Roney Dia APRN-CNP. History of Present Illness Rubén Gibbs is a 19 year old male with bilateral club foot who presents with ankle pain and difficulty walking. He is accompanied by a caregiver from the [facility], a residential treatment facility. He experiences significant discomfort in his feet, primarily at the front of the left ankle, which severely impairs his ability to walk and makes running impossible. The pain is described as severe, affecting his mobility to the extent that he can barely walk. He underwent surgical procedures on his ankles in kindergarten, which involved multiple corrections, leaving visible scars. He previously used a shoe lift to aid in walking, but it is currently unavailable. Physical Exam EXTREMITIES: Feet well corrected with a mild equinus contracture at -5 degrees. Slight knee hyperextension without shoes, corrected with a shoe lift. Well-healed foot incisions, anterior tibial tendon transfer site functioning normally. Active ankle dorsiflexion bilaterally. No cavus, metatarsus adductus, or heel varus. Smooth subtalar joint range of motion. 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 Anterior tibial tendon transfer site functioning normally with active dorsiflexion. No cavus, metatarsus adductus, or heel varus. Subtalar joint range of motion smooth. - Provided shoe lifts to correct knee hyperextension. - Referred to physical therapy for Achilles stretching and gait training. Follow-up as needed [facility] 06-27-2025 Note Discharge Summary Rubén Gibbs : 2005 ADMIT DATE: 06/23/2025 DISCHARGE DATE: 06/27/2025 PRIMARY CARE PHYSICIAN: No primary care provider on file. VISIT STATUS: Admission CODE STATUS: Full Code DISCHARGE DIAGNOSES: Active Problems: Major depressive disorder, recurrent, severe without psychotic features (HCC) STEVE (generalized anxiety disorder) PTSD (post-traumatic stress disorder) ADHD HOSPITAL COURSE: PER ADMISSION H&P ON 06/24/2025 (Indicated Below in Italics): The patient is a 19 y.o. male, with past psychiatric history of Major Depressive Disorder, Generalized Anxiety Disorder, Post Traumatic Stress Disorder, and Attention Deficit Hyperactivity Disorder, and pertinent past medical history of Bilateral Club Foot who initially presented to the [place] ED on 06/18/2025 due to suicide attempt via swallowing a fish hook, in the setting of recently learning that his mother was going to [facility] for numerous charges and chronic depression with suicidal ideations. Patient was subsequently transferred to our ED and evaluated by general surgery who recommended serial abdominal x-rays with no indication for surgical intervention. Patient was then admitted medically to allow for passage of fish hook. Once fish hook was no longer visualized on KUB, patient was medically cleared for transfer to [facility]. Per Psychiatry evaluation in the ED, indicated below in italics: The patient is a 19 y.o.male with significant past medical history of Depression, anxiety, PTSD, ADHD who arrived from [facility] after swallowing a fish hook as a suicide attempt. Pt was subsequently admitted for further observation and psychiatry was consulted. Of note pt XR abdomen impression: Abdomen single view shows fish hook projecting over the right hemiabdomen. On interview the pt is lying in bed with sitter at bedside. He reports that he came in because I swallowed a fishing hook cause I wanted to kill myself. He denies this being planned, more impulsive. After swallowing the fishing hook he told nursing staff approximately 20 minutes later at the residential facility he resides at. He continues to endorse suicidal thoughts, denies current plan and agrees to notify staff if begins to have active plan. He denies HI, AVH, paranoia. He describes chronic depression and anxiety and feels that it got worse after being notified a couple days ago that his mother will be going to [facility] for numerous charges. He resides at a resident treatment center called [facility]. He has been compliant with medications and states that he does not feel that they have been working. He reports that medications has never been helpful nor has therapy. He denies any changes to his sleep, appetite. He denies any symptoms of refugio. Collateral was obtained from the following individual: Records reviewed including the records from [facility] Labs in the ED significant for AST 50, ALT 57 otherwise unremarkable. UDS positive for fentanyl and opiates. KUB obtained in the ED and noted for fishhook projecting over the right ngoc abdomen. Qtc 393. Patient was medically cleared and transferred to [facility]. On evaluation, patient was approached while laying in bed. He reports his mood today is alright and denies any current thoughts of self-harm, wishes, suicidal ideations, intent, or plan. When asked how he feels about being alive today, he reports good, and when asked how he feels about the recent suicide attempt, he reports alright I guess and denies feeling upset that it did not work. When asked if he was still feeling suicidal at all, he denied, and reported he feels he could keep himself safe if he were to be discharged back to the [facility]. He states at this facility, his medications are dispensed to him, he is required to go to group therapy, and he cannot leave the grounds unless the staff take him and the other patients on trips. He does not have access to weapons. HOSPITAL COURSE: [facility] for further assessment, medication management, and therapeutic intervention. Daily vitals were taken. Regular diet was given. There were no contraindications for seclusions or restraints. Oriented to unit, including milieu, social work, and group therapies. The patient was monitored for general safety precautions in psychiatric setting. Routine inpatient psychiatric as needed medications were provided. Prior documentation and circumstances surrounding admission were reviewed. The patient was involved in verifying history as well as participating in treatment planning to the furthest extent possible. Psychiatric medications were started and dosed to final doses seen below. On day of discharge, patient denied any active psychiatric signs or symptoms significantly deviating from baseline function. Residual suicide/homicide/psychosis/viole nce/inabilit (more content not included)... [facility] 06-26-2025 Note INPATIENT PSYCHIATRI C PROGRESS NOTE 06/26/25 Rubén Gibbs was seen in follow up for suicide attempt On exam, patient was approached while laying in bed. He engages in evaluation, though limitedly Reports his mood today is good and notes he slept well last night with good appetite today. Again he denies any current thoughts of self-harm, wishes, suicidal ideations, intent, or plan and feels that he would be able to keep himself safe at his facility, the [facility]. He further denies any HI/AVH. Denies medication side effects and is tolerating them well. Looking forward to discharge tomorrow. MEDICATIONS: Scheduled Meds[1] Continuous Meds[2] PRN Meds[3] MENTAL STATUS EXAM: Vitals : BP 119/71 (BP Location: Left arm, Patient Position: Lying) Pulse 59 Temp 36.4 ?C (97.5 ?F) (Temporal) Resp 16 Ht 1.778 m (5' 10) SpO2 96% BMI 37.81 kg/m? Appearance: 19 year old male, appears stated age, disheveled in hospital attire Behavior: Appropriate, Cooperative, Interactive, Calm Social Relatedness: Avoidant Eye Contact Orientation: Person, Place, and Time Memory/Cognition: Appears to be grossly intact Speech/Language: The patient demonstrates appropriate tone, prosody, ashley, phonetics, and syntax Mood: good Affect: Restricted Thought Form: Logical, Coherent, Linear, Goal directed, No loosening of associations Thought Content: Does not appear to be internally stimulated, denies hallucinations, no evidence of delusions or ideas of reference Suicidal Ideations: No suicidal ideation, intent, or plan Homicidal Ideations: No homicidal ideation, intent or plan Insight: limited Judgment: limited Psychomotor: Psychomotor activity within normal limits ROS: GENERAL: No spontaneous report of recent fever/chills, unexplained weight loss/gain, or night sweats. HEENT: No spontaneous report of changes in hearing or vision, oropharyngeal complaints, change in smell or nosebleeds. RESPIRATORY: No spontaneous report of recent new/worsening cough, wheezing or shortness of breath. CARDIOVASCULAR: No spontaneous report of new chest pain, leg swelling or palpitations. GI: No spontaneous report of recent abdominal discomfort, nausea, vomiting, diarrhea, or constipation. : No spontaneous report of recent dysuria, change in frequency or incontinence. MUSCULOSKELETAL: No spontaneous report of new/worsening/change in joint pain or swelling, or muscle weakness. SKIN: No spontaneous report of new lesions, rash, or itching. HEMATOLOGY/LYMPHOLOGY: No spontaneous report of recent prolonged bleeding, bruising easily, or swollen nodes. ENDOCRINE: No spontaneous report of recent/new changes of cold or heat intolerance, polyuria, polydipsia or goiter. NEURO: No spontaneous report of new/worsening headaches, syncope, seizures or paralysis. ASSESSMENT: Rubén Gibbs is a 19 y.o. male, with past psychiatric history of Major Depressive Disorder, Generalized Anxiety Disorder, Post Traumatic Stress Disorder, and Attention Deficit Hyperactivity Disorder, and pertinent past medical history of Bilateral Club Foot who initially presented to the [place] ED on 06/18/2025 due to suicide attempt via swallowing a fish hook, in the setting of recently learning that his mother was going to [facility] for numerous charges and chronic depression with suicidal ideations. Patient was subsequently transferred to our ED and evaluated by general surgery who recommended serial abdominal x-rays with no indication for surgical intervention. Patient was then admitted medically to allow for passage of fish hook. Once fish hook was no longer visualized on KUB, patient was medically cleared for transfer to [facility]. On evaluation, Rubén denies any current thoughts of self-harm, wishes, suicidal ideations, intent, or plan. His affect is however restricted and his engagement in evaluation was limited. He is currently court ordered for treatment at the [facility] and reports that he would feel safe to go back there at this time. Anticipate discharge tomorrow morning. DIAGNOSIS: Suicide Attempt Major Depressive Disorder, Recurrent, Severe Without Psychotic Features Generalized Anxiety Disorder Post Traumatic Stress Disorder Attention Deficit Hyperactivity Disorder TREATMENT PLAN: #Suicide Attempt #Major Depressive Disorder, Recurrent, Severe Without Psychotic Features #Generalized Anxiety Disorder #Post Traumatic Stress Disorder #Attention Deficit Hyperactivity Disorder - Continue Escitalopram (Lexapro) 10 mg nightly to target depressive and anxiety symptoms. - Continue Aripiprazole (Abilify) 10 mg nightly as adjunctive treatment to target depressive symptoms - Continue Buspirone (Buspar) 5 mg twice daily to target anxiety symptoms - Continue Divalproex ER (Depakote ER) 750 mg daily twice daily to assist with mood stabilization #General Admission Recommendations (more content not included)... [facility] 06-25-2025 Note INPATIENT PSYCHIATRI C PROGRESS NOTE 06/25/25 Rubén Gibbs was seen in follow up for suicide attempt On exam, patient was approached while laying in bed. He engages in evaluation, though limitedly Reports his mood today is alright and notes he slept well last night with good appetite today. Again he denies any current thoughts of self-harm, wishes, suicidal ideations, intent, or plan and feels that he would be able to keep himself safe if he were to be discharged to the [facility]. He further denies any HI/AVH. Denies medication side effects and is tolerating them well. MEDICATIONS: Scheduled Meds[1] Continuous Meds[2] PRN Meds[3] MENTAL STATUS EXAM: Vitals : BP 108/64 (BP Location: Left arm, Patient Position: Lying) Pulse 62 Temp 36.4 ?C (97.6 ?F) (Temporal) Resp 14 Ht 1.778 m (5' 10) SpO2 93% BMI 37.81 kg/m? Appearance: 19 year old male, appears stated age, disheveled in hospital attire Behavior: Appropriate, Cooperative, Interactive, Calm Social Relatedness: Avoidant Eye Contact Orientation: Person, Place, and Time Memory/Cognition: Appears to be grossly intact Speech/Language: The patient demonstrates appropriate tone, prosody, ashley, phonetics, and syntax Mood: alright Affect: Restricted Thought Form: Logical, Coherent, Linear, Goal directed, No loosening of associations Thought Content: Does not appear to be internally stimulated, denies hallucinations, no evidence of delusions or ideas of reference Suicidal Ideations: No suicidal ideation, intent, or plan Homicidal Ideations: No homicidal ideation, intent or plan Insight: limited Judgment: limited Psychomotor: Psychomotor activity within normal limits ROS: GENERAL: No spontaneous report of recent fever/chills, unexplained weight loss/gain, or night sweats. HEENT: No spontaneous report of changes in hearing or vision, oropharyngeal complaints, change in smell or nosebleeds. RESPIRATORY: No spontaneous report of recent new/worsening cough, wheezing or shortness of breath. CARDIOVASCULAR: No spontaneous report of new chest pain, leg swelling or palpitations. GI: No spontaneous report of recent abdominal discomfort, nausea, vomiting, diarrhea, or constipation. : No spontaneous report of recent dysuria, change in frequency or incontinence. MUSCULOSKELETAL: No spontaneous report of new/worsening/change in joint pain or swelling, or muscle weakness. SKIN: No spontaneous report of new lesions, rash, or itching. HEMATOLOGY/LYMPHOLOGY: No spontaneous report of recent prolonged bleeding, bruising easily, or swollen nodes. ENDOCRINE: No spontaneous report of recent/new changes of cold or heat intolerance, polyuria, polydipsia or goiter. NEURO: No spontaneous report of new/worsening headaches, syncope, seizures or paralysis. Rubén Gibbs is a 19 y.o. male, with past psychiatric history of Major Depressive Disorder, Generalized Anxiety Disorder, Post Traumatic Stress Disorder, and Attention Deficit Hyperactivity Disorder, and pertinent past medical history of Bilateral Club Foot who initially presented to the [facility] ED on 06/18/2025 due to suicide attempt via swallowing a fish hook, in the setting of recently learning that his mother was going to [facility] for numerous charges and chronic depression with suicidal ideations. Patient was subsequently transferred to our ED and evaluated by general surgery who recommended serial abdominal x-rays with no indication for surgical intervention. Patient was then admitted medically to allow for passage of fish hook. Once fish hook was no longer visualized on KUB, patient was medically cleared for transfer to [facility]. On evaluation, Rubén denies any current thoughts of self-harm, wishes, suicidal ideations, intent, or plan. His affect is however restricted and his engagement in evaluation was limited. He is currently court ordered for treatment at the [facility] and reports that he would feel safe to go back there at this time. Social work were able to reach the [facility] today, who report they can pick patient up on morning at 9AM. Anticipate discharge on . DIAGNOSIS: Suicide Attempt Major Depressive Disorder, Recurrent, Severe Without Psychotic Features Generalized Anxiety Disorder Post Traumatic Stress Disorder Attention Deficit Hyperactivity Disorder TREATMENT PLAN: #Suicide Attempt #Major Depressive Disorder, Recurrent, Severe Without Psychotic Features #Generalized Anxiety Disorder #Post Traumatic Stress Disorder #Attention Deficit Hyperactivity Disorder - Continue Escitalopram (Lexapro) 10 mg nightly to target depressive and anxiety symptoms. - Continue Aripiprazole (Abilify) 10 mg nightly as adjunctive treatment to target depressive symptoms - Continue Buspirone (Buspar) 5 mg twice daily to target anxiety symptoms - Continue Divalproex ER (Depakote ER) 750 mg fatimah (more content not included)... [facility] 06-24-2025 Note Department of Psychi atry History and Physical - Adult CHIEF COMPLAINT / REASON FOR ADMISSION: suicide attempt Patient was seen after discussion with staff and reviewing the chart HISTORY OF PRESENT ILLNESS: The patient is a 19 y.o. male, with past psychiatric history of Major Depressive Disorder, Generalized Anxiety Disorder, Post Traumatic Stress Disorder, and Attention Deficit Hyperactivity Disorder, and pertinent past medical history of Bilateral Club Foot who initially presented to the [facility] ED on 06/18/2025 due to suicide attempt via swallowing a fish hook, in the setting of recently learning that his mother was going to [facility] for numerous charges and chronic depression with suicidal ideations. Patient was subsequently transferred to our ED and evaluated by general surgery who recommended serial abdominal x-rays with no indication for surgical intervention. Patient was then admitted medically to allow for passage of fish hook. Once fish hook was no longer visualized on KUB, patient was medically cleared for transfer to [facility]. Per Psychiatry evaluation in the ED, indicated below in italics: The patient is a 19 y.o.male with significant past medical history of Depression, anxiety, PTSD, ADHD who arrived from [facility] after swallowing a fish hook as a suicide attempt. Pt was subsequently admitted for further observation and psychiatry was consulted. Of note pt XR abdomen impression: Abdomen single view shows fish hook projecting over the right hemiabdomen. On interview the pt is lying in bed with sitter at bedside. He reports that he came in because I swallowed a fishing hook cause I wanted to kill myself. He denies this being planned, more impulsive. After swallowing the fishing hook he told nursing staff approximately 20 minutes later at the residential facility he resides at. He continues to endorse suicidal thoughts, denies current plan and agrees to notify staff if begins to have active plan. He denies HI, AVH, paranoia. He describes chronic depression and anxiety and feels that it got worse after being notified a couple days ago that his mother will be going to [facility] for numerous charges. He resides at a [facility] called [facility]. He has been compliant with medications and states that he does not feel that they have been working. He reports that medications has never been helpful nor has therapy. He denies any changes to his sleep, appetite. He denies any symptoms of refugio. Collateral was obtained from the following individual: Records reviewed including the records from [facility] Labs in the ED significant for AST 50, ALT 57 otherwise unremarkable. UDS positive for fentanyl and opiates. KUB obtained in the ED and noted for fishhook projecting over the right ngoc abdomen. Qtc 393. Patient was medically cleared and transferred to [facility]. On evaluation, patient was approached while laying in bed. He reports his mood today is alright and denies any current thoughts of self-harm, wishes, suicidal ideations, intent, or plan. When asked how he feels about being alive today, he reports good, and when asked how he feels about the recent suicide attempt, he reports alright I guess and denies feeling upset that it did not work. When asked if he was still feeling suicidal at all, he denied, and reported he feels he could keep himself safe if he were to be discharged back to the [facility]. He states at this facility, his medications are dispensed to him, he is required to go to group therapy, and he cannot leave the grounds unless the staff take him and the other patients on trips. He does not have access to weapons. Medications Prior to Admission: Current Outpatient Medications Medication Instructions ARIPiprazole (ABILIFY) 10 mg, Nightly busPIRone (BUSPAR) 5 mg, Oral, 2 times daily cholecalciferol (VITAMIN D-[address]) 1,000 Units, Daily divalproex (DEPAKOTE ER) 750 mg, 2 times daily escitalopram (LEXAPRO) 10 mg, Nightly metFORMIN (GLUCOPHAGE) 500 mg, Oral, 2 times daily with meals traZODone (DESYREL) 100 mg, Nightly PRN Compliance: good PSYCHIATRIC REVIEW OF SYSTEMS: (Negative if unchecked) Constitutional [] Change in appetite/weight [] Change in sleep Mood: [] Anhedonia [x] Decreased/low mood [] Worthlessness/Guilt [] Hopeless/Helpless [] Decreased energy [] Decreased concentration [] Suicidal Ideation Anxiety: [x] Excessive worry/difficulty controlling worry [] Irritability [] Restlessness [] Easily fatigued [] Difficulty concentrating [] Obsessions [] Palpitations/Chest pain [] Diaphoresis [] Shortness of breath [] Trembling/shaking [] Sense of doom/fear of dying [] Agoraphobia [] Derealization/Depersonalization PTSD: [] Nightmares [] Flashbacks [] Avoidance [] Hyperarousal [] Hypervigilance Refugio: [] Inflated self esteem/grandiosity [] Elevated energy [] Decreased need for (more content not included)... [facility] 06-23-2025 Note Department of Psychi atry Attending Progress Note CHIEF COMPLAINT: foreign body ingestion SUBJECTIVE: The patient was seen in follow-up for mood disorder, suicide attempt by foreign body ingestion, and anxiety. The patient was seen and examined. The chart was reviewed. The patient was discussed with staff who reported the fish hook has been cleared. On approach, the patient is resting in bed. He reports feeling depressed. He is denying active suicidal ideation, but states that he wishes he would have . No homicidal ideation. Sleep, energy, and concentration are okay. Appetite is increased. No symptoms of refugio or psychosis. OBJECTIVE Physical Visit Vitals BP 123/72 Pulse 61 Temp 36.1 ?C (97 ?F) (Temporal) Resp 18 Mental Status Examination: The patient appears his stated age. He is casually groomed and wearing hospital attire. He is cooperative and makes fair eye contact. He has decreased psychomotor activity. No involuntary movements. He was not seen ambulating. His speech is clear and mostly spontaneous. Mood is dysphoric and affect is pedro congruent. Thought process is grossly organized. Thought content: No suicidal ideation, no homicidal ideation. No paranoia. Patient does not appear internally stimulated. Memory, attention, and concentration are grossly intact. Insight and judgment are limited. Data Labs reviewed Medications Current Medications[1] ASSESSMENT: Mood Disorder, unspecified Anxiety Disorder, unspecified PLAN: The patient remains medically admitted, but is cleared. Will transfer to [facility]. A pink slip has been written. Will continue the constant classified ad taker until transfer is complete. The patient may not leave AMA. Will continue Abilify 10 mg nightly, Buspar 5 mg bid, Depakote 750 mg bid, and Lexapro 10 mg nightly. No medications changes at this time. Please contact myself over the weekend with questions or concerns. Starting Tuesday, please contact Dr. Brooke. [1] Current Facility-Administered Medications: acetaminophen (Tylenol) tablet 650 mg, 650 mg, Oral, q6h PRN, Eli Villalpando, PERSONNEL SECURITY ASSISTANT, 650 mg at 06/21/25 1619 ARIPiprazole (Abilify) tablet 10 mg, 10 mg, Oral, Nightly, Eli Villalpando, PERSONNEL SECURITY ASSISTANT, 10 mg at 06/22/25 214 busPIRone (Buspar) tablet 5 mg, 5 mg, Oral, BID, Eli Villalpando, PERSONNEL SECURITY ASSISTANT, 5 mg at 06/23/25 0830 divalproex (Depakote ER) 24 hr tablet 750 mg, 750 mg, Oral, BID, Eli Villalpando, PERSONNEL SECURITY ASSISTANT, 750 mg at 06/23/25 0524 docusate sodium (Colace) capsule 100 mg, 100 mg, Oral, TID, Iris Garibay PA-C, 100 mg at 06/23/25 0830 escitalopram (Lexapro) tablet 10 mg, 10 mg, Oral, Nightly, Eli Villalpando, PERSONNEL SECURITY ASSISTANT, 10 mg at 06/22/25 214 ketorolac (Toradol) injection 30 mg, 30 mg, IntraVENous, q6h PRN, Eli Villalpando, PERSONNEL SECURITY ASSISTANT, 30 mg at 06/21/25 163 magnesium hydroxide (Milk of Magnesia) 400 MG/5ML suspension 30 mL, 30 mL, Oral, Nightly, Irineo Arredondo MD, 30 mL at 06/22/25 214 ondansetron ODT (Zofran-ODT) disintegrating tablet 4 mg, 4 mg, Oral, q8h PRN OR ondansetron (Zofran) injection 4 mg, 4 mg, IntraVENous, q6h PRN, Eli Villalpando, PERSONNEL SECURITY ASSISTANT, 4 mg at 06/21/25 1631 polyethylene glycol (PEG) 3350 (Miralax) packet 17 g, 17 g, Oral, TID, Iris Garibay PA-C, 17 g at 06/23/25 0831 sennosides (Senokot) tablet 17.2 mg, 2 tablet, Oral, TID, Aryan Rosa MD, 17.2 mg at 06/23/[address] [facility] 06-23-2025 History of Present illness Narrative Department of Psychiatry Attending Progress Note CHIEF COMPLAINT: foreign body ingestion SUBJECTIVE: The patient was seen in follow-up for mood disorder, suicide attempt by foreign body ingestion, and anxiety. The patient was seen and examined. The chart was reviewed. The patient was discussed with staff who reported the fish hook has been cleared. On approach, the patient is resting in bed. He reports feeling depressed. He is denying active suicidal ideation, but states that he wishes he would have . No homicidal ideation. Sleep, energy, and concentration are okay. Appetite is increased. No symptoms of refugio or psychosis. OBJECTIVE Physical Visit Vitals BP 123/72 Pulse 61 Temp 36.1 C (97 F) (Temporal) Resp 18 Mental Status Examination: The patient appears his stated age. He is casually groomed and wearing hospital attire. He is cooperative and makes fair eye contact. He has decreased psychomotor activity. No involuntary movements. He was not seen ambulating. His speech is clear and mostly spontaneous. Mood is dysphoric and affect is pedro congruent. Thought process is grossly organized. Thought content: No suicidal ideation, no homicidal ideation. No paranoia. Patient does not appear internally stimulated. Memory, attention, and concentration are grossly intact. Insight and judgment are limited. Data Labs reviewed Medications Current Medications[1] ASSESSMENT: Mood Disorder, unspecified Anxiety Disorder, unspecified PLAN: The patient remains medically admitted, but is cleared. Will transfer to [facility]. A pink slip has been written. Will continue the constant classified ad taker until transfer is complete. The patient may not leave AMA. Will continue Abilify 10 mg nightly, Buspar 5 mg bid, Depakote 750 mg bid, and Lexapro 10 mg nightly. No medications changes at this time. Please contact myself over the weekend with questions or concerns. Starting Tuesday, please contact Dr. Brooke. [1] Current Facility-Administered Medications: acetaminophen (Tylenol) tablet 650 mg, 650 mg, Oral, q6h PRN, Eli Villalpando, PERSONNEL SECURITY ASSISTANT, 650 mg at 06/21/25 1619 ARIPiprazole (Abilify) tablet 10 mg, 10 mg, Oral, Nightly, Eli Villalpando, PERSONNEL SECURITY ASSISTANT, 10 mg at 06/22/25 214 busPIRone (Buspar) tablet 5 mg, 5 mg, Oral, BID, Eli Villalpando, PERSONNEL SECURITY ASSISTANT, 5 mg at 06/23/25 0830 divalproex (Depakote ER) 24 hr tablet 750 mg, 750 mg, Oral, BID, Eli Villalpando, PERSONNEL SECURITY ASSISTANT, 750 mg at 06/23/25 0524 docusate sodium (Colace) capsule 100 mg, 100 mg, Oral, TID, Iris Garibay PA-C, 100 mg at 06/23/25 0830 escitalopram (Lexapro) tablet 10 mg, 10 mg, Oral, Nightly, Eli Villalpando, PERSONNEL SECURITY ASSISTANT, 10 mg at 06/22/25 214 ketorolac (Toradol) injection 30 mg, 30 mg, IntraVENous, q6h PRN, Eli Villalpando, PERSONNEL SECURITY ASSISTANT, 30 mg at 06/21/25 163 magnesium hydroxide (Milk of Magnesia) 400 MG/5ML suspension 30 mL, 30 mL, Oral, Nightly, Irineo Arredondo MD, 30 mL at 06/22/250 ondansetron ODT (Zofran-ODT) disintegrating tablet 4 mg, 4 mg, Oral, q8h PRN OR ondansetron (Zofran) injection 4 mg, 4 mg, IntraVENous, q6h PRN, Eli Villalpando, PERSONNEL SECURITY ASSISTANT, 4 mg at 06/21/25 1631 polyethylene glycol (PEG) 3350 (Miralax) packet 17 g, 17 g, Oral, TID, Iris Garibay PA-C, 17 g at 06/23/25 0831 sennosides (Senokot) tablet 17.2 mg, 2 tablet, Oral, TID, Aryan Rosa MD, 17.2 mg at 06/23/25 0830 Hospitalist Progress Note 06/22/2025 Subjective: Admit Date: 06/18/2025 PCP: No primary care provider on file. Room#: W7-742/W7-022 A BRIEF HOSPITAL COURSE: Rubén is a 19 y.o. male with significant past psychiatric history with prior suicide attempts presents to the ED after ingesting a fishhook on 06/16/2025 and a suicide attempt. In the ED, patient endorsed suicidal ideation, denied homicidal ideations, auditory or visual hallucinations. Complains of sharp constant epigastric pain since a swallowing of the hook. CT scan at [facility] revealed a linear foreign object in the small intestine, was suggested transfer for observation and evaluation by surgery. Labs in the ED significant for AST 50, ALT 57 otherwise unremarkable. UDS positive for fentanyl and opiates. KUB obtained in the ED and noted for fishhook projecting over the right ngoc abdomen. Patient evaluated by general surgery-recommended no acute surgical intervention send goal is to allow foreign body to pass spontaneously. Plan to obtain serial abdominal exams. Patient admitted for further evaluation and management with psychiatry consult. Interval History: 06/22: Pt seen and examined with parents at bedside. Diet advanced today and pt states eating some food has really helped and denies pain today. KUB with fish hook still in RUQ. Plan continues to be inpatient psych once cleared from surgical stand Adult diet Regular; Low Fiber 24HR INTAKE/OUTPUT: Intake/Output Summary (Last 24 hours) at 06/22/2025 1607 Last data filed at 06/21/2025 1740 Gross per 24 hour Intake 472 ml Output -- Net 472 ml Past Medical History: Medical History[1] LABS: CBC: Recent Labs 06/20/2561806/21/2521506/22/25256 WBC 5.0 5.8 6.2 RBC 6.24* 6.09* 5.87 HGB 17.9 17.5 17.2 HCT 52.6* 51.5 50.0 MCV 84.3 84.6 85.2 RDW 13.1 13.1 13.2 PLT 192 193 183 BMP: Recent Labs 10/16/25 0619 10/17/25 0216 10/18/25 0257 NA 134* 139 139 K 4.1 4.2 4.3 CL 104 109* 106 CO2 24 25 26 BUN 11 9 10 CREATININE 1.12 1.15 1.55* GLUCOSE 86 85 86 CALCIUM 9.0 9.1 8.9 ANIONGAP 6 5 7 LIVER PROFILE: Recent Labs 06/22/25 0257 AST 39* ALT 60* BILITOT 0.4 ALKPHOS 79 PROT 6.4 PT/INR: No results for input(s): PROTIME, INR in the last 72 hours. CARDIAC ENZYMES: No results for input(s): TROPONINI in the last 72 hours. Procalcitonin: No results found for: PROCAL COVID-19 PCR: No results for input(s): COVID19 in the last 72 hours. Objective: Vitals: BP 123/74 (BP Location: Left arm) Pulse 67 Temp 36 C (96.8 F) (Temporal) Resp 18 Ht 5' 10 (1.778 m) Wt 263 lb 8 oz (120 kg) SpO2 92% BMI 37.81 kg/m Pulse Ox: SpO2 Av % Min: 92 % Max: 97 % Supplemental O2: GENERAL: sitting up in bed comfortably eating lunch HEENT: normocephalic, non-traumatic, MMM NECK: supple, trachea midline HEART: RRR, normal S1 and S2 LUNGS: non labored, no wheeze ABD: obese, TTP RUQ MSK: no edema noted SKIN: warm, dry PSYCH: appropriate affect Medications: Scheduled PRN Scheduled Meds[2] PRN Meds[3] Continuous Continuous Meds[4] Assessment Data: Acute, acute on chronic, unstable/uncontrolled chronic problems/diagnoses: Suicide attempt s/p foreign body ingestion Abdominal pain Ingestion of fishpatricia on 06/16 S/p general surgery eval, plan to allow foreign body to pass spontaneously Serial abdominal exams-Daily KUBs Reviewed KUB from this AM- fish hook in a similar position to the prior study Advanced to full liquid diet today per surgery Continue bowel regimen with MiraLAX TID and Senokot TID Psych following, patient will require inpatient psychiatric admission when medically stable Depression and anxiety Transaminitis- trend LFTs Stable chronic problems affecting care, new non-acute diagnoses: ADHD PTSD Obesity class I Plan As a result of the above findings & factors, the following mgmt was pursued: - Plan as above - am labs, replace lytes prn - PT/OT/CM/SW - delirium precautions: increase activity and limit nighttime disturbances - DVT prophylaxis: SCDs and encourage ambulation Advance Directive: No Order Anticipated Discharge - Date -TBD - Location -Inpatient psych - Pending the following -surgical clearance Total time spent (which include face to face and non face to face encounters) : 35 minutes Extended Emergency Contact Information Primary Emergency Contact: Marily Farmer Relation: Grandparent Secondary Emergency Contact: Ken Ayon Mobile Relation: Other Lulu Fowler DO Division of Hospitalist Medicine [facility] [1] Past Medical History: Diagnosis Date Anxiety Depression Developmental delay [2] ARIPiprazole, 10 mg, Oral, Nightly busPIRone, 5 mg, Oral, BID divalproex, 750 mg, Oral, BID docusate sodium, 100 mg, Oral, TID escitalopram, 10 mg, Oral, Nightly magnesium hydroxide, 30 mL, Oral, Nightly polyethylene glycol (PEG) 3350, 17 g, Oral, TID sennosides, 2 tablet, Oral, TID [3] PRN medications: acetaminophen, ketorolac, ondansetron ODT OR ondansetron [4] lactated Ringer's, 75 mL/hr, Last Rate: 75 mL/hr (06/22/25 0502) Department of Psychiatry Attending Progress Note CHIEF COMPLAINT: foreign body ingestion SUBJECTIVE: The patient was seen in follow-up for mood disorder, suicide attempt by foreign body ingestion, and anxiety. The patient was seen and examined. The chart was reviewed. On approach, the patient is visiting with his grandparents. He has yet to pass the fish hook. He reports feeling depressed, but is currently denying suicidal ideation. No homicidal ideation. Sleep, energy, and concentration are okay. Appetite is increased. No symptoms of refugio or psychosis. OBJECTIVE Physical Visit Vitals BP 119/70 (BP Location: Left arm, Patient Position: Sitting) Pulse 78 Temp 36.6 C (97.8 F) (Temporal) Resp 16 Mental Status Examination: The patient appears his stated age. He is casually groomed and wearing hospital attire. He is cooperative and makes fair eye contact. He has decreased psychomotor activity. No involuntary movements. He was not seen ambulating. His speech is clear and mostly spontaneous. Mood is dysphoric and affect is pedro congruent. Thought process is grossly organized. Thought content: No suicidal ideation, no homicidal ideation. No paranoia. Patient does not appear internally stimulated. Memory, attention, and concentration are grossly intact. Insight and judgment are limited. Data Labs reviewed Medications Current Medications[1] ASSESSMENT: Mood Disorder, unspecified Anxiety Disorder, unspecified PLAN: The patient remains medically admitted. Will continue the yellow slip and constant classified ad taker. The patient may not leave AMA. Will continue Abilify 10 mg nightly, Buspar 5 mg bid, Depakote 750 mg bid, and Lexapro 10 mg nightly. No medications changes at this time. The patient will require inpatient psychiatric treatment when medically cleared. Please contact myself over the weekend with questions or concerns. Starting Tuesday, please contact Dr. Brooke. [1] Current Facility-Administered Medications: acetaminophen (Tylenol) tablet 650 mg, 650 mg, Oral, q6h PRN, Eli Villalpando, PERSONNEL SECURITY ASSISTANT, 650 mg at 06/21/25 1619 ARIPiprazole (Abilify) tablet 10 mg, 10 mg, Oral, Nightly, Eli Villalpando, PERSONNEL SECURITY ASSISTANT, 10 mg at 06/22/25 214 busPIRone (Buspar) tablet 5 mg, 5 mg, Oral, BID, Eli Villalpando, PERSONNEL SECURITY ASSISTANT, 5 mg at 06/22/25 2140 divalproex (Depakote ER) 24 hr tablet 750 mg, 750 mg, Oral, BID, Eli Villalpando, PERSONNEL SECURITY ASSISTANT, 750 mg at 06/22/25 1505 docusate sodium (Colace) capsule 100 mg, 100 mg, Oral, TID, Iris Garibay PA-C, 100 mg at 06/22/25 214 escitalopram (Lexapro) tablet 10 mg, 10 mg, Oral, Nightly, Eli Villalpando, PERSONNEL SECURITY ASSISTANT, 10 mg at 06/22/25 214 ketorolac (Toradol) injection 30 mg, 30 mg, IntraVENous, q6h PRN, Eli Villalpando, PERSONNEL SECURITY ASSISTANT, 30 mg at 06/21/25 163 lactated Ringer's infusion, 75 mL/hr, IntraVENous, Continuous, Eli Villalpando NP, Last Rate: 75 mL/hr at 06/22/251812, 75 mL/hr at 06/22/251812 magnesium hydroxide (Milk of Magnesia) 400 MG/5ML suspension 30 mL, 30 mL, Oral, Nightly, Irineo Arredondo MD, 30 mL at 06/22/252139 ondansetron ODT (Zofran-ODT) disintegrating tablet 4 mg, 4 mg, Oral, q8h PRN OR ondansetron (Zofran) injection 4 mg, 4 mg, IntraVENous, q6h PRN, Eli Villalpando NP, 4 mg at 06/21/25 163 polyethylene glycol (PEG) 3350 (Miralax) packet 17 g, 17 g, Oral, TID, Iris Garibay PA-C, 17 g at 06/22/252139 sennosides (Senokot) tablet 17.2 mg, 2 tablet, Oral, TID, Aryan Rosa MD, 17.2 mg at 06/22/252139 Nutrition Assessment Type and Reason for Visit: Initial (diet metallurgical technician referral for NPO/clear liquids > 3 days) Nutrition Recommendations/Plan: Continue with regular, low fiber diet and Ensure Clear TID (8 oz provides 240 kcals, 8 gm protein). Monitor weight, labs, I/O, skin assessment, BM, and overall nutritional status. RD will follow up weekly. Malnutrition Assessment: Malnutrition Status: Insufficient data Context: Acute Illness Findings of the 6 clinical characteristics of malnutrition: Energy Intake: Mild decrease in energy intake (Comment) (Ingestion of fish hook and awaiting to pass- mainly clear/full liquid diet since admit.) Weight Loss: No significant weight loss (Epic weight history limited- 246# office visit on 06/17/25.) Body Fat Loss: Unable to assess (Deferred NFPE at this time as patient sleeping and room completely dark.) Muscle Mass Loss: Unable to assess Fluid Accumulation: No significant fluid accumulation (per flow sheets) Developmental Services Worker Strength: Not Performed Nutrition Assessment: 19 y.o. male with history of anxiety, depression, prior suicide attempts, PTSD, ADHD. Patient transferred from [facility] in which he presented there after a suicide attempt by ingesting a fishhook on 06/16. Patient complained of epigastric pain. CTAP from outside hospital demonstrates fishhook in small bowel. KUB confirmed approximate location in the right upper quadrant. Transferred to [facility] for evaluation by general surgery. No acute surgical intervention with goal to allow foreign body to pass spontaneously. Serial abdominal exams and daily bowel regimen ordered. Patient started a clear liquid diet in which further advanced to full liquids. Patient had sudden increase in abdominal pain that worsened with movement last night and nausea. KUB re-demonstrated a metallic foreign body consistent with a fishhook in RUQ which its position is unchanged compared to earlier study. Patient reported minimal pain this am and tolerating liquid diet. Diet advanced to regular, low fiber this am. Psych is following- yellow slipped and will require inpatient psychiatric admission when medically stable. RD visited patient this am- room completely dark and he was sleeping. RD spoke with constant classified ad taker who reported that patient had not ate breakfast. She states that he has not complained of abdominal pain, nausea, vomiting this am. Estimated Daily Nutrient Needs: Energy Requirements Based On: Kcal/kg Weight Used for Energy Requirements: Marshall Weight for Energy Calculation (kg): 75 kg Total Energy Requirements (kcals/day): 8513-2522 kcals per day (28-32) Weight Used for Protein Requirements: Marshall Weight in Kg Used for Protein Requirements: 75 kg Estimated Total Protein (g/day): 75-90 gm per day (1.0-1.2) Estimated Daily Total Fluid (ml/day): Per MD Nutrition Related Findings: Lauro = 21, abdomen soft, rounded, BM on 06/21, no edema, I/O: +[phone] (since admit), room service selective Wound Type: None BMP: Recent Labs 06/20/25 0619 06/21/25 0216 06/22/25 0257 NA 134* 139 139 K 4.1 4.2 4.3 CL 104 109* 106 CO2 24 25 26 BUN 11 9 10 CREATININE 1.12 1.15 1.55* GLUCOSE 86 85 86 CALCIUM 9.0 9.1 8.9 HEPATIC: Recent Labs 06/22/25 0257 AST 39* ALT 60* BILITOT 0.4 ALKPHOS 79 Medications: Scheduled Meds[1] Continuous Meds[2] PRN Meds[3] Current Nutrition Therapies: Adult diet Regular; Low Fiber Current Oral Intake Average Meal Intake: Unable to assess Average Supplements Intake: Unable to assess Anthropometric Measures: Height: 177.8 cm (5' 10) Admission Body Weight: 119 kg (263 lb) (bed scale on 06/18/25) Usual Body Weight: (Epic weight history limited: 246# on 06/17/25) Marshall Body Weight (lbs) (Calculated): 166 lbs Marshall Body Weight (Kg) (Calculated): 75 kg Nutrition Diagnosis: Inadequate oral intake related to altered GI function, pain (ingestion of fishhook, awaiting for it to pass) as evidenced by (required clear and full liquids this admission x 2 days) Nutrition Interventions: Nutrition Education/Counseling: No recommendation at this time Coordination of Nutrition Care: Continue to monitor while inpatient Goals: Goals: PO intake 75% or greater, by next RD assessment Nutrition Monitoring and Evaluation: Behavioral-Environmental Outcomes: None Identified Food/Nutrient Intake Outcomes: Diet Advancement/Tolerance, Food and Nutrient Intake, Supplement Intake Physical Signs/Symptoms Outcomes: Biochemical Data, GI Status, Fluid Status or Edema, Meal Time Behavior, Nutrition Focused Physical Findings, Skin, Weight Discharge Planning: Too soon to determine Radha Savage RD Contact: *[phone] [1] ARIPiprazole, 10 mg, Oral, Nightly busPIRone, 5 mg, Oral, BID divalproex, 750 mg, Oral, BID docusate sodium, 100 mg, Oral, TID escitalopram, 10 mg, Oral, Nightly magnesium hydroxide, 30 mL, Oral, Nightly polyethylene glycol (PEG) 3350, 17 g, Oral, TID sennosides, 2 tablet, Oral, TID [2] lactated Ringer's, 75 mL/hr, Last Rate: 75 mL/hr (06/22/25 0502) [3] PRN medications: acetaminophen, ketorolac, ondansetron ODT OR ondansetron Images from the original note were not included. Department of General Surgery Daily Progress Note ADMIT DATE: 06/18/2025 TODAY'S DATE: 06/22/2025 HPI: Rubén Gibbs is a 19 y.o. male with significant past psychiatric history with prior suicide attempts who presents after ingesting a fishhook on 06/16/2025 and a suicide attempt. General surgery consulted for recommendations. Patient states he swallowed the fishhook yesterday and a suicide attempt. He is had these attempts previously with hangings. His pain was never too severe, currently endorsing some epigastric pain. However, no other abdominal pain in other quadrants. Denies any fevers, chills, nausea, vomiting. PSHx notable for lower extremity orthopedic surgery, but no intra-abdominal surgery. Denies tobacco, EtOH, recreational drug use. Upon evaluation, patient is AF, HDS. Labs notable for: WBC: 6.2 H/H: 17.6/51.7 Plt: 188 BUN/Cr: 14/1.08 CTAP from outside hospital demonstrates fishhook in small bowel. KUB confirmed approximate location in the right lower quadrant. SUBJECTIVE: Yesterday, patient's abdominal pain worsened with movement. At bedside, patient's exam was benign and KUB showed no free air and fish hook still in RUQ. This AM, patient has minimal pain, is tolerating liquids without N/V, and is able to move around freely without pain. Fish hook remains in RUQ on KUB. Interval history: 06/18: ACS consulted, daily KUBs 06/21: start FLD 06/22: start GI soft diet OBJECTIVE: VITALS: BP 123/74 (BP Location: Left arm) Pulse 67 Temp 36 C (96.8 F) (Temporal) Resp 18 Ht 5' 10 (1.778 m) Wt 263 lb 8 oz (120 kg) SpO2 92% BMI 37.81 kg/m INTAKE/OUTPUT: Intake/Output Summary (Last 24 hours) at 06/22/2025 0951 Last data filed at 06/21/2025 1740 Gross per 24 hour Intake 952 ml Output -- Net 952 ml I/O last 3 completed shifts: In: 952 (8 mL/kg) [P.O.:952] Out: - (0 mL/kg) Weight: 119.5 kg No intake/output data recorded. PHYSICAL EXAM: Gen: NAD, A&Ox3, pain well controlled Heart: RRR, well perfused Lungs: symmetric chest rise, normal work of breathing, breath sounds b/l Abd: soft, minimally tender, non distended. Non rigid. Ext: no c/c/e no gross deformities Skin: warm, well perfused, no obvious rashes, cellulitis or gross discoloration LABS Results from last 7 days Lab Units 06/22/2525606/21/256 06/20/2519 WBC AUTO 10*3/uL 6.2 5.8 5.0 HEMOGLOBIN g/dL 17.2 17.5 17.9 HEMATOCRIT % 50.0 51.5 52.6* PLATELETS 10*3/uL 183 193 192 Results from last 7 days Lab Units 06/22/2525606/21/256 06/20/25 0619 SODIUM mmol/L 139 139 134* POTASSIUM mmol/L 4.3 4.2 4.1 CHLORIDE mmol/L 106 109* 104 CO2 mmol/L 26 25 24 BUN mg/dL 10 9 11 CREATININE mg/dL 1.55* 1.15 1.12 GLUCOSE mg/dL 86 85 86 CALCIUM mg/dL 8.9 9.1 9.0 Results from last 7 days Lab Units 06/22/2525606/19/25 0537 06/18/25 0243 ALK PHOS U/L 79 86 80 BILIRUBIN TOTAL mg/dL 0.4 0.8 0.8 BILIRUBIN DIRECT mg/dL 0.1 0.2 -- PROTEIN TOTAL g/dL 6.4 7.2 7.0 ALT U/L 60* 49* 57* AST U/L 39* 37* 50* No results found for: LIPASE Current Inpatient Medications Scheduled Meds:Scheduled Meds[1] Continuous Infusions:Continuous Meds[2] PRN Meds:PRN Meds[3] ASSESSMENT AND PLAN: 19 y.o. male s/p foreign body ingestion (fishhook, 06/16) - Afebrile, VSS, no leukocytosis - Advance to soft diet - Daily KUB - Continue bowel reg - Continue serial abdominal exams - Continue IVF, advance to full liquid diet - PO pain medications for pain control - OOBA - Rest of care per primary team - Surgery will follow DW Dr. Katt Pedraza MD 06/22/25 9:51 AM [1] ARIPiprazole, 10 mg, Oral, Nightly busPIRone, 5 mg, Oral, BID divalproex, 750 mg, Oral, BID docusate sodium, 100 mg, Oral, TID escitalopram, 10 mg, Oral, Nightly magnesium hydroxide, 30 mL, Oral, Nightly polyethylene glycol (PEG) 3350, 17 g, Oral, TID sennosides, 2 tablet, Oral, TID [2] lactated Ringer's, 75 mL/hr, Last Rate: 75 mL/hr (06/22/25 0502) [3] PRN medications: acetaminophen, ketorolac, ondansetron ODT OR ondansetron Cosigned by Ten Bolivar MD at 06/22/2025 8:14 PM EDT Associated attestation - Ten Bolivar MD - 06/22/2025 8:14 PM EDT ATTENDING ADDENDUM Active Diagnoses/Problems this Admission: Problem List[1] I personally supervised the resident physician in the evaluation and development of a treatment plan for this patient on the same day of service as above. I personally discussed the review of systems and interviewed the patient along with performing a physical examination. I reviewed the recent events, imaging, labs, vital signs. In addition, I discussed the patient's condition and treatment options with him/her when possible. I have also reviewed and agree with the past medical, family, and social history unless otherwise noted. All of the patient's questions were answered and family updated when appropriate and possible. A complete review of systems was obtained and is negative except as stated in HPI and/or Subjective Section. Please note that the plan below is highlights/fox components and corrections; see the main resident note for the full Assessment/Plan. -as per Dr. Pedraza's note -I evaluated patient on 06/22/25 -Chief Complaint/Reason for Consult: swallowed fish hook in attempt at self-harm -abdominal exam remains benign -labs remain WNL -most recent imaging with hook at RUQ, likely hepatic flexure -advance from full liquid to GI soft diet -continue serial exams -continue daily KUB -continue aggressive bowel regimen -our Service will continue to follow Total Care Time throughout the day today was >= 55 minutes (including chart/data review/analysis, care coordination, and [id number] encounter), and was spent discussing/counseling the patient/family regarding the care plan for Rubén Gibbs. I examined the patient independently. I reviewed relevant data myself and may have also done so in the context of team rounds. A full chart review was performed. Level of Medical Decision Making: []High [x]Moderate []Low Complexity: []Acute or chronic illness/injury posing a threat to life or bodily function without treatment (HIGH) []Chronic illness with severe exacerbation, progression, or side effect of treatment (HIGH) []Chronic illness with mild to moderate exacerbation, progression, or side effect of treatment (MOD) [x]Previously undiagnosed (new) problem with uncertain prognosis (MOD) []Acute illness with systemic symptoms (MOD) []Acute, complicated injury (MOD) []Multiple stable chronic illnesses (MOD) Risk: []Parental controlled substances (HIGH) []Decision not to resuscitate or to de-escalate care because of poor prognosis (HIGH) []Decision regarding major surgery with identified patient or procedure risk factors (HIGH) []Decision regarding emergency surgery (HIGH) []Drug or treatment/therapy requiring intensive monitoring (HIGH) []Prescription drug management AND/OR inpatient medication management/changes (MOD) [x]Decision regarding surgery with identified patient or procedure risk factors (MOD) []Diagnosis or treatment significantly limited by social determinants of health (MOD) Personally Reviewed/Independently interpreted patient's: [x]Epic notes [x]Radiology studies [x]Labs []EKG []Ordering tests []Other Discussed/ With: [x]Patient/Family []RN []Consultants []Primary Team []SW/TCC []Other Time was spent: -Reviewing the medical record, including recent tests and results -Ordering prescription medications/tests and procedures -Communicating results to the patient/family/caregiver -Counseling/educating the patient/family/caregiver -Documenting clinical information in the patient's electronic record -Co-ordination of care for the patient -Performing a medically appropriate exam and evaluation Ten Bolivar MD, FACS Trauma, Surgical Critical Care, & Acute Care Surgery Department of Surgery [facility] Pager: [phone] ~~~~~~~~~~~~~~~~~~~~~~~~~~~~~~~~ ~~~~~~~~~~~~~~~~~~~~~~~~~~~~~ This note may have been dictated using [employer] Edition 2.6 and/or [employer] Voice Recognition Feature. The document was proofread; however, unrecognized voice recognition refrigerator repairman errors may be present. [1] Patient Active Problem List Diagnosis Foreign body in intestine, initial encounter General Surgery Interval Progress Note Patient assessed at bedside due to report of sudden increase in abdominal pain when patient shifted to the right in bed. States that it is still at 9/10, but he can move around in the bed without too much issue. Abdominal exam benign, no rebound, guarding, or rigidity. Patient had small bowel movement this afternoon, denies seeing fish hook in it. Denies nausea/vomiting at this time. KUB ordered to assess and rule out perforation. Soy Pedraza MD General Surgery Resident 06/21/25 7:06 PM Hospitalist Progress Note 06/21/2025 Subjective: Admit Date: 06/18/2025 PCP: No primary care provider on file. Room#: W7-742/W7-742 A BRIEF HOSPITAL COURSE: Rubén is a 19 y.o. male with significant past psychiatric history with prior suicide attempts presents to the ED after ingesting a fishhook on 06/16/2025 and a suicide attempt. In the ED, patient endorsed suicidal ideation, denied homicidal ideations, auditory or visual hallucinations. Complains of sharp constant epigastric pain since a swallowing of the hook. CT scan at [facility] revealed a linear foreign object in the small intestine, was suggested transfer for observation and evaluation by surgery. Labs in the ED significant for AST 50, ALT 57 otherwise unremarkable. UDS positive for fentanyl and opiates. KUB obtained in the ED and noted for fishhook projecting over the right ngoc abdomen. Patient evaluated by general surgery-recommended no acute surgical intervention send goal is to allow foreign body to pass spontaneously. Plan to obtain serial abdominal exams. Patient admitted for further evaluation and management with psychiatry consult. Interval History: NAEON Complaints of minimal abdominal pain, last BM was yesterday evening. Tolerating diet. Denies chest pain, SOB, fevers/chills. Adult diet Full liquid; Safety Tray (Disposables, no utensils) 24HR INTAKE/OUTPUT: Intake/Output Summary (Last 24 hours) at 06/21/2025 1112 Last data filed at 06/20/2025 1149 Gross per 24 hour Intake 615 ml Output -- Net 615 ml Past Medical History: Medical History[1] LABS: CBC: Recent Labs 06/19/2553606/20/2561806/21/25215 WBC 5.3 5.0 5.8 RBC 6.42* 6.24* 6.09* HGB 18.4* 17.9 17.5 HCT 54.4* 52.6* 51.5 MCV 84.7 84.3 84.6 RDW 13.3 13.1 13.1 PLT 197 192 193 BMP: Recent Labs 06/19/2553606/20/2561806/21/25215 NA 136 134* 139 K 4.3 4.1 4.2 CL 103 104 109* CO2 25 24 25 BUN 12 11 9 CREATININE 1.18 1.12 1.15 GLUCOSE 95 86 85 CALCIUM 9.4 9.0 9.1 ANIONGAP 8 6 5 LIVER PROFILE: Recent Labs 06/19/25536 AST 37* ALT 49* BILITOT 0.8 ALKPHOS 86 PROT 7.2 PT/INR: No results for input(s): PROTIME, INR in the last 72 hours. CARDIAC ENZYMES: No results for input(s): TROPONINI in the last 72 hours. Procalcitonin: No results found for: PROCAL COVID-19 PCR: No results for input(s): COVID19 in the last 72 hours. Objective: Vitals: BP 108/61 (BP Location: Left arm, Patient Position: Lying) Pulse 55 Temp 36.1 C (97 F) (Temporal) Resp 16 Ht 5' 10 (1.778 m) Wt 263 lb 8 oz (120 kg) SpO2 96% BMI 37.81 kg/m Pulse Ox: SpO2 Av % Min: 96 % Max: 96 % Supplemental O2: Physical Exam Vitals reviewed. Cardiovascular: Rate and Rhythm: Normal rate. Heart sounds: Normal heart sounds. Pulmonary: Breath sounds: Normal breath sounds. Abdominal: General: Bowel sounds are normal. There is no distension. Palpations: Abdomen is soft. Tenderness: There is abdominal tenderness. Skin: General: Skin is warm and dry. Neurological: Mental Status: He is alert and oriented to person, place, and time. Medications: Scheduled PRN Scheduled Meds[2] PRN Meds[3] Continuous Continuous Meds[4] Assessment Data: (CAT1) Reviewed 3 or more notes from different specialty or health system (each=1). (CAT1) Reviewed 3 or more labs/studies ordered by another provider not previously counted (each=1, panels count as 1). (LOW: 2x CAT1 or independent historian MOD: 3x CAT1 or 1x CAT3 EXTENSIVE: 3x CAT1 and 1x CAT3) Acute, acute on chronic, unstable/uncontrolled chronic problems/diagnoses: Suicide attempt s/p foreign body ingestion Abdominal pain Ingestion of fishhook on 06/16 S/p general surgery eval, plan to allow foreign body to pass spontaneously Serial abdominal exams-Daily KUBs Reviewed KUB from this AM- fish hook in a similar position to the prior study Advanced to full liquid diet today per surgery Continue bowel regimen with MiraLAX TID and Senokot TID Psych following, patient will require inpatient psychiatric admission when medically stable Depression and anxiety Transaminitis- trend LFTs Stable chronic problems affecting care, new non-acute diagnoses: ADHD PTSD Obesity class I Plan As a result of the above findings & factors, the following mgmt was pursued: - Plan as above - am labs, replace lytes prn - PT/OT/CM/SW - delirium precautions: increase activity and limit nighttime disturbances - DVT prophylaxis: SCDs and encourage ambulation Complexity: Acute illness or injury posing a threat to life or body function (HIGH). Chronic illness with severe exacerbation, progression, or side effect of tx (HIGH). Acute, uncomplicated illness or injury (LOW). Risk: Consult to surgery for emergency major surgery, or major surgery with identified patient or procedural risk factors, was considered or occurred (HIGH). Prescription drug/IVF/colloid was initiated, discontinued, adjusted; or reviewed with decision to maintain current orders (MOD). Low risk diagnostic testing or treatment (LOW). Advance Directive: No Order Anticipated Discharge - Date -TBD - Location -TBD - Pending the following -psych clearance, medical clearance Total time spent (which include face to face and non face to face encounters) : 45 minutes Extended Emergency Contact Information Primary Emergency Contact: Marily Farmer Relation: Grandparent Secondary Emergency Contact: Ken Ayon Mobile Relation: Other Eli Villalpando NP Division of Hospitalist Medicine [facility] [1] Past Medical History: Diagnosis Date Anxiety Depression [2] ARIPiprazole, 10 mg, Oral, Nightly busPIRone, 5 mg, Oral, BID divalproex, 750 mg, Oral, BID docusate sodium, 100 mg, Oral, TID escitalopram, 10 mg, Oral, Nightly magnesium hydroxide, 30 mL, Oral, Nightly polyethylene glycol (PEG) 3350, 17 g, Oral, TID sennosides, 2 tablet, Oral, TID [3] PRN medications: acetaminophen, ketorolac, ondansetron ODT OR ondansetron [4] lactated Ringer's, 75 mL/hr, Last Rate: 75 mL/hr (06/21/25 0211) Department of Psychiatry Consult Service Attending Consult Follow-Up Note CHIEF COMPLAINT: follow up suicide attempt SUBJECTIVE: Compliant with scheduled meds, no acute behavioral issues reported. No PRN meds for psychiatric issues required since admit. Pt reports ongoing feelings of depression without current plan or intent for suicide but vague thoughts about and dying. Reports manageable anxiety, no sleep issues. Still waiting for resolution of his swallowed object, dislikes the current diet order but understanding of the rationale. Current pain level is manageable. Denies side effects to psychotropic agents currently. Nursing was contacted by [facility] who report a plan to transition from Aripiprazole to Invega. CURRENT MEDICATIONS: Current Medications[1] PSYCHIATRIC EXAMINATION: Vitals: Vitals: 06/21/25 0638 BP: 108/61 Pulse: 55 Resp: 16 Temp: 36.1 C (97 F) SpO2: 96% Physical Examination: Constitutional: well developed, well nourished, in no acute distress, and alert Musculoskeletal: gait Not examined Mental Status Examination: Appearance: well kept, appears stated age Attitude toward examiner: Cooperative, superficial, fair eye contact Behavior/motor: No psychomotor agitation or retardation, no tremor or other abnormal movements. Speech: Soft, otherwise nl Mood: depressed Affect: restricted Thought process: Linear, goal directed Thought content: Within normal limits Thought perception: No perceptual abnormalities noted Suicidal ideation: thoughts of Homicidal ideation: Denies Cognition: Grossly intact Memory: Grossly intact Insight: limited Judgment: limited DATA REVIEWED: Encounter Date: 06/18/25 ECG 12 lead Result Value Heart Rate 72 QRSD Interval 92 QT Interval 359 QTC Interval 393 P [place] 34 QRS [place] 12 T Wave [place] -18 MO Interval 110 Impression Sinus rhythm Nonspecific T abnormalities, inferior leads No previous ekg available for comparison Electronically Signed On 06-18-2025 04:49:16 EDT by Guerrero Mendoza Labs: Recent Results (from the past 24 hours) CBC Collection Time: 06/21/25 2:16 AM Result Value Ref Range Auto WBC 5.8 3.6 - 10.7 10*3/uL RBC 6.09 (H) 4.40 - 5.90 10*6/uL Hemoglobin 17.5 13.0 - 18.0 g/dL Hematocrit 51.5 40.0 - 52.0 % MCV 84.6 77.0 - 99.0 fL MCH 28.7 26.0 - 34.0 pg MCHC 34.0 30.5 - 36.0 % RDW 13.1 11.5 - 15.0 % Platelets 193 140 - 440 10*3/uL MPV 11.5 9.0 - 12.7 fL Basic metabolic panel Collection Time: 06/21/25 2:16 AM Result Value Ref Range SODIUM 139 136 - 145 mmol/L POTASSIUM 4.2 3.5 - 5.1 mmol/L CHLORIDE 109 (H) 98 - 107 mmol/L CARBON DIOXIDE 25 22 - 29 mmol/L UREA NITROGEN 9 8 - 21 mg/dL CREATININE 1.15 0.72 - 1.25 mg/dL GLUCOSE 85 74 - 100 mg/dL CALCIUM 9.1 8.4 - 10.2 mg/dL ANION GAP 5 3 - 13 mmol/L eGFR >90.0 >60.0 mL/min/1.73m*2 ASSESSMENT: Diagnostic Impression: Unspecified Mood Disorder Suicide Attempt via foreign body ingestion, r/o Malingering vs Factitious disorder Unspecified Anxiety PTSD by Hx ADHD by hx R/o Personality Disorder RECOMMENDATIONS: Pt requires inpatient psychiatric admission when medically stable. Please maintain pt on a yellow slip. Pt may not leave AMA. When pt medically stable for transfer, please message psychiatry consult service to begin transfer process. Medications: continue aripiprazole and Depakote for mood, buspirone for anxiety - No clear signs of refugio or psychosis at present, not sure that Invega is indicated but will defer med changes for now Labs: Studies: Delirium precautions: Avoid sedating/anticholinergic medications, encourage sleep hygiene, minimize barriers to nutrition, optimize sensory input and access to assistive devices (dentures, glasses, etc) where indicated, encourage time up in chair as able, D/c Woodruff, restraints, IV lines, as able and reserve agitation PRNs for instances where patient is danger to self/others/treatment. Recommendations shared with primary team. Follow up: psychiatry will follow as needed with plan for admission, Dr. Etta perkins Sat/Sun [1] Current Facility-Administered Medications Medication Dose Route Frequency Provider Last Rate Last Admin acetaminophen (Tylenol) tablet 650 mg 650 mg Oral q6h PRN Eli Villalpando, PERSONNEL SECURITY ASSISTANT 650 mg at 06/20/25 1048 ARIPiprazole (Abilify) tablet 10 mg 10 mg Oral Nightly Eli Villalpando, PERSONNEL SECURITY ASSISTANT 10 mg at 06/20/252006 busPIRone (Buspar) tablet 5 mg 5 mg Oral BID Eli Villalpando, PERSONNEL SECURITY ASSISTANT 5 mg at 06/21/25 1003 divalproex (Depakote ER) 24 hr tablet 750 mg 750 mg Oral BID Eli Villalpando, PERSONNEL SECURITY ASSISTANT 750 mg at 06/21/25 0534 docusate sodium (Colace) capsule 100 mg 100 mg Oral TID Iris Garibay PA-C 100 mg at 10/17/25 1003 escitalopram (Lexapro) tablet 10 mg 10 mg Oral Nightly Eli Villalpando, PERSONNEL SECURITY ASSISTANT 10 mg at 06/20/252007 ketorolac (Toradol) injection 30 mg 30 mg IntraVENous q6h PRN Eli Loydel, PERSONNEL SECURITY ASSISTANT 30 mg at 06/20/25 1443 lactated Ringer's infusion 75 mL/hr IntraVENous Continuous Eli Villalpando, PERSONNEL SECURITY ASSISTANT 75 mL/hr at 06/21/25 0211 75 mL/hr at 06/21/25 0211 magnesium hydroxide (Milk of Magnesia) 400 MG/5ML suspension 30 mL 30 mL Oral Nightly Irineo Arredondo MD 30 mL at 06/20/252007 ondansetron ODT (Zofran-ODT) disintegrating tablet 4 mg 4 mg Oral q8h PRN Eli Villalpando, PERSONNEL SECURITY ASSISTANT Or ondansetron (Zofran) injection 4 mg 4 mg IntraVENous q6h PRN Eli Villalpando, PERSONNEL SECURITY ASSISTANT polyethylene glycol (PEG) 3350 (Miralax) packet 17 g 17 g Oral TID Iris Garibay PA-C 17 g at 06/21/25 1003 sennosides (Senokot) tablet 17.2 mg 2 tablet Oral TID Aryan Rosa MD 17.2 mg at 06/21/25 1003 Nutrition rescreen completed. Patient is NPO/Clear liquid >3 days. Refer to Dietitian. Hospitalist Progress Note 06/20/2025 Subjective: Admit Date: 06/18/2025 PCP: No primary care provider on file. Room#: [id number]/W7742 A BRIEF HOSPITAL COURSE: Rubén is a 19 y.o. male with significant past psychiatric history with prior suicide attempts presents to the ED after ingesting a fishhook on 06/16/2025 and a suicide attempt. In the ED, patient endorsed suicidal ideation, denied homicidal ideations, auditory or visual hallucinations. Complains of sharp constant epigastric pain since a swallowing of the hook. CT scan at [facility] revealed a linear foreign object in the small intestine, was suggested transfer for observation and evaluation by surgery. Labs in the ED significant for AST 50, ALT 57 otherwise unremarkable. UDS positive for fentanyl and opiates. KUB obtained in the ED and noted for fishhook projecting over the right ngoc abdomen. Patient evaluated by general surgery-recommended no acute surgical intervention send goal is to allow foreign body to pass spontaneously. Plan to obtain serial abdominal exams. Patient admitted for further evaluation and management with psychiatry consult. Interval History: LAURA Had a small BM this AM Complaints of minimal abdominal pain. No nausea or vomiting. Adult diet Clear liquid; Safety Tray (Disposables, no utensils) 24HR INTAKE/OUTPUT: Intake/Output Summary (Last 24 hours) at 06/20/2025 1146 Last data filed at 06/20/2025 1056 Gross per 24 hour Intake 2400 ml Output -- Net 2400 ml Past Medical History: Medical History[1] LABS: CBC: Recent Labs 06/18/2524206/19/2553606/20/25618 WBC 6.2 5.3 5.0 RBC 6.07* 6.42* 6.24* HGB 17.6 18.4* 17.9 HCT 51.7 54.4* 52.6* MCV 85.2 84.7 84.3 RDW 13.4 13.3 13.1 PLT 188 197 192 BMP: Recent Labs 06/18/2524206/19/2537 06/20/25618 NA 138 136 134* K 4.4 4.3 4.1 CL 105 103 104 CO2 24 25 24 BUN 14 12 11 CREATININE 1.08 1.18 1.12 GLUCOSE 84 95 86 CALCIUM 9.3 9.4 9.0 ANIONGAP 9 8 6 LIVER PROFILE: Recent Labs 06/18/2524206/19/25536 AST 50* 37* ALT 57* 49* BILITOT 0.8 0.8 ALKPHOS 80 86 PROT 7.0 7.2 PT/INR: No results for input(s): PROTIME, INR in the last 72 hours. CARDIAC ENZYMES: No results for input(s): TROPONINI in the last 72 hours. Procalcitonin: No results found for: PROCAL COVID-19 PCR: No results for input(s): COVID19 in the last 72 hours. Objective: Vitals: BP 102/71 (BP Location: Left arm, Patient Position: Lying) Pulse 63 Temp 36.1 C (96.9 F) (Temporal) Resp 16 Ht 5' 10 (1.778 m) Wt 263 lb 8 oz (120 kg) SpO2 95% BMI 37.81 kg/m Pulse Ox: SpO2 Av.5 % Min: 94 % Max: 95 % Supplemental O2: Physical Exam Vitals reviewed. Cardiovascular: Rate and Rhythm: Normal rate. Heart sounds: Normal heart sounds. Pulmonary: Breath sounds: Normal breath sounds. Abdominal: General: Bowel sounds are normal. There is no distension. Palpations: Abdomen is soft. Tenderness: There is abdominal tenderness. Skin: General: Skin is warm and dry. Neurological: Mental Status: He is alert and oriented to person, place, and time. Medications: Scheduled PRN Scheduled Meds[2] PRN Meds[3] Continuous Continuous Meds[4] Assessment Data: (CAT1) Reviewed 3 or more notes from different specialty or health system (each=1). (CAT1) Reviewed 3 or more labs/studies ordered by another provider not previously counted (each=1, panels count as 1). (LOW: 2x CAT1 or independent historian MOD: 3x CAT1 or 1x CAT3 EXTENSIVE: 3x CAT1 and 1x CAT3) Acute, acute on chronic, unstable/uncontrolled chronic problems/diagnoses: Suicide attempt s/p foreign body ingestion Abdominal pain Ingestion of fishhook on 06/16 S/p general surgery eval, plan to allow foreign body to pass spontaneously Serial abdominal exams-Daily KUBs Reviewed KUB from this AM- fish gibbs in mid-upper abdomen, minimally progressed. Descending colon appears dilated Continue clear liquid diet Continue bowel regimen with MiraLAX and Senokot Psych following, patient will require inpatient psychiatric admission when medically stable Depression and anxiety Transaminitis Stable chronic problems affecting care, new non-acute diagnoses: ADHD PTSD Obesity class I Plan As a result of the above findings & factors, the following mgmt was pursued: - Plan as above - am labs, replace lytes prn - PT/OT/CM/SW - delirium precautions: increase activity and limit nighttime disturbances - DVT prophylaxis: SCDs and encourage ambulation Complexity: Acute illness or injury posing a threat to life or body function (HIGH). Chronic illness with severe exacerbation, progression, or side effect of tx (HIGH). Acute, uncomplicated illness or injury (LOW). Risk: Consult to surgery for emergency major surgery, or major surgery with identified patient or procedural risk factors, was considered or occurred (HIGH). Prescription drug/IVF/colloid was initiated, discontinued, adjusted; or reviewed with decision to maintain current orders (MOD). Low risk diagnostic testing or treatment (LOW). Advance Directive: No Order Anticipated Discharge - Date -TBD - Location -TBD - Pending the following -psych clearance, medical clearance Total time spent (which include face to face and non face to face encounters) : 45 minutes Extended Emergency Contact Information Primary Emergency Contact: Marily Farmer Relation: Grandparent Secondary Emergency Contact: Ken Ayon Mobile Relation: Other Eli Villalpando NP Division of Hospitalist Medicine [facility] [1] Past Medical History: Diagnosis Date Anxiety Depression [2] ARIPiprazole, 10 mg, Oral, Nightly busPIRone, 5 mg, Oral, BID divalproex, 750 mg, Oral, BID escitalopram, 10 mg, Oral, Nightly magnesium hydroxide, 30 mL, Oral, Nightly polyethylene glycol (PEG) 3350, 17 g, Oral, BID [3] PRN medications: acetaminophen, ondansetron ODT OR ondansetron [4] lactated Ringer's, 75 mL/hr, Last Rate: 75 mL/hr (06/20/25 1056) Department of Psychiatry Consult Service Nurse Practitioner Consult Follow-Up Note CHIEF COMPLAINT: Follow up for concerns of suicide attempt SUBJECTIVE: On interview, the pt is lying in bed. He reports that he is feeling tired. He denies SI, HI, AVH, paranoia. He reports that I don't know when asked how he is feeling about the suicide attempt. He talked to his grandmother since being here which he believes made him feel better. When asked if he would feel safe returning to [facility] he shakes his head no. Upon further questions he states I'd probably do something dumb. He is court ordered to there. He reports that he is still having depression 5/10 and anxiety is I don't know. He slept well last night. He denies having any other complaints. He is unsure if he recently had any medication changes. Pt provided verbal consent for this provider to call [facility] to obtain collateral. 12:47pm- [facility] - transferred to nursing, no answer CURRENT MEDICATIONS: Current Medications[1] PSYCHIATRIC EXAMINATION: Vitals: Vitals: 06/20/25 0619 BP: 102/71 Pulse: 63 Resp: 16 Temp: 36.1 C (96.9 F) SpO2: 95% Physical Examination: Constitutional: well developed, well nourished, in no acute distress, and alert Musculoskeletal: gait Not examined Mental Status Examination: Appearance: moderately kept, appears stated age Attitude toward examiner: Guarded. and Fair eye contact. Behavior/motor: No psychomotor agitation or retardation, no tremor or other abnormal movements. Speech: Coherent and Regular rate, rhythm, volume and articulation Mood: tired Affect: Blunted Thought process: Linear, goal directed Thought content: no delusions noted Thought perception: No perceptual abnormalities noted Suicidal ideation:Denies Homicidal ideation: Denies Cognition: oriented to person, place, time/date, and situation Memory: Not formally tested Insight: impaired Judgment: impaired DATA REVIEWED: Encounter Date: 06/18/25 ECG 12 lead Result Value Heart Rate 72 QRSD Interval 92 QT Interval 359 QTC Interval 393 P [place] 34 QRS [place] 12 T Wave [place] -18 MO Interval 110 Impression Sinus rhythm Nonspecific T abnormalities, inferior leads No previous ekg available for comparison Electronically Signed On 06-18-2025 04:49:16 EDT by Guerrero Mendoza BONESUPPORT: Recent Results (from the past 24 hours) CBC Collection Time: 06/20/25 6:19 AM Result Value Ref Range Auto WBC 5.0 3.6 - 10.7 10*3/uL RBC 6.24 (H) 4.40 - 5.90 10*6/uL Hemoglobin 17.9 13.0 - 18.0 g/dL Hematocrit 52.6 (H) 40.0 - 52.0 % MCV 84.3 77.0 - 99.0 fL MCH 28.7 26.0 - 34.0 pg MCHC 34.0 30.5 - 36.0 % RDW 13.1 11.5 - 15.0 % Platelets 192 140 - 440 10*3/uL MPV 11.4 9.0 - 12.7 fL Basic metabolic panel Collection Time: 06/20/25 6:19 AM Result Value Ref Range SODIUM 134 (L) 136 - 145 mmol/L POTASSIUM 4.1 3.5 - 5.1 mmol/L CHLORIDE 104 98 - 107 mmol/L CARBON DIOXIDE 24 22 - 29 mmol/L UREA NITROGEN 11 8 - 21 mg/dL CREATININE 1.12 0.72 - 1.25 mg/dL GLUCOSE 86 74 - 100 mg/dL CALCIUM 9.0 8.4 - 10.2 mg/dL ANION GAP 6 3 - 13 mmol/L eGFR >90.0 >60.0 mL/min/1.73m*2 ASSESSMENT: Diagnostic Impression: Suicide attempt Foreign body in intestine Unspecified depression Unspecified anxiety PTSD by history ADHD by history R/O personality disorder R/O adjustment disorder RECOMMENDATIONS: Unable to determine whether pt requires inpatient psychiatric admission at this time. Please maintain pt on a yellow slip. Pt may not leave AMA. Will reassess. Medications: Continue home medications when appropriate verified by RN including Aripiprazole 10mg PO at bedtime- mood Buspirone 15mg PO BID- anxiety Depakote ER 750mg PO BID- mood Labs: Valproic acid level Studies: Defer to primary team Consult: Social work- assist with clarification of guardianship- appreciated Delirium precautions: Avoid sedating/anticholinergic medications, encourage sleep hygiene, minimize barriers to nutrition, optimize sensory input and access to assistive devices (dentures, glasses, etc) where indicated, encourage time up in chair as able, D/c Woodruff, restraints, IV lines, as able and reserve agitation PRNs for instances where patient is danger to self/others/treatment. Recommendations shared with primary team. Follow up: Will continue to follow [1] Current Facility-Administered Medications Medication Dose Route Frequency Provider Last Rate Last Admin acetaminophen (Tylenol) tablet 650 mg 650 mg Oral q6h PRN Eli Villalpando NP 650 mg at 06/20/25 1048 ARIPiprazole (Abilify) tablet 10 mg 10 mg Oral Nightly Eli Villalpando, PERSONNEL SECURITY ASSISTANT 10 mg at 06/19/252112 busPIRone (Buspar) tablet 5 mg 5 mg Oral BID Eli Villalpando, PERSONNEL SECURITY ASSISTANT 5 mg at 06/20/25 1037 divalproex (Depakote ER) 24 hr tablet 750 mg 750 mg Oral BID Eli Villalpando, PERSONNEL SECURITY ASSISTANT 750 mg at 06/20/25616 escitalopram (Lexapro) tablet 10 mg 10 mg Oral Nightly Eli Villalpando, PERSONNEL SECURITY ASSISTANT 10 mg at 06/19/252112 lactated Ringer's infusion 75 mL/hr IntraVENous Continuous Eli Villalpando, PERSONNEL SECURITY ASSISTANT 75 mL/hr at 06/20/25 1056 75 mL/hr at 06/20/25 105 magnesium hydroxide (Milk of Magnesia) 400 MG/5ML suspension 30 mL 30 mL Oral Nightly Irineo Arredondo MD 30 mL at 06/19/252112 ondansetron ODT (Zofran-ODT) disintegrating tablet 4 mg 4 mg Oral q8h PRN Eli Villalpando NP Or ondansetron (Zofran) injection 4 mg 4 mg IntraVENous q6h PRN Eli Villalpando NP polyethylene glycol (PEG) 3350 (Miralax) packet 17 g 17 g Oral BID Irineo Arredondo MD 17 g at 06/20/25 0616 Hospitalist Progress Note 06/19/2025 Subjective: Admit Date: 06/18/2025 PCP: No primary care provider on file. Room#: [id number]/[id number] A BRIEF HOSPITAL COURSE: Rubén is a 19 y.o. male with significant past psychiatric history with prior suicide attempts presents to the ED after ingesting a fishhook on 06/16/2025 and a suicide attempt. In the ED, patient endorsed suicidal ideation, denied homicidal ideations, auditory or visual hallucinations. Complains of sharp constant epigastric pain since a swallowing of the hook. CT scan at [facility] revealed a linear foreign object in the small intestine, was suggested transfer for observation and evaluation by surgery. Labs in the ED significant for AST 50, ALT 57 otherwise unremarkable. UDS positive for fentanyl and opiates. KUB obtained in the ED and noted for fishhook projecting over the right ngoc abdomen. Patient evaluated by general surgery-recommended no acute surgical intervention send goal is to allow foreign body to pass spontaneously. Plan to obtain serial abdominal exams. Patient admitted for further evaluation and management with psychiatry consult. Interval History: NAEON, denies any abdominal pain this AM Reports last BM was 06/18, no flatus this AM Denies any complaints of SOB, chest pain, N/V/D Remains HDS Adult diet Clear liquid; Safety Tray (Disposables, no utensils) 24HR INTAKE/OUTPUT: Intake/Output Summary (Last 24 hours) at 06/19/2025 1010 Last data filed at 06/18/2025 1751 Gross per 24 hour Intake 380 ml Output -- Net 380 ml Past Medical History: Medical History[1] LABS: CBC: Recent Labs 06/18/25 0243 06/19/25 0537 WBC 6.2 5.3 RBC 6.07* 6.42* HGB 17.6 18.4* HCT 51.7 54.4* MCV 85.2 84.7 RDW 13.4 13.3 PLT 188 197 BMP: Recent Labs 06/18/25 0243 06/19/25 0537 NA 138 136 K 4.4 4.3 CL 105 103 CO2 24 25 BUN 14 12 CREATININE 1.08 1.18 GLUCOSE 84 95 CALCIUM 9.3 9.4 ANIONGAP 9 8 LIVER PROFILE: Recent Labs 06/18/25 0243 06/19/25 0537 AST 50* 37* ALT 57* 49* BILITOT 0.8 0.8 ALKPHOS 80 86 PROT 7.0 7.2 PT/INR: No results for input(s): PROTIME, INR in the last 72 hours. CARDIAC ENZYMES: No results for input(s): TROPONINI in the last 72 hours. Procalcitonin: No results found for: PROCAL COVID-19 PCR: No results for input(s): COVID19 in the last 72 hours. Objective: Vitals: BP 112/82 Pulse 73 Temp 36.2 C (97.1 F) (Temporal) Resp 18 Ht 5' 10 (1.778 m) Wt 263 lb 8 oz (120 kg) SpO2 96% BMI 37.81 kg/m Pulse Ox: SpO2 Av.7 % Min: 95 % Max: 96 % Supplemental O2: Physical Exam Vitals reviewed. Cardiovascular: Rate and Rhythm: Normal rate. Heart sounds: Normal heart sounds. Pulmonary: Breath sounds: Normal breath sounds. Abdominal: General: Bowel sounds are normal. There is no distension. Palpations: Abdomen is soft. Tenderness: There is abdominal tenderness. Skin: General: Skin is warm and dry. Neurological: Mental Status: He is alert and oriented to person, place, and time. Medications: Scheduled PRN Scheduled Meds[2] PRN Meds[3] Continuous Continuous Meds[4] Assessment Data: (CAT1) Reviewed 3 or more notes from different specialty or health system (each=1). (CAT1) Reviewed 3 or more labs/studies ordered by another provider not previously counted (each=1, panels count as 1). (LOW: 2x CAT1 or independent historian MOD: 3x CAT1 or 1x CAT3 EXTENSIVE: 3x CAT1 and 1x CAT3) Acute, acute on chronic, unstable/uncontrolled chronic problems/diagnoses: Suicide attempt s/p foreign body ingestion Abdominal pain Ingestion of fishhook on 06/16 S/p general surgery eval, plan to allow foreign body to pass spontaneously Serial abdominal exams-Daily KUBs Seguin now in the right upper quadrant per KUB this a.m. Continue clear liquid diet Continue bowel regimen with MiraLAX and Senokot Psych following, patient will require inpatient psychiatric admission when medically stable Depression and anxiety Transaminitis Stable chronic problems affecting care, new non-acute diagnoses: ADHD PTSD Obesity class I Plan As a result of the above findings & factors, the following mgmt was pursued: - Plan as above - am labs, replace lytes prn - PT/OT/CM/SW - delirium precautions: increase activity and limit nighttime disturbances - DVT prophylaxis: SCDs and encourage ambulation Complexity: Acute illness or injury posing a threat to life or body function (HIGH). Chronic illness with severe exacerbation, progression, or side effect of tx (HIGH). Acute, uncomplicated illness or injury (LOW). Risk: Consult to surgery for emergency major surgery, or major surgery with identified patient or procedural risk factors, was considered or occurred (HIGH). Prescription drug/IVF/colloid was initiated, discontinued, adjusted; or reviewed with decision to maintain current orders (MOD). Low risk diagnostic testing or treatment (LOW). Advance Directive: No Order Anticipated Discharge - Date -TBD - Location -TBD - Pending the following -psych clearance, medical clearance Total time spent (which include face to face and non face to face encounters) : 45 minutes Extended Emergency Contact Information Primary Emergency Contact: Marily Farmer Relation: Grandparent Secondary Emergency Contact: Ken Ayon Mobile Relation: Other Eli Villalpando NP Division of Hospitalist Medicine Acute [facility] [1] Past Medical History: Diagnosis Date Anxiety Depression [2] ARIPiprazole, 10 mg, Oral, Nightly busPIRone, 5 mg, Oral, BID divalproex, 750 mg, Oral, BID escitalopram, 10 mg, Oral, Nightly magnesium hydroxide, 30 mL, Oral, Nightly polyethylene glycol (PEG) 3350, 17 g, Oral, BID senna-docusate sodium, 2 tablet, Oral, BID [3] PRN medications: ondansetron ODT OR ondansetron [4] lactated Ringer's, 75 mL/hr Patient seen and examined on am rounds. Appears well, small abd pain supraumbilical but patient reports occasionally and nonspecifically migrates. Abd is soft, non-tender to palpation throughout, non-distended. No masses, rebound, or guarding. Continue plan as previous with serial abdominal exams by surgical team and daily KUBs to ensure passage of foreign body. DW Dr Shelley Elise MD PGY-4, General Surgery Pager# [phone] 06/18/2025 10:15 AM documented in this encounter [facility] 06-23-[address] Quiles was notified of medical discharge for this patient at 11am. She states she will round this afternoon to dc to psych. [facility] 10-19-[address] Quiles was notified of medical discharge for this patient at 11am. She states she will round this afternoon to dc to psych. This RN to the room at 1342 for scheduled medications. Patient denied pain and nausea at that time. 1615 this RN called to the room, patient is having 10/10 pain, and nausea. Charles PEGUERO and Dr. Milo bermudez. Medicated with Tylenol, Zofran and Toradol. See emar. Pt had one small liquid BM, this RN and a tech checked for foreign object but nothing was seen. Will monitor. Pt had one moderate liquid bowel movement. Two RN's checked stool for foreign object but nothing was visualized. Will continue to monitor. documented in this encounter [facility] 06-23-2025 Note Hospitalist Discharg e Summary Rubén Gibbs : 2005 Admit date: 06/18/2025 Discharge date: 06/23/2025 Admitting Physician: Vianey Recinos DO Primary Care Physician: No primary care provider on file. Visit Status: Inpatient Code Status: No Order Acute, acute on chronic, unstable/uncontrolled chronic problems/discharge diagnoses: Suicide attempt s/p foreign body ingestion (fish hook) Abdominal pain resolved Depression and anxiety Transaminitis- trend LFTs Stable chronic problems affecting care, new non-acute discharge diagnoses: ADHD PTSD Obesity class I Medical History[1] Procedures: NA Hospital Course: Rubén is a 19 y.o. male with significant past psychiatric history with prior suicide attempts presents to the ED after ingesting a fishhook on 06/16/2025 and a suicide attempt. In the ED, patient endorsed suicidal ideation, denied homicidal ideations, auditory or visual hallucinations. Complains of sharp constant epigastric pain since a swallowing of the hook. CT scan at [facility] revealed a linear foreign object in the small intestine, was suggested transfer for observation and evaluation by surgery. Labs in the ED significant for AST 50, ALT 57 otherwise unremarkable. UDS positive for fentanyl and opiates. KUB obtained in the ED and noted for fishhook projecting over the right ngoc abdomen. Patient evaluated by general surgery-recommended no acute surgical intervention send goal is to allow foreign body to pass spontaneously. Plan to obtain serial abdominal exams. Psych consulted and recommended [facility] admission when medically stable. Fish hook no longer visible on KUB on 06/23 and surgery ok with discharge. Medically stable and discharged to inpatient psych in stable and improved condition for continued management. See discharge diagnoses list above and medication adjustments below in med rec.The patient is discharged in improved and stable condition. Consults: IP CONSULT TO PSYCHIATRY Discharge Instructions: Diet: Dietary Orders (From admission, onward) Start Ordered 06/22/25 0848 Adult diet Regular; Low Fiber Diet effective now Question Answer Comment Diet type Regular Fiber: Low Fiber 06/22/25 0847 06/21/25 0632 Supplement:Breakfast, Lunch, Dinner; Mixed Espinoza Ensure Clear Until discontinued Question Answer Comment Frequency Breakfast Frequency Lunch Frequency Dinner Select supplement: Mixed Espinoza Ensure Clear 06/21/25 06 Activity: as tolerated Recommended Outpatient Tests: Disposition: Patient discharged in stable condition to Inpatient Psych. Greater than 31 minutes spent discharging the patient and coming up with patient discharge plan. Vitals: BP 123/72 Pulse 61 Temp 36.1 ?C (97 ?F) (Temporal) Resp 18 Ht 5' 10 (1.778 m) Wt 263 lb 8 oz (120 kg) SpO2 95% BMI 37.81 kg/m? Pulse Ox: SpO2 Av % Min: 91 % Max: 95 % Supplemental O2: GENERAL: sitting up in bed comfortably HEENT: normocephalic, non-traumatic, MMM NECK: supple, trachea midline HEART: RRR, normal S1 and S2 LUNGS: non labored, no wheeze ABD: obese, non tender MSK: no edema noted SKIN: warm, dry LABS: Recent Labs 06/21/25 0216 06/22/25 0257 06/23/25 0412 NA 139 139 140 K 4.2 4.3 4.3 CL 109* 106 108* CO2 25 26 25 BUN 9 10 14 CREATININE 1.15 1.55* 1.18 GLUCOSE 85 86 97 CALCIUM 9.1 8.9 8.6 Recent Labs 06/21/25 0216 06/22/25 0257 06/23/25 0412 WBC 5.8 6.2 5.3 RBC 6.09* 5.87 5.63 HGB 17.5 17.2 16.3 HCT 51.5 50.0 47.8 MCV 84.6 85.2 84.9 MCH 28.7 29.3 29.0 MCHC 34.0 34.4 34.1 RDW 13.1 13.2 13.0 PLT 193 183 165 MPV 11.5 11.2 11.3 Discharge Medications: Medication List CHANGE how you take these medications busPIRone 5 MG tablet Commonly known as: Buspar Take 1 tablet (5 mg) by mouth 2 times daily. What changed: when to take this Another medication with the same name was removed. Continue taking this medication, and follow the directions you see here. CONTINUE taking these medications ARIPiprazole 5 MG tablet Commonly known as: Abilify divalproex 250 MG 24 hr tablet Commonly known as: Depakote ER escitalopram 10 MG tablet Commonly known as: Lexapro metFORMIN 500 MG tablet Commonly known as: Glucophage traZODone 50 MG tablet Commonly known as: Desyrel Vitamin D-[address] 25 MCG (1000 UT) tablet Generic drug: cholecalciferol Where to Get Your Medications Information about where to get these medications is not yet available Ask your nurse or doctor about these medications busPIRone 5 MG tablet Recommended Follow-up: No follow-up provider specified. Complexity of Follow up: [] Moderate Complexity: follow up within 7-14 calendar days (20884) [x] Severe Complexity: follow up within 7 calendar days (82323) Follow up Testing, Pending results or Referrals at Transitional Care Visit: [x] yes [] no Instructions to MA: Please call patient on day after d (more content not included)... [facility] 06-23-2025 Hospital course Narrative Hospitalist Discharge Summary Rubén Gibbs : 2005 Admit date: 06/18/2025 Discharge date: 06/23/2025 Admitting Physician: Vianey Recinos DO Primary Care Physician: No primary care provider on file. Visit Status: Inpatient Code Status: No Order Acute, acute on chronic, unstable/uncontrolled chronic problems/discharge diagnoses: Suicide attempt s/p foreign body ingestion (fish hook) Abdominal pain resolved Depression and anxiety Transaminitis- trend LFTs Stable chronic problems affecting care, new non-acute discharge diagnoses: ADHD PTSD Obesity class I Medical History[1] Procedures: NA Hospital Course: Rubén is a 19 y.o. male with significant past psychiatric history with prior suicide attempts presents to the ED after ingesting a fishhook on 06/16/2025 and a suicide attempt. In the ED, patient endorsed suicidal ideation, denied homicidal ideations, auditory or visual hallucinations. Complains of sharp constant epigastric pain since a swallowing of the hook. CT scan at [facility] revealed a linear foreign object in the small intestine, was suggested transfer for observation and evaluation by surgery. Labs in the ED significant for AST 50, ALT 57 otherwise unremarkable. UDS positive for fentanyl and opiates. KUB obtained in the ED and noted for fishhook projecting over the right ngoc abdomen. Patient evaluated by general surgery-recommended no acute surgical intervention send goal is to allow foreign body to pass spontaneously. Plan to obtain serial abdominal exams. Psych consulted and recommended [facility] admission when medically stable. Fish hook no longer visible on KUB on 06/23 and surgery ok with discharge. Medically stable and discharged to inpatient psych in stable and improved condition for continued management. See discharge diagnoses list above and medication adjustments below in med rec.The patient is discharged in improved and stable condition. Consults: IP CONSULT TO PSYCHIATRY Discharge Instructions: Diet: Dietary Orders (From admission, onward) Start Ordered 06/22/25 0848 Adult diet Regular; Low Fiber Diet effective now Question Answer Comment Diet type Regular Fiber: Low Fiber 06/22/25 0847 06/21/25 0632 Supplement:Breakfast, Lunch, Dinner; Mixed Espinoza Ensure Clear Until discontinued Question Answer Comment Frequency Breakfast Frequency Lunch Frequency Dinner Select supplement: Mixed Espinoza Ensure Clear 06/21/25 0632 Activity: as tolerated Recommended Outpatient Tests: Disposition: Patient discharged in stable condition to Inpatient Psych. Greater than 31 minutes spent discharging the patient and coming up with patient discharge plan. Vitals: BP 123/72 Pulse 61 Temp 36.1 C (97 F) (Temporal) Resp 18 Ht 5' 10 (1.778 m) Wt 263 lb 8 oz (120 kg) SpO2 95% BMI 37.81 kg/m Pulse Ox: SpO2 Av % Min: 91 % Max: 95 % Supplemental O2: GENERAL: sitting up in bed comfortably HEENT: normocephalic, non-traumatic, MMM NECK: supple, trachea midline HEART: RRR, normal S1 and S2 LUNGS: non labored, no wheeze ABD: obese, non tender MSK: no edema noted SKIN: warm, dry LABS: Recent Labs 06/21/2521506/22/2525606/23/25411 NA 139 139 140 K 4.2 4.3 4.3 CL 109* 106 108* CO2 25 26 25 BUN 9 10 14 CREATININE 1.15 1.55* 1.18 GLUCOSE 85 86 97 CALCIUM 9.1 8.9 8.6 Recent Labs 06/21/2521506/22/2525606/23/25411 WBC 5.8 6.2 5.3 RBC 6.09* 5.87 5.63 HGB 17.5 17.2 16.3 HCT 51.5 50.0 47.8 MCV 84.6 85.2 84.9 MCH 28.7 29.3 29.0 MCHC 34.0 34.4 34.1 RDW 13.1 13.2 13.0 PLT 193 183 165 MPV 11.5 11.2 11.3 Discharge Medications: Medication List CHANGE how you take these medications busPIRone 5 MG tablet Commonly known as: Buspar Take 1 tablet (5 mg) by mouth 2 times daily. What changed: when to take this Another medication with the same name was removed. Continue taking this medication, and follow the directions you see here. CONTINUE taking these medications ARIPiprazole 5 MG tablet Commonly known as: Abilify divalproex 250 MG 24 hr tablet Commonly known as: Depakote ER escitalopram 10 MG tablet Commonly known as: Lexapro metFORMIN 500 MG tablet Commonly known as: Glucophage traZODone 50 MG tablet Commonly known as: Desyrel Vitamin D-[address] 25 MCG (1000 UT) tablet Generic drug: cholecalciferol Where to Get Your Medications Information about where to get these medications is not yet available Ask your nurse or doctor about these medications busPIRone 5 MG tablet Recommended Follow-up: No follow-up provider specified. Complexity of Follow up: [] Moderate Complexity: follow up within 7-14 calendar days (37501) [x] Severe Complexity: follow up within 7 calendar days (98322) Follow up Testing, Pending results or Referrals at Transitional Care Visit: [x] yes [] no Instructions to MA: Please call patient on day after discharge (must document patient contacted within 2 business days of discharge). Follow up questions for MA: 1. Did you get medications filled and taking them as instructed from discharge? 2. Are you following your discharge instructions from your hospital stay? 3. Please confirm patient is scheduled for a follow up appointment within the above time frame. Signed: Lulu Fowler DO Division of Hospitalist Medicine [facility] 06/23/2025, 2:11 PM [1] Past Medical History: Diagnosis Date Anxiety Depression Developmental delay documented in this encounter [facility] 06-22-2025 Note Hospitalist Progress Note 06/22/2025 Subjective: Admit Date: 06/18/2025 PCP: No primary care provider on file. Room#: W7-742/W7-742 A BRIEF HOSPITAL COURSE: Rubén is a 19 y.o. male with significant past psychiatric history with prior suicide attempts presents to the ED after ingesting a fishhook on 06/16/2025 and a suicide attempt. In the ED, patient endorsed suicidal ideation, denied homicidal ideations, auditory or visual hallucinations. Complains of sharp constant epigastric pain since a swallowing of the hook. CT scan at [facility] revealed a linear foreign object in the small intestine, was suggested transfer for observation and evaluation by surgery. Labs in the ED significant for AST 50, ALT 57 otherwise unremarkable. UDS positive for fentanyl and opiates. KUB obtained in the ED and noted for fishhook projecting over the right ngoc abdomen. Patient evaluated by general surgery-recommended no acute surgical intervention send goal is to allow foreign body to pass spontaneously. Plan to obtain serial abdominal exams. Patient admitted for further evaluation and management with psychiatry consult. Interval History: 06/22: Pt seen and examined with parents at bedside. Diet advanced today and pt states eating some food has really helped and denies pain today. KUB with fish hook still in RUQ. Plan continues to be inpatient psych once cleared from surgical stand Adult diet Regular; Low Fiber 24HR INTAKE/OUTPUT: Intake/Output Summary (Last 24 hours) at 06/22/2025 1607 Last data filed at 06/21/2025 1740 Gross per 24 hour Intake 472 ml Output -- Net 472 ml Past Medical History: Medical History[1] LABS: CBC: Recent Labs 06/20/2561806/21/2521506/22/25256 WBC 5.0 5.8 6.2 RBC 6.24* 6.09* 5.87 HGB 17.9 17.5 17.2 HCT 52.6* 51.5 50.0 MCV 84.3 84.6 85.2 RDW 13.1 13.1 13.2 PLT 192 193 183 BMP: Recent Labs 06/20/2561806/21/2521506/22/25256 NA 134* 139 139 K 4.1 4.2 4.3 CL 104 109* 106 CO2 24 25 26 BUN 11 9 10 CREATININE 1.12 1.15 1.55* GLUCOSE 86 85 86 CALCIUM 9.0 9.1 8.9 ANIONGAP 6 5 7 LIVER PROFILE: Recent Labs 06/22/25256 AST 39* ALT 60* BILITOT 0.4 ALKPHOS 79 PROT 6.4 PT/INR: No results for input(s): PROTIME, INR in the last 72 hours. CARDIAC ENZYMES: No results for input(s): TROPONINI in the last 72 hours. Procalcitonin: No results found for: PROCAL COVID-19 PCR: No results for input(s): COVID19 in the last 72 hours. Objective: Vitals: BP 123/74 (BP Location: Left arm) Pulse 67 Temp 36 ?C (96.8 ?F) (Temporal) Resp 18 Ht 5' 10 (1.778 m) Wt 263 lb 8 oz (120 kg) SpO2 92% BMI 37.81 kg/m? Pulse Ox: SpO2 Av % Min: 92 % Max: 97 % Supplemental O2: GENERAL: sitting up in bed comfortably eating lunch HEENT: normocephalic, non-traumatic, MMM NECK: supple, trachea midline HEART: RRR, normal S1 and S2 LUNGS: non labored, no wheeze ABD: obese, TTP RUQ MSK: no edema noted SKIN: warm, dry PSYCH: appropriate affect Medications: Scheduled PRN Scheduled Meds[2] PRN Meds[3] Continuous Continuous Meds[4] Assessment Data: Acute, acute on chronic, unstable/uncontrolled chronic problems/diagnoses: Suicide attempt s/p foreign body ingestion Abdominal pain Ingestion of valentina on 06/16 S/p general surgery eval, plan to allow foreign body to pass spontaneously Serial abdominal exams-Daily KUBs Reviewed KUB from this AM- fish hook in a similar position to the prior study Advanced to full liquid diet today per surgery Continue bowel regimen with MiraLAX TID and Senokot TID Psych following, patient will require inpatient psychiatric admission when medically stable Depression and anxiety Transaminitis- trend LFTs Stable chronic problems affecting care, new non-acute diagnoses: ADHD PTSD Obesity class I Plan As a result of the above findings & factors, the following mgmt was pursued: - Plan as above - am labs, replace lytes prn - PT/OT/CM/SW - delirium precautions: increase activity and limit nighttime disturbances - DVT prophylaxis: SCDs and encourage ambulation Advance Directive: No Order Anticipated Discharge - Date -TBD - Location -Inpatient psych - Pending the following -surgical clearance Total time spent (which include face to face and non face to face encounters) : 35 minutes Extended Emergency Contact Information Primary Emergency Contact: Marily Farmer Relation: Grandparent Secondary Emergency Contact: Ken Ayon Mobile Relation: Other Lulu Fowler DO Division of Hospitalist Medicine Acute care [facility] [1] Past Medical History: Diagnosis Date Anxiety Depression Developmental delay [2] ARIPiprazole, 10 mg, Oral, Nightly busPIRone, 5 mg, Oral, BID divalproex, 750 mg, Oral, BID docusate sodium, 100 mg, Oral, TID escitalopram, (more content not included)... [facility] 06-22-2025 Note Department of Psychi atry Attending Progress Note CHIEF COMPLAINT: foreign body ingestion SUBJECTIVE: The patient was seen in follow-up for mood disorder, suicide attempt by foreign body ingestion, and anxiety. The patient was seen and examined. The chart was reviewed. On approach, the patient is visiting with his grandparents. He has yet to pass the fish hook. He reports feeling depressed, but is currently denying suicidal ideation. No homicidal ideation. Sleep, energy, and concentration are okay. Appetite is increased. No symptoms of refugio or psychosis. OBJECTIVE Physical Visit Vitals BP 119/70 (BP Location: Left arm, Patient Position: Sitting) Pulse 78 Temp 36.6 ?C (97.8 ?F) (Temporal) Resp 16 Mental Status Examination: The patient appears his stated age. He is casually groomed and wearing hospital attire. He is cooperative and makes fair eye contact. He has decreased psychomotor activity. No involuntary movements. He was not seen ambulating. His speech is clear and mostly spontaneous. Mood is dysphoric and affect is pedro congruent. Thought process is grossly organized. Thought content: No suicidal ideation, no homicidal ideation. No paranoia. Patient does not appear internally stimulated. Memory, attention, and concentration are grossly intact. Insight and judgment are limited. Data Labs reviewed Medications Current Medications[1] ASSESSMENT: Mood Disorder, unspecified Anxiety Disorder, unspecified PLAN: The patient remains medically admitted. Will continue the yellow slip and constant classified ad taker. The patient may not leave AMA. Will continue Abilify 10 mg nightly, Buspar 5 mg bid, Depakote 750 mg bid, and Lexapro 10 mg nightly. No medications changes at this time. The patient will require inpatient psychiatric treatment when medically cleared. Please contact myself over the weekend with questions or concerns. Starting Tuesday, please contact Dr. Brooke. [1] Current Facility-Administered Medications: acetaminophen (Tylenol) tablet 650 mg, 650 mg, Oral, q6h PRN, Eli Villalpando, PERSONNEL SECURITY ASSISTANT, 650 mg at 06/21/25 161 ARIPiprazole (Abilify) tablet 10 mg, 10 mg, Oral, Nightly, Eli Villalpando, PERSONNEL SECURITY ASSISTANT, 10 mg at 06/22/25 214 busPIRone (Buspar) tablet 5 mg, 5 mg, Oral, BID, Eli Villalpando, PERSONNEL SECURITY ASSISTANT, 5 mg at 06/22/252139 divalproex (Depakote ER) 24 hr tablet 750 mg, 750 mg, Oral, BID, Eli Villalpando, PERSONNEL SECURITY ASSISTANT, 750 mg at 06/22/25 150 docusate sodium (Colace) capsule 100 mg, 100 mg, Oral, TID, Iris Garibay PA-C, 100 mg at 06/22/252139 escitalopram (Lexapro) tablet 10 mg, 10 mg, Oral, Nightly, Eli Villalpando NP, 10 mg at 06/22/252139 ketorolac (Toradol) injection 30 mg, 30 mg, IntraVENous, q6h PRN, Eli Villalpando NP, 30 mg at 06/21/25 163 lactated Ringer's infusion, 75 mL/hr, IntraVENous, Continuous, Eli Villalpando NP, Last Rate: 75 mL/hr at 06/22/251812, 75 mL/hr at 06/22/251812 magnesium hydroxide (Milk of Magnesia) 400 MG/5ML suspension 30 mL, 30 mL, Oral, Nightly, Irineo Arredondo MD, 30 mL at 06/22/252139 ondansetron ODT (Zofran-ODT) disintegrating tablet 4 mg, 4 mg, Oral, q8h PRN OR ondansetron (Zofran) injection 4 mg, 4 mg, IntraVENous, q6h PRN, Eli Villalpando NP, 4 mg at 06/21/25 163 polyethylene glycol (PEG) 3350 (Miralax) packet 17 g, 17 g, Oral, TID, Iris Garibay PA-C, 17 g at 06/22/252139 sennosides (Senokot) tablet 17.2 mg, 2 tablet, Oral, TID, Aryan Rosa MD, 17.2 mg at 06/22/252139 [facility] 06-22-2025 Note Nutrition Assessment Type and Reason for Visit: Initial (diet metallurgical technician referral for NPO/clear liquids > 3 days) Nutrition Recommendations/Plan: Continue with regular, low fiber diet and Ensure Clear TID (8 oz provides 240 kcals, 8 gm protein). Monitor weight, labs, I/O, skin assessment, BM, and overall nutritional status. RD will follow up weekly. Malnutrition Assessment: Malnutrition Status: Insufficient data Context: Acute Illness Findings of the 6 clinical characteristics of malnutrition: Energy Intake: Mild decrease in energy intake (Comment) (Ingestion of fish hook and awaiting to pass- mainly clear/full liquid diet since admit.) Weight Loss: No significant weight loss (Epic weight history limited- 246# office visit on 06/17/25.) Body Fat Loss: Unable to assess (Deferred NFPE at this time as patient sleeping and room completely dark.) Muscle Mass Loss: Unable to assess Fluid Accumulation: No significant fluid accumulation (per flow sheets) Developmental Services Worker Strength: Not Performed Nutrition Assessment: 19 y.o. male with history of anxiety, depression, prior suicide attempts, PTSD, ADHD. Patient transferred from [facility] in which he presented there after a suicide attempt by ingesting a fishhook on 06/16. Patient complained of epigastric pain. CTAP from outside hospital demonstrates fishhook in small bowel. KUB confirmed approximate location in the right upper quadrant. Transferred to [facility] for evaluation by general surgery. No acute surgical intervention with goal to allow foreign body to pass spontaneously. Serial abdominal exams and daily bowel regimen ordered. Patient started a clear liquid diet in which further advanced to full liquids. Patient had sudden increase in abdominal pain that worsened with movement last night and nausea. KUB re-demonstrated a metallic foreign body consistent with a fishhook in RUQ which its position is unchanged compared to earlier study. Patient reported minimal pain this am and tolerating liquid diet. Diet advanced to regular, low fiber this am. Psych is following- yellow slipped and will require inpatient psychiatric admission when medically stable. RD visited patient this am- room completely dark and he was sleeping. RD spoke with constant classified ad taker who reported that patient had not ate breakfast. She states that he has not complained of abdominal pain, nausea, vomiting this am. Estimated Daily Nutrient Needs: Energy Requirements Based On: Kcal/kg Weight Used for Energy Requirements: Marshall Weight for Energy Calculation (kg): 75 kg Total Energy Requirements (kcals/day): 5814-5428 kcals per day (28-32) Weight Used for Protein Requirements: Marshall Weight in Kg Used for Protein Requirements: 75 kg Estimated Total Protein (g/day): 75-90 gm per day (1.0-1.2) Estimated Daily Total Fluid (ml/day): Per MD Nutrition Related Findings: Lauro = 21, abdomen soft, rounded, BM on 06/21, no edema, I/O: +[phone] (since admit), room service selective Wound Type: None BMP: Recent Labs 06/20/25 0619 06/21/25 0216 06/22/25 0257 NA 134* 139 139 K 4.1 4.2 4.3 CL 104 109* 106 CO2 24 25 26 BUN 11 9 10 CREATININE 1.12 1.15 1.55* GLUCOSE 86 85 86 CALCIUM 9.0 9.1 8.9 HEPATIC: Recent Labs 06/22/25 0257 AST 39* ALT 60* BILITOT 0.4 ALKPHOS 79 Medications: Scheduled Meds[1] Continuous Meds[2] PRN Meds[3] Current Nutrition Therapies: Adult diet Regular; Low Fiber Current Oral Intake Average Meal Intake: Unable to assess Average Supplements Intake: Unable to assess Anthropometric Measures: Height: 177.8 cm (5' 10) Admission Body Weight: 119 kg (263 lb) (bed scale on 06/18/25) Usual Body Weight: ([facility] weight history limited: 246# on 06/17/25) Marshall Body Weight (lbs) (Calculated): 166 lbs Marshall Body Weight (Kg) (Calculated): 75 kg Nutrition Diagnosis: Inadequate oral intake related to altered GI function, pain (ingestion of fishhook, awaiting for it to pass) as evidenced by (required clear and full liquids this admission x 2 days) Nutrition Interventions: Nutrition Education/Counseling: No recommendation at this time Coordination of Nutrition Care: Continue to monitor while inpatient Goals: Goals: PO intake 75% or greater, by next RD assessment Nutrition Monitoring and Evaluation: Behavioral-Environmental Outcomes: None Identified Food/Nutrient Intake Outcomes: Diet Advancement/Tolerance, Food and Nutrient Intake, Supplement Intake Physical Signs/Symptoms Outcomes: Biochemical Data, GI Status, Fluid Status or Edema, Meal Time Behavior, Nutrition Focused Physical Findings, Skin, Weight Discharge Planning: Too soon to determine Radha Savage RD Contact: *[phone] [1] ARIPiprazole, 10 mg, Oral, Nightly busPIRone, 5 mg, Oral, BID divalproex, 750 mg, Oral, BID docusate sodium, 100 mg, Oral, TID escitalopram, 10 mg, Oral, Nightly magnesium hydroxide, 30 mL, Oral, Nightly polyethylene glycol (P (more content not included)... [facility] 06-21-2025 Note General Surgery Inte rval Progress Note Patient assessed at bedside due to report of sudden increase in abdominal pain when patient shifted to the right in bed. States that it is still at 9/10, but he can move around in the bed without too much issue. Abdominal exam benign, no rebound, guarding, or rigidity. Patient had small bowel movement this afternoon, denies seeing fish hook in it. Denies nausea/vomiting at this time. KUB ordered to assess and rule out perforation. Soy Pedraza MD General Surgery Resident 06/21/25 7:[address] [facility] 06-21-2025 Nurse Note This RN to the room at 1342 for scheduled medications. Patient denied pain and nausea at that time. 1615 this RN called to the room, patient is having 10/10 pain, and nausea. Charles PERSONNEL SECURITY ASSISTANT and Dr. Milo bermudez. Medicated with Tylenol, Zofran and Toradol. See emar. T [facility] 06-21-2025 Progress note Formatting of t his note might be different from the original. Pt discussed in rounds. Pt not ready for discharge. It is unclear if pt will discharge back to [facility] or to psych-[facility] when medically cleared. This SW attempted to call [facility], to discuss how [facility] would want pt to return to facility, either hospital or facility to sweet pickle maker pt, when pt is ready for discharge. SW had to leave a , asking for a return call. . T [facility] 06-21-2025 Miscellaneous Notes Pt discussed in rounds. Pt not ready for discharge. It is unclear if pt will discharge back to [facility] or to psych-[facility] when medically cleared. This SW attempted to call [facility], to discuss how [facility] would want pt to return to facility, either hospital or facility to sweet pickle maker pt, when pt is ready for discharge. SW had to leave a , asking for a return call. . [facility] spoke with Sahra who reports that he's been there since April 23. DX with MDD, other reaction to severe stress. States that he swallowed two fish hooks. Reports that he didn't directly tell them that what he was doing but later stated that he swallowed two fish hooks. Reports that when he first go there he was told that he had a history of harming himself and at times had some suicidal ideation. He came to them from [facility] in [place]. Came from [facility] before that, reports that they aren't able to release that due to him being a youth at time of entry. Reports that the Depakote was increased May 17 to 750mg PO BID. Reports that Paliperidone was recently started, they don't have Aripiprazole on list. Requested for most recent medication list and measurement psychologist note to be faxed to . Will request CL team to follow up with record review tomorrow. Care Management Progress Note Short Medical why still here: New Admission. Pt admitted with Foreign body in intestine, pt swallowed a fish hook. Gen sx follows no plan for surgery, await passing of hook, Clear liquid diet, bowel regimen, serial x rays, current movement through intestine. Psychiatry follows, inpt admit needed, yellow slip with bedside classified ad taker. Call received from SN Minaya at [facility]: [phone]. Discussed [facility] lives in residential care. Discussed currently await pt passing of foreign object, psychiatry following, plan for poss inpt admit. Per SN rounds pt is A&Ox4, RA. CM will follow for dc planning needs if any. Planned Discharge Disposition: Other (Comment) (TBD, Return to long-term or admit to [facility]) Barriers/Today we still Wait: Clinical stability, Sedimentationist recommendations (comment), Post-discharge arrangement completion (comment), Symptomatic control, Test results (comment), Other (comment) (Gen sx following, no sx, await passing of forgein object, Bowel regimen, daily abd x ray; Psychiatry following, Yellow slip with bedside classified ad taker, SI attempt, plan admit to [facility].) Length of Stay (Days): 1 GMLOS: No GMLOS Documented Pt currently off unit. Will follow up at a later time. ED SHRIMP PEELING MACHINE OPERATOR follow up. New consult from Psychiatry PERSONNEL SECURITY ASSISTANT to help clarify patient's guardianship status. Patient's paperwork from [facility] named Kne Ayon ([phone]) as patient's guardian. ED SHRIMP PEELING MACHINE OPERATOR reached out to Ken and clarified that he is not patient's legal guardian, but rather patient's Juvenile Freight Associate through [place] [employer]. Ken shared patient's grandmother Marily Farmer as family contact ([phone]), and stated grandmother very involved. classification officer requested to be notified whenever patient released from the hospital. ED SHRIMP PEELING MACHINE OPERATOR met with patient to discuss. Patient agreed to communications with classification officer and for grandmother to be listed as emergency contact. Updated EMR contacts. Updated Psychiatry PERSONNEL SECURITY ASSISTANT. documented in this encounter [facility] 06-21-2025 Note Hospitalist Progress Note 06/21/2025 Subjective: Admit Date: 06/18/2025 PCP: No primary care provider on file. [facility] A BRIEF HOSPITAL COURSE: Rubén is a 19 y.o. male with significant past psychiatric history with prior suicide attempts presents to the ED after ingesting a fishhook on 06/16/2025 and a suicide attempt. In the ED, patient endorsed suicidal ideation, denied homicidal ideations, auditory or visual hallucinations. Complains of sharp constant epigastric pain since a swallowing of the hook. CT scan at [facility] revealed a linear foreign object in the small intestine, was suggested transfer for observation and evaluation by surgery. Labs in the ED significant for AST 50, ALT 57 otherwise unremarkable. UDS positive for fentanyl and opiates. KUB obtained in the ED and noted for fishhook projecting over the right ngoc abdomen. Patient evaluated by general surgery-recommended no acute surgical intervention send goal is to allow foreign body to pass spontaneously. Plan to obtain serial abdominal exams. Patient admitted for further evaluation and management with psychiatry consult. Interval History: NAEON Complaints of minimal abdominal pain, last BM was yesterday evening. Tolerating diet. Denies chest pain, SOB, fevers/chills. Adult diet Full liquid; Safety Tray (Disposables, no utensils) 24HR INTAKE/OUTPUT: Intake/Output Summary (Last 24 hours) at 06/21/2025 1112 Last data filed at 06/20/2025 1149 Gross per 24 hour Intake 615 ml Output -- Net 615 ml Past Medical History: Medical History[1] LABS: CBC: Recent Labs 06/19/2553606/20/2561806/21/25215 WBC 5.3 5.0 5.8 RBC 6.42* 6.24* 6.09* HGB 18.4* 17.9 17.5 HCT 54.4* 52.6* 51.5 MCV 84.7 84.3 84.6 RDW 13.3 13.1 13.1 PLT 197 192 193 BMP: Recent Labs 06/19/2553606/20/2561806/21/25215 NA 136 134* 139 K 4.3 4.1 4.2 CL 103 104 109* CO2 BUN 12 11 9 CREATININE 1.18 1.12 1.15 GLUCOSE 95 86 85 CALCIUM 9.4 9.0 9.1 ANIONGAP 8 6 5 LIVER PROFILE: Recent Labs 06/19/25536 AST 37* ALT 49* BILITOT 0.8 ALKPHOS 86 PROT 7.2 PT/INR: No results for input(s): PROTIME, INR in the last 72 hours. CARDIAC ENZYMES: No results for input(s): TROPONINI in the last 72 hours. Procalcitonin: No results found for: PROCAL COVID-19 PCR: No results for input(s): COVID19 in the last 72 hours. Objective: Vitals: BP 108/61 (BP Location: Left arm, Patient Position: Lying) Pulse 55 Temp 36.1 ?C (97 ?F) (Temporal) Resp 16 Ht 5' 10 (1.778 m) Wt 263 lb 8 oz (120 kg) SpO2 96% BMI 37.81 kg/m? Pulse Ox: SpO2 Av % Min: 96 % Max: 96 % Supplemental O2: Physical Exam Vitals reviewed. Cardiovascular: Rate and Rhythm: Normal rate. Heart sounds: Normal heart sounds. Pulmonary: Breath sounds: Normal breath sounds. Abdominal: General: Bowel sounds are normal. There is no distension. Palpations: Abdomen is soft. Tenderness: There is abdominal tenderness. Skin: General: Skin is warm and dry. Neurological: Mental Status: He is alert and oriented to person, place, and time. Medications: Scheduled PRN Scheduled Meds[2] PRN Meds[3] Continuous Continuous Meds[4] Assessment Data: (CAT1) Reviewed 3 or more notes from different specialty or health system (each=1). (CAT1) Reviewed 3 or more labs/studies ordered by another provider not previously counted (each=1, panels count as 1). (LOW: 2x CAT1 or independent historian MOD: 3x CAT1 or 1x CAT3 EXTENSIVE: 3x CAT1 and 1x CAT3) Acute, acute on chronic, unstable/uncontrolled chronic problems/diagnoses: Suicide attempt s/p foreign body ingestion Abdominal pain Ingestion of fishhook on 06/16 S/p general surgery eval, plan to allow foreign body to pass spontaneously Serial abdominal exams-Daily KUBs Reviewed KUB from this AM- fish hook in a similar position to the prior study Advanced to full liquid diet today per surgery Continue bowel regimen with MiraLAX TID and Senokot TID Psych following, patient will require inpatient psychiatric admission when medically stable Depression and anxiety Transaminitis- trend LFTs Stable chronic problems affecting care, new non-acute diagnoses: ADHD PTSD Obesity class I Plan As a result of the above findings & factors, the following mgmt was pursued: - Plan as above - am labs, replace lytes prn - PT/OT/CM/SW - delirium precautions: increase activity and limit nighttime disturbances - DVT prophylaxis: SCDs and encourage ambulation Complexity: Acute illness or injury posing a threat to life or body function (HIGH). Chronic illness with severe exacerbation, progression, or side effect of tx (HIGH). Acute, uncomplicated illness or injury (LOW). Risk: Consult to surgery for emergency major surgery, or major surgery with identified patient or procedural risk factors, was considered or occurred (more content not included)... [facility] 06-20-2025 Progress note Formatting of t his note might be different from the original. [facility] spoke with Sahra who reports that he's been there since April 23. DX with MDD, other reaction to severe stress. States that he swallowed two fish hooks. Reports that he didn't directly tell them that what he was doing but later stated that he swallowed two fish hooks. Reports that when he first go there he was told that he had a history of harming himself and at times had some suicidal ideation. He came to them from [facility] in [place]. Came from [facility] before that, reports that they aren't able to release that due to him being a youth at time of entry. Reports that the Depakote was increased May 17 to 750mg PO BID. Reports that Paliperidone was recently started, they don't have Aripiprazole on list. Requested for most recent medication list and measurement psychologist note to be faxed to . Will request CL team to follow up with record review tomorrow. [facility] 06-20-2025 Note Hospitalist Progress Note 06/20/2025 Subjective: Admit Date: 06/18/2025 PCP: No primary care provider on file. [facility] A BRIEF HOSPITAL COURSE: Rubén is a 19 y.o. male with significant past psychiatric history with prior suicide attempts presents to the ED after ingesting a fishhook on 06/16/2025 and a suicide attempt. In the ED, patient endorsed suicidal ideation, denied homicidal ideations, auditory or visual hallucinations. Complains of sharp constant epigastric pain since a swallowing of the hook. CT scan at [facility] revealed a linear foreign object in the small intestine, was suggested transfer for observation and evaluation by surgery. Labs in the ED significant for AST 50, ALT 57 otherwise unremarkable. UDS positive for fentanyl and opiates. KUB obtained in the ED and noted for fishhook projecting over the right ngoc abdomen. Patient evaluated by general surgery-recommended no acute surgical intervention send goal is to allow foreign body to pass spontaneously. Plan to obtain serial abdominal exams. Patient admitted for further evaluation and management with psychiatry consult. Interval History: LAURA Had a small BM this AM Complaints of minimal abdominal pain. No nausea or vomiting. Adult diet Clear liquid; Safety Tray (Disposables, no utensils) 24HR INTAKE/OUTPUT: Intake/Output Summary (Last 24 hours) at 06/20/2025 1146 Last data filed at 06/20/2025 1056 Gross per 24 hour Intake 2400 ml Output -- Net 2400 ml Past Medical History: Medical History[1] LABS: CBC: Recent Labs 06/18/2524206/19/2553606/20/25618 WBC 6.2 5.3 5.0 RBC 6.07* 6.42* 6.24* HGB 17.6 18.4* 17.9 HCT 51.7 54.4* 52.6* MCV 85.2 84.7 84.3 RDW 13.4 13.3 13.1 PLT 188 197 192 BMP: Recent Labs 06/18/2524206/19/2553606/20/25618 NA 138 136 134* K 4.4 4.3 4.1 CL 105 103 104 CO2 24 25 24 BUN 14 12 11 CREATININE 1.08 1.18 1.12 GLUCOSE 84 95 86 CALCIUM 9.3 9.4 9.0 ANIONGAP 9 8 6 LIVER PROFILE: Recent Labs 06/18/2524206/19/25536 AST 50* 37* ALT 57* 49* BILITOT 0.8 0.8 ALKPHOS 80 86 PROT 7.0 7.2 PT/INR: No results for input(s): PROTIME, INR in the last 72 hours. CARDIAC ENZYMES: No results for input(s): TROPONINI in the last 72 hours. Procalcitonin: No results found for: PROCAL COVID-19 PCR: No results for input(s): COVID19 in the last 72 hours. Objective: Vitals: BP 102/71 (BP Location: Left arm, Patient Position: Lying) Pulse 63 Temp 36.1 ?C (96.9 ?F) (Temporal) Resp 16 Ht 5' 10 (1.778 m) Wt 263 lb 8 oz (120 kg) SpO2 95% BMI 37.81 kg/m? Pulse Ox: SpO2 Av.5 % Min: 94 % Max: 95 % Supplemental O2: Physical Exam Vitals reviewed. Cardiovascular: Rate and Rhythm: Normal rate. Heart sounds: Normal heart sounds. Pulmonary: Breath sounds: Normal breath sounds. Abdominal: General: Bowel sounds are normal. There is no distension. Palpations: Abdomen is soft. Tenderness: There is abdominal tenderness. Skin: General: Skin is warm and dry. Neurological: Mental Status: He is alert and oriented to person, place, and time. Medications: Scheduled PRN Scheduled Meds[2] PRN Meds[3] Continuous Continuous Meds[4] Assessment Data: (CAT1) Reviewed 3 or more notes from different specialty or health system (each=1). (CAT1) Reviewed 3 or more labs/studies ordered by another provider not previously counted (each=1, panels count as 1). (LOW: 2x CAT1 or independent historian MOD: 3x CAT1 or 1x CAT3 EXTENSIVE: 3x CAT1 and 1x CAT3) Acute, acute on chronic, unstable/uncontrolled chronic problems/diagnoses: Suicide attempt s/p foreign body ingestion Abdominal pain Ingestion of fishhook on 06/16 S/p general surgery eval, plan to allow foreign body to pass spontaneously Serial abdominal exams-Daily KUBs Reviewed KUB from this AM- fish gibbs in mid-upper abdomen, minimally progressed. Descending colon appears dilated Continue clear liquid diet Continue bowel regimen with MiraLAX and Senokot Psych following, patient will require inpatient psychiatric admission when medically stable Depression and anxiety Transaminitis Stable chronic problems affecting care, new non-acute diagnoses: ADHD PTSD Obesity class I Plan As a result of the above findings & factors, the following mgmt was pursued: - Plan as above - am labs, replace lytes prn - PT/OT/CM/SW - delirium precautions: increase activity and limit nighttime disturbances - DVT prophylaxis: SCDs and encourage ambulation Complexity: Acute illness or injury posing a threat to life or body function (HIGH). Chronic illness with severe exacerbation, progression, or side effect of tx (HIGH). Acute, uncomplicated illness or injury (LOW). Risk: Consult to surgery for emergency major surgery, or major surgery with identified patient or procedural risk factors, was considered or occurred (more content not included)... [facility] 06-20-2025 Note Impression: There is a fishhook overlying the right mid to upper abdomen, similar or minimally progressed. Mildly dilated transverse colon. Report Dictated on Electronically Signed By: Bobbi Moreno MD Electronically Signed Date/Time: 06/20/2025 9:04 AM EDT [facility] 06-19-2025 Nurse Note Pt had one small liquid BM, this RN and a tech checked for foreign object but nothing was seen. Will monitor. [facility] 06-19-2025 Nurse Note Pt had one moderate liquid bowel movement. Two RN's checked stool for foreign object but nothing was visualized. Will continue to monitor. [facility] 06-19-2025 Note Care Management Prog ress Note Short Medical why still here: New Admission. Pt admitted with Foreign body in intestine, pt swallowed a fish hook. Gen sx follows no plan for surgery, await passing of hook, Clear liquid diet, bowel regimen, serial x rays, current movement through intestine. Psychiatry follows, inpt admit needed, yellow slip with bedside classified ad taker. Call received from SN Minaya at [facility]: [phone]. Discussed [facility] where pt lives in residential care. Discussed currently await pt passing of foreign object, psychiatry following, plan for poss inpt admit. Per SN rounds pt is A&Ox4, RA. CM will follow for dc planning needs if any. Planned Discharge Disposition: Other (Comment) (TBD, Return to long-term or admit to [facility]) Barriers/Today we still Wait: Clinical stability, Sedimentationist recommendations (comment), Post-discharge arrangement completion (comment), Symptomatic control, Test results (comment), Other (comment) (Gen sx following, no sx, await passing of forgein object, Bowel regimen, daily abd x ray; Psychiatry following, Yellow slip with bedside classified ad taker, SI attempt, plan admit to [facility].) Length of Stay (Days): 1 GMLOS: No GMLOS Documented [facility] 06-19-2025 Progress note Formatting of t his note might be different from the original. Care Management Progress Note Short Medical why still here: New Admission. Pt admitted with Foreign body in intestine, pt swallowed a fish hook. Gen sx follows no plan for surgery, await passing of hook, Clear liquid diet, bowel regimen, serial x rays, current movement through intestine. Psychiatry follows, inpt admit needed, yellow slip with bedside classified ad taker. Call received from SN Minaya at [facility]: [phone]. Discussed [facility] where pt lives in residential care. Discussed currently await pt passing of foreign object, psychiatry following, plan for poss inpt admit. Per rounds pt is A&Ox4, RA. CM will follow for dc planning needs if any. Planned Discharge Disposition: Other (Comment) (TBD, Return to long-term or admit to [facility]) Barriers/Today we still Wait: Clinical stability, Sedimentationist recommendations (comment), Post-discharge arrangement completion (comment), Symptomatic control, Test results (comment), Other (comment) (Gen sx following, no sx, await passing of forgein object, Bowel regimen, daily abd x ray; Psychiatry following, Yellow slip with bedside classified ad taker, SI attempt, plan admit to [facility].) Length of Stay (Days): 1 GMLOS: No GMLOS Documented [facility] 06-19-2025 Note Hospitalist Progress Note 06/19/2025 Subjective: Admit Date: 06/18/2025 PCP: No primary care provider on file. Room#: W7-742/W7-742 A BRIEF HOSPITAL COURSE: Rubén is a 19 y.o. male with significant past psychiatric history with prior suicide attempts presents to the ED after ingesting a fishhook on 06/16/2025 and a suicide attempt. In the ED, patient endorsed suicidal ideation, denied homicidal ideations, auditory or visual hallucinations. Complains of sharp constant epigastric pain since a swallowing of the hook. CT scan at [facility] revealed a linear foreign object in the small intestine, was suggested transfer for observation and evaluation by surgery. Labs in the ED significant for AST 50, ALT 57 otherwise unremarkable. UDS positive for fentanyl and opiates. KUB obtained in the ED and noted for fishhook projecting over the right ngoc abdomen. Patient evaluated by general surgery-recommended no acute surgical intervention send goal is to allow foreign body to pass spontaneously. Plan to obtain serial abdominal exams. Patient admitted for further evaluation and management with psychiatry consult. Interval History: NAEON, denies any abdominal pain this AM Reports last BM was 06/18, no flatus this AM Denies any complaints of SOB, chest pain, N/V/D Remains HDS Adult diet Clear liquid; Safety Tray (Disposables, no utensils) 24HR INTAKE/OUTPUT: Intake/Output Summary (Last 24 hours) at 06/19/2025 1010 Last data filed at 06/18/2025 1751 Gross per 24 hour Intake 380 ml Output -- Net 380 ml Past Medical History: Medical History[1] LABS: CBC: Recent Labs 06/18/2524206/19/25 0537 WBC 6.2 5.3 RBC 6.07* 6.42* HGB 17.6 18.4* HCT 51.7 54.4* MCV 85.2 84.7 RDW 13.4 13.3 PLT 188 197 BMP: Recent Labs 06/18/25 02406/19/25 0537 NA 138 136 K 4.4 4.3 CL 105 103 CO2 24 25 BUN 14 12 CREATININE 1.08 1.18 GLUCOSE 84 95 CALCIUM 9.3 9.4 ANIONGAP 9 8 LIVER PROFILE: Recent Labs 06/18/25242 06/19/25 0537 AST 50* 37* ALT 57* 49* BILITOT 0.8 0.8 ALKPHOS 80 86 PROT 7.0 7.2 PT/INR: No results for input(s): PROTIME, INR in the last 72 hours. CARDIAC ENZYMES: No results for input(s): TROPONINI in the last 72 hours. Procalcitonin: No results found for: PROCAL COVID-19 PCR: No results for input(s): COVID19 in the last 72 hours. Objective: Vitals: BP 112/82 Pulse 73 Temp 36.2 ?C (97.1 ?F) (Temporal) Resp 18 Ht 5' 10 (1.778 m) Wt 263 lb 8 oz (120 kg) SpO2 96% BMI 37.81 kg/m? Pulse Ox: SpO2 Av.7 % Min: 95 % Max: 96 % Supplemental O2: Physical Exam Vitals reviewed. Cardiovascular: Rate and Rhythm: Normal rate. Heart sounds: Normal heart sounds. Pulmonary: Breath sounds: Normal breath sounds. Abdominal: General: Bowel sounds are normal. There is no distension. Palpations: Abdomen is soft. Tenderness: There is abdominal tenderness. Skin: General: Skin is warm and dry. Neurological: Mental Status: He is alert and oriented to person, place, and time. Medications: Scheduled PRN Scheduled Meds[2] PRN Meds[3] Continuous Continuous Meds[4] Assessment Data: (CAT1) Reviewed 3 or more notes from different specialty or health system (each=1). (CAT1) Reviewed 3 or more labs/studies ordered by another provider not previously counted (each=1, panels count as 1). (LOW: 2x CAT1 or independent historian MOD: 3x CAT1 or 1x CAT3 EXTENSIVE: 3x CAT1 and 1x CAT3) Acute, acute on chronic, unstable/uncontrolled chronic problems/diagnoses: Suicide attempt s/p foreign body ingestion Abdominal pain Ingestion of fishhook on 06/16 S/p general surgery eval, plan to allow foreign body to pass spontaneously Serial abdominal exams-Daily KUBs Seguin now in the right upper quadrant per KUB this a.m. Continue clear liquid diet Continue bowel regimen with MiraLAX and Senokot Psych following, patient will require inpatient psychiatric admission when medically stable Depression and anxiety Transaminitis Stable chronic problems affecting care, new non-acute diagnoses: ADHD PTSD Obesity class I Plan As a result of the above findings & factors, the following mgmt was pursued: - Plan as above - am labs, replace lytes prn - PT/OT/CM/SW - delirium precautions: increase activity and limit nighttime disturbances - DVT prophylaxis: SCDs and encourage ambulation Complexity: Acute illness or injury posing a threat to life or body function (HIGH). Chronic illness with severe exacerbation, progression, or side effect of tx (HIGH). Acute, uncomplicated illness or injury (LOW). Risk: Consult to surgery for emergency major surgery, or major surgery with identified patient or procedural risk factors, was considered or occurred (HIGH). Prescription drug/IVF/colloid was initiated, discontinued, adjusted; or reviewed with decision to maintain current orders (MOD). Low risk (more content not included)... [facility] 06-19-2025 Progress note Formatting of t his note might be different from the original. Pt currently off unit. Will follow up at a later time. [facility] 06-18-2025 Emergency department Note Report given to BOBO RN [facility] 06-18-2025 Emergency department Note Report given to BOBO RN Pt escorted to restroom per requesr Admitting provider at bedside Dietary tray ordered. project manager industrial, Rema, at bedside Surgery at bedside Pt given phone to call family RN at bedside for vitals Pt ate very little amount of meal tray. Given gingerale per request Pt given clear liquids meal tray Breakfast tray delivered. Pt asleep at this time Taking over as 1-1 sitter Report given to Rosenda DAWKINS. Dr. Arredondo (surgery resident) at the bedside. EKG in room with pt. Resident in room speaking to patient. Emergency Department Encounter [facility] Patient: Rubén Gibbs : 2005 Date of Evaluation: 06/17/2025 ED Supervising Physician: Arben Funes DO I personally evaluated Rubén Gibbs and made/approved the management plan and take responsibility for the patient management. This will serve as my Supervisory note and shared attestation. I did perform a substantive portion of the visit including all aspects of the Medical Decision Making. I wore appropriate PPE for the entirety of this encounter. CHIEF COMPLAINT Chief Complaint Patient presents with Suicide Attempt Transfer pink slip from [facility]. Swallowed fish hook that is now stuck in small intestine. Pt endorses multiple attempts in various different ways in the past. Doesn't give a reason as to why I just want to hurt myself. A&Ox4 Abdominal Pain Endorses sharp 7/10 ABD pain I haven't ate since yesterday so I think it's part of that. In brief, Rubén Gibbs is a 19 y.o. that presents to the emergency department from [place] for swallowed fish hook attempt to harm himself. Focused exam: PHYSICIAL: Vitals reviewed GENERAL: nontoxic appearing, in no acute distress. patient appears nourished and normally developed. Vital signs as documented. EYES: Head exam is unremarkable. No scleral icterus HEENT: Mucous membranes moist. LUNGS: no increased work of breathing, no conversational dyspnea Abdomen: No tenderness to palpation SKIN: Good color, no cyanosis, No pallor. NEURO: No obvious neurological deficits, PSYCH: Appropriate for age. ED Course as of 06/19/25 034TueJun 18, 2025 0334 Patient may no acute distress room, general surgery suggest medical admission or CDU placed on bowel regimen will still require psych consult [SL] ED Course User Index [SL] Arben Funes Jr., Diagnoses as of 06/19/25 0343 Foreign body in intestine, initial encounter Suicidal ideation Brief ED course/MDM: All results/imaging if obtained reviewed and interpreted, results trended/compared with previous levels if available After reviewing patient's comorbidities, severity of history of presenting illness, labs and imaging if obtained in conjunction with physical exam and course in emergency department, deemed to have potential for deterioration/progression of symptoms that could lead to multiple morbidities or mortality, decision made that patient requires further observation/evaluation/treatment and patient admitted to appropriate service, patient/family understand and agree with plan. chart created with voice recognition software, errors may be present due to software's interpretation Diagnostics interpreted by me: EKG Results Procedure Component Value Units Date/Time ECG 12 lead [[id number]] Collected: 06/18/25226 Order Status: Completed Lab Status: Final result Updated: 06/18/25448 Heart Rate 72 bpm QRSD Interval 92 ms QT Interval 359 ms QTC Interval 393 ms P [place] 34 degrees QRS [place] 12 degrees T Wave [place] -18 degrees MO Interval 110 ms Impression: Sinus rhythm Nonspecific T abnormalities, inferior leads No previous ekg available for comparison Electronically Signed On 06-18-2025 04:49:16 EDT by Guerrero Mendoza Labs Reviewed CBC WITH AUTO DIFFERENTIAL - Abnormal Result Value Auto WBC 6.2 RBC 6.07 (*) Hemoglobin 17.6 Hematocrit 51.7 MCV 85.2 MCH 29.0 MCHC 34.0 RDW 13.4 Platelets 188 MPV 11.7 nRBC 0.0 Neutrophils Relative 49.6 Lymphocytes Relative 35.0 Monocytes Relative 11.2 Eosinophils Relative 2.9 Basophils Relative 0.8 Immature Grans % 0.5 Neutrophils Absolute 3.1 Lymphocytes Absolute 2.2 Monocytes Absolute 0.7 Eosinophils Absolute 0.2 Basophils Absolute 0.1 Immature Grans Absolute 0.0 COMPREHENSIVE METABOLIC PANEL - Abnormal SODIUM 138 POTASSIUM 4.4 CHLORIDE 105 CARBON DIOXIDE 24 ANION GAP 9 UREA NITROGEN 14 CREATININE 1.08 GLUCOSE 84 CALCIUM 9.3 AST (SGOT) 50 (*) ALT 57 (*) ALKALINE PHOSPHATASE 80 ALBUMIN 3.8 BILIRUBIN, TOTAL 0.8 TOTAL PROTEIN 7.0 eGFR >90.0 COMPLETE URINALYSIS WITH REFLEX TO CULTURE - Abnormal Color, Urine Yellow Clarity, Urine Clear pH, Urine 6.5 Leukocytes, Urine Negative Nitrite, Urine Negative Protein, Urine Negative Glucose, Urine Normal Bilirubin, Urine Negative Ketones, Urine 10 (*) Urobilinogen, Urine 3 (*) Blood, Urine Negative SPECIFIC GRAVITY OF URINE (NUMERIC) 1.033 (*) Narrative: A specimen with <=10 WBC is not consistent with inflammation. This specimen will not reflex to a urine culture. VALPROIC ACID TOTAL - Abnormal VALPROIC ACID 29 (*) Narrative: Toxicity is seen at concentrations >175 ug/mL SARS-COV-2 ANTIGEN - Normal SARS-CoV-2 Antigen Negative ETHANOL - Normal ETHANOL IN SER/PLAS <10 Narrative: CREW SCHEDULER depression is seen >100 mg/dL. NOTE: This result is for medical treatment only. Analysis performed using non-forensic procedures. DRUGS OF ABUSE AMPHETAMINE SCREEN Negative BARBITURATES SCREEN Negative BENZODIAZEPINE SCREEN Negative COCAINE METAB. SCREEN Negative METHADONE SCREEN Negative OPIATES SCREEN Positive OXYCODONE SCREEN Negative PHENCYCLIDINE SCREEN Negative FENTANYL SCREEN, UR QUAL Positive Narrative: The expected value for all of the drugs listed above is Negative. The following drugs or drug groups have been screened for by Immunoassay at the following thresholds: Amphetamine class (1000 ng/mL) Barbiturates (200 ng/mL) Benzodiazepines (200 ng/mL) Cocaine (300 ng/mL) Methadone (300 ng/mL) Opiates (300 ng/mL) Oxycodone (100 ng/mL) PCP (25 ng/mL) Fentanyl (1.0 ng/ml) NOTE: These results are for medical treatment only. Analysis performed using non-forensic procedures. POSITIVE results are NOT confirmed by a more specific alternative method unless requested. If confirmation is needed, request confirmation under separate order. CBC (HEMOGRAM) BASIC METABOLIC PANEL WITH MG REFLEX Narrative: The following orders were created for panel order Basic Metabolic Panel w/ Mg Reflex. Procedure Abnormality Status --------- ------ Basic metabolic panel[[id number]] Please view results for these tests on the individual orders. HEPATIC FUNCTION PANEL BASIC METABOLIC PANEL XR abdomen 1 view Final Result Findings and impression: Abdomen single view shows fish hook projecting over the right hemiabdomen. Report Dictated on Electronically Signed By: Jack Sabillon MD Electronically Signed Date/Time: 06/18/2025 4:18 AM EDT XR abdomen 1 view (Results Pending) Medications polyethylene glycol (PEG) 3350 (Miralax) packet 17 g (17 g Oral Given 06/18/25 1411) senna-docusate sodium (Senokot-S) 8.6-50 MG tablet 2 tablet (2 tablets Oral Given 06/18/25 2110) magnesium hydroxide (Milk of Magnesia) 400 MG/5ML suspension 30 mL (30 mL Oral Not Given 06/18/25 0852) ARIPiprazole (Abilify) tablet 10 mg (10 mg Oral Given 06/18/252109) busPIRone (Buspar) tablet 5 mg (5 mg Oral Given 06/18/252109) divalproex (Depakote ER) 24 hr tablet 750 mg (750 mg Oral Given 06/18/25 1411) escitalopram (Lexapro) tablet 10 mg (10 mg Oral Given 06/18/252109) 1. Foreign body in intestine, initial encounter 2. Suicidal ideation DISPOSITION Admit 06/18/2025 06:20:49 AM PATIENT REFERRED TO: No follow-up provider specified. DISCHARGE MEDICATIONS: Current Discharge Medication List All diagnostic, treatment, and disposition decisions were made by myself in conjunction with the Resident. I also supervised fox portions of any procedures performed by the Resident. For all further details of the patient's emergency department visit, please see their documentation. (Comment: Please note this report has been produced using speech recognition software and may contain errors related to that system including errors in grammar, punctuation, and spelling, as well as words and phrases that may be inappropriate. If there are any questions or concerns please feel free to contact the dictating provider for clarification.) Arben Funes DO Acute Care [facility] Arben Funes Jr., DO 06/19/25 0343 I did not see or evaluate this patient. Juliana Moore MD 06/18/25211 EMERGENCY DEPARTMENT ENCOUNTER Pt Name: Rubén Gibbs Birthdate 2005 Date of evaluation: 06/17/2025 ED Provider: Aki Miller DO CHIEF COMPLAINT Chief Complaint Patient presents with Suicide Attempt Transfer [facility] from [facility]. Swallowed fish hook that is now stuck in small intestine. Pt endorses multiple attempts in various different ways in the past. Doesn't give a reason as to why I just want to hurt myself. A&Ox4 Abdominal Pain Endorses sharp 7/10 ABD pain I haven't ate since yesterday so I think it's part of that. HISTORY OF PRESENT ILLNESS (Location/Symptom, Timing/Onset, Context/Setting, Quality, Duration, Modifying Factors, Severity) Note limiting factors. I wore appropriate PPE for the entirety of this encounter. HPI Rubén Gibbs is a 19 y.o. male who presents to the emergency department after a suicide attempt. Patient is a transfer from [facility] in which he presented for SI after swallowing a fishhook yesterday morning. Patient is endorsing suicidal ideation and says that he feels like crap. He endorses a history of trying to hang himself. He denies homicidal ideation, auditory or visual hallucinations. He is currently endorsing a sharp constant epigastric pain since swallowing the hook. He denies fever, chills, chest pain, shortness of breath, urinary symptoms. He denies alcohol or recreational drug use. CT scan at [facility] revealed a linear foreign object in the small intestine. They suggested transfer for observation and evaluation by surgery. Nursing Notes were reviewed. REVIEW OF SYSTEMS Review of Systems See HPI PAST MEDICAL HISTORY Medical History[1] SURGICAL HISTORY Surgical History[2] CURRENT MEDICATIONS Previous Medications No medications on file ALLERGIES Patient has no known allergies. FAMILY HISTORY Family History[3] SOCIAL HISTORY Social History[4] SCREENINGS PHYSICAL EXAM ED Triage Vitals 06/18/25 0207 Temp Heart Rate Resp BP 36.3 C (97.4 F) 74 18 122/79 SpO2 Temp Source Heart Rate Source Patient Position 95 % Oral -- -- BP Location FiO2 (%) -- -- Physical Exam Constitutional: General: He is not in acute distress. Appearance: He is not ill-appearing or toxic-appearing. HENT: Head: Normocephalic and atraumatic. Eyes: Extraocular Movements: Extraocular movements intact. Cardiovascular: Rate and Rhythm: Normal rate and regular rhythm. Pulmonary: Effort: Pulmonary effort is normal. Breath sounds: Normal breath sounds. Abdominal: General: Abdomen is flat. Palpations: Abdomen is soft. Tenderness: There is abdominal tenderness in the epigastric area. There is no guarding or rebound. Musculoskeletal: Cervical back: Normal range of motion. Neurological: Mental Status: He is alert. Psychiatric: Attention and Perception: Attention normal. Mood and Affect: Affect is blunt and flat. Speech: Speech normal. Behavior: Behavior normal. Behavior is cooperative. Thought Content: Thought content includes suicidal ideation. Thought content does not include homicidal ideation. Thought content includes suicidal plan. DIAGNOSTIC RESULTS RADIOLOGY (Per Emergency Physician): Interpretation per the Radiologist below, if available at the time of this note: XR abdomen 1 view Final Result Findings and impression: Abdomen single view shows fish hook projecting over the right hemiabdomen. Report Dictated on Electronically Signed By: Jack Sabillon MD Electronically Signed Date/Time: 06/18/2025 4:18 AM EDT LABS: Labs Reviewed CBC WITH AUTO DIFFERENTIAL - Abnormal Result Value Auto WBC 6.2 RBC 6.07 (*) Hemoglobin 17.6 Hematocrit 51.7 MCV 85.2 MCH 29.0 MCHC 34.0 RDW 13.4 Platelets 188 MPV 11.7 nRBC 0.0 Neutrophils Relative 49.6 Lymphocytes Relative 35.0 Monocytes Relative 11.2 Eosinophils Relative 2.9 Basophils Relative 0.8 Immature Grans % 0.5 Neutrophils Absolute 3.1 Lymphocytes Absolute 2.2 Monocytes Absolute 0.7 Eosinophils Absolute 0.2 Basophils Absolute 0.1 Immature Grans Absolute 0.0 COMPREHENSIVE METABOLIC PANEL - Abnormal SODIUM 138 POTASSIUM 4.4 CHLORIDE 105 CARBON DIOXIDE 24 ANION GAP 9 UREA NITROGEN 14 CREATININE 1.08 GLUCOSE 84 CALCIUM 9.3 AST (SGOT) 50 (*) ALT 57 (*) ALKALINE PHOSPHATASE 80 ALBUMIN 3.8 BILIRUBIN, TOTAL 0.8 TOTAL PROTEIN 7.0 eGFR >90.0 COMPLETE URINALYSIS WITH REFLEX TO CULTURE - Abnormal Color, Urine Yellow Clarity, Urine Clear pH, Urine 6.5 Leukocytes, Urine Negative Nitrite, Urine Negative Protein, Urine Negative Glucose, Urine Normal Bilirubin, Urine Negative Ketones, Urine 10 (*) Urobilinogen, Urine 3 (*) Blood, Urine Negative SPECIFIC GRAVITY OF URINE (NUMERIC) 1.033 (*) Narrative: A specimen with <=10 WBC is not consistent with inflammation. This specimen will not reflex to a urine culture. SARS-COV-2 ANTIGEN - Normal SARS-CoV-2 Antigen Negative ETHANOL - Normal ETHANOL IN SER/PLAS <10 Narrative: CREW SCHEDULER depression is seen >100 mg/dL. NOTE: This result is for medical treatment only. Analysis performed using non-forensic procedures. DRUGS OF ABUSE AMPHETAMINE SCREEN Negative BARBITURATES SCREEN Negative BENZODIAZEPINE SCREEN Negative COCAINE METAB. SCREEN Negative METHADONE SCREEN Negative OPIATES SCREEN Positive OXYCODONE SCREEN Negative PHENCYCLIDINE SCREEN Negative FENTANYL SCREEN, UR QUAL Positive Narrative: The expected value for all of the drugs listed above is Negative. The following drugs or drug groups have been screened for by Immunoassay at the following thresholds: Amphetamine class (1000 ng/mL) Barbiturates (200 ng/mL) Benzodiazepines (200 ng/mL) Cocaine (300 ng/mL) Methadone (300 ng/mL) Opiates (300 ng/mL) Oxycodone (100 ng/mL) PCP (25 ng/mL) Fentanyl (1.0 ng/ml) NOTE: These results are for medical treatment only. Analysis performed using non-forensic procedures. POSITIVE results are NOT confirmed by a more specific alternative method unless requested. If confirmation is needed, request confirmation under separate order. All other labs were within normal range or not returned as of this dictation. EMERGENCY DEPARTMENT COURSE and DIFFERENTIAL DIAGNOSIS/MDM: Vitals: Vitals: 06/18/25 0207 BP: 122/79 Pulse: 74 Resp: 18 Temp: 36.3 C (97.4 F) TempSrc: Oral SpO2: 95% Weight: 111 kg (245 lb) Height: 1.778 m (5' 10) The patient presented with a chief complaint of suicidal ideation/suicide attempt. The differential diagnosis associated with this patient's presentation includes depression, suicidal ideation, intestinal foreign body, intestinal perforation. Our workup consisted of ordering/reviewing CBC, CMP, UA, drug screen, ethanol, COVID, x-ray abdomen, EKG. upon arrival to the Emergency Department, patient is hemodynamically stable in no acute distress. Surgery was consulted and reports no acute surgical intervention needed at this time. Patient will need to be admitted for observation and to allow the foreign body to pass as well as a psych consult. Patient was accepted by medicine. ED Course as of 06/18/25632Jun 18, 2025333 Patient may no acute distress room, general surgery suggest medical admission or CDU placed on bowel regimen will still require psych consult [SL] ED Course User Index [SL] Arben Funes Jr., DO Diagnoses as of 06/18/25632 Foreign body in intestine, initial encounter Suicidal ideation ED Medications managed: Medications polyethylene glycol (PEG) 3350 (Miralax) packet 17 g (17 g Oral Given 06/18/25 0500) senna-docusate sodium (Senokot-S) 8.6-50 MG tablet 2 tablet (2 tablets Oral Given 06/18/25 0500) magnesium hydroxide (Milk of Magnesia) 400 MG/5ML suspension 30 mL (has no administration in time range) PROCEDURES: Unless otherwise noted below, none Procedures FINAL IMPRESSION 1. Foreign body in intestine, initial encounter 2. Suicidal ideation DISPOSITION Admit 06/18/2025 06:20:49 AM PATIENT REFERRED TO: No follow-up provider specified. DISCHARGE MEDICATIONS: New Prescriptions No medications on file (Comment: Please note this report has been produced using speech recognition software and may contain errors related to that system including errors in grammar, punctuation, and spelling, as well as words and phrases that may be inappropriate. If there are any questions or concerns please feel free to contact the dictating provider for clarification.) Aki Miller DO (electronically signed) Emergency Medicine Provider [1] No past medical history on file. [2] No past surgical history on file. [3] No family history on file. [4] Social History Socioeconomic History Marital status: Single Aki Miller DO Resident 06/18/25 0634 Cosigned by Arben Funes Jr., DO at 06/19/2025 3:44 AM EDT documented in this encounter [facility] 06-18-2025 Emergency department Note Pt escorted to restroom per requesr [facility] 06-18-2025 History and physical note Attending History and Physical Admit Date: 06/18/2025 PCP: No primary care provider on file. CHIEF COMPLAINT: Suicide Attempt Reason for Admission: Ingestion of foreign object History Obtained From: patient HISTORY OF PRESENT ILLNESS: Rubén is a 19 y.o. male with significant past psychiatric history with prior suicide attempts presents to the ED after ingesting a fishhook on 06/16/2025 and a suicide attempt. In the ED, patient endorsed suicidal ideation, denied homicidal ideations, auditory or visual hallucinations. Complains of sharp constant epigastric pain since a swallowing of the hook. CT scan at [facility] revealed a linear foreign object in the small intestine, was suggested transfer for observation and evaluation by surgery. Labs in the ED significant for AST 50, ALT 57 otherwise unremarkable. UDS positive for fentanyl and opiates. KUB obtained in the ED and noted for fishhook projecting over the right ngoc abdomen. Patient evaluated by general surgery-recommended no acute surgical intervention send goal is to allow foreign body to pass spontaneously. Plan to obtain serial abdominal exams. Patient admitted for further evaluation and management with psychiatry consult. Past Medical History: Medical History[1] Past Surgical History: Surgical History[2] Social History: Social History Socioeconomic History Marital status: Single Spouse name: Not on file Number of children: Not on file Years of education: Not on file Highest education level: Not on file Occupational History Not on file Tobacco Use Smoking status: Not on file Smokeless tobacco: Not on file Substance and Sexual Activity Alcohol use: Not on file Drug use: Not on file Sexual activity: Not on file Other Topics Concern Not on file Social History Narrative Not on file Social Drivers of Health Financial Resource Strain: Not on file Food Insecurity: Not on file Transportation Needs: Not on file Physical Activity: Not on file Stress: Not on file Social Connections: Not on file Intimate Partner Violence: Not on file Housing Stability: Not on file Family History: Family History[3] Medications Prior to Admission: Current Medications[4] Medications Reconciliation: Medication were reviewed and verified as accurate with patient. Allergies: Allergies[5] REVIEW OF SYSTEMS: 10 point ROS obtained, as per HPI, otherwise NEG Vitals: BP 124/63 Pulse 83 Temp 36.4 C (97.6 F) (Temporal) Resp 16 Ht 5' 10 (1.778 m) Wt 245 lb (111 kg) SpO2 96% BMI 35.15 kg/m BMI Classification: Obese (BMI 30.0-39.9) Pulse Ox: SpO2 Av % Min: 94 % Max: 96 % Supplemental O2: PHYSICAL EXAM: Physical Exam Vitals and nursing note reviewed. Cardiovascular: Rate and Rhythm: Normal rate and regular rhythm. Heart sounds: Normal heart sounds. Pulmonary: Effort: No respiratory distress. Breath sounds: Normal breath sounds. Abdominal: General: Bowel sounds are normal. Palpations: Abdomen is soft. Tenderness: There is abdominal tenderness. Skin: General: Skin is warm and dry. Capillary Refill: Capillary refill takes less than 2 seconds. Neurological: Mental Status: He is alert and oriented to person, place, and time. DATA: CBC: Recent Labs 06/18/25242 WBC 6.2 RBC 6.07* HGB 17.6 HCT 51.7 MCV 85.2 RDW 13.4 PLT 188 BMP: Recent Labs 06/18/25242 NA 138 K 4.4 CL 105 CO2 24 BUN 14 CREATININE 1.08 GLUCOSE 84 CALCIUM 9.3 ANIONGAP 9 LIVER PROFILE: Recent Labs 06/18/25242 AST 50* ALT 57* BILITOT 0.8 ALKPHOS 80 PROT 7.0 PT/INR: No results for input(s): PROTIME, INR in the last 72 hours. CARDIAC ENZYMES: No results for input(s): TROPONINI in the last 72 hours. Procalcitonin: No results found for: PROCAL Urine Culture: No results found for this or any previous visit. COVID-19 PCR: No results for input(s): COVID19 in the last 72 hours. I reviewed: [x] laboratory results [x] radiographic results At the time of today's encounter. Pt was advised of the results. Data: (CAT1) Reviewed 3 or more notes from different specialty or health system (each=1). (CAT1) Reviewed 3 or more labs/studies ordered by another provider not previously counted (each=1, panels count as 1). (LOW: 2x CAT1 or independent historian MOD: 3x CAT1 or 1x CAT3 EXTENSIVE: 3x CAT1 and 1x CAT3) Assessment Discussed management with the ED provider and agree with hospitalization. Acute, acute on chronic, unstable/uncontrolled chronic problems/diagnoses: Suicide attempt s/p foreign body ingestion Abdominal pain Noted ingestion of fishhook on 06/16. S/p general surgery evaluation, plan to allow foreign body to pass spontaneously Serial abdominal exams, daily KUB Continue clear liquid diet Continue bowel regimen with MiraLAX and Senokot Consult psych Transaminitis Mild, trend LFTs Stable chronic problems affecting care, new non-acute diagnoses: ADHD PTSD Obesity class I Plan As a result of the above findings & factors, the following mgmt was pursued: - Plan as above - am labs, replace lytes prn - PT/OT/CM/SW - delirium precautions: increase activity and limit nighttime disturbances - DVT prophylaxis: encourage ambulation Complexity: Acute illness or injury posing a threat to life or body function (HIGH). Risk: Prescription drug/IVF/colloid was initiated, discontinued, adjusted; or reviewed with decision to maintain current orders (MOD). Advance Directive: No Order Anticipated Discharge - Date -TBD - Location -TBD - Pending the following -above eval, clinical progress Total time spent (which include face to face and non face to face encounters) : 55 minutes. Extended Emergency Contact Information Primary Emergency Contact: Marily Farmer Relation: Grandparent Secondary Emergency Contact: Ken Ayon Mobile Relation: Other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 ILLNESS: Rubén Gibbs is a 19 y.o. male with significant past psychiatric history with prior suicide attempts who presents after ingesting a fishhook on 06/16/2025 and a suicide attempt. General surgery consulted for recommendations. Patient states he swallowed the fishhook yesterday and a suicide attempt. He is had these attempts previously with hangings. His pain was never too severe, currently endorsing some epigastric pain. However, no other abdominal pain in other quadrants. Denies any fevers, chills, nausea, vomiting. PSHx notable for lower extremity orthopedic surgery, but no intra-abdominal surgery. Denies tobacco, EtOH, recreational drug use. Upon evaluation, patient is AF, HDS. Labs notable for: WBC: 6.2 H/H: 17.6/51.7 Plt: 188 BUN/Cr: 14/1.08 CTAP from outside hospital demonstrates fishhook in small bowel. KUB confirmed approximate location in the right lower quadrant. Medical History[1] Surgical History[2] Medications Prior to Admission: Prior to Admission medications Not on File Allergies: Patient has no known allergies. Social History[3] Family History[4] REVIEW OF SYSTEMS: Review of Systems Constitutional: Negative for chills and fever. Respiratory: Negative for chest tightness and shortness of breath. Cardiovascular: Negative for chest pain and leg swelling. Gastrointestinal: Positive for abdominal pain. Negative for abdominal distention, constipation, diarrhea, nausea and vomiting. Genitourinary: Negative for flank pain. Musculoskeletal: Negative for back pain. Neurological: Negative for headaches. Psychiatric/Behavioral: Negative for agitation and confusion. PHYSICAL EXAM: Vitals: 06/18/25 0207 BP: 122/79 Pulse: 74 Resp: 18 Temp: 36.3 C (97.4 F) SpO2: 95% No intake/output data recorded. Physical Exam Vitals reviewed. Constitutional: General: He is not in acute distress. Appearance: Normal appearance. He is not toxic-appearing. HENT: Head: Normocephalic and atraumatic. Nose: Nose normal. Eyes: General: No scleral icterus. Conjunctiva/sclera: Conjunctivae normal. Cardiovascular: Rate and Rhythm: Normal rate and regular rhythm. Pulmonary: Effort: Pulmonary effort is normal. No respiratory distress. Abdominal: General: Abdomen is flat. There is no distension. Palpations: Abdomen is soft. Tenderness: There is abdominal tenderness. There is no guarding or rebound. Comments: Mild epigastric tenderness. Musculoskeletal: General: No swelling or tenderness. Cervical back: Normal range of motion. Skin: General: Skin is warm and dry. Capillary Refill: Capillary refill takes less than 2 seconds. Neurological: General: No focal deficit present. Mental Status: He is alert and oriented to person, place, and time. Psychiatric: Mood and Affect: Mood normal. Behavior: Behavior normal. DATA: CBC: Lab Results Component Value Date WBC 6.2 06/18/2025 RBC 6.07 (H) 06/18/2025 HGB 17.6 06/18/2025 HCT 51.7 06/18/2025 MCV 85.2 06/18/2025 MCH 29.0 06/18/2025 MCHC 34.0 06/18/2025 RDW 13.4 06/18/2025 PLT 188 06/18/2025 MPV 11.7 06/18/2025 BMP: Lab Results Component Value Date NA 138 06/18/2025 K 4.4 06/18/2025 CL 105 06/18/2025 CO2 24 06/18/2025 BUN 14 06/18/2025 CREATININE 1.08 06/18/2025 CALCIUM 9.3 06/18/2025 GLUCOSE 84 06/18/2025 Hepatic Function Panel: Lab Results Component Value Date ALKPHOS 80 06/18/2025 ALT 57 (H) 06/18/2025 AST 50 (H) 06/18/2025 PROT 7.0 06/18/2025 BILITOT 0.8 06/18/2025 PT/INR: No results found for: PROTIME, INR Troponin: No results found for: TROPONINI LIPASE: No results found for: LIPASE IMAGING: In PACs. ASSESSMENT: This is a 19 y.o. male s/p foreign body ingestion (fishhook, 06/16). PLAN: - No acute surgical intervention; goal to allow foreign body to pass spontaneously - Recommend admission to medicine/CDU, patient will also require psychiatric evaluation following passage of foreign body given suicide attempt; disposition per ED - Serial abdominal exams - Serial daily KUB - Diet: CLD - Strong bowel regimen: MiraLAX and Senokot - Surgery to follow Discussed with attending, Dr. Bolivar. Irineo Arredondo MD General Surgery PGY-3 Pager [phone] [1] No past medical history on file. [2] No past surgical history on file. [3] [4] No family history on file. Cosigned by Ten Bolivar MD at 06/22/2025 8:11 PM EDT Associated attestation - Ten Bolivar MD - 06/22/2025 8:11 PM EDT ATTENDING ADDENDUM Active Diagnoses/Problems this Admission: Problem List[1] I personally supervised the resident physician in the evaluation and development of a treatment plan for this patient on the same day of service as above. I personally discussed the review of systems and interviewed the patient along with performing a physical examination. I reviewed the recent events, imaging, labs, vital signs. In addition, I discussed the patient's condition and treatment options with him/her when possible. I have also reviewed and agree with the past medical, family, and social history unless otherwise noted. All of the patient's questions were answered and family updated when appropriate and possible. A complete review of systems was obtained and is negative except as stated in HPI and/or Subjective Section. Please note that the plan below is highlights/fox components and corrections; see the main resident note for the full Assessment/Plan. PMH: prior suicide attempt PSH: reports none significant Family History: reports none significant A/P: -as per Dr. Arredondo's note -I evaluated patient on 06/18/25 -Chief Complaint/Reason for Consult: swallowed fish hook in attempt at self-harm -HPI as below, patient ingested fish hook on 06/16, transferred from OSH -lab studies are unremarkable, benign exam, CT imaging shows hook in small bowel, no perforation, no free fluid -no acute operative intervention -serial exams -daily KUB -okay for clear liquids -aggressive bowel regimen -our Service will closely follow Total Care Time throughout the day today was >= 55 minutes (including chart/data review/analysis, care coordination, and huaz-go-jvcj encounter), and was spent discussing/counseling the patient/family regarding the care plan for Rubén Gibbs. I examined the patient independently. I reviewed relevant data myself and may have also done so in the context of team rounds. A full chart review was performed. Level of Medical Decision Making: []High [x]Moderate []Low Complexity: []Acute or chronic illness/injury posing a threat to life or bodily function without treatment (HIGH) []Chronic illness with severe exacerbation, progression, or side effect of treatment (HIGH) []Chronic illness with mild to moderate exacerbation, progression, or side effect of treatment (MOD) [x]Previously undiagnosed (new) problem with uncertain prognosis (MOD) []Acute illness with systemic symptoms (MOD) []Acute, complicated injury (MOD) []Multiple stable chronic illnesses (MOD) Risk: []Parental controlled substances (HIGH) []Decision not to resuscitate or to de-escalate care because of poor prognosis (HIGH) []Decision regarding major surgery with identified patient or procedure risk factors (HIGH) []Decision regarding emergency surgery (HIGH) []Drug or treatment/therapy requiring intensive monitoring (HIGH) []Prescription drug management AND/OR inpatient medication management/changes (MOD) [x]Decision regarding surgery with identified patient or procedure risk factors (MOD) []Diagnosis or treatment significantly limited by social determinants of health (MOD) Personally Reviewed/Independently interpreted patient's: [x]Epic notes [x]Radiology studies [x]Labs []EKG []Ordering tests []Other Discussed/ With: [x]Patient/Family []RN []Consultants []Primary Team []SW/TCC []Other Time was spent: -Reviewing the medical record, including recent tests and results -Ordering prescription medications/tests and procedures -Communicating results to the patient/family/caregiver -Counseling/educating the patient/family/caregiver -Documenting clinical information in the patient's electronic record -Co-ordination of care for the patient -Performing a medically appropriate exam and evaluation Ten Bolivar MD, FACS Trauma, Surgical Critical Care, & Acute Care Surgery Department of Surgery [facility] Pager: [phone] ~~~~~~~~~~~~~~~~~~~~~~~~~~~~~~~~ ~~~~~~~~~~~~~~~~~~~~~~~~~~~~~ This note may have been dictated using [employer] Medical Practice Edition 2.6 and/or [employer] Voice Recognition Feature. The document was proofread; however, unrecognized voice recognition refrigerator repairman errors may be present. [1] Patient Active Problem List Diagnosis Foreign body in intestine, initial encounter [facility] Work Phone: 06-18-[address] Arredondo (surgery resident) at the bedside. T [facility] 06-18-2025 Emergency department Note EKG in room with pt. [facility] 06-18-2025 Emergency department Note Resident in room speaking to patient. [facility] 06-18-2025 Physician Emergency department Note Emergency Department Encounter [facility] Patient: Rubén Gibbs : 2005 Date of Evaluation: 06/17/2025 ED Supervising Physician: Arben Funes DO I personally evaluated Rubén Gibbs and made/approved the management plan and take responsibility for the patient management. This will serve as my Supervisory note and shared attestation. I did perform a substantive portion of the visit including all aspects of the Medical Decision Making. I wore appropriate PPE for the entirety of this encounter. CHIEF COMPLAINT Chief Complaint Patient presents with Suicide Attempt Transfer pink slip from [facility]. Swallowed fish hook that is now stuck in small intestine. Pt endorses multiple attempts in various different ways in the past. Doesn't give a reason as to why I just want to hurt myself. A&Ox4 Abdominal Pain Endorses sharp 7/10 ABD pain I haven't ate since yesterday so I think it's part of that. In brief, Rubén Gibbs is a 19 y.o. that presents to the emergency department from [place] for swallowed fish hook attempt to harm himself. Focused exam: PHYSICIAL: Vitals reviewed GENERAL: nontoxic appearing, in no acute distress. patient appears nourished and normally developed. Vital signs as documented. EYES: Head exam is unremarkable. No scleral icterus HEENT: Mucous membranes moist. LUNGS: no increased work of breathing, no conversational dyspnea Abdomen: No tenderness to palpation SKIN: Good color, no cyanosis, No pallor. NEURO: No obvious neurological deficits, PSYCH: Appropriate for age. ED Course as of 06/19/25342Jun 18, 2025 0334 Patient may no acute distress room, general surgery suggest medical admission or CDU placed on bowel regimen will still require psych consult [SL] ED Course User Index [SL] Arben Funes Jr., DO Diagnoses as of 06/19/25 034 Foreign body in intestine, initial encounter Suicidal ideation Brief ED course/MDM: All results/imaging if obtained reviewed and interpreted, results trended/compared with previous levels if available After reviewing patient's comorbidities, severity of history of presenting illness, labs and imaging if obtained in conjunction with physical exam and course in emergency department, deemed to have potential for deterioration/progression of symptoms that could lead to multiple morbidities or mortality, decision made that patient requires further observation/evaluation/treatment and patient admitted to appropriate service, patient/family understand and agree with plan. chart created with voice recognition software, errors may be present due to software's interpretation Diagnostics interpreted by me: EKG Results Procedure Component Value Units Date/Time ECG 12 lead [[id number]] Collected: 06/18/25226 Order Status: Completed Lab Status: Final result Updated: 06/18/25448 Heart Rate 72 bpm QRSD Interval 92 ms QT Interval 359 ms QTC Interval 393 ms P [place] 34 degrees QRS [place] 12 degrees T Wave [place] -18 degrees MO Interval 110 ms Impression: Sinus rhythm Nonspecific T abnormalities, inferior leads No previous ekg available for comparison Electronically Signed On 06-18-2025 04:49:16 EDT by Guerrero Mendoza Labs Reviewed CBC WITH AUTO DIFFERENTIAL - Abnormal Result Value Auto WBC 6.2 RBC 6.07 (*) Hemoglobin 17.6 Hematocrit 51.7 MCV 85.2 MCH 29.0 MCHC 34.0 RDW 13.4 Platelets 188 MPV 11.7 nRBC 0.0 Neutrophils Relative 49.6 Lymphocytes Relative 35.0 Monocytes Relative 11.2 Eosinophils Relative 2.9 Basophils Relative 0.8 Immature Grans % 0.5 Neutrophils Absolute 3.1 Lymphocytes Absolute 2.2 Monocytes Absolute 0.7 Eosinophils Absolute 0.2 Basophils Absolute 0.1 Immature Grans Absolute 0.0 COMPREHENSIVE METABOLIC PANEL - Abnormal SODIUM 138 POTASSIUM 4.4 CHLORIDE 105 CARBON DIOXIDE 24 ANION GAP 9 UREA NITROGEN 14 CREATININE 1.08 GLUCOSE 84 CALCIUM 9.3 AST (SGOT) 50 (*) ALT 57 (*) ALKALINE PHOSPHATASE 80 ALBUMIN 3.8 BILIRUBIN, TOTAL 0.8 TOTAL PROTEIN 7.0 eGFR >90.0 COMPLETE URINALYSIS WITH REFLEX TO CULTURE - Abnormal Color, Urine Yellow Clarity, Urine Clear pH, Urine 6.5 Leukocytes, Urine Negative Nitrite, Urine Negative Protein, Urine Negative Glucose, Urine Normal Bilirubin, Urine Negative Ketones, Urine 10 (*) Urobilinogen, Urine 3 (*) Blood, Urine Negative SPECIFIC GRAVITY OF URINE (NUMERIC) 1.033 (*) Narrative: A specimen with <=10 WBC is not consistent with inflammation. This specimen will not reflex to a urine culture. VALPROIC ACID TOTAL - Abnormal VALPROIC ACID 29 (*) Narrative: Toxicity is seen at concentrations >175 ug/mL SARS-COV-2 ANTIGEN - Normal SARS-CoV-2 Antigen Negative ETHANOL - Normal ETHANOL IN SER/PLAS <10 Narrative: CREW SCHEDULER depression is seen >100 mg/dL. NOTE: This result is for medical treatment only. Analysis performed using non-forensic procedures. DRUGS OF ABUSE AMPHETAMINE SCREEN Negative BARBITURATES SCREEN Negative BENZODIAZEPINE SCREEN Negative COCAINE METAB. SCREEN Negative METHADONE SCREEN Negative OPIATES SCREEN Positive OXYCODONE SCREEN Negative PHENCYCLIDINE SCREEN Negative FENTANYL SCREEN, UR QUAL Positive Narrative: The expected value for all of the drugs listed above is Negative. The following drugs or drug groups have been screened for by Immunoassay at the following thresholds: Amphetamine class (1000 ng/mL) Barbiturates (200 ng/mL) Benzodiazepines (200 ng/mL) Cocaine (300 ng/mL) Methadone (300 ng/mL) Opiates (300 ng/mL) Oxycodone (100 ng/mL) PCP (25 ng/mL) Fentanyl (1.0 ng/ml) NOTE: These results are for medical treatment only. Analysis performed using non-forensic procedures. POSITIVE results are NOT confirmed by a more specific alternative method unless requested. If confirmation is needed, request confirmation under separate order. CBC (HEMOGRAM) BASIC METABOLIC PANEL WITH MG REFLEX Narrative: The following orders were created for panel order Basic Metabolic Panel w/ Mg Reflex. Procedure Abnormality Status --------- ------ Basic metabolic panel[[id number]] Please view results for these tests on the individual orders. HEPATIC FUNCTION PANEL BASIC METABOLIC PANEL XR abdomen 1 view Final Result Findings and impression: Abdomen single view shows fish hook projecting over the right hemiabdomen. Report Dictated on Electronically Signed By: Jack Sabillon MD Electronically Signed Date/Time: 06/18/2025 4:18 AM EDT XR abdomen 1 view (Results Pending) Medications polyethylene glycol (PEG) 3350 (Miralax) packet 17 g (17 g Oral Given 06/18/251410) senna-docusate sodium (Senokot-S) 8.6-50 MG tablet 2 tablet (2 tablets Oral Given 06/18/252109) magnesium hydroxide (Milk of Magnesia) 400 MG/5ML suspension 30 mL (30 mL Oral Not Given 06/18/25851) ARIPiprazole (Abilify) tablet 10 mg (10 mg Oral Given 06/18/252109) busPIRone (Buspar) tablet 5 mg (5 mg Oral Given 06/18/252109) divalproex (Depakote ER) 24 hr tablet 750 mg (750 mg Oral Given 06/18/251410) escitalopram (Lexapro) tablet 10 mg (10 mg Oral Given 06/18/252109) 1. Foreign body in intestine, initial encounter 2. Suicidal ideation DISPOSITION Admit 06/18/2025 06:20:49 AM PATIENT REFERRED TO: No follow-up provider specified. DISCHARGE MEDICATIONS: Current Discharge Medication List All diagnostic, treatment, and disposition decisions were made by myself in conjunction with the Resident. I also supervised fox portions of any procedures performed by the Resident. For all further details of the patient's emergency department visit, please see their documentation. (Comment: Please note this report has been produced using speech recognition software and may contain errors related to that system including errors in grammar, punctuation, and spelling, as well as words and phrases that may be inappropriate. If there are any questions or concerns please feel free to contact the dictating provider for clarification.) Arben Funes DO [employer] Arben Funes Jr., DO 06/19/25342 [employer] Phone: 06-18-2025 Physician Emergency department Note I did not see or evaluate this patient. Juliana Moore MD 06/18/25211 [employer] Phone: 06-18-2025 Physician Emergency department Note EMERGENCY DEPARTMENT ENCOUNTER Pt Name: Rubén Gibbs Birthdate 2005 Date of evaluation: 06/17/2025 ED Provider: Aki Miller DO CHIEF COMPLAINT Chief Complaint Patient presents with Suicide Attempt Transfer pink slip from [facility]. Swallowed fish hook that is now stuck in small intestine. Pt endorses multiple attempts in various different ways in the past. Doesn't give a reason as to why I just want to hurt myself. A&Ox4 Abdominal Pain Endorses sharp 7/10 ABD pain I haven't ate since yesterday so I think it's part of that. HISTORY OF PRESENT ILLNESS (Location/Symptom, Timing/Onset, Context/Setting, Quality, Duration, Modifying Factors, Severity) Note limiting factors. I wore appropriate PPE for the entirety of this encounter. HPI Rubén Gibbs is a 19 y.o. male who presents to the emergency department after a suicide attempt. Patient is a transfer from [facility] in which he presented for SI after swallowing a fishhook yesterday morning. Patient is endorsing suicidal ideation and says that he feels like crap. He endorses a history of trying to hang himself. He denies homicidal ideation, auditory or visual hallucinations. He is currently endorsing a sharp constant epigastric pain since swallowing the hook. He denies fever, chills, chest pain, shortness of breath, urinary symptoms. He denies alcohol or recreational drug use. CT scan at [facility] revealed a linear foreign object in the small intestine. They suggested transfer for observation and evaluation by surgery. Nursing Notes were reviewed. REVIEW OF SYSTEMS Review of Systems See HPI PAST MEDICAL HISTORY Medical History[1] SURGICAL HISTORY Surgical History[2] CURRENT MEDICATIONS Previous Medications No medications on file ALLERGIES Patient has no known allergies. FAMILY HISTORY Family History[3] SOCIAL HISTORY Social History[4] SCREENINGS PHYSICAL EXAM ED Triage Vitals 06/18/25 0207 Temp Heart Rate Resp BP 36.3 C (97.4 F) 74 18 122/79 SpO2 Temp Source Heart Rate Source Patient Position 95 % Oral -- -- BP Location FiO2 (%) -- -- Physical Exam Constitutional: General: He is not in acute distress. Appearance: He is not ill-appearing or toxic-appearing. HENT: Head: Normocephalic and atraumatic. Eyes: Extraocular Movements: Extraocular movements intact. Cardiovascular: Rate and Rhythm: Normal rate and regular rhythm. Pulmonary: Effort: Pulmonary effort is normal. Breath sounds: Normal breath sounds. Abdominal: General: Abdomen is flat. Palpations: Abdomen is soft. Tenderness: There is abdominal tenderness in the epigastric area. There is no guarding or rebound. Musculoskeletal: Cervical back: Normal range of motion. Neurological: Mental Status: He is alert. Psychiatric: Attention and Perception: Attention normal. Mood and Affect: Affect is blunt and flat. Speech: Speech normal. Behavior: Behavior normal. Behavior is cooperative. Thought Content: Thought content includes suicidal ideation. Thought content does not include homicidal ideation. Thought content includes suicidal plan. DIAGNOSTIC RESULTS RADIOLOGY (Per Emergency Physician): Interpretation per the Radiologist below, if available at the time of this note: XR abdomen 1 view Final Result Findings and impression: Abdomen single view shows fish hook projecting over the right hemiabdomen. Report Dictated on Electronically Signed By: Jack Sabillon MD Electronically Signed Date/Time: 06/18/2025 4:18 AM EDT LABS: Labs Reviewed CBC WITH AUTO DIFFERENTIAL - Abnormal Result Value Auto WBC 6.2 RBC 6.07 (*) Hemoglobin 17.6 Hematocrit 51.7 MCV 85.2 MCH 29.0 MCHC 34.0 RDW 13.4 Platelets 188 MPV 11.7 nRBC 0.0 Neutrophils Relative 49.6 Lymphocytes Relative 35.0 Monocytes Relative 11.2 Eosinophils Relative 2.9 Basophils Relative 0.8 Immature Grans % 0.5 Neutrophils Absolute 3.1 Lymphocytes Absolute 2.2 Monocytes Absolute 0.7 Eosinophils Absolute 0.2 Basophils Absolute 0.1 Immature Grans Absolute 0.0 COMPREHENSIVE METABOLIC PANEL - Abnormal SODIUM 138 POTASSIUM 4.4 CHLORIDE 105 CARBON DIOXIDE 24 ANION GAP 9 UREA NITROGEN 14 CREATININE 1.08 GLUCOSE 84 CALCIUM 9.3 AST (SGOT) 50 (*) ALT 57 (*) ALKALINE PHOSPHATASE 80 ALBUMIN 3.8 BILIRUBIN, TOTAL 0.8 TOTAL PROTEIN 7.0 eGFR >90.0 COMPLETE URINALYSIS WITH REFLEX TO CULTURE - Abnormal Color, Urine Yellow Clarity, Urine Clear pH, Urine 6.5 Leukocytes, Urine Negative Nitrite, Urine Negative Protein, Urine Negative Glucose, Urine Normal Bilirubin, Urine Negative Ketones, Urine 10 (*) Urobilinogen, Urine 3 (*) Blood, Urine Negative SPECIFIC GRAVITY OF URINE (NUMERIC) 1.033 (*) Narrative: A specimen with <=10 WBC is not consistent with inflammation. This specimen will not reflex to a urine culture. SARS-COV-2 ANTIGEN - Normal SARS-CoV-2 Antigen Negative ETHANOL - Normal ETHANOL IN SER/PLAS <10 Narrative: CREW SCHEDULER depression is seen >100 mg/dL. NOTE: This result is for medical treatment only. Analysis performed using non-forensic procedures. DRUGS OF ABUSE AMPHETAMINE SCREEN Negative BARBITURATES SCREEN Negative BENZODIAZEPINE SCREEN Negative COCAINE METAB. SCREEN Negative METHADONE SCREEN Negative OPIATES SCREEN Positive OXYCODONE SCREEN Negative PHENCYCLIDINE SCREEN Negative FENTANYL SCREEN, UR QUAL Positive Narrative: The expected value for all of the drugs listed above is Negative. The following drugs or drug groups have been screened for by Immunoassay at the following thresholds: Amphetamine class (1000 ng/mL) Barbiturates (200 ng/mL) Benzodiazepines (200 ng/mL) Cocaine (300 ng/mL) Methadone (300 ng/mL) Opiates (300 ng/mL) Oxycodone (100 ng/mL) PCP (25 ng/mL) Fentanyl (1.0 ng/ml) NOTE: These results are for medical treatment only. Analysis performed using non-forensic procedures. POSITIVE results are NOT confirmed by a more specific alternative method unless requested. If confirmation is needed, request confirmation under separate order. All other labs were within normal range or not returned as of this dictation. EMERGENCY DEPARTMENT COURSE and DIFFERENTIAL DIAGNOSIS/MDM: Vitals: Vitals: 06/18/25 0207 BP: 122/79 Pulse: 74 Resp: 18 Temp: 36.3 C (97.4 F) TempSrc: Oral SpO2: 95% Weight: 111 kg (245 lb) Height: 1.778 m (5' 10) The patient presented with a chief complaint of suicidal ideation/suicide attempt. The differential diagnosis associated with this patient's presentation includes depression, suicidal ideation, intestinal foreign body, intestinal perforation. Our workup consisted of ordering/reviewing CBC, CMP, UA, drug screen, ethanol, COVID, x-ray abdomen, EKG. upon arrival to the Emergency Department, patient is hemodynamically stable in no acute distress. Surgery was consulted and reports no acute surgical intervention needed at this time. Patient will need to be admitted for observation and to allow the foreign body to pass as well as a psych consult. Patient was accepted by medicine. ED Course as of 06/18/25632Jun 18, 2025 0334 Patient may no acute distress room, general surgery suggest medical admission or CDU placed on bowel regimen will still require psych consult [SL] ED Course User Index [SL] Arben Funes Jr., DO Diagnoses as of 06/18/25632 Foreign body in intestine, initial encounter Suicidal ideation ED Medications managed: Medications polyethylene glycol (PEG) 3350 (Miralax) packet 17 g (17 g Oral Given 06/18/25 0500) senna-docusate sodium (Senokot-S) 8.6-50 MG tablet 2 tablet (2 tablets Oral Given 06/18/25 050) magnesium hydroxide (Milk of Magnesia) 400 MG/5ML suspension 30 mL (has no administration in time range) PROCEDURES: Unless otherwise noted below, none Procedures FINAL IMPRESSION 1. Foreign body in intestine, initial encounter 2. Suicidal ideation DISPOSITION Admit 06/18/2025 06:20:49 AM PATIENT REFERRED TO: No follow-up provider specified. DISCHARGE MEDICATIONS: New Prescriptions No medications on file (Comment: Please note this report has been produced using speech recognition software and may contain errors related to that system including errors in grammar, punctuation, and spelling, as well as words and phrases that may be inappropriate. If there are any questions or concerns please feel free to contact the dictating provider for clarification.) Aki Miller DO (electronically signed) Emergency Medicine Provider [1] No past medical history on file. [2] No past surgical history on file. [3] No family history on file. [4] Social History Socioeconomic History Marital status: Single Aki Miller DO Resident 06/18/25 0634 Cosigned by Arben Funes Jr., DO at 06/19/2025 3:44 AM EDT [facility] 06-17-2025 Discharge summary Note Date/Time June 17, 2025 7:20pm [facility] Medical Records Department [address] [place] [address] Emergency Department Summary 06/17/25 MR#: [id number] Acct: [id number] Name: RUBÉN GIBBS Rep #:[id number] : 2005 19 From: Saji schwartz DO PCP: Care Physician,No Primary Status :REG ER Location: ED ADDENDUM by Dr. Yaakov Kingsley DO on 06/17/25 at 1920 Care of the patient was turned over to pr pending transfer. Case was discussed with psychiatry at [facility]. They stated they would not have any beds available for several days. Case was discussed with transfer lineat [facility]. Case was discussed with Dr. Bolivar. He recommended transferring the patient to the emergency department. Case was discussed with Dr. Ro in the emergency department. She accepted the patient to be transferred there. Patient will be transferred there when squad becomes available. Patient understood and was agreeable with the plan. All questions were answered. 06/17/251919<Electronically signed by Yaakov Kingsley DO> Cosigner Signature (if applicable): cc: No Primary Care Physician ~* Signed HPI History of Present Illness Chief Complaint: Suicidal Narrative Narrative: Chief complaint and HPI: 19-year-old male with past medical history of depression, anxiety presents for evaluation of suicidal ideation. Patient is currently living at the [facility]. States he has been having progressive thoughts of suicide and depression. States today he swallowed a fishing hook and attempt to kill himself. He is tolerating his secretions. Has not ate or drink since swallowing the hook however feels that it may be stuck in his esophagus. He denies any visual or auditory hallucinations. Denies any homicidal ideation. Denies any fever, chills, shortness of breath, chest pain, abdominal pain, nausea, vomiting. Review of systems: See HPI Medications: As listed on the chart Allergies: As listed on the chart PFSH: Per chart Vital signs: As listed on the chart. Reviewed. Physical exam: Gen: A&O x3, NAD Head: Normocephalic, atraumatic Eyes: No sclera icterus, conjunctiva clear, PERRL, EOMI ENT: Moist mucous membranes, posterior oropharynx unremarkable, uvula midline, tonsils not enlarged, tolerating secretions, normal phonation Neck: Trachea midline, Full ROM, No swelling, no stridor CV: RRR, no murmurs Resp: Lungs CTA BL, no w/r/c GI: Abd soft, non-distended, non-tender, no r/r/g Musc: Full ROM, no deformity Skin: Warm, dry Neuro: Alert, oriented, grossly intact, sensation intact Psych: Cooperative [facility] Medical History Club foot of both lower extremities Depression Anxiety Home Medications ?Medication ?Instructions ?Recorded ?Last Taken ?Type aripiprazole 10 mg tablet 10 mg PO QHS 03/27/25 Unknow n History doxepin 10 mg capsule 10 mg PO QHS 03/27/25 Unknow n History escitalopram oxalate 10 mg tablet 10 mg PO QHS 5 Unknown History hydroxyzine HCl 50 mg tablet 50 mg PO Q6H PRN 03/27/25 Unknown History propranolol 10 mg tablet 10 mg PO BID PRN 03/27/25 Un known History buspirone 15 mg tablet 15 mg PO BID 06/17/25 Unknow n History cholecalciferol (vitamin D3) 25 25 mcg PO DAILY Unknown History mcg (1,000 unit) capsule divalproex 250 mg tablet,extended PO 06/17/25 Unknown History release 24 hr divalproex 500 mg tablet,extended 1,000 mg PO QHS 06/05 11/27 Unknown History release 24 hr metformin 500 mg tablet 500 mg PO BID 06/17/25 Unkno wn History trazodone 100 mg tablet 100 mg PO QHS 06/17/25 Unkno wn History trazodone 50 mg tablet 50 mg PO QHS 06/17/25 Unknow n History Allergy/AdvReac Type Severity Reaction Status Date / Time No Known Allergies Allergy Verified 06/17/25 11:08 Social History household members: spouse and family housing: house Smoking Status: Never smoker substance use type: does not use EXAM Physical Exam Const Vital Signs: 06/17/25 11:08 06/17/25 12:11 06/17/25 13:00 Temperature 97.9 F Temperature Source Oral Pulse Rate 74 82 Respiratory Rate 16 16 Respiratory Effort Normal Respiratory Pattern Normal Blood Pressure 136/83 H 132/83 H Blood Pressure Mean 100 99 Pulse Ox 99 98 Oxygen Delivery Method Room Air Room Air 06/17/25 14:19 06/17/25 16:42 Temperature Temperature Source Pulse Rate 74 87 Respiratory Rate Respiratory Effort Respiratory Pattern Blood Pressure 138/80 H 138/83 H Blood Pressure Mean 99 101 Pulse Ox 97 Oxygen Delivery Method Room Air MDM MDM MDM Narrative Medical decision making narrative: 19-year-old male with past medical history of depression, anxiety presents for evaluation of suicidal ideation. Patient is currently living at the [facility]. States he has been having progressive thoughts of suicide and depression. States today he swallowed a fishing hook and attempt to kill himself. He is tolerating his secretions. Has not ate or drink since swallowing the hook however feels that it may be stuck in his esophagus. On presentation, patient no acute distress. Differential diagnosis includes but is not limited to stuck foreign body, esophageal perforation, bowel perforation, suicidal ideation, depression, anxiety, electrolyte abnormality. Patient placed on suicide precautions. Pearl slipped. CT neck, chest, abdomen and pelvis ordered to assess for foreign body and possible complication. NS bolus ordered. Laboratory workup ordered. Social work consulted. CBC without leukocytosis or anemia. BMP unremarkable. Urine drug screen negative. Alcohol level negative.CT of the neck without any acute abnormalities. CT of the chest without any acute abnormality. CT abdomen pelvis shows findings suggestive of linear foreign bodies in the small bowel loops in the left mid abdomen. This is likelythe swallowed fishhook. Given the retained foreign body, I spoke with Dr. Jordan our general surgeon. He recommends that the patient be transferred to a facility that contains psychiatry as well as surgery for observation and further management. [facility] was consulted. While waiting for [facility], patient started to complain of mild epigastric abdominal pain. Repeat abdominal exam is benign. Morphine and Zofran ordered. Patient has had a delaytransfer secondary to [facility] not able to receive her imaging. They finally received her imaging and now are awaiting GI and surgery recommendations. Patient's GI and surgery both reviewed the imaging and no acute intervention needed at this time just observation for transfer line however given that we do not have psychiatry patient will still need to be transferred for observation. Transfer line will continue to work on transfer. Patient signed out to oncoming provider. Impression: 1. Suicidal ideation 2. Retained fishhook in the small intestines Lab Data Labs: Laboratory Results - last 24 hr 06/17/25 06/17/25 11:56 12:06 WBC 5.5 RBC 6.13 Hgb 17.7 H Hct 51.7 MCV 84.3 MCH 28.9 MCHC 34.2 RDW Std Deviation 40.6 RDW Coeff of Aury 13.2 Plt Count 188 MPV 11.6 Immature Gran % (Auto) 0.700 Neut % (Auto) 46.6 L Lymph % (Auto) 35.8 Phillips % (Auto) 11.8 H Eos % (Auto) 4.0 Baso % (Auto) 1.1 H Absolute Neuts (auto) 2.6 Absolute Lymphs (auto) 1.98 Nucleated RBC % 0 Sodium 140 Potassium 4.4 Chloride 102 Carbon Dioxide 26.1 Anion Gap 11 BUN 12 Creatinine 1.15 Estim Creat Clear Calc 131.25 Est GFR (MDRD) Non-Af 94 BUN/Creatinine Ratio 10.2 Glucose 87 Calcium 9.7 Urine Opiates Screen NEGATIVE U Buprenorphine Qual NEGATIVE Ur Oxycodone Screen NEGATIVE Urine Methadone Screen NEGATIVE Urine Fentanyl Screen NEGATIVE Ur Barbiturates Screen NEGATIVE Ur Phencyclidine Scrn NEGATIVE Ur Amphetamines Screen NEGATIVE U Benzodiazepines Scrn NEGATIVE Urine Cocaine Screen NEGATIVE U Cannabinoids Screen NEGATIVE Ethyl Alcohol < 10.1 Radiography Diagnostic Testing: Clinical Impression(s) from Imaging Studies Abdomen/Pelvis CT 06/17/25 12:27 IMPRESSION: Findings suggestive of linear foreign bodies in the small bowel loops in the left midabdomen. Reading Location: [facility] 06/17/25 12:27 IMPRESSION: Coronary artery calcification (CAC) is is absent No radiopaque foreign body is seen. Fatty infiltration of the liver. Reading Location: [facility] 06/17/25 12:27 IMPRESSION: NO ACUTE FINDINGS. No radiopaque foreign body is seen. Reading Location: [facility]--1 Discharge Plan Triage Chief Complaint: Suicidal Other Complaint: Foreign Body ED Provider: Saji Kendrick Dx/Rx/DC Orders Prescriptions: No Action hydroxyzine HCl 50 mg tablet 50 mg PO Q6H PRN doxepin 10 mg capsule 10 mg PO QHS escitalopram oxalate 10 mg tablet 10 mg PO QHS aripiprazole 10 mg tablet 10 mg PO QHS propranolol 10 mg tablet 10 mg PO BID PRN metformin 500 mg tablet 500 mg PO BID trazodone 50 mg tablet 50 mg PO QHS trazodone 100 mg tablet 100 mg PO QHS divalproex 500 mg tablet extended release 24 hr 1,000 mg PO QHS buspirone 15 mg tablet 15 mg PO BID cholecalciferol (vitamin D3) 25 mcg (1,000 unit) capsule 25 mcg PO DAILY divalproex 250 mg tablet extended release 24 hr PO Primary Care Provider: Care Physician,No Primary Referrals: Care Physician,No Primary [Primary Care Provider, Medical] Print Language: [place] What to do if you have Problems For any increased pain, shortness of breath, bleeding, nausea or vomiting, chestpain, or any unexpected problems, contact your Primary Care Provider. Call [facility] ([phone]) or report to the closest Emergency Room. Call 911 if necessary. 06/17/25 1733 <Electronically signed by Saji Kendrick DO> Cosigner Signature (if applicable): CC: No Primary Care Physician ~ Signed [facility] Work Phone: [phone] Discharge summary [facility] Medical Records Department [address] [place] [address] Emergency Department Summary 06/17/25 MR#: [id number] Acct: [id number] Name: RUBÉN GIBBS Rep #:[id number] : 2005 19 From: Saji schwartz DO PCP: Care Physician,No Primary Status :REG ER Location: ED ADDENDUM by Dr. Yaakov Kingsley DO on 06/17/25 at 1920 Care of the patient was turned over to pr pending transfer. Case was discussed with psychiatry at [facility]. They stated they would not have any beds available for several days. Case was discussed with transfer lineat [facility]. Case was discussed with Dr. Bolivar. He recommended transferring the patient to the emergency department. Case was discussed with Dr. Ro in the emergency department. She accepted the patient to be transferred there. Patient will be transferred there when squad becomes available. Patient understood and was agreeable with the plan. All questions were answered. 06/17/251919 Cosigner Signature (if applicable): cc: No Primary Care Physician ~* Signed HPI History of Present Illness Chief Complaint: Suicidal Narrative Narrative: Chief complaint and HPI: 19-year-old male with past medical history of depression, anxiety presentsfor evaluation of suicidal ideation. Patient is currently living at the [facility]. States he has been having progressive thoughts of suicide and depression. States today he swallowed a fishing hook and attempt to kill himself. He is tolerating his secretions. Has not ate or drink since swallowing the hook however feels that it may be stuck in his esophagus. He denies any visual or auditory hallucinations. Denies any homicidal ideation. Denies any fever, chills, shortness of breath, chest pain, abdominal pain, nausea, vomiting. Review of systems: See HPI Medications: As listed on the chart Allergies: As listed on the chart PFSH: Per chart Vital signs: As listed on the chart. Reviewed. Physical exam: Gen: A&O x3, NAD Head: Normocephalic, atraumatic Eyes: No sclera icterus, conjunctiva clear, PERRL, EOMI ENT: Moist mucous membranes, posterior oropharynx unremarkable, uvula midline, tonsils not enlarged, tolerating secretions, normal phonation Neck: Trachea midline, Full ROM, No swelling, no stridor CV: RRR, no murmurs Resp: Lungs CTA BL, no w/r/c GI: Abd soft, non-distended, non-tender, no r/r/g Musc: Full ROM, no deformity Skin: Warm, dry Neuro: Alert, oriented, grossly intact, sensation intact Psych: Cooperative [facility] Medical History Club foot of both lower extremities Depression Anxiety Home Medications ?Medication ?Instructions ?Recorded ?Last Taken ?Type aripiprazole 10 mg tablet 10 mg PO QHS 03/27/25 Unknow n History doxepin 10 mg capsule 10 mg PO QHS 03/27/25 Unknow n History escitalopram oxalate 10 mg tablet 10 mg PO QHS 5 Unknown History hydroxyzine HCl 50 mg tablet 50 mg PO Q6H PRN 03/27/25 Unknown History propranolol 10 mg tablet 10 mg PO BID PRN 03/27/25 Un known History buspirone 15 mg tablet 15 mg PO BID 06/17/25 Unknow n History cholecalciferol (vitamin D3) 25 25 mcg PO DAILY Unknown History mcg (1,000 unit) capsule divalproex 250 mg tablet,extended PO 06/17/25 Unknown History release 24 hr divalproex 500 mg tablet,extended 1,000 mg PO QHS 06/05 11/27 Unknown History release 24 hr metformin 500 mg tablet 500 mg PO BID 06/17/25 Unkno wn History trazodone 100 mg tablet 100 mg PO QHS 06/17/25 Unkno wn History trazodone 50 mg tablet 50 mg PO QHS 06/17/25 Unknow n History Allergy/AdvReac Type Severity Reaction Status Date / Time No Known Allergies Allergy Verified 06/17/25 11:08 Social History household members: spouse and family housing: house Smoking Status: Never smoker substance use type: does not use EXAM Physical Exam Const Vital Signs: 06/17/25 11:08 06/17/25 12:11 06/17/25 13:00 Temperature 97.9 F Temperature Source Oral Pulse Rate 74 82 Respiratory Rate 16 16 Respiratory Effort Normal Respiratory Pattern Normal Blood Pressure 136/83 H 132/83 H Blood Pressure Mean 100 99 Pulse Ox 99 98 Oxygen Delivery Method Room Air Room Air 06/17/25 14:19 06/17/25 16:42 Temperature Temperature Source Pulse Rate 74 87 Respiratory Rate Respiratory Effort Respiratory Pattern Blood Pressure 138/80 H 138/83 H Blood Pressure Mean 99 101 Pulse Ox 97 Oxygen Delivery Method Room Air MDM MDM MDM Narrative Medical decision making narrative: 19-year-old male with past medical history of depression, anxiety presents for evaluation of suicidal ideation. Patient is currently living at the [facility]. States he has been having progressive thoughts of suicide and depression. States today he swallowed a fishing hook and attempt to kill h imself. He is tolerating his secretions. Has not ate or drink since swallowing the hook however feels that it may be stuck in his esophagus. On presentation, patient no acute distress. Differential diagnosis includes but is not limited to stuck foreign body, esophageal perforation, bowel perforation, suicidal ideation, depression, anxiety, electrolyte abnormality. Patient placed on suicide precautions. Pearl slipped. CT neck, chest, abdomen and pelvis ordered to assess for foreign body and possible complication. NS bolus ordered. Laboratory workup ordered. Social work consulted. CBC without leukocytosis or anemia. BMP unremarkable. Urine drug screen negative. Alcohol level negative.CT of theneck without any acute abnormalities. CT of the chest without any acute abnormality. CT abdomen pelvis shows findings suggestive of linear foreign bodies in the small bowel loops in the left mid abdomen. This is likelythe swallowed fishhook. Given the retained foreign body, I spoke with Dr. Jordan our general surgeon. He recommends that the patient be transferred to a facility that contains psychiatry as well as surgery for observation and further management. [facility] was consulted. While waiting for [facility], patient started to complain of mild epigastric abdominal pain. Repeatabdominal exam is benign. Morphine and Zofran ordered. [facility] and now are awaiting GI and surgery recommendations. Patient's GI and surgery both reviewed the imaging and no acute intervention needed at this time just observation for transfer line however given that we do not havepsychiatry patient will still need to be transferred for observation. Transfer line will continue to work on transfer. Patient signed out to oncoming provider. Impression: 1. Suicidal ideation 2. Retained fishhook in the small intestines Lab Data Labs: Laboratory Results - last 24 hr 06/17/25 06/17/25 11:56 12:06 WBC 5.5 RBC 6.13 Hgb 17.7 H Hct 51.7 MCV 84.3 MCH 28.9 MCHC 34.2 RDW Std Deviation 40.6 RDW Coeff of Aury 13.2 Plt Count 188 MPV 11.6 Immature Gran % (Auto) 0.700 Neut % (Auto) 46.6 L Lymph % (Auto) 35.8 Phillips % (Auto) 11.8 H Eos % (Auto) 4.0 Baso % (Auto) 1.1 H Absolute Neuts (auto) 2.6 Absolute Lymphs (auto) 1.98 Nucleated RBC % 0 Sodium 140 Potassium 4.4 Chloride 102 Carbon Dioxide 26.1 Anion Gap 11 BUN 12 Creatinine 1.15 Estim Creat Clear Calc 131.25 Est GFR (MDRD) Non-Af 94 BUN/Creatinine Ratio 10.2 Glucose 87 Calcium 9.7 Urine Opiates Screen NEGATIVE U Buprenorphine Qual NEGATIVE Ur Oxycodone Screen NEGATIVE Urine Methadone Screen NEGATIVE Urine Fentanyl Screen NEGATIVE Ur Barbiturates Screen NEGATIVE Ur Phencyclidine Scrn NEGATIVE Ur Amphetamines Screen NEGATIVE U Benzodiazepines Scrn NEGATIVE Urine Cocaine Screen NEGATIVE U Cannabinoids Screen NEGATIVE Ethyl Alcohol < 10.1 Radiography Diagnostic Testing: Clinical Impression(s) from Imaging Studies Abdomen/Pelvis CT 06/17/25 12:27 IMPRESSION: Findings suggestive of linear foreign bodies in the small bowel loops in the left midabdomen. Reading Location: [facility]-[address] 06/17/25 12:27 IMPRESSION: Coronary artery calcification (CAC) is is absent No radiopaque foreign body is seen. Fatty infiltration of the liver. Reading Location: [facility] 06/17/25 12:27 IMPRESSION: NO ACUTE FINDINGS. No radiopaque foreign body is seen. Reading Location: [facility]--1 Discharge Plan Triage Chief Complaint: Suicidal Other Complaint: Foreign Body ED Provider: Saji Kendrick Dx/Rx/DC Orders Prescriptions: No Action hydroxyzine HCl 50 mg tablet 50 mg PO Q6H PRN doxepin 10 mg capsule 10 mg PO QHS escitalopram oxalate 10 mg tablet 10 mg PO QHS aripiprazole 10 mg tablet 10 mg PO QHS propranolol 10 mg tablet 10 mg PO BID PRN metformin 500 mg tablet 500 mg PO BID trazodone 50 mg tablet 50 mg PO QHS trazodone 100 mg tablet 100 mg PO QHS divalproex 500 mg tablet extended release 24 hr 1,000 mg PO QHS buspirone 15 mg tablet 15 mg PO BID cholecalciferol (vitamin D3) 25 mcg (1,000 unit) capsule 25 mcg PO DAILY divalproex 250 mg tablet extended release 24 hr PO Primary Care Provider: Care Physician,No Primary Referrals: Care Physician,No Primary [Primary Care Provider, Medical] Print Language: Sri Lankan What to do if you have Problems For any increased pain, shortness of breath, bleeding, nausea or vomiting, chestpain, or any unexpected problems, contact your Primary Care Provider. Call [facility] ([phone]) or report tothe closest Emergency Room. Call 911 if necessary. 06/17/25 1733 Cosigner Signature (if applicable): CC: No Primary Care Physician ~ Signed [facility]10-13-2025 Radiology Diagnostic study note [facility] Imaging Services [address], [place] [address] Soft Tissue Neck WITH Contrast MR#: [id number] Acct: [id number] Name: RUBÉN GIBBS Rep #: [id number] : 2005 M 19 From: Manfred Sosa MD PCP: Care Physician,No Primary Status: REG ER Study:Soft Tissue Neck WITH Contrast Date of Exam: 06/17/25 Exam# [id number] Ordering Dr: Saji Almodovar DO PROCEDURE: SOFT TISSUE NECK WITH CONTRAST 06/17/2025 REASON FOR EXAM: SWALLOWED PATIENT Patient's swallowed fishing hooks. TECHNIQUE: Procedure Code: CTNEW Modality: CT Procedure: SOFT TISSUE NECK WITH CONTRAST CONTRAST: Isovue-300 VOLUME: 100 mL One or more dose reduction techniques were used (e.g., Automated exposure control, adjustment of the mA and/or kV according to patient size, use of iterative reconstruction technique). RADIATION DOSE SUMMARY: CTDlvol: 15.20 mGy DLP: 7.6 mGycm COMPARISON: None FINDINGS: Airway: Midline and patent. No radiopaque foreign body is seen. Salivary glands: Unremarkable. Lymph nodes: No cervical lymphadenopathy. Thyroid: Unremarkable. Vasculature: Carotid arteries and internal jugular veins are unremarkable. Orbits: Unremarkable at visualized levels. Paranasal sinuses and mastoids: Grossly clear at visualized levels. Lung apices: Clear. Upper mediastinum: Visualized mediastinum is unremarkable. Bones: Unremarkable. Other: CT/Soft Tissue Neck WITH Contrast IMPRESSION: NO ACUTE FINDINGS. No radiopaque foreign body is seen. Reading Location: [place] [address] CC: Dr. Saji Kendrick DO; No Primary Care Physician ~ Factory Engineer: Signed [facility]10-13-2025 Radiology Diagnostic study note [facility] Imaging Services [address] [place] [id number] Chest WITH Contrast MR#: [id number] Acct: [id number] Name: RUBÉN GIBBS Rep #: [id number] : 2005 M 19 From: Manfred Sosa MD PCP: Care Physician,No Primary Status: REG ER Study:Chest WITH Contrast Date of Exam: 06/17/25 Exam# [id number] Ordering Dr: Saji Almodovar DO PROCEDURE: CHEST WITH CONTRAST 06/17/2025 REASON FOR EXAM: SWALLOWED FISHHOOK TECHNIQUE: Procedure Code: CTCHW Modality: CT Procedure: CHEST WITH CONTRAST Coronal and Sagittal reconstruction series were provided. CONTRAST: Isovue-300 VOLUME: 100 mL One or more dose reduction techniques were used (e.g., Automated exposure control, adjustment of the mA and/or kV according to patient size, use of iterative reconstruction technique). RADIATION DOSE SUMMARY: CTDlvol: 19.84 mGy DLP: 664.24 mGycm COMPARISON: None FINDINGS: Hardware: None Lymph nodes: No mediastinal hilar or axillary lymphadenopathy. Heart and Vasculature: Normal heart size. No pericardial effusion. Thoracic aorta and pulmonary arteries are unremarkable. Lungs and Airways: The lungs are normally expanded and clear. No septal thickening nodules or abnormal pulmonary opacities. Pleura: No pleural effusion. Upper Abdomen: Fatty infiltration of the liver. Bones: Bone windows are unremarkable. CT/Chest WITH Contrast IMPRESSION: Coronary artery calcification (CAC) is is absent No radiopaque foreign body is seen. Fatty infiltration of the liver. Reading Location: [place] [address] CC: Dr. Saji Kendrick DO; No Primary Care Physician ~ Factory Engineer: Signed [facility]10-13-2025 Radiology Diagnostic study note [facility] Imaging Services [address] [place] [address] Abdomen/Pelvis W IV Cont ONLY MR#: [id number] Acct: [id number] Name: RUBÉN GIBBS Rep #: [id number] : 2005 M 19 From: Manfred Sosa MD PCP: Care Physician,No Primary Status: REG ER Study:Abdomen/Pelvis W IV Cont ONLY Date of E xam: 06/17/25 Exam# [id number] Ordering Dr: Saji Almodovar DO PROCEDURE: ABDOMEN/PELVIS W IV CONT ONLY 06/17/2025 REASON FOR EXAM: SWALLOWED FISHHOOK TECHNIQUE: Procedure Code: CTABDPELIV Modality: CT Procedure: ABDOMEN/PELVIS W IV CONT ONLY Coronal and Sagittal reconstruction series were provided. CONTRAST: Isovue-300 VOLUME: 100 mL One or more dose reduction techniques were used (e.g., Automated exposure control, adjustment of the mA and/or kV according to patient size, use of iterative reconstruction technique. RADIATION DOSE SUMMARY: CTDlvol: 19 mGy DLP: 2674.55 mGycm COMPARISON: None FINDINGS: Lung bases: Lung bases are clear. Small hiatal hernia. Liver: Diffuse fatty infiltration. Gallbladder: The gallbladder is not seen. It may be contracted. Spleen: Borderline splenomegaly. Pancreas: Normal size without evidence of mass surrounding inflammation or ductal dilation. Adrenals: Unremarkable Kidneys: Normal renal sizes. No hydronephrosis. Bladder: Unremarkable Bowel: Linear radiopacities are seen within the small bowel loops in the left midabdomen suggestiveof foreign bodies. Appendix: The appendix is unremarkable. Lymph nodes: Unremarkable. Vasculature: The abdominal aorta and IVC are normal. Peritoneum / Retroperitoneum: Unremarkable Bones: Unremarkable CT/Abdomen/Pelvis W IV Cont ONLY IMPRESSION: Findings suggestive of linear foreign bodies in the small bowel loops in the left midabdomen. Reading Location: [place] [address] CC: Dr. Saji Kendrick, DO; No Primary Care Physician ~ Factory Engineer: Signed [facility]10-13-2025 NoteHNO ID: [id number] Author: KAUR ESPINOSA APRN.TEMPLATE MAKER Service: ? Author Type: Nurse Practitioner Type: Progress Notes Filed: 06/17/2025 10:36 Note Text: [facility] [place] Be Gibbs is a 19 year old male. He is accompanied by a diesel electrician from [place]. Patient presents with: Throat Problem: swallowed 2 fish hooks, one last night and one this morning HPI The patient is a 19-year-old male presenting for evaluation after swallowing a fish hook. Foreign Body Ingestion: - Swallowed a fish hook today. - When asked how incident occurred he states I didn't feel right. - Experiencing pain in the throat. - Denies abdominal pain, oral or pharyngeal bleeding. Review of Systems Ears/Nose/Mouth/Throat: (+) throat foreign body sensation, (-) oral or throat bleeding Gastrointestinal: (-) abdominal pain Objective BP 110/70 Pulse 82 Temp 36.4 ?C (97.5 ?F) Resp 16 Wt 112 kg (246 lb 14.6 oz) SpO2 97% BMI 35.43 kg/m? 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 MEDICATIONS - traZODone (DESYREL) 50 mg tablet - divalproex ER (DEPAKOTE ER) 250 mg 24 hr tablet 500 mg two times a day. - busPIRone (BUSPAR) 5 mg tablet 5 mg two times a day. - busPIRone (BUSPAR) 10 mg tablet 10 mg two times a day. - escitalopram oxalate (LEXAPRO) 10 mg tablet 10 mg. - cholecalciferol (VITAMIN D3) 1,000 unit tab tablet 1,000 Units. - ARIPiprazole (ABILIFY) 5 mg tablet Take 5 mg by mouth once daily. - melatonin 3 mg Tab Take 3 mg by mouth daily at bedtime. - metFORMIN (GLUCOPHAGE) 500 mg tablet Take 1 tablet by mouth two times a day. (Patient not taking: Reported on 05/16/2025) - sertraline (ZOLOFT) 50 mg tablet Take 50 mg by mouth once daily. (Patient not taking: Reported on 05/16/2025) - buPROPion (WELLBUTRIN) 75 mg tablet Take 75 mg by mouth once daily. (Patient not taking: Reported on 05/16/2025) - Pediatric Multivitamins-Iron (FLINTSTONES COMPLETE) ORAL chewable tablet Take 1 tablet by mouth once daily. (Patient not taking: Reported on 05/16/2025) FAMILY HISTORY Problem Relation Age of Onset - Diabetes Mother insulin dependant, type 1 - None Father - other (AVM left side of brain [Other]) Mother - other (epilepsy [Other]) Mother - other (migraines [Other]) Mother - other (rheumatoid arthritis [Other]) Maternal Grandmother SOCIAL HISTORY[1] Physical Exam Vitals and nursing note reviewed. Constitutional: General: He is not in acute distress. Appearance: Normal appearance. He is not ill-appearing. HENT: Mouth/Throat: Lips: Pearl. Mouth: Mucous membranes are moist. No injury or lacerations. Pharynx: Uvula midline. No pharyngeal swelling or posterior oropharyngeal erythema. Cardiovascular: Rate and Rhythm: Normal rate. Pulmonary: Effort: Pulmonary effort is normal. Neurological: Mental Status: He is alert. { 1. Swallowed foreign body, initial encounter (T18.9XXA) - Patient swallowed a fish hook; reports pain in throat and mild abdominal pain; no bleeding from mouth or throat observed on exam. - Per biomedical electronics technician, patient requires transfer to emergency room due to risk of esophageal perforation and trauma. - Educated on the need for ER evaluation and potential risks associated with ingested foreign body. - Follow-up with your PCP in 3-5 days if symptoms have not improved or sooner if symptoms worsen - Discussed red flags and need for immediate medical evaluation if any occur. - Discussed supportive care treatment with fluids, rest and analgesia. - Discussed expected course of illness Kaur Espinosa APRN.TEMPLATE MAKER and Recording using [employer] software for draft documentation of the visit was discussed with the patient/authorized bottling equipment sales representative; all questions welcomed and answered. Patient/authorized bottling equipment sales representative agreed to proceed History and Record Review Clinical information obtained from an independent historian. History obtained from or confirmed by: other (see comments). Management Management of the patient was discussed with:ED Physician or Supervisory/Collaborating Physician Discussion with ED Physician or Supervisory/Collaborating Physician included: Dr. Shaver Disposition The patient was other (comment). Procedures [1] Social History Tobacco Use - Smoking status: Never - Smokeless tobacco: Never Substance Use Topics - Alcohol use: No (more content not included)...[facility] 05-20-2025 NoteHNO ID: [id number] Author: DMITRIY POWELL MD Service: ? Author Type: Physician Type: Progress Notes Filed: 05/21/2025 10:02 Note Text: 19 year old male presents for a routine exam[facility] [] GENERAL QUESTIONS color enhanced section Patient concerns: NONE Nursing concerns: NONE # Eating Patterns - Describes variable appetite, with periods of low intake alternating with overeating - Unsure if any medications contribute to these fluctuations - Denies recent medication changes specifically affecting appetite # Foot and Ankle Discomfort - History of congenital foot issues; followed by orthopedics in 2021 - Currently uses shoe inserts/orthotics but states they provide no relief - Reports persistent ankle pain, without clear precipitating factors - Saw a drencher last week who recommended follow-up with the original orthopedic shoe fitter # Possible Medication-Related Movement - Noted a slight ?shaky? quality when sticking out his tongue - Unsure of onset or exacerbating factors but indicates it has occurred for a long time - Also has a longstanding ?handshake? tremor - No other involuntary or uncontrollable movements mentioned Diet: specific issues: Issues: overeating Stools: no concerns, normal size and consistency Urine: NO PROBLEMS Ongoing subspecialty care: psychiatry, Ongoing care: orthopedics Ongoing ancillary care: Ongoing counseling at the [facility], Dental: dental care current [] SPORTS QUESTIONS color enhanced section History of seizures: No History of concussion: No History of syncope: No History of heart problems: No History of hypertension: No History of asthma: No History of single kidney: No History of skeletal problems: No History of any significant injury: No Family history of either heart problems or sudden MEDICAL HISTORY Past medical history: PAST MEDICAL HISTORY Diagnosis Date ADHD (attention deficit hyperactivity disorder) Bilateral club feet 4 surgeries Depression Developmental delay Generalized anxiety disorder 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 busPIRone (BUSPAR) 5 mg tablet 5 mg two times a day. busPIRone (BUSPAR) 10 mg tablet 10 mg two times a day. escitalopram oxalate (LEXAPRO) 10 mg tablet 10 mg. cholecalciferol (VITAMIN D3) 1,000 unit tab tablet 1,000 Units. ARIPiprazole (ABILIFY) 5 mg tablet Take 5 mg by mouth once daily. (Patient taking differently: Take 10 mg by mouth once daily.) metFORMIN (GLUCOPHAGE) 500 mg tablet Take 1 tablet by mouth two times a day. (Patient not taking: Reported on 05/16/2025) sertraline (ZOLOFT) 50 mg tablet Take 50 mg by mouth once daily. (Patient not taking: Reported on 05/16/2025) buPROPion (WELLBUTRIN) 75 mg tablet Take 75 mg by mouth once daily. (Patient not taking: Reported on 05/16/2025) melatonin 3 mg Tab Take 3 mg by mouth daily at bedtime. Pediatric Multivitamins-Iron (FLINTSTONES COMPLETE) ORAL chewable tablet Take 1 tablet by mouth once daily. (Patient not taking: Reported on 05/16/2025) ALLERGIES: ALLERGIES No Known Allergies [] SOCIAL HISTORY color enhanced section High risk behaviors: Yes, details: involvement with legal system Resident at [facility] [] MISCELLANEOUS color enhanced section Difficulties with learning for patient: Yes, barriers: cognitive VISION AND HEARING ASSESSMENT Vision: Correction: NONE, As tested: NONE Acuity: RIGHT: 20/ 16 LEFT: 20/ 16 Hearing: @ 2000Hz Right: 20 dB Left: 5 dB @ 4000Hz Right: 20 dB Left: 10 dB Dmitriy Powell MD PHYSICAL EXAM (to re-import BP% use .BPFA) Sensitive exam declined. Discussed rationale and impact on treatment. General: alert and active in no apparent distress Head: Normocephalic Eyes: normal and no strabismus noted Ears: External ears normal. Canals clear. TM's normal. Nose/Sinuses : Nares normal. Septum midline. Mucosa normal. No drainage or sinus tenderness. Oropharynx : norm (more content not included)...[facility] 05-20-2025 History of Present illness Narrative* Dmitriy Powell MD - 05/20/2025 7:55 AM EDT 19 year old male presents for a routine exam/ intake physical exam at [facility] [] GENERAL QUESTIONS color enhanced section Patient concerns: NONE Nursing concerns: NONE # Eating Patterns - Describes variable appetite, with periods of low intake alternating with overeating - Unsure if any medications contribute to these fluctuations - Denies recent medication changes specifically affecting appetite # Foot and Ankle Discomfort - History of congenital foot issues; followed by orthopedics in 2021 - Currently uses shoe inserts/orthotics but states they provide no relief - Reports persistent ankle pain, without clear precipitating factors - Saw a drencher last week who recommended follow-up with the original orthopedic shoe fitter # Possible Medication-Related Movement - Noted a slight shaky quality when sticking out his tongue - Unsure of onset or exacerbating factors but indicates it has occurred for a long time - Also has a longstanding handshake tremor - No other involuntary or uncontrollable movements mentioned Diet: specific issues: Issues: overeating Stools: no concerns, normal size and consistency Urine: NO PROBLEMS Ongoing subspecialty care: psychiatry, Ongoing care: orthopedics Ongoing ancillary care: Ongoing counseling at the [facility], Dental: dental care current [] SPORTS QUESTIONS color enhanced section History of seizures: No History of concussion: No History of syncope: No History of heart problems: No History of hypertension: No History of asthma: No History of single kidney: No History of skeletal problems: No History of any significant injury: No Family history of either heart problems or sudden <age 40 years: No MEDICAL HISTORY Past medical history: PAST MEDICAL HISTORY Diagnosis Date ADHD (attention deficit hyperactivity disorder) Bilateral club feet 4 surgeries Depression Developmental delay Generalized anxiety disorder 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 busPIRone (BUSPAR) 5 mg tablet 5 mg two times a day. busPIRone (BUSPAR) 10 mg tablet 10 mg two times a day. escitalopram oxalate (LEXAPRO) 10 mg tablet 10 mg. cholecalciferol (VITAMIN D3) 1,000 unit tab tablet 1,000 Units. ARIPiprazole (ABILIFY) 5 mg tablet Take 5 mg by mouth once daily. (Patient taking differently: Take10 mg by mouth once daily.) metFORMIN (GLUCOPHAGE) 500 mg tablet Take 1 tablet by mouth two times a day. (Patient not taking: Reported on 05/16/2025) sertraline (ZOLOFT) 50 mg tablet Take 50 mg by mouth once daily. (Patient not taking: Reported on 05/16/2025) buPROPion (WELLBUTRIN) 75 mg tablet Take 75 mg by mouth once daily. (Patient not taking: Reported on 05/16/2025) melatonin 3 mg Tab Take 3 mg by mouth daily at bedtime. Pediatric Multivitamins-Iron (FLINTSTONES COMPLETE) ORAL chewable tablet Take 1 tablet by mouth once daily. (Patient not taking: Reported on 05/16/2025) ALLERGIES: ALLERGIES No Known Allergies [] SOCIAL HISTORY color enhanced section High risk behaviors: Yes, details: involvement with legal system Resident at [facility] [] MISCELLANEOUS color enhanced section Difficulties with learning for patient: Yes, barriers: cognitive VISION & HEARING ASSESSMENT Vision: Correction: NONE, As tested: NONE Acuity: RIGHT: 20/ 16 LEFT: 20/ 16 Hearing: @ 2000Hz Right: 20 dB Left: 5 dB @ 4000Hz Right: 20 dB Left: 10 dB Dmitriy Latham AndreMD PHYSICAL EXAM (to re-import BP% use .BPFA) Sensitive exam declined. Discussed rationale and impact on treatment. General: alert and active in no apparent distress Head: Normocephalic Eyes: normal and no strabismus noted Ears: External ears normal. Canals clear. TM's normal. Nose/Sinuses : Nares normal. Septum midline. Mucosa normal. No drainage or sinus tenderness. Oropharynx : normal Neck: normal, supple, no adenopathy Cardiovascular : Regular Rate and Rhythm without murmurs or clicks Lungs: clear to auscultation Abdomen : Abdomen is soft, nontender, without organomegaly or masses. Genitalia : declined Musculoskeletal: Extremities with FROM and no problems identified., spine without evidence of scoliosis, c/o pain in feet Neurologic : Muscle tone normal, Cranial nerves II-XII grossly intact, Reflexes symmetrical, and Noinvoluntary motions. Skin :normal color, no jaundice or rash [] ASSESSMENT color enhanced section Encounter Diagnosis ICD-10-CM 1. Encounter for examination for admission to residential institution Z02.2 2. Obesity, Class I, BMI 30-34.9 E66.811 3. Bilateral club feet Q66.89 4. Tongue fasciculation R25.3 PLAN Plan per orders. 97 %ile (Z= 1.94, 115% of 95%ile) based on CDC (Boys, 2-20 Years) BMI-for-age based on BMI available on 05/20/2025. Rubén Gibbs is elevated range (BMI greater than 95th%): -Discussed how healthy eating, minimizing electronics and getting physical activity impact physical and emotional health - Discussed diet and safety. - Dental care discussed. - Bright Futures handout given (See Patient Instructions). - Patient declined immunization for Influenza and was counseled regarding risk. PPD given today - Rubén is Cleared for all sports without restriction with recommendations for further evaluation or treatment for ankle pain. If conditions arise after the athlete has been cleared for participationthe provider may rescind the medical eligibility. - Healthcare transition statement not discussed.. - Follow up in one year for routine physical. PHQ-A 21 (0-4) minimal depression, (5-9) mild depression, (10-14) moderate depression, (15-19) moderately severe depression, (20-27) severe depression presentation is consistent with diagnosis of depression: -Continue current psychiatry management -Continue current psychology/behavioral health management Follow up visit in 1 year for routine care or prn with concerns. Obesity, Class I, BMI 30-34.9 (E66.811) - Variable appetite; no recent medication changes affecting eating habits per pt. Track weight 3. Bilateral club feet (Q66.89) - Chronic bilateral ankle pain; current orthotic inserts not providing relief. - Recent podiatry visit with recommendation to [facility]. 4. Tongue fasciculation (R25.3) - Noted on exam; may be a side effect of current medications. - Will notify psychiatry team (Marily Roche) regarding tongue fasciculations. Dmitriy Powell MD [facility] encounter[facility] Telephone encounter Note * Telephone Encounter - Dmitriy Powell MD - 04/29/2025 12:06 PM EDT Refill requested by [facility] The following approved medication requests have been transmitted electronically. Requested Prescriptions Signed Prescriptions Disp Refills metFORMIN (GLUCOPHAGE) 500 mg tablet 180 tablet 2 Sig: Take 1 tablet by mouth two times a day. Authorizing Provider: DMITRIY POWELL MD [facility]08-25-2025 Miscellaneous Notes* Telephone Encounter - Dmitriy Powell MD - 04/29/2025 12:06 PM EDT Refill requested by [facility] The following approved medication requests have been transmitted electronically. Requested Prescriptions Signed Prescriptions Disp Refills metFORMIN (GLUCOPHAGE) 500 mg tablet 180 tablet 2 Sig: Take 1 tablet by mouth two times a day. Authorizing Provider: DMITRIY POWELL MD documented in this encounterCh[facility]ic[facility]07-[facility]-2025 Discharge summary Author Nain Mercer [facility] Note Date/Time March 27, 2025 11:3 5pm [facility] Medical Records Department [address] [place] [address] Emergency Department Summary 03/27/25 MR#: [id number] Acct: [id number] Name: RUBÉN GIBBS Rep #:[id number] : 2005 19 From: Nain Mercer MD PCP: Care Physician,No Primary Status :REG ER Location: ED HPI HPI - Psych History of Present Illness Chief Complaint: Suicidal Narrative Narrative: 19-year-old male past medical history of depression and anxiety on multiple medications presents with his grandfather because of suicidal ideation. Currently he has no plan but they report that he has had multiple attempts in the past. He was hospitalized in the psychiatric facility for 3 years, then discharged. Approximately 3 to 4 weeks ago he was admitted at [facility] for suicidal ideation and depression. He had taken a pair pants and tied them around his neck and attempt to hang himself but he never did. His grandfather relays history that [facility] had discharged him because he was supposed to have a hearing [facility]. They had dropped him off at around 11:00 in the morning but thehearing was not until the afternoon. However, it was learned that the field research assistant hadcanceled the hearing reportedly that was to be held in [facility] because grandfather reports that it was actually supposed to be in [facility]. He has been living with his grandparents for the last week. They are uncomfortablein taking care of him and fear that he will attempt suicide again because he hasstated to his grandfather multiple times that he is bored and they do not do activities with him. He is also made statements about suicidality to them. [facility] Medical History Club foot of both lower extremities Depression Anxiety Home Medications ?Medication ?Instructions ?Recorded ?Last Taken ?Type aripiprazole 10 mg tablet 10 mg PO QHS 03/27/25 Unknow n History buspirone 7.5 mg tablet 7.5 mg PO TID 03/27/25 Unkno wn History divalproex 250 mg tablet,delayed 250 mg PO BID 5 Unknown History release doxepin 10 mg capsule 10 mg PO QHS 03/27/25 Unknow n History escitalopram oxalate 10 mg tablet 10 mg PO QHS 5 Unknown History hydroxyzine HCl 50 mg tablet 50 mg PO Q6H PRN 03/27/25 Unknown History propranolol 10 mg tablet 10 mg PO BID PRN 03/27/25 Un known History Allergy/AdvReac Type Severity Reaction Status Date / Time No Known Allergies Allergy Verified 03/27/25 18:45 Social History household members: spouse and family housing: house Smoking Status: Never smoker substance use type: does not use ROS ROS ED ROS Narrative Review of systems positive for suicidal ideation, currently with no plan. Denies any somatic complaints. States he is hungry. EXAM Physical Exam Narrative Exam Narrative: Afebrile. Vital signs noted. Nontoxic-appearing. Cardiovascular examination regular rate and rhythm. Lungs clear to auscultation bilaterally. Abdomen is soft and nontender without guarding or rebound. Neurological examination nonfocal, nonlateralizing, moves all extremities. Psychiatric examination showssuicidality but no plan, flat affect. Const Vital Signs: 03/27/25 18:43 03/27/25 19:43 Temperature 98.6 F Temperature Source Oral Pulse Rate 85 86 Respiratory Rate 18 15 Blood Pressure 133/83 H 120/77 Blood Pressure Mean 99 91 Pulse Ox 99 95 Oxygen Delivery Method Room Air Room Air MDM MDM MDM Narrative Medical decision making narrative: I reviewed the patient's prior ED visit. He was placed at [facility] at the end of February, almost 1 month ago. Medical screening labs will be obtained. Once medically cleared, he will be evaluated either by case management versus crisis. Medical screening labs were obtained and reviewed. He has slightly hemoconcentrated hemoglobin of 16.6 which I think is nonspecific, normal white count 7.3, platelet count normal at 183. CMP remarkable for slightly elevated AST and ALT of 45 and 57 respectively. This is nonspecific as well. Serum alcohol level is negative. Urine for drugs of abuse also negative. At this point in time, I do feel he is medically cleared for evaluation by social work/case management. In discussion with case management, they have seen him previously. Additionally, they state that the patient is unable to live with other members of his family. After discharge from the facility where he was for 3 years, he has lived with his grandparents for about 6 months reportedly. After evaluation, they will work on placement, however, his grandfather was told that if unsuccessful, that he will need to be discharged back into his custody tomorrow morning if placement is unsuccessful. Patient will be signed out to the overnight physician to continue observation while [facility]. Currently, patient is in stable condition. History & Record Review Discussion w/independent historian: Patient and Family (Grandfather) Additional record(s) reviewed:: Prior ED visit (Medically cleared then sent to [facility] on last visit) Lab Data Attestation: I reviewed the patient's lab results. Labs: Laboratory Results - last 24 hr 03/27/25 19:00 WBC 7.3 RBC 5.88 Hgb 16.6 H Hct 48.7 MCV 82.8 MCH 28.2 MCHC 34.1 RDW Std Deviation 39.6 RDW Coeff of Aury 13.2 Plt Count 183 MPV 11.4 Immature Gran % (Auto) 0.700 Neut % (Auto) 46.4 L Lymph % (Auto) 34.5 Phillips % (Auto) 12.2 H Eos % (Auto) 5.0 Baso % (Auto) 1.2 H Absolute Neuts (auto) 3.4 Absolute Lymphs (auto) 2.51 Nucleated RBC % 0 Sodium 140 Potassium 4.3 Chloride 103 Carbon Dioxide 22.2 Anion Gap 15 BUN 17 Creatinine 1.07 Estim Creat Clear Calc 138.07 Est GFR (MDRD) Non-Af 103 BUN/Creatinine Ratio 16.0 Glucose 88 Calcium 9.6 Total Bilirubin 0.19 AST 45 H ALT 57 H Alkaline Phosphatase 100 Total Protein 6.9 Albumin 4.3 Globulin 2.6 Albumin/Globulin Ratio 1.7 Urine Opiates Screen NEGATIVE U Buprenorphine Qual NEGATIVE Ur Oxycodone Screen NEGATIVE Urine Methadone Screen NEGATIVE Urine Fentanyl Screen NEGATIVE Ur Barbiturates Screen NEGATIVE Ur Phencyclidine Scrn NEGATIVE Ur Amphetamines Screen NEGATIVE U Benzodiazepines Scrn NEGATIVE Urine Cocaine Screen NEGATIVE U Cannabinoids Screen NEGATIVE Ethyl Alcohol < 10.1 Discharge Plan Triage Chief Complaint: Suicidal ED Provider: Nain Mercer Dx/Rx/DC Orders Prescriptions: No Action divalproex 250 mg tablet,delayed release (DR/EC) 250 mg PO BID hydroxyzine HCl 50 mg tablet 50 mg PO Q6H PRN doxepin 10 mg capsule 10 mg PO QHS buspirone 7.5 mg tablet 7.5 mg PO TID escitalopram oxalate 10 mg tablet 10 mg PO QHS aripiprazole 10 mg tablet 10 mg PO QHS propranolol 10 mg tablet 10 mg PO BID PRN Primary Care Provider: Care Physician,No Primary Referrals: Care Physician,No Primary [Primary Care Provider] - Print Language: Sri Lankan What to do if you have Problems For any increased pain, shortness of breath, bleeding, nausea or vomiting, chestpain, or any unexpected problems, contact your Primary Care Provider. Call [facility] ([phone]) or report to the closest Emergency Room. Call 911 if necessary. 03/27/25 5922 <Electronically signed by Nain Mercer MD> Cosigner Signature (if applicable): CC: No Primary Care Physician ~ Signed [facility] Work Phone: [phone]) 282-754907-23-2025 Discharge summary [facility] Medical Records Department [address] [place] [address] Emergency Department Summary 03/27/25 MR#: [id number] Acct: [id number] Name: RUBÉN GIBBS Rep #:[id number] : 2005 19 From: Nain Mercer MD PCP: Care Physician,No Primary Status :REG ER Location: ED HPI HPI - Psych History of Present Illness Chief Complaint: Suicidal Narrative Narrative: 19-year-old male past medical history of depression and anxiety on multiple medications presents with his grandfather because of suicidal ideation. Currently he has no plan but they report that he has had multiple attempts in the past. He was hospitalized in the psychiatric facility for 3 years, then discharged. Approximately 3 to 4 weeks ago he was admitted at [facility] for suicidal ideation and depression. He had taken a pair pants and tied them around his neck and attempt to hang himself but he never did. His grandfather relays history that [facility] had discharged him because he was supposed to have a hearing [facility]. They had dropped him off at around 11:00 in the morning but thehearing was not until the afternoon. However, it was learned that the field research assistant hadcanceled the hearing reportedly that was to be held in [facility] because grandfather reports that it was actually supposed muna in [facility]. He has been living with his grandparents for the last week. They are uncomfortablein taking care of him and fear that he will attempt suicide again because he hasstated to his gra ndfather multiple times that he is bored and they do not do activities with him. He is also made statements about suicidality to them. [facility] Medical History Club foot of both lower extremities Depression Anxiety Home Medications ?Medication ?Instructions ?Recorded ?Last Taken ?Type aripiprazole 10 mg tablet 10 mg PO QHS 03/27/25 Unknow n History buspirone 7.5 mg tablet 7.5 mg PO TID 03/27/25 Unkno wn History divalproex 250 mg tablet,delayed 250 mg PO BID 5 Unknown History release doxepin 10 mg capsule 10 mg PO QHS 03/27/25 Unknow n History escitalopram oxalate 10 mg tablet 10 mg PO QHS 5 Unknown History hydroxyzine HCl 50 mg tablet 50 mg PO Q6H PRN 03/27/25 Unknown History propranolol 10 mg tablet 10 mg PO BID PRN 03/27/25 Un known History Allergy/AdvReac Type Severity Reaction Status Date / Time No Known Allergies Allergy Verified 03/27/25 18:45 Social History household members: spouse and family housing: house Smoking Status: Never smoker substance use type: does not use ROS ROS ED ROS Narrative Review of systems positive for suicidal ideation, currently with no plan. Denies any somatic complaints. States he is hungry. EXAM Physical Exam Narrative Exam Narrative: Afebrile. Vital signs noted. Nontoxic-appearing. Cardiovascular examination regular rate and rhythm. Lungs clear to auscultation bilaterally. Abdomen is soft and nontender without guarding or rebound. Neurological examination nonfocal, nonlateralizing, moves all extremities. Psychiatric examination showssuicidality but no plan, flat affect. Const Vital Signs: 03/27/25 18:43 03/27/25 19:43 Temperature 98.6 F Temperature Source Oral Pulse Rate 85 86 Respiratory Rate 18 15 Blood Pressure 133/83 H 120/77 Blood Pressure Mean 99 91 Pulse Ox 99 95 Oxygen Delivery Method Room Air Room Air MDM MDM MDM Narrative Medical decision making narrative: I reviewed the patient's prior ED visit. He was placed at [facility] at the end of February, almost 1 month ago. Medical screening labs will be obtained. Once medically cleared, he will be evaluated either by case management versus crisis. Medical screening labs were obtained and reviewed. He has slightly hemo concentrated hemoglobin of 16.6 which I think is nonspecific, normal white count 7.3, platelet count normal at 183. CMP remarkable for slightly elevated AST and ALT of 45 and 57 respectively. This isnonspecific as well. Serum alcohol level is negative. Urine for drugs of abuse also negative. At this point in time, I do feel he is medically cleared for evaluation by social work/case management. In discussion with case management, they have seen him previously. Additionally, they state that the patient is unable to live with other members of his family. After discharge from the facility where he was for 3 years, he has lived with his grandparents for about 6 months reportedly. After evaluation, they will work on placement, however, his grandfather was told that if unsuccessful, that he wi ll need to be discharged back into his custody tomorrow morning if placement is unsuccessful. Patient will be signed out to the overnight physician to continue observation while placement in a psychiatricfacility is attempted. Currently, patient is in stable condition. History & Record Review Discussion w/independent historian: Patient and Family (Grandfather) Additional record(s) reviewed:: Prior ED visit (Medically cleared then sent to [facility] on last visit) Lab Data Attestation: I reviewed the patient's lab results. Labs: Laboratory Results - last 24 hr 03/27/25 19:00 WBC 7.3 RBC 5.88 Hgb 16.6 H Hct 48.7 MCV 82.8 MCH 28.2 MCHC 34.1 RDW Std Deviation 39.6 RDW Coeff of Aury 13.2 Plt Count 183 MPV 11.4 Immature Gran % (Auto) 0.700 Neut % (Auto) 46.4 L Lymph % (Auto) 34.5 Phillips % (Auto) 12.2 H Eos % (Auto) 5.0 Baso % (Auto) 1.2 H Absolute Neuts (auto) 3.4 Absolute Lymphs (auto) 2.51 Nucleated RBC % 0 Sodium 140 Potassium 4.3 Chloride 103 Carbon Dioxide 22.2 Anion Gap 15 BUN 17 Creatinine 1.07 Estim Creat Clear Calc 138.07 Est GFR (MDRD) Non-Af 103 BUN/Creatinine Ratio 16.0 Glucose 88 Calcium 9.6 Total Bilirubin 0.19 AST 45 H ALT 57 H Alkaline Phosphatase 100 Total Protein 6.9 Albumin 4.3 Globulin 2.6 Albumin/Globulin Ratio 1.7 Urine Opiates Screen NEGATIVE U Buprenorphine Qual NEGATIVE Ur Oxycodone Screen NEGATIVE Urine Methadone Screen NEGATIVE Urine Fentanyl Screen NEGATIVE Ur Barbiturates Screen NEGATIVE Ur Phencyclidine Scrn NEGATIVE Ur Amphetamines Screen NEGATIVE U Benzodiazepines Scrn NEGATIVE Urine Cocaine Screen NEGATIVE U Cannabinoids Screen NEGATIVE Ethyl Alcohol < 10.1 Discharge Plan Triage Chief Complaint: Suicidal ED Provider: Nain Mercer Dx/Rx/DC Orders Prescriptions: No Action divalproex 250 mg tablet,delayed release (DR/EC) 250 mg PO BID hydroxyzine HCl 50 mg tablet 50 mg PO Q6H PRN doxepin 10 mg capsule 10 mg PO QHS buspirone 7.5 mg tablet 7.5 mg PO TID escitalopram oxalate 10 mg tablet 10 mg PO QHS aripiprazole 10 mg tablet 10 mg PO QHS propranolol 10 mg tablet 10 mg PO BID PRN Primary Care Provider: Care Physician,No Primary Referrals: Care Physician,No Primary [Primary Care Provider] - Print Language: Sri Lankan What to do if you have Problems For any increased pain, shortness of breath, bleeding, nausea or vomiting, chestpain, or any unexpected problems, contact your Primary Care Provider. Call [facility] ([phone]) or report tothe closest Emergency Room. Call 911 if necessary. 03/27/257 Cosigner Signature (if applicable): CC: No Primary Care Physician ~ Signed [facility]07-23-2025 Evaluation note* Diagnosis Onset Date Resolution Status Admit Date Depression acute March 27 6:43pm Suicidal ideation acute March 272024 6:43pm [facility] Work Phone: [phone]) 956-941007-23-2025 Evaluation note* Diagnosis Onset Date Resolution Status Admit Date Depression inactive March 27 6:43pm Suicidal ideation inactive March 272024 6:43pm [facility] Work Phone: [phone]) [phone] History of Present illness Narrative* Mp Bosch RN - 03/12/2025 10:45 PM EDT Pt has been amb to and back to room w/o difficulty or distress.Pt provided with sandwich and ships with soda per request Mp Bosch RN 03/12/252245 * Mp Bosch RN - 03/12/2025 8:57 PM EDT Pt provided with a sandwich per request Mp Bosch RN 03/12/252057 * [facility] - 03/12/2025 8:29 PM EDT SW consulted for mental health concerns Pt presents from [facility] after doing a swan dive off a high shelf at [facility]. He stated this was an attempt to harm himself. He stated they re not helping him. Pt has been to several juvenile facilities and mental health facilities. He has been to [facility], [facility], [facility], and others. Pt currently on parole due to 2 counts of Rape. Pt from [facility] where he lived with his grandparents. For some reason he stated he cannot go back there. Pt here for medical clearance and plan is to return to [facility] upon d/c if medically clear. SW will follow as needed * Mp Bosch RN - 03/12/2025 7:50 PM EDT [facility] Shift & Environmental Safety Checklist Assessment and vital signs documented at least every 8 hours including temperature and pain. yes Medications reviewed. Scheduled medication(s) verified as being on the unit and stored in a securedlocation. yes Behavior: Cooperative Suicidal Risk Score: CSSR Scale (Adult) - High Risk Falls Risk Scored: yes Patient in [facility] gown. yes Territory Sales Executive: 1:1 health safety specialist at bedside Visitor alert sign posted. N/A Meal delivered to patient. N/A Room checked for the following safety items. yes Patient belongings removed. IV drawers locked, if present. Phone removed. Closest - no poles, drawers, shelves, or hangers, if present. Windows - locked, if present. Restrooms - No clothes, cans, razors, non-essential equipment, if present. Room - Removal of all non-essential equipment, cords, gait belts, and plastic bags including trash bags. Patient/ family/ guardian education form. N/A Guardian: Self Guardian Contact Phone Number: not applicable Ensure psych consult has been placed and assist with facilitation of provider rounding. Yes Pearl Slip/Involuntary Hold Completed: no Planned Disposition: pend SW Mp Bosch RN 03/12/251950 * Dee Polk RN - 03/12/2025 7:47 PM EDT Patient placed in gown, belongings locked up. Dee Polk RN 03/12/251946 * Dee Polk RN - 03/12/2025 7:33 PM EDT [facility] Shift & Environmental Safety Checklist Assessment and vital signs documented at least every 8 hours including temperature and pain. yes Medications reviewed. Scheduled medication(s) verified as being on the unit and stored in a securedlocation. yes Behavior: Cooperative Suicidal Risk Score: CSSR Scale (Adult) - High Risk Falls Risk Scored: yes Patient in [facility] gown. no Territory Sales Executive: facility attendant at bedside Visitor alert sign posted. N/A Meal delivered to patient. No Room checked for the following safety items. yes Patient belongings removed. IV drawers locked, if present. Phone removed. Closest - no poles, drawers, shelves, or hangers, if present. Windows - locked, if present. Restrooms - No clothes, cans, razors, non-essential equipment, if present. Room - Removal of all non-essential equipment, cords, gait belts, and plastic bags including trash bags. Patient/ family/ guardian education form. Yes Guardian: Self Guardian Contact Phone Number: not applicable Ensure psych consult has been placed and assist with facilitation of provider rounding. No Pearl Slip/Involuntary Hold Completed: no Planned Disposition: unknown Dee Polk RN 03/12/251934 * Dee Polk RN - 03/12/2025 7:32 PM EDT [facility] Initial Patient Checklist gold layer notified of incoming psych patient. yes Unsafe items removed from room and IV drawer/cart locked. Yes Patient observed by 2 staff members while disrobing. Patient placed in [facility] gown and given hospital socks. no Primary RN to request security presence for wanding. yes gold layer to witness wanding and verify safe patient space. yes Belonging list completed. ALL belongings. NO EXCEPTIONS. Labeled and placed in [facility]: Lockers. Pearl slip/involuntary hold paperwork filled out, signed by / and scanned into chart. No Suicide risk score completed and icon visible on ED Track Board.yes gold layer assigned a patient health safety specialist until one is provided by staffing. yes Patient health safety specialist Observation Justification Form completed.Yes Complete bedside report with patient health safety specialist. yes Patient health safety specialist documenting on Observation Monitoring Record. yes Medication reconciliation completed. No ED Psych Hold orders placed by MD/DO, including home meds, diet, nicotine needs and comfort. no Request hospital bed for patient. RN educates patient on evaluation process. No Dee Polk RN 03/12/251932 * Francisco Loaiza MD - 03/12/2025 7:06 PM EDT Images from the original note were not included. ED Note HPI CC: Chief Complaint Patient presents with Suicidal Patient arrives by medic from [facility] where patient is voluntary. Patient climbed up on a shelf and dida swan dive to the floor. Patient has abrasion to forehead, denies loc/thinners. Pt reports that heis suicidal. HPI: Rubén Gibbs is a 19 y.o. male presents to the emergency department from [facility] after minor trauma.Patient reportedly climbed up the shelf and dove onto the floor hitting his head. Endorses LOC but no amnesia or vomiting. Not on blood thinners. Has minor pain in his head Discussed with independent historian: ems Review of External Record: yes Chronic conditions affecting care: depression Past History: Past Medical History: Diagnosis Date ADHD Anxiety Bipolar 1 disorder ([facility] V24, [facility] V28) Depression PTSD (post-traumatic stress disorder) History reviewed. No pertinent surgical history. Social History Tobacco Use Smoking status: Never Smokeless tobacco: Never Substance Use Topics Alcohol use: Not Currently Drug use: Not Currently No family history on file. No Known Allergies No current outpatient medications Physical Exam: Patient Vitals for the past 24 hrs: BP Temp Temp src Pulse Resp SpO2 Height Weight 03/12/25 1923 127/81 37.1 C (98.7 F) Oral 83 16 94 % 1.778 m (70) 103 kg (227 lb) CONSTITUTIONAL: Nontoxic. No acute distress. EYES: PERRL. EOMI. No conjunctival injection. No icterus. HENT: No basilar skull fx signs. Midface stable. No septal hematoma. No obvious dental malocclusion. No midline c-spine ttp Very superficial abrasion of forehead RESPIRATORY: Normal chest excursion with respiration. Clear to auscultation, no wheezes. CARDIOVASCULAR: Regular rhythm. No murmurs. No cyanosis. No peripheral edema. GASTROINTESTINAL: Abdomen soft, non-distended, non-tender, no guarding or rigidity. NEUROLOGICAL: Awake, alert and oriented. no extremity weakness or sensory deficit. PSYCHOLOGICAL: The patient's mood and manner are appropriate. Grooming and personal hygiene are appropriate. Skin: Warm and dry. No rash noted. MUSCULOSKELETAL: No midline T/L ttp or stepoffs. No focal bony ttp of all 4 extremities and able to range joints appropriately without pain MDM: Differential Diagnosis considered: traumatic injuries- head injury, contusion, fracture, dislocation, etc Initial: Patient presents after closed head injury. He reports the shelf as being fairly tall as well out ofan abundance of caution will obtain CT imaging. Remainder of examination unremarkable. CT imaging negative. Patient advised on concussion precautions and outpatient follow-up. Clinical Impressions as of 03/12/252018 Closed head injury, initial encounter Independent Review: CTH neg CT Head wo Contrast Final Result CT HEAD 1. No acute intracranial findings. CT CERVICAL SPINE 1. No acute fracture or traumatic subluxation. 2. Slight endplate osteophytes at C6-C7. -------- FINAL REPORT -------- Dictated By: Farzad South Dictated Date: 03/12/2025 20:04 Assigned Physician: Farzad South Reviewed and Electronically Signed By: Farzad South Signed Date: 03/12/2025 20:08 Workstation ID: [id number] Transcribed By: Self Edit Transcribed Date: 03/12/2025 20:04 CT Cervical Spine wo Contrast Final Result CT HEAD 1. No acute intracranial findings. CT CERVICAL SPINE 1. No acute fracture or traumatic subluxation. 2. Slight endplate osteophytes at C6-C7. -------- FINAL REPORT -------- Dictated By: Farzad South Dictated Date: 03/12/2025 20:04 Assigned Physician: Farzad South Reviewed and Electronically Signed By: Farzad South Signed Date: 03/12/2025 20:08 Workstation ID: [id number] Transcribed By: Self Edit Transcribed Date: 03/12/2025 20:04 Labs Reviewed - No data to display Medications - No data to display PDMP Reviewed by: on IMPRESSION: 1. Closed head injury, initial encounter DISPOSITION: discharge MD Francisco Cerrato MD 03/12/251942 Francisco Loaiza MD 03/12/252018 documented in this encounterJeanes [id number] Emergency department Note* ED Bed Hold Note - Dee Polk RN - 03/12/2025 7:06 PM EDT Bed: ED-05 Expected date: Expected time: Means of arrival: Comments: M3 [id number] Miscellaneous Notes* ED Bed Hold Note - Dee Polk RN - 03/12/2025 7:06 PM EDT Bed: ED-05 Expected date: Expected time: Means of arrival: Comments: M3 documented in this encounterJeanes [id number] Discharge summary Author Ryan Hunt [facility] Note Date/Time February 28, 2025 1:06 pm [facility] Medical Records Department [address] [place] [address] Emergency Department Summary 02/28/25 MR#: [id number] Acct: [id number] Name: RUBÉN GIBBS Andriy Rep #:[id number] : 2005 19 From: Ryan Hunt DO PCP: Care Physician,No Primary Status :REG ER Location: ED HPI History of Present Illness Chief Complaint: Suicidal Narrative Narrative: Patient is a 19-year-old male past medical anxiety, depression who presented to the emergency department chief complaint of suicidal ideations. Patient states that he was hospitalized in the past for this. He states that he has had a lot of stress going on his life lately and states that his psychiatrist told him he could stop taking his medications yesterday and is unsure why they told him this. Patient states that this morning he had suicidal ideation and he states that he put a pair of pants around his neck but never hung himself. He states that he stopped and decided to start cutting his arms instead. Grandfather states that he was seeing his counselor this morning and they advised that he comes here to be further evaluated [facility] Medical History Club foot of both lower extremities Depression Anxiety Home Medications ?Medication ?Instructions ?Recorded ?Last Taken ?Type aripiprazole 5 mg tablet 10 mg PO DAILY 09/09/20 Unkn own History benztropine 0.5 mg tablet 0.5 mg PO BID 05/16/21 Unkno wn History cetirizine 10 mg tablet 10 mg PO DAILY 05/16/21 Unkn own History bupropion HCl 75 mg tablet 75 mg PO DAILY 11/24/21 Unk nown History guanfacine 1 mg tablet 1 mg PO BID 11/24/21 Unknown History lamotrigine 25 mg tablet 25 mg PO BID 11/24/21 Unknow n History promethazine 25 mg tablet 25 mg PO Q6H PRN nausea and 11/24/21 Unknown Rx vomiting #14 tabs trazodone 100 mg tablet 100 mg PO DAILY 11/24/21 Unk nown History Allergy/AdvReac Type Severity Reaction Status Date / Time No Known Allergies Allergy Verified 02/28/25 10:56 Social History household members: spouse and family housing: house Smoking Status: Never smoker substance use type: does not use ROS ROS ED ROS Narrative Constitutional: Denies headache, fevers, chills Eyes: Denies change in vision double vision blurry vision Cardiovascular: Denies chest pain or palpitations Respiratory: Denies coughing wheezing shortness of breath Abdomen: Denies abdominal pain nausea vomit diarrhea : Denies urinary symptoms Neurological: Denies numbness, weakness, tingling Musculoskeletal: Denies back pain Skin: Denies any rashes or lesions EXAM Physical Exam Narrative Exam Narrative: General: Patient lying in bed rest comfortably did not appear to be in acute distress Head: Atraumatic, normocephalic Eyes: PERRL bilaterally, EOMI bilateral, no conjunctival injection noted Neck: Soft, supple, trachea midline, nontender to palpation midline cervical spine no evidence of trauma to the neck Cardiovascular: Regular rate and rhythm no murmurs gallops rubs noted Respiratory: Clear to auscultation bilaterally Extremities: +5/5 strength noted in the bilateral upper and lower extremity, radial pulse +2/4 and about extremities, no pedal edema on exam Neurological: Patient follow commands knew that he was at [facility] year is 2024 Skin: Warm, dry, patient has superficial abrasions over the bilateral wrist no active bleeding noted no evidence of infection Const Vital Signs: 02/28/25 10:54 Temperature 98 F Temperature Source Oral Pulse Rate 93 Respiratory Rate 18 Blood Pressure 135/89 H Blood Pressure Mean 104 Pulse Ox 99 Oxygen Delivery Method Room Air MDM MDM MDM Narrative Medical decision making narrative: Patient is a 19-year-old male who presents to the emergency department the chiefcomplaint of suicidal ideation. Patient will be medically cleared and then willbe evaluated by social work team for placement. Patient's CBC reviewed showed no evidence leukocytosis white blood count normal at 7.5, hemoglobin of 18, platelet count of 217. Patient sodium normal 139, potassium normal 4.5, creatinine normal at 1.14. Patient's salicylate level less than 5 Tylenol level less than 5 drug screen was negative. Patient alcohollevel less than 10. Patient was medically cleared social work evaluated patient and they will place him at [facility] under Dr. Cordova Patient notified is agreeable with plan all questions and concerns answered at bedside. Lab Data Labs: Laboratory Results - last 24 hr 02/28/25 11:19 WBC 7.5 RBC 6.43 H Hgb 18.0 H* Hct 52.7 MCV 82.0 MCH 28.0 MCHC 34.2 RDW Std Deviation 38.5 RDW Coeff of Aury 13.3 Plt Count 217 MPV 11.2 Immature Gran % (Auto) 0.700 Neut % (Auto) 62.4 Lymph % (Auto) 22.8 Phillips % (Auto) 10.4 H Eos % (Auto) 2.8 Baso % (Auto) 0.9 Absolute Neuts (auto) 4.7 Absolute Lymphs (auto) 1.71 Nucleated RBC % 0 Sodium 139 Potassium 4.5 Chloride 101 Carbon Dioxide 23.9 Anion Gap 13 BUN 15 Creatinine 1.14 Estim Creat Clear Calc 126.52 Est GFR (MDRD) Non-Af 95 BUN/Creatinine Ratio 13.1 Glucose 94 Calcium 10.1 Salicylates < 0.5 L Urine Opiates Screen NEGATIVE U Buprenorphine Qual NEGATIVE Ur Oxycodone Screen NEGATIVE Urine Methadone Screen NEGATIVE Urine Fentanyl Screen NEGATIVE Acetaminophen < 5.0 L Ur Barbiturates Screen NEGATIVE Ur Phencyclidine Scrn NEGATIVE Ur Amphetamines Screen NEGATIVE U Benzodiazepines Scrn NEGATIVE Urine Cocaine Screen NEGATIVE U Cannabinoids Screen NEGATIVE Ethyl Alcohol < 10.1 Discharge Plan Triage Chief Complaint: Suicidal ED Provider: Ryan Hunt Dx/Rx/DC Orders Clinical Impression: Suicidal ideation, Superficial abrasion Prescriptions: No Action bupropion HCl 75 mg tablet 75 mg PO DAILY trazodone 100 mg tablet 100 mg PO DAILY lamotrigine 25 mg tablet 25 mg PO BID guanfacine 1 mg tablet 1 mg PO BID promethazine 25 mg tablet 25 mg PO Q6H PRN (Reason: nausea and vomiting) Qty: 14 0RF aripiprazole 5 MG tablet 10 mg PO DAILY benztropine [Cogentin] 0.5 mg Tablet 0.5 mg PO BID cetirizine 10 mg Tablet 10 mg PO DAILY Primary Care Provider: Care Physician,No Primary Referrals: Care Physician,No Primary [Primary Care Provider] - Print Language: Sri Lankan Disposition Disposition: Psychiatric Hospital or Unit What to do if you have Problems For any increased pain, shortness of breath, bleeding, nausea or vomiting, chestpain, or any unexpected problems, contact your Primary Care Provider. Call [facility] ([phone]) or report to the closest Emergency Room. Call 911 if necessary. 02/28/25 1306 <Electronically signed by Ryan Hunt DO> Cosigner Signature (if applicable): CC: No Primary Care Physician ~ Signed [facility] Work Phone: [phone] 972-185606-26-2025 Discharge summary [facility] Medical Records Department [address] [place] [address] Emergency Department Summary 02/28/25 MR#: [id number] Acct: [id number] Name: RUBÉN GIBBS Rep #:[id number] : 2005 19 From: Ryan Hunt DO PCP: Care Physician,No Primary Status :REG ER Location: ED HPI History of Present Illness Chief Complaint: Suicidal Narrative Narrative: Patient is a 19-year-old male past medical anxiety, depression who presented to the emergency department chief complaint of suicidal ideations. Patient states that he was hospitalized in the past forthis. He states that he has had a lot of stress going on his life lately and states that his psychiatrist told him he could stop taking his medications yesterday and is unsure why they told him this.Patient states that this morning he had suicidal ideation and he states that he put a pair of pantsaround his neck but never hung himself. He states that he stopped and decided to start cutting his arms instead. Grandfather states that he was seeing his counselor this morning and they advised thathe comes here to be further evaluated [facility] Medical History Club foot of both lower extremities Depression Anxiety Home Medications ?Medication ?Instructions ?Recorded ?Last Taken ?Type aripiprazole 5 mg tablet 10 mg PO DAILY 09/09/20 Unkn own History benztropine 0.5 mg tablet 0.5 mg PO BID 05/16/21 Unkno wn History cetirizine 10 mg tablet 10 mg PO DAILY 05/16/21 Unkn own History bupropion HCl 75 mg tablet 75 mg PO DAILY 11/24/21 Unk nown History guanfacine 1 mg tablet 1 mg PO BID 11/24/21 Unknown History lamotrigine 25 mg tablet 25 mg PO BID 11/24/21 Unknow n History promethazine 25 mg tablet 25 mg PO Q6H PRN nausea and 11/24/21 Unknown Rx vomiting #14 tabs trazodone 100 mg tablet 100 mg PO DAILY 11/24/21 Unk nown History Allergy/AdvReac Type Severity Reaction Status Date / Time No Known Allergies Allergy Verified 02/28/25 10:56 Social History household members: spouse and family housing: house Smoking Status: Never smoker substance use type: does not use ROS ROS ED ROS Narrative Constitutional: Denies headache, fevers, chills Eyes: Denies change in vision double vision blurry vision Cardiovascular: Denies chest pain or palpitations Respiratory: Denies coughing wheezing shortness of breath Abdomen: Denies abdominal pain nausea vomit diarrhea : Denies urinary symptoms Neurological: Denies numbness, weakness, tingling Musculoskeletal: Denies back pain Skin: Denies any rashes or lesions EXAM Physical Exam Narrative Exam Narrative: General: Patient lying in bed rest comfortably did not appear to be in acute distress Head: Atraumatic, normocephalic Eyes: PERRL bilaterally, EOMI bilateral, no conjunctival injection noted Neck: Soft, supple, trachea midline, nontender to palpation midline cervical spine no evidence of trauma to the neck Cardiovascular: Regular rate and rhythm no murmurs gallops rubs noted Respiratory: Clear to auscultation bilaterally Extremities: +5/5 strength noted in the bilateral upper and lower extremity, radial pulse +2/4 and about extremities, no pedal edema on exam Neurological: Patient follow commands knew that he was at [facility] year is 2024 Skin: Warm, dry, patient has superficial abrasions over the bilateral wrist no active bleeding noted no evidence of infection Const Vital Signs: 02/28/25 10:54 Temperature 98 F Temperature Source Oral Pulse Rate 93 Respiratory Rate 18 Blood Pressure 135/89 H Blood Pressure Mean 104 Pulse Ox 99 Oxygen Delivery Method Room Air MDM MDM MDM Narrative Medical decision making narrative: Patient is a 19-year-old male who presents to the emergency department the chiefcomplaint of suicidal ideation. Patient will be medically cleared and then willbe evaluated by social work team for placement. Patient's CBC reviewed showed no evidence leukocytosis white blood count normal at 7.5, hemoglobin of 18, platelet count of 217. Patient sodium normal 139, potassium normal 4.5, creatinine normal at 1.14. Patient's salicylate level less than 5 Tylenol level less than 5 drug screen was negative. Patient alcohollevel less than 10. Patient was medically cleared social work evaluated patient and they will place him at [facility] under Dr. Cordova Patient notified is agreeable with plan all questions and concerns answered at bedside. Lab Data Labs: Laboratory Results - last 24 hr 02/28/25 11:19 WBC 7.5 RBC 6.43 H Hgb 18.0 H* Hct 52.7 MCV 82.0 MCH 28.0 MCHC 34.2 RDW Std Deviation 38.5 RDW Coeff of Aury 13.3 Plt Count 217 MPV 11.2 Immature Gran % (Auto) 0.700 Neut % (Auto) 62.4 Lymph % (Auto) 22.8 Phillips % (Auto) 10.4 H Eos % (Auto) 2.8 Baso % (Auto) 0.9 Absolute Neuts (auto) 4.7 Absolute Lymphs (auto) 1.71 Nucleated RBC % 0 Sodium 139 Potassium 4.5 Chloride 101 Carbon Dioxide 23.9 Anion Gap 13 BUN 15 Creatinine 1.14 Estim Creat Clear Calc 126.52 Est GFR (MDRD) Non-Af 95 BUN/Creatinine Ratio 13.1 Glucose 94 Calcium 10.1 Salicylates < 0.5 L Urine Opiates Screen NEGATIVE U Buprenorphine Qual NEGATIVE Ur Oxycodone Screen NEGATIVE Urine Methadone Screen NEGATIVE Urine Fentanyl Screen NEGATIVE Acetaminophen < 5.0 L Ur Barbiturates Screen NEGATIVE Ur Phencyclidine Scrn NEGATIVE Ur Amphetamines Screen NEGATIVE U Benzodiazepines Scrn NEGATIVE Urine Cocaine Screen NEGATIVE U Cannabinoids Screen NEGATIVE Ethyl Alcohol < 10.1 Discharge Plan Triage Chief Complaint: Suicidal ED Provider: Ryan Hunt Dx/Rx/DC Orders Clinical Impression: Suicidal ideation, Superficial abrasion Prescriptions: No Action bupropion HCl 75 mg tablet 75 mg PO DAILY trazodone 100 mg tablet 100 mg PO DAILY lamotrigine 25 mg tablet 25 mg PO BID guanfacine 1 mg tablet 1 mg PO BID promethazine 25 mg tablet 25 mg PO Q6H PRN (Reason: nausea and vomiting) Qty: 14 0RF aripiprazole 5 MG tablet 10 mg PO DAILY benztropine [Cogentin] 0.5 mg Tablet 0.5 mg PO BID cetirizine 10 mg Tablet 10 mg PO DAILY Primary Care Provider: Care Physician,No Primary Referrals: Care Physician,No Primary [Primary Care Provider] - Print Language: [place]an Disposition Disposition: Psychiatric Hospital or Unit What to do if you have Problems For any increased pain, shortness of breath, bleeding, nausea or vomiting, chestpain, or any unexpected problems, contact your Primary Care Provider. Call [facility] ([phone]) or report tothe closest Emergency Room. Call 911 if necessary. 02/28/25 1306 Cosigner Signature (if applicable): CC: No Primary Care Physician ~ [facility] Diagnosis Abnormal MRI of head Nonspecific (abnormal) findings on radiological and other examination of skull and head Neuroepithelial cyst Cerebral cysts [facility] Work Phone: Evaluation note* Diagnosis Closed head injury, initial encounter- Primary documented in this encounter [facility] note* Diagnosis Encounter for examination for admission to residential institution- Primary Other general medical examination for administrative purposes Obesity, Class I, BMI 30-34.9 Obesity, unspecified Bilateral club feet [place], unspecified Tongue fasciculation Abnormal involuntary movements [facility] Diagnosis Foreign body in intestine, initial encounter- Primary Foreign body in intestine, initial encounter Suicidal ideation documented in this encounter [facility] Discharge instructions* Attachments The following attachments cannot be sent through Care Everywhere. * Head Injury: Closed: General Info ([place]an) [facility] (n[facility]ative)No reason for referral information availableWCherrington [facility] Work Phone: Summary Purpose Family History No Family History Records FoundNo Family History Records FoundNo Family History Records FoundNo Family History Records FoundNo Family History Records FoundNo Family History Records FoundNo Family History Records FoundNo Family History Records FoundNo Family History Records FoundNo Family History Records FoundNo Family History Records FoundNo Family History Records Found Advance Directives No Advanced Directives Records FoundDocuments on File Type Date Recorded Patient Cancer Program Coordinator Expl anation Advance Directives and Living Will Power of Shearing Machine Operator Advance Directive Response Recorded Date/ Time Do you have a Healthcare Power of Shearing Machine Operator? No February 28, 2025 11:46am Do you have a Healthcare Power of Shearing Machine Operator? No January 07, 2025 1:40pm Advance Directive Response Recorded Date/ Time Do you have a Healthcare Power of Shearing Machine Operator? No February 28, 2025 11:46am Do you have a Healthcare Power of Shearing Machine Operator? No March 27, 2025 7:16pm Do you have a Healthcare Power of Shearing Machine Operator? No January 07, 2025 1:40pm Date Activated Date Inactivated Comments 06/23/2025 8:16 PM Advance Directive Response Recorded Date/ Time Do you have a Healthcare Power of Shearing Machine Operator? No March 27, 2025 7:16pm Do you have a Healthcare Power of Shearing Machine Operator? No June 17, 2025 12:11pm Chief Complaint and Reason for Visit Chief Complaint Admit Date SI March 27, 2025 6:43 pm FOREIGN BODY June 17, 2025 1 1:08am Reason for Visit Admit Date Depression March 27, 2025 6:43 pm Suicidal ideation March 27, 2025 6:43 pm Chief Complaint Admit Date January 07, 2025 12:57p m Suicidal February 28, 2025 10:5 3am Chief Complaint Admit Date January 07, 2025 12:57p m Suicidal February 28, 2025 10:5 3am SI March 27, 2025 6:43 pm Additional Source Comments (unrecognized sect ion and content) No Status Records FoundNo Status Records FoundNo Status Records FoundNo Status Records FoundNo Status Records FoundNo Status Records FoundNo Status Records FoundNo Status Records FoundNo Status Records FoundNo Status Records FoundNo Status Records FoundNo Status Records Found INFORMATION SOURCE (unrecogn ized section and content) DATE CREATED AUTHOR 07/26/2018 [facility] DATE CREATED AUTHOR AUTHOR'S ORGANIZ ATION 07/29/2018 [facility] DATE CREATED AUTHOR AUTHOR'S ORGANIZ ATION 02/19/2021 [facility] DATE CREATED AUTHOR AUTHOR'S ORGANIZ ATION 03/12/2021 [facility] DATE CREATED AUTHOR AUTHOR'S ORGANIZ ATION 12/05/2021 [facility] DATE CREATED AUTHOR AUTHOR'S ORGANIZ ATION 01/24/2022 [facility] DATE CREATED AUTHOR AUTHOR'S ORGANIZ ATION 03/17/2025 [facility] DATE CREATED AUTHOR AUTHOR'S ORGANIZ ATION 04/21/2025 [facility] DATE CREATED AUTHOR AUTHOR'S ORGANIZ ATION 06/18/2025 [facility] DATE CREATED AUTHOR AUTHOR'S ORGANIZ ATION 06/27/2025 [facility] DATE CREATED AUTHOR AUTHOR'S ORGANIZ ATION 06/27/2025 [facility] DATE CREATED AUTHOR AUTHOR'S ORGANIZ ATION 07/09/2025 [facility] <item> Privacy Markings (unrecogniz ed section and content) Section Author: Pita Farnsworth PROHIBITION ON REDISCLOSURE OF CONFIDENTIAL INFORMATION This notice accompanies a disclosure of information concerning a client made to you with the consent of such client. Reason for Visit (unrecogniz ed section and content) Specialty Diagnoses / Procedures Referred By Adryan contreras Referred To Contact Radiology Diagnoses Abnormal MRI of head Neuroepithelial cyst Procedures MRI Brain Without Contrast MRI Brain With and Without [place] [address] Referral ID Status Reason Start Date Expiration Date Visits Re quested Visits Authorized [id number] Closed 11/09/2021 12/09/2021 1 1 Reason Comments Suicidal Patient arrives by andriy miller from [facility] where patient is voluntary. Patient climbed up on a shelf and did a swan dive to the floor. Patient has abrasion to forehead, denies loc/thinners. Pt reports that he is suicidal. Reason Comments Physical Reason Comments Suicide Attempt Transfer [facility]. Swallowed fish hook that is now stuck in small intestine. Pt endorses multiple attempts in various different ways in the past. Doesn't give a reason as to why I just want to hurt myself. A&Ox4 Abdominal Pain Endorses sharp 7/10 ABD pain I haven't ate since yesterday so I think it's part of that. Specialty Diagnoses / Procedures Referred By Adryan contreras Referred To Contact Diagnoses Suicidal ideation Foreign body in intestine, initial encounter swallowed foreign body Procedures . Shantanu Vivas MD [address] [place] [address] Phone: tel: fax: [facility] Respiratory Unit [address] [place] [address] Phone: tel: Referral ID Status Reason Start Date Expiration Date Visits Re quested Visits Authorized [id number] 1 1 Care Teams (unrecognized sec tion and content) Roller Stitcher Relationship Specialty Start Date End Date Almita Gottlieb DO [address] [place] [address] PCP - General Pediatrics 05/05/15 Kavon Mcintosh MD [address] [place] [address] [place] [address] 12/30/10 Team Status: Active Member Role Status Dates No Primary Care Physician Primary Care Provider Active Team Status: Inactive Member Role Status Dates Dr. Spring Fragoso DO Attending Provider Active Start: January 07, 2025 End: January 07, 2025 Dr. Spring Fragoso DO Emergency Provider Active Start: January 07, 2025 End: January 07, 2025 No Primary Care Physician Primary Care Provider Active Start: January 07, 2025 End: January 07, 2025 Team Status: Inactive Member Role Status Dates No Primary Care Physician Primary Care Provider Active Start: February 28, 2025 End: February 28, 2025 Dr. Ryan Hunt DO Emergency Provider Active Start: February 28, 2025 End: February 28, 2025 Roller Stitcher Relationship Specialty Start Date End Date Physician, No Pcp PCP - General 03/12/25 Team Status: Active Member Role/Relationship Status Dates No Primary Care Physician Primary Care Provider Active Team Status: Inactive Member Role/Relationship Status Dates Dr. Spring Fragoso DO Attending Provider Active Start: January 07, 2025 End: January 07, 2025 Dr. Spring Fragoso DO Emergency Provider Active Start: January 07, 2025 End: January 07, 2025 No Primary Care Physician Primary Care Provider Active Start: January 07, 2025 End: January 07, 2025 Team Status: Inactive Member Role/Relationship Status Dates No Primary Care Physician Primary Care Provider Active Start: February 28, 2025 End: February 28, 2025 Dr. Ryan Hunt DO Attending Provider Active Start: February 28, 2025 End: February 28, 2025 Dr. Ryan Hunt DO Emergency Provider Active Start: February 28, 2025 End: February 28, 2025 Team Status: Inactive Member Role/Relationship Status Dates No Primary Care Physician Primary Care Provider Active Start: March 27, 2025 End: March 28, 2025 Nain Mercer MD Referring Provider Active Star t: March 27, 2025 End: March 28, 2025 Nain Mercer MD Emergency Provider Active Star t: March 27, 2025 End: March 28, 2025 Roller Stitcher Relationship Specialty Start Date End Date Dmitriy Powell MD [address] [place] [address] PCP - General Pediatrics 05/23/20 Roller Stitcher Relationship Specialty Start Date End Date Dmitriy Powell MD [address] [place] [address] PCP - General Pediatrics 05/23/20 Team Status: Active Member Role/Relationship Status Dates No Primary Care Physician Primary care physician Activ e Team Status: Inactive Member Role/Relationship Status Dates No Primary Care Physician Primary care physician Activ e Start: March 27, 2025 End: March 28, 2025 Nain Mercer MD Attending physician Active Sta rt: March 27, 2025 End: March 28, 2025 Nain Mercer MD Referring Provider Active Star t: March 27, 2025 End: March 28, 2025 Nain Mercer MD Emergency Department Physician Active Start: March 27, 2025 End: March 28, 2025 Team Status: Inactive Member Role/Relationship Status Dates No Primary Care Physician Primary care physician Activ e Start: June 17, 2025 End: June 18, 2025 Dr. Saji Kendrick DO Attending physician Active Start: June 17, 2025 End: June 18, 2025 Dr. Saji Kendrick DO Emergency Department Physician Active Start: June 17, 2025 End: June 18, 2025 Goals (unrecognized section and content) Goals may be documented in a n alternate sectionGoals may be documented in an alternate sectionGoals may be documented in an alternate section Source Comments (unrecognize d section and content) In the event this informatio n is protected by the Federal Confidentiality of Alcohol and Drug Abuse Patient Records regulations: The Federal rules restrict any use of the information to criminally investigate or prosecute any alcohol or drug abuse patient.[facility] the event this information is protected by the Federal Confidentiality of Alcohol and Drug Abuse Patient Records regulations: The Federal rules restrict any use of the information to criminally investigate or prosecute any alcohol or drug abuse patient.[facility] Scheduled Active and Recently Administ ered Medications (unrecognized section and content) Medication Order 06/21/2025 06/22/2025 06/23/2025 ARIPiprazole (Abilify) tablet 10 mg 10 mg, Oral, Nightly, First dose on Tue06/18/25 at 2100 2008 (Given - Provider: Dmitriy Haynes RN) 214 (Given - Provider: Shawn Becker, JUANCHO) busPIRone (Buspar) tablet 5 mg 5 mg, Oral, 2 times daily, First dose on Tue06/18/25 at 1250 1003 (Given - Provider: Jeanette Dean, JUANCHO)2007 (Given - Provider: Dmitriy Haynes RN) 09 (Given - Provider: Almita Werner, JUANCHO)214 (Given - Provider: Shawn Becker, JUANCHO) 0830 (Given - Provider: Almita Werner, JUANCHO) divalproex (Depakote ER) 24 hr tablet 750 mg 750 mg, Oral, 2 times daily, First dose on Tue06/18/25 at 1500, Do not crush, chew, or split. 0534 (Given - Provider: Dmitriy Haynes RN)1542 (Given - Provider: Jeanette Dean RN) 0503 (Given - Provider: Dmitriy Haynes RN)1505 (Given - Provider: Almita Werner, JUANCHO) 0524 (Given - Provider: Shawn Becker RN)1626 (Given - Provider: Almita Werner, RN) docusate sodium (Colace) capsule 100 mg 100 mg, Oral, 3 times daily, First dose on Tue06/20/25 at 1600, Do not crush or break. 1003 (Given - Provider: Jeanette Dean RN)1338 (Given - Provider: Jeanette Dean RN)2007 (Given - Provider: Dmitriy Haynes RN) 902 (Given - Provider: Almita Werner, JUANCHO)1307 (Given - Provider: Almita Werner RN)2139 (Given - Provider: Shawn Becker, JUANCHO) 0830 (Given - Provider: Almita Werner, RN)162 (Not Given - Provider: Almita Werner, JUANCHO - Reason: Patient/family refused) escitalopram (Lexapro) tablet 10 mg 10 mg, Oral, Nightly, First dose on Tue06/18/25 at 2100 2007 (Given - Provider: Dmitriy Haynes RN) 2139 (Given - Provider: Shawn Becker, JUANCHO) magnesium hydroxide (Milk of Magnesia) 400 MG/5ML suspension 30 mL 30 mL, Oral, Nightly, First dose on Tue06/18/25 at 0900, Follow dose with 8 oz of water. 2008 (Given - Provider: Dmitriy Haynes RN) 2139 (Given - Provider: Shawn Becker, JUANCHO) polyethylene glycol (PEG) 3350 (Miralax) packet 17 g 17 g, Oral, 3 times daily, First dose (after last modification) on Tue06/20/25 at 2100 1003 (Given - Provider: Jeanette Dean RN)1441 (Given - Provider: Jeanette Dean RN)2007 (Given - Provider: Dmitriy Haynes RN) 902 (Given - Provider: Almita Werner, JUANCHO)1307 (Given - Provider: Almita Werner, RN)2139 (Given - Provider: Shawn Becker, JUANCHO) 08 (Given - Provider: Almita Werner, JUANCHO)162 (Not Given - Provider: Almita Werner, JUANCHO - Reason: Patient/family refused) sennosides (Senokot) tablet 17.2 mg 17.2 mg (2 tablet), Oral, 3 times daily, First dose on Tue06/21/25 at 0930 1003 (Given - Provider: Jeanette Dean, RN)1441 (Given - Provider: Jeanette Dean, RN)2008 (Given - Provider: Dmitriy Haynes RN) 0903 (Given - Provider: Almita Werner, JUANCHO)1307 (Given - Provider: Almita Wrener, JUANCHO)2140 (Given - Provider: Shawn Becker, RN) 0830 (Given - Provider: Almita Werner, RN)1622 (Not Given - Provider: Almita Werner RN - Reason: Patient/family refused) Continuous Medication Order 06/21/2025 06/22/2025 06/23/2025 lactated Ringer's infusion (CANCELED) 75 mL/hr, IntraVENous, Continuous, Starting on Tue06/19/25 at 0845 0211 (New Bag - Provider: Dmitriy Haynes RN)1329 (New Bag - Provider: Jeanette Dean RN)1536 (New Bag - Provider: Jeanette Dean RN) 0502 (New Bag - Provider: Dmitriy Haynes RN)1813 (New Bag - Provider: Almita Werner, JUANCHO) 0524 (New Bag - Provider: Shawn Becker, JUANCHO)1420 (Stopped - Provider: Almita Werner RN - Comment: [Order ends at this time. Document the following action when infusion is complete: Stopped]) PRN Medication Order 06/21/2025 06/22/2025 06/23/2025 acetaminophen (Tylenol) tablet 650 mg 650 mg, Oral, Every 6 hours PRN, mild pain (1-3), Starting on Nettie 06/20/25 at 1039, Maximum dose of acetaminophen is 4000 mg from all sources in 24 hours. 1619 (Given - Provider: Jeanette Dean RN) ketorolac (Toradol) injection 30 mg 30 mg, IntraVENous, Every 6 hours PRN, moderate pain (4-6), Starting on Nettie 06/20/25 at 1431, For 5 days, Do not administer within 6 hours of other NSAIDs (such as ibuprofen or naproxen). 1631 (Given - Provider: Jeanette Dean RN) ondansetron (Zofran) injection 4 mg(Linked Group 1) 4 mg, IntraVENous, Every 6 hours PRN, nausea, vomiting, Starting on Tue06/19/25 at 0839, Give IV if patient is unable to take orally. 1631 (Given - Provider: Jeanette Dean RN) ondansetron ODT (Zofran-ODT) disintegrating tablet 4 mg(Linked Group 1) 4 mg, Oral, Every 8 hours PRN, nausea, vomiting, Starting on Tue06/19/25 at 0839, Patient should allow tablet to dissolve on tongue. Do not remove from blister pack until just before administering. 1631 (See Alternative - Provider: Jeanette Dean RN) Linked Groups Order Group 1: ondansetron ODT (Zofran-ODT) disintegrating tablet 4 mgJump to med 4 mg, Oral, Every 8 hours PRN, nausea, vomiting, Starting on Tue06/19/25 at 0839, Patient should allow tablet to dissolve on tongue. Do not remove from blister pack until just before administering. Or ondansetron (Zofran) injection 4 mgJump to med 4 mg, IntraVENous, Every 6 hours PRN, nausea, vomiting, Starting on Tue06/19/25 at 0839, Give IV if patient is unable to take orally. FOR RECORDS PERTAINING TO PATIENTS WHO ARE OR HAVE BEEN ENROLLED IN A CHEMICAL DEPENDENCY/SUBSTANCEABUSE PROGRAM, SOME INFORMATION MAY BE OMITTED. This clinical summary was aggregated from multiple sources. Caution should be exercised in using it in the provision of clinical care. This summary normalizes information from multiple sources, and as a consequence, information in this document may materially change the coding, format and clinical context of patient data. In addition, data may be omitted in some cases. CLINICAL DECISIONS SHOULD BE BASED ON THE PRIMARY CLINICAL RECORDS. [facility]. provides no warranty or guarantee of the accuracy or completeness of information in this document.
--- NOTE | 2025-07-09 19:37 | ED.RN ---
Regla for [facility] calls regarding information on pt. Questions/concerns answered, Regla states she will call back in a few minutes once she runs the insurance information
--- NOTE | 2025-07-09 19:49 | CM.ED ---
Social work 1809: Called [facility] (ph: ) and no beds available. Called [facility] (ph: ) and beds available. Referral faxed at 1925 once all parts of the referral packet were available (f: ). 1949: [facility] called back with accepting information. Dr. Houser N2N: Patient, doctor, and python developer updated. [place] slip and guardian papers faxed at 2009. Plan: [facility], pending transport. Linda Bustamante, MOTION PICTURE EQUIPMENT SUPERVISOR, AMERICAN STUDIES PROFESSOR
--- NOTE | 2025-07-09 20:05 | PCA ---
PT ACCEPTED AT [facility] N2N [phone] LOCAL [facility] ARRANGED.
--- NOTE | 2025-07-09 21:08 | CM.ED ---
Social work 2039: SW received call from SHILA Moran at [facility], asking for further documentation showing that Blayne Ayon, associate loan officer at [facility], is indeed patient's legal guardian. This SW provided Dean with number of [facility]'s director, Chyna (ph: [phone]) and this SW called both Blayne (ph: [phone]) and Blayne Briceño's department supervisor (ph: [phone]). This SW had to leave 's for both Blayne and Mariza. Dean returned call stating patient could still come to [facility] due to WOOD's paperwork stating Blayne was patient's guardian. This SW stated leaving 's above and asking tomorrow's ED SW to send documents to [facility] should they be provided to [facility] ED. Dean stated agreement with this. This SW intends to handoff to [facility] via email the request to fax [facility] legal guardian documents if provided to [facility]. Plan: patient going to [facility], pending transport. ETA 0200.
--- NOTE | 2025-07-09 23:48 | ED.RN ---
Report called to [facility] RN, no further questions/concerns at this time. Squad ETA [id number]
--- NOTE | 2025-07-09 23:55 | ED.RN ---
This RN called [facility] back regarding pt's legal guardianship paperwork, SW that interviewed pt spoke to Dean FUCHS at [facility]. Per Dean FUCHS- okay for pt to come to facility due to getting verbal consent from one of the listed legal guardians. Adelina RN verbally agrees to this and states pt is still okay to come to facility at scheduled time. This RN informed Adelina DAWKINS that printed paperwork of SW documented note is printed and will be sent with pt's packet
[2025-07-10 00:16] VITALS: BP 96/72; PULSE 76; RESP 18; TEMP 36.6; O2SAT 96
== END 2025-07-10 00:30 ==
PROVIDERS: Emergency Provider Emergency Medicine; Visit Provider Emergency Medicine
DX: R45.851 Suicidal ideations (principal); R44.0 Auditory hallucinations; R44.1 Visual hallucinations; F41.9 Anxiety disorder, unspecified; F32.A Depression, unspecified; Z79.899 Other long term (current) drug therapy
CPT/HCPCS: 71045; 80053; 80164; 80307; 82077; 85025; 93005; 99284

== ENCOUNTER 2025-07-24 11:16 | Emergency (ER) | payer MEDICAID, SELFPAY ==
[2025-07-24 11:17] VITALS: BP 123/96; PULSE 102; RESP 18; TEMP 37.1; O2SAT 96; BMI 34.4
--- NOTE | 2025-07-24 11:52 | CT_ITS ---
PROCEDURE: BRAIN/HEAD WITHOUT CONTRAST 07/24/2025 REASON FOR EXAM: TRAUMA, HEADACHE TECHNIQUE: Procedure Code: CTBR Modality: CT Procedure: BRAIN/HEAD WITHOUT CONTRAST Coronal and Sagittal reconstruction series were provided. One or more dose reduction techniques were used (e.g., Automated exposure control, adjustment of the mA and/or kV according to patient size, use of iterative reconstruction technique. RADIATION DOSE SUMMARY: CTDlvol: 44.99 mGy DLP: 796.11 mGycm COMPARISON: None FINDINGS: Brain: Normal CSF Spaces: Normal Sinuses/Mastoids: Clear at visualized levels Bones: No abnormality is seen. CT/Brain/Head without Contrast IMPRESSION: NORMAL NONCONTRAST HEAD CT. Reading Location: [id number]
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
[2025-07-24 12:14] VITALS: PULSE 91; RESP 18; O2SAT 100
[2025-07-24 12:26] LABS: Hematocrit 48.3 % (40-54); Hemoglobin 16.7 g/dL (13.0-16.5); Immature Granulocytes Count 0.030 X10^3/uL (0.0-0.0); Mean Corp Hgb Conc 34.6 g/dL (32-36); Mean Corpuscular Volume 84.1 fL (80-94); Mean Platelet Vol. 12.2 fl (6.2-12.0); NRBC Flagged by Analyzer 0 % (0-5); Platelet Count 159 K/mm3 (150-450); RBC Distribution Width CV 12.9 % (11.6-14.6); RBC Distribution Width SD 39.4 fl (35.1-43.9); Red Blood Count 5.74 M/mm3 (4.6-6.2); White Blood Count 5.3 K/mm3 (4.4-11.0)
--- NOTE | 2025-07-24 12:30 | RAD_ITS ---
PROCEDURE: CHEST PA AND LATERAL 07/24/2025 REASON FOR EXAM: CHEST PAIN TECHNIQUE: Procedure Code: RADCXR Modality: DX Procedure: CHEST PA AND LATERAL COMPARISON: July 09, 2025. FINDINGS: Hardware: EKG electrodes are seen. Heart: The heart size is normal. Mediastinum: The mediastinal contour is unremarkable. Lungs: The lungs are clear. Bones: The bones are unremarkable. RAD/Chest PA and Lateral IMPRESSION: NO ACUTE FINDINGS. Reading Location: [id number]
[2025-07-24 12:54] LABS: Alcohol, Blood (Medical)-Serum < 10.1 mg/dL (<=10.0); Anion Gap 13 (5-15); BUN 15 mg/dL (4-19); BUN/Creat Ratio 15.6 RATIO (10-20); Calcium,Total 9.4 mg/dL (7.6-11.0); Carbon Dioxide 22.8 mmol/L (21.0-32.0); Chloride 103 mmol/L (98-108); Estimated Creatinine Clearance 149.74 ml/min (50-250); Glucose 94 mg/dL (70-99); Potassium 4.3 mmol/L (3.3-5.1)
[2025-07-24 12:54] LABS: Barbiturate Urine NEGATIVE (< 200 ng/mL); Benzodiazepine Urine NEGATIVE (< 200 ng/mL); PCP Urine NEGATIVE (< 25 ng/mL); THC Urine NEGATIVE (< 50 ng/mL)
[2025-07-24 13:00] VITALS: BP 129/85; PULSE 76; RESP 16; O2SAT 96
[2025-07-24 13:21] LABS: Troponin T High Sensitivity 6 ng/L (<=22)
--- NOTE | 2025-07-24 13:25 | ED.RN ---
FAMILY ONLY KNOWS PART OF THE PT HOME MEDICATION LIST, CALLED [facility] BUT THERE WAS NO ANSWER.
--- NOTE | 2025-07-24 13:39 | ED.RN ---
IV DISCONTINUED VERBAL ORDER FROM RICKY
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
--- NOTE | 2025-07-24 17:23 | ED.RN ---
Pt was declined at [facility] due to aquity and aggression
--- NOTE | 2025-07-24 19:41 | CM.ED ---
Social work 1530: SW left patient's room after updating patient that doctor agreeable with inpatient placement. Patient's grandmother, Sharon Farmer, at bedside and expressed frustration. Sharon stated not seeing the benefit in sending patient to multiple places and patient not coming back in a better state of mind. SW reminded patient that part of getting better was for patient to be honest with people who were trying to help patient; patient shook head in agreement. SW to type assessment at this time. 1620: called [facility] (ph: ) and beds available. Referral packet faxed (f: ). [facility] denied due to behavioral acuity and aggression. 1745: called [facility] (ph: ) and no beds available. Called [facility] (ph: ) and beds available. Referral packet faxed (f: ). 1850: Patient and [facility] staff, Vlad, updated by SW. SW stated [facility] would be taking over at end of shift at 2000 if no placement found by then; both stated understanding. 1945: SW called [facility] due to hearing no update. [facility] staff originally stated not receiving referral and then found patient's referral in their completed folder. [place] staff stated denial due to acuity and aggression. SW called [facility] (ph: [phone]) to handoff patient case. Spoke with [facility] and referral packet faxed (f: ). automotive glazier updated. Plan: inpatient mental health treatment, pending acceptance. Crisis to continue working on placement. Linda Bustamante, OILING MACHINE OPERATOR, [employer]
[2025-07-24 21:38] VITALS: BP 134/90; PULSE 97; RESP 18; O2SAT 93
[2025-07-24] MEDS: Divalproex (ER) 500 MG Tablet PO (21:54)
--- NOTE | 2025-07-24 22:20 | PCA ---
This psychiatric secretary spoke to Crisis, pt denied at [facility] due to not having an appropriate bed available for pt.
[2025-07-24] MEDS: Divalproex (ER) 250 MG Tablet PO (22:22)
--- NOTE | 2025-07-25 00:07 | PCA ---
Crisis called to inform that pt was declined at [facility] due to not having an appropriate bed, so Crisis referred out to [facility].
[2025-07-25 00:51] VITALS: BP 134/90; PULSE 97; RESP 18; TEMP 37.1; O2SAT 93
[2025-07-25 05:00] VITALS: BP 118/64; PULSE 64; RESP 16; O2SAT 96
--- NOTE | 2025-07-25 08:50 | ED.RN ---
0840- PT ARRIVED BACK TO [facility]. PER THE [facility], AN ERROR WAS MADE ON [facility]S END OF THINGS. THEY STATES THE ACCEPTING DOCTOR ACTUALLY DENIED THE PATIENT BUT THE ADMISSION NURSE THOUGHT HE HAD ACCEPTED. THE [facility]ING [facility] WAS INFORMED THAT ED RN CALLED REPORT TO FACILITY WITH NO ISSUE AND PATIENT HAD ALREADY LEFT AT LEAST 20 MIN AGO. THE [facility]SELING [facility] CALLED BACK AND INFORMED US HE WOULD BE RETURNING. ON ARRIVAL BACK TO ED PT AMBULATED TO THE BATHROOM AND REASSURED. PT CALM AND COOPERATIVE. SET OF VITAL SIGNS OBTAINED AND SITTER ASSIGNED AND AT BEDSIDE WITH PATIENT.
[2025-07-25 08:51] VITALS: BP 132/87; PULSE 85; RESP 16; TEMP 36.3; O2SAT 97
--- NOTE | 2025-07-25 08:52 | PCA ---
[facility] AT 0745. THEN AT 0812, THIS MAKEUP ARTIST RECEIVED A CALL FROM FARA FROM [facility] ABOUT PT ON THE WAY BACK TO [facility]. FARA RECEIVED THE CALL FROM [facility] AT 0750 ABOUT PT REJECTION NOT ACCEPTANCE. AT 0830 THIS MAKEUP ARTIST CALLED [facility] AND SPOKE TO MIKI, TO DOUBLE CHECK THEY CALLED THE [facility] TO UPDATE THEM THAT PT IS RETURNING BACK TO [facility]. MIKI SAID SHE WOULD. ALSO, SHE REFFERED PT TO [facility]
[2025-07-25] MEDS: Divalproex (ER) 500 MG Tablet PO (09:41)
[2025-07-25] MEDS: Cholecalciferol (VIT D3) 25 MCG TABLET (1,000 UNITS) PO (09:41)
[2025-07-25] MEDS: Divalproex (ER) 250 MG Tablet PO (09:42)
--- NOTE | 2025-07-25 10:37 | PCA ---
[facility] CALL[facility] AT 1038 TO UPDATE PT RIDE ETA. THEY WERE ABLE TO OUTSOURCE RIDE, SO INSTEAD OF 1430, ETA IS [phone]. PT IS GOING TO [facility] IN [place]. DR. LA N2N: [phone]
== END 2025-07-25 11:58 ==
PROVIDERS: Emergency Provider Emergency Medicine; Visit Provider Emergency Medicine
DX: S09.90XA Unspecified injury of head, initial encounter (principal); X83.8XXA Intentional self-harm by other specified means, initial encounter; R45.851 Suicidal ideations; F32.A Depression, unspecified; R07.89 Other chest pain; R44.0 Auditory hallucinations; Z91.51 Personal history of suicidal behavior
CPT/HCPCS: 70450; 71046; 80048; 80307; 82077; 84484; 85025; 93005; 99285; A4216